=== PATIENT | male | born 1940 | race Caucasian/White ===

== ENCOUNTER 2017-03-27 11:39 | Inpatient (IN) | payer OTHER, MEDICARE ==
[~2017-03-27] VITALS: Ht 175.3 cm; Wt 72.6 kg
[~2017-03-27 11:39] MED LIST: ABILIFY 2MG2 MG PO; ABILIFY 5MG5 MG PO; ADVAIR 250-501 EACH INH; ADVAIR DISKUS1 UNIT INH; ALDACTONE25 MG PO; AMIODARONE HCL100 M1 PO; AMIODARONE HCL200 MG PO; AMITIZA24 MC1 PO; AMITIZA24 MCG PO; AUGMENTIN 875875 MG PO; CARBIDOPA/LEVOD1 TA1 PO; CLOPIDOGREL75 MG PO; CORDARONE 100M100 MG PO; COREG 3.125M3.125 MG PO; DIGOXIN125 MCG PO; EFFEXOR XR150 M1 PO; ENALAPRIL20 MG PO; ENALAPRIL5 MG PO; FERROUS SULFAT325 M1 PO; FERROUS SULFAT325 M3 PO; FINASTERIDE5 MG PO; FUROSEMIDE20 M1 PO; FUROSEMIDE40 M1 PO; FUROSEMIDE40 MG PO; ISOSORBIDE MONO30 M1 PO; KEPPRA XR750 MG PO; KEPPRA750 MG PO; LASIX20 MG PO; LASIX40 MG PO; LEADER MELATONIN5 MG PO; LEVOTHROID0.025 MG PO; LEVOTHYROXIN0.088 M1 PO; LEVOTHYROXINE100 MC1 PO; LIPITOR20 M2 PO; LUMIGAN 2.5 ML2.5 M1 OPH; MELATONIN5 M5 PO; METFORMIN HCL500 M3 PO; MIRTAZAPINE15 M2 PO; NASONEX17 GM NASB; PREDNISONE 10MG10 M1 PO; PREDNISONE10 M2 PO; PRILOSEC 20MG C20 MG PO; REMERON 15MG TA15 MG PO; REMERON 7.5MG7.5 MG PO; SENNA8.6 M1 PO; SPIRONOLACTONE25 MG PO; VENTOLIN HFA18 GM INH; XALATAN2.5 ML OPH; XARELTO20 M2 PO
--- NOTE | 2017-03-27 12:00 | NUR ---
PER PT DIZZY FOR AWHILE THIS AM FELL NO LOC BUT HAVING PAIN
--- NOTE | 2017-03-27 12:21 | NUR ---
PT REPORTS FALLING AT HOME THIS MORNING, DENIES LOC OR PAIN. PLACED ON MONITOR AND CHANGED INTO GOWN. AT BEDSIDE
[2017-03-27] MEDS ORDERED: ENTRESTO 97 MG1 EACH PO (12:45)
[2017-03-27] MEDS ORDERED: ENALAPRIL MALEAT5 M1 PO (12:49)
--- NOTE | 2017-03-27 13:28 | ED MVC/FALL/TRAUMA COMPLAINT ---
History of Present Illness General Chief Complaint: Fall Stated Complaint: DIZZINESS/FALL BACK PAIN Source: patient Exam Limitations: no limitations Vital Signs & Intake/Output Vital Signs & Intake/Output Vital Signs Date Time Temp Pulse Resp B/P B/P Pulse O2 O2 Flow FiO2 Mean Ox Delivery Rate 03/278 95.5 80 20 99/56 96 Room Air 03/27 1600 96.8 78 24 90/48 03/27 1323 98.2 80 20 112/54 95 Room Air 03/27 1222 85 20 109/52 94 Room Air 03/27 1202 97.9 81 22 95/54 94 Room Air Allergies Coded Allergies: NO KNOWN ALLERGIES (NO) (02/22/15) Reconcile Medications Amiodarone HCl 100 MG TABLET 1 TAB PO DAILY HEART (Reported) Atorvastatin Calcium (Lipitor) 20 MG TABLET 1 TAB PO DAILY CHOLESTEROL ( Reported) Digoxin 125 MCG TABLET 1 TAB PO DAILY HEART (Reported) Enalapril Maleate 5 MG TABLET 1 TAB PO DAILY BP (Reported) Ferrous Sulfate 325 MG (65 MG IRON) TABLET 1 TAB PO TID SUPPLEMENT (Reported) Fluticasone/Salmeterol (Advair 250-50 Diskus) 1 EACH BLST.W.DEV 1 PUF INH PRN COPD (Reported) Furosemide 20 MG TABLET 1 TAB PO MoWeFr WATER PILL (Reported) Furosemide 40 MG TABLET 1 TAB PO TuTh WATER PILL (Reported) Isosorbide Mononitrate (Isosorbide Mononitrate ER) 30 MG TAB.ER.24H 1 TAB PO BID ANGINA (Reported) Latanoprost (Xalatan) 2.5 ML DROPS 1 GTT OPH QPM BOTH EYES (Reported) Levothyroxine Sodium 100 MCG TABLET 1 TAB PO DAILY AC THYROID (Reported) Lubiprostone (Amitiza) 24 MCG CAPSULE 1 CAP PO BID PRN GI (Reported) Melatonin 5 MG CAPSULE 1 CAP PO QPM SLEEP (Reported) Metformin HCl 500 MG TABLET 1 TAB PO DAILY DIABETES (Reported) Mirtazapine 15 MG TABLET 1 HTAB PO DAILY DEPRESSION (Reported) Mometasone Furoate (Nasonex) 17 GM SPRAY.PUMP 2 SPRAY NASB PRN ALLERGIES ( Reported) Rivaroxaban (Xarelto) 20 MG TABLET 1 TAB PO QPM BLOOD THINNER (Reported) with food Sacubitril/Valsartan (Entresto 97 MG-103 MG Tablet) 97 MG-103 MG TABLET 1 TAB PO BID HEART (Reported) Spironolactone (Aldactone) 25 MG TABLET 1 TAB PO DAILY WATER PILL (Reported) Venlafaxine HCl (Effexor XR) 150 MG CAP.ER.24H 1 CAP PO DAILY DEPRESSION ( Reported) Triage Note: PER PT DIZZY FOR AWHILE THIS AM FELL NO LOC BUT HAVING PAIN Triage Nurses Notes Reviewed? yes Onset: Abrupt Timing: single episode today Severity: severe Injuries/Fall Location: head Method of Injury: fall Loss of Consciousness: brief (seconds) HPI: Patient presents for evaluation status post fall at home. Patient states he feels he lost consciousness briefly during the event. He denies any associated traumatic injury. He has no specific complaint at this time. He denies any associated fever, cold symptoms, chest pain, shortness of breath or abdominal pain. He likewise denies neck or back pain. Past History Travel History Traveled to [place] past 21 day No Medical History Any Pertinent Medical History? 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 SISTER ([place] AT 60). SISTER (DEPRESSION). SISTER (TREMORS). Relation not specified for: *No pertinent family history Hx Contributory? No Review of Systems Review of Systems Constitutional: Reports: no symptoms. Eyes: Reports: no symptoms. Ears, Nose, Throat, Mouth: Reports: no symptoms. Respiratory: Reports: no symptoms. Cardiovascular: Reports: see HPI. Gastrointestinal/Abdominal: Reports: no symptoms. Genitourinary: Reports: no symptoms. Musculoskeletal: Reports: no symptoms. Skin: Reports: no symptoms. Neurological/Psychological: Reports: no symptoms. All Other Systems: Reviewed and Negative Physical Exam Physical Exam General Appearance: SEE BELOW Comments: Gen.: Well-nourished, well-developed, no acute respiratory distress. Head: Normocephalic, atraumatic. Eyes: Normal inspection bilaterally Ears: Normal inspection bilaterally Nose: Normal inspection Throat/mouth : Moist mucosa Neck: Supple, full range of motion, no goiter Heart: Regular rate and rhythm, no murmurs rubs or gallops Lungs: Clear to auscultation bilaterally with normal air entry Chest: Nontender Back: Normal range of motion Abdomen: Soft, nontender, nondistended, normal bowel sounds Extremities: Normal range of motion grossly, equal radial pulses, no cyanosis clubbing or edema, gross tremors of the extremities Neurologic: Cranial nerves grossly intact, dysarthric the patient otherwise answers questions appropriately. Skin: warm and dry Psychiatric: Calm, cooperative, no apparent delusions or hallucinations Core Measures ACS in differential dx? No Severe Sepsis Present: No Septic Shock Present: No Progress Differential Diagnosis: TRAUMA, DYSRHYTHMIA, DEHYDRATION, ELECTROLYTE ABNORMALITY Plan of Care: Orders Procedure Date/time Status Consistent Carbohydrate 1 03/28 B Active Misc Message 03/27 1947 Active ED Holding Orders 03/27 1947 Active Vital Signs 03/27 1947 Active Code Status 03/27 1947 Active Admit to inpatient 03/27 1946 Active URINALYSIS 03/27 1325 Complete THYROID STIMULATING HORMONE 03/27 1325 Complete TROPONIN LEVEL 03/27 1325 Complete MAGNESIUM 03/27 1325 Complete COMPREHENSIVE METABOLIC PANEL 03/27 1325 Complete CBC WITHOUT DIFFERENTIAL 03/27 132 Complete EKG 03/27 1143 Active Laboratory Tests 03/27/17 1630: Urine Color YEL, Urine Clarity CLEAR, Urine pH 6.0, Ur Specific [place] 1.020, Urine Protein NEG, Urine Ketones NEG, Urine Nitrite NEG, Urine Bilirubin NEG, Urine Urobilinogen 0.2, Ur Leukocyte Esterase SMALL H, Ur Microscopic SEDIMENT EXAMINED, Urine RBC 1-3, Urine WBC 3-5 H, Ur Epithelial Cells FEW, Urine Bacteria FEW H, Hyaline Casts 1-3 H, Urine Hemoglobin TRACE-INTACT H, Urine Glucose NEG 03/27/17 1349: Anion Gap 14, Estimated GFR 42 L, BUN/Creatinine Ratio 26.9 H, Glucose 81, Calcium 9.2, Magnesium 2.1, Total Bilirubin 0.6, AST 22, ALT 38, Alkaline Phosphatase 59, Troponin I 0.02, Total Protein 6.8, Albumin 4.3, Globulin 2.5, Albumin/Globulin Ratio 1.7, TSH 1.190, CBC w Diff NO MAN DIFF REQ, RBC 4.11 L, MCV 97.4 H, MCH 33.3 H, RDW 13.3, MPV 8.4, Gran % 79.9 H, Lymphocytes % 7.5 L, Monocytes % 12.0 H, Eosinophils % 0.2, Basophils % 0.4, Absolute Granulocytes 5.2, Absolute Lymphocytes 0.5 L, Absolute Monocytes 0.8 H, Absolute Eosinophils 0, Absolute Basophils 0, PUBS MCHC 34.2 Comments: 03/27/2017 7:49:59 PM I have updated Gabriel on his test results earlier this evening and discussed his case with the hospitalist. Departure Departure Disposition: STILL A PATIENT Condition: Stable Clinical Impression Primary Impression: RADHA (acute kidney injury) Secondary Impressions: Syncope Qualifiers: Syncope type: unspecified Qualified Code: R55 - Syncope and collapse Referrals: CHANTAL SEGAL,JOSE JUAN Yun (PCP/Family) Departure Forms: Customer Survey General Discharge Information Admission Note Spoke With: MAGGIE QUINTANA MD Documentation of Exam: Documentation of any treatments & extenuating circumstances including Concerns Regarding Discharge (functional status, medication knowledge or non-compliance, living conditions, etc.) that warrant an admission rather than observation: Patient fell as a result of a syncopal episode raising the concern of a dysrhythmia and drop in blood pressure. Acute kidney injury likely the result of poor PO intake exacerbated the situation. It is clear the patient is a high fall risk and is therefore a poor candidate for outpatient management given the likelihood of falling with subsequent injury. I feel this patient now requires hospitalization for IV fluids and monitoring of renal functions. I feel he should also have a physical therapy consultation and evaluation by a neurologist given his history of CVA and Parkinson disease. Given this patient's advanced age and multiple medical comorbidities I feel his treatment and recovery will likely be prolonged and complicated requiring a multi-day hospitalization.
--- NOTE | 2017-03-27 13:34 | NUR ---
RADIOLOGY TO BEDSIDE, PT REFUSING X-RAY TO BACK STATES "MY BACK DOESN'T HURT ME." DR. LYNCH UPDATED THAT PT IS REFUSING X-RAYS.
[2017-03-27 13:53] LABS: ABSOLUTE BASOPHIL COUNT 0 /CUMM (0.0-0.2); ABSOLUTE EOSINOPHIL COUNT 0 /CUMM (0.0-0.7); ABSOLUTE GRANULOCYTE CT 5.2 /CUMM (1.4-6.5); ABSOLUTE LYMPH COUNT 0.5 /CUMM (1.2-3.4); ABSOLUTE MONOCYTE COUNT 0.8 /CUMM (0.10-0.60); BASOPHIL % 0.4 % (0.0-2.0); EOSINOPHIL % 0.2 % (0-5); GRANULOCYTE % 79.9 % (42.2-75.2); MEAN CORPUSCULAR HGB 33.3 PG (27.0-31.0); MEAN CORPUSCULAR HGB CONC 34.2 G/DL (33.0-37.0); MEAN CORPUSCULAR VOLUME 97.4 FL (80.0-94.0); MEAN PLATELET VOLUME 8.4 FL (7.4-10.4); PLATELET COUNT 181 /CUMM (130-400); RBC DISTRIBUTION WIDTH 13.3 % (11.5-14.5); RED BLOOD CELL CT 4.11 /CUMM (4.70-6.10); WHITE BLOOD CELL COUNT 6.5 /CUMM (4.8-10.8)
--- NOTE | 2017-03-27 15:28 | NUR ---
, ANAHI [phone] PLEASE CALL WITHY UPDATES OR DISCHARGE PLAN.
--- NOTE | 2017-03-27 15:56 | NUR ---
MOVED TO [facility] URINE
--- NOTE | 2017-03-27 16:13 | NUR ---
PT HAS PARKINSONIAN TYPE TONGUE ROLLING MOVEMENTS. PT DENIES DIZZYNESS. WILL ATTEMPT ORTHOSTATICS.
--- NOTE | 2017-03-27 16:36 | NUR ---
PT VOIDED 200 [facility]CS URINE SPEC SENT.
--- NOTE | 2017-03-27 17:11 | NUR ---
03/27 CASE MGMT- PER PT AT BASELINE HE AMBULATES WITH NO DIFFICULTIES AND NO ASSISTANCE.
--- NOTE | 2017-03-27 20:06 | History & Physical ---
RAYSHAWN EVANS 03/27/17 2005: General Information and HPI MD Statement: I have seen and personally examined RASHAWN WELLINGTON and documented this H&P. The patient is a 76 year old M who presented with a patient stated chief complaint of [dizziness, fall and possible LOC]. Source of Information: patient, old records Exam Limitations: no limitations History of Present Illness: Mr Wellington is a very pleasant 76-year-old gentleman with a PMH of Parkinson's disease, HFrEF (echocardiogram 05/15/15 LVEF 25-30%, LVH, RVSP 37 mmHg), A. 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 He mentions that he was walking to get a drink of water this afternoon around 12 PM but unexpectedly he experienced some dizziness followed by a fall landing on his right elbow and knee, striking his head on the ground. He is unsure if he did suffer an episode of loss of consciousness. He denies any preceding/ associated chest pain, palpitations, new onset weakness or numbness in any extremities, urinary/bowel incontinence, headaches, choking sensation on liquids. He does report an episode last night lasting a few seconds with difficulty seeing things in his living room/disorientation that resolved on its own. At baseline he is independent with ADLs and takes all his medications on a regular basis. Allergies/Medications Allergies: Coded Allergies: NO KNOWN ALLERGIES (NO) (02/22/15) Home Med list Amiodarone HCl 100 MG TABLET 1 TAB PO DAILY HEART (Reported) Atorvastatin Calcium (Lipitor) 20 MG TABLET 1 TAB PO DAILY CHOLESTEROL ( Reported) Digoxin 125 MCG TABLET 1 TAB PO DAILY HEART (Reported) Enalapril Maleate 5 MG TABLET 1 TAB PO DAILY BP (Reported) Ferrous Sulfate 325 MG (65 MG IRON) TABLET 1 TAB PO TID SUPPLEMENT (Reported) Fluticasone/Salmeterol (Advair 250-50 Diskus) 1 EACH BLST.W.DEV 1 PUF INH PRN COPD (Reported) Furosemide 20 MG TABLET 1 TAB PO MoWeFr WATER PILL (Reported) Furosemide 40 MG TABLET 1 TAB PO TuTh WATER PILL (Reported) Isosorbide Mononitrate (Isosorbide Mononitrate ER) 30 MG TAB.ER.24H 1 TAB PO BID ANGINA (Reported) Latanoprost (Xalatan) 2.5 ML DROPS 1 GTT OPH QPM BOTH EYES (Reported) Levothyroxine Sodium 100 MCG TABLET 1 TAB PO DAILY AC THYROID (Reported) Lubiprostone (Amitiza) 24 MCG CAPSULE 1 CAP PO BID PRN GI (Reported) Melatonin 5 MG CAPSULE 1 CAP PO QPM SLEEP (Reported) Metformin HCl 500 MG TABLET 1 TAB PO DAILY DIABETES (Reported) Mirtazapine 15 MG TABLET 1 HTAB PO DAILY DEPRESSION (Reported) Mometasone Furoate (Nasonex) 17 GM SPRAY.PUMP 2 SPRAY NASB PRN ALLERGIES ( Reported) Rivaroxaban (Xarelto) 20 MG TABLET 1 TAB PO QPM BLOOD THINNER (Reported) with food Sacubitril/Valsartan (Entresto 97 MG-103 MG Tablet) 97 MG-103 MG TABLET 1 TAB PO BID HEART (Reported) Spironolactone (Aldactone) 25 MG TABLET 1 TAB PO DAILY WATER PILL (Reported) Venlafaxine HCl (Effexor XR) 150 MG CAP.ER.24H 1 CAP PO DAILY DEPRESSION ( Reported) Past History Travel History Traveled to [place] past 21 day No Medical History Neurological: CVA, Parkinson's disease, seizure, TIA, RIGHT SIDED WEAKNESS EENT: NONE Cardiovascular: AFIB, CAD, cardiomyopathy, CHF, hypertension Respiratory: asthma, COPD Gastrointestinal: GASTRITIS GI BLEED Hepatic: NONE Renal: NONE Musculoskeletal: NONE Psychiatric: bipolar disease Endocrine: diabetes, hypothyroidism Blood Disorders: anemia Cancer(s): NONE 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 SISTER ([place] AT 60). SISTER (DEPRESSION). SISTER (TREMORS). Relation not specified for: *No pertinent family history Psychosocial History Services at Home: None Functional Ability ADLs Independent: dressing, eating, toileting, bathing. Ambulation: cane (NON-COMPLIANT) IADLs Needs Assist: shopping, housework, finances, food prep, telephone, transportation, medication admin. Review of Systems Review of Systems Constitutional: Reports: see HPI. EENTM: Reports: see HPI. Cardiovascular: Reports: no symptoms. Respiratory: Reports: no symptoms. GI: Reports: no symptoms. Genitourinary: Reports: no symptoms. Musculoskeletal: Reports: see HPI. Neurological/Psychological: Reports: see HPI. Exam & Diagnostic Data Last 24 Hrs of Vital Signs/I&O Vital Signs Date Time Temp Pulse Resp B/P B/P Pulse O2 O2 Flow FiO2 Mean Ox Delivery Rate 03/27 1928 95.5 80 20 99/56 96 Room Air 03/27 1600 96.8 78 24 90/48 03/27 1323 98.2 80 20 112/54 95 Room Air 03/27 1222 85 20 109/52 94 Room Air 03/27 1202 97.9 81 22 95/54 94 Room Air Intake & Output 03/27 1600 03/27 0800 03/27 0000 Intake Total Output Total Balance Patient 160 lb Weight Physical Exam General Appearance Alert, Oriented X3, Cooperative, No Acute Distress Skin mild superficial bruising on the right elbow HEENT Mucous membranes slightly dry Cardiovascular Normal S1, Normal S2, Irregularly irregular rhythm Lungs Normal Air Movement, Diminished breath sounds in basilar region. No evidence of crackles or wheezing Abdomen Normal Bowel Sounds, Soft, No Tenderness Neurological Sensation Intact, Cranial Nerves 3-12 NL, Strength 4/5 RUE, 5/5 in all other extremities. Unable to assess dysmmetri adue to baseline tremor Extremities No Edema, Normal Pulses Vascular Pulses Symmetrical Last 24 Hrs of Labs/Ayaan: Laboratory Tests 03/27/17 1630: Urine Color YEL, Urine Clarity CLEAR, Urine pH 6.0, Ur Specific [place] 1.020, Urine Protein NEG, Urine Ketones NEG, Urine Nitrite NEG, Urine Bilirubin NEG, Urine Urobilinogen 0.2, Ur Leukocyte Esterase SMALL H, Ur Microscopic SEDIMENT EXAMINED, Urine RBC 1-3, Urine WBC 3-5 H, Ur Epithelial Cells FEW, Urine Bacteria FEW H, Hyaline Casts 1-3 H, Urine Hemoglobin TRACE-INTACT H, Urine Glucose NEG 03/27/17 1349: Anion Gap 14, Estimated GFR 42 L, BUN/Creatinine Ratio 26.9 H, Glucose 81, Calcium 9.2, Magnesium 2.1, Total Bilirubin 0.6, AST 22, ALT 38, Alkaline Phosphatase 59, Troponin I 0.02, Total Protein 6.8, Albumin 4.3, Globulin 2.5, Albumin/Globulin Ratio 1.7, TSH 1.190, CBC w Diff NO MAN DIFF REQ, RBC 4.11 L, MCV 97.4 H, MCH 33.3 H, RDW 13.3, MPV 8.4, Gran % 79.9 H, Lymphocytes % 7.5 L, Monocytes % 12.0 H, Eosinophils % 0.2, Basophils % 0.4, Absolute Granulocytes 5.2, Absolute Lymphocytes 0.5 L, Absolute Monocytes 0.8 H, Absolute Eosinophils 0, Absolute Basophils 0, PUBS MCHC 34.2 Diagnostic Data EKG Results Ventricular paced rhythm. HR 84 BPM. RI interval 164. QTC 473 Assessment/Plan Assessment: 76-year-old gentleman with a PMH of Parkinson's disease, HFrEF (echocardiogram LVEF 25-30%, LVH, RVSP 37 mmHg), A. 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 He mentions that he was walking to get a drink of water this afternoon around 12 PM but unexpectedly he experienced some dizziness followed by a fall landing on his right elbow and knee, striking his head on the ground. He is unsure if he did suffer an episode of loss of consciousness. He denies any preceding/ associated chest pain, palpitations, new onset weakness or numbness in any extremities, urinary/bowel incontinence, headaches, choking sensation on liquids. He does report an episode last night lasting a few seconds with difficulty seeing things in his living room/disorientation that resolved on its own. VS on admission: BP 95/54, HR 81, RR 20, SPO2 94% on RA, T 97.9 Pertinent labs on admission: WBC 6.5, H&H 13.7/40.0, platelets 181, sodium 141, potassium 4.7, bicarbonate 24, BUN/CR 43/1.6, glucose 81 Troponin: 0.02 UA: Small amount of leukocyte esterase, few bacteria Problem list: 1. Syncopal episode 2. Hypotension 3. RADHA 4. HFrEF (echocardiogram 05/15/15 LVEF 25-30%, LVH, RVSP 37 mmHg) 5. History of A. fib 6. History of CAD S/P angioplasty and biventricular permanent pacemaker/ defibrillator 7. History of CVA with residual deficits 8. Hypertension 9. Diabetes 10. Hypothyroidism Plan: * Admit to telemetry for continuous cardiac monitoring * Rule out ACS with repeat EKG/troponin at 9 PM and 3 AM * Cardiology consult for the a.m. discuss utility for pacemaker interrogation * Repeat echocardiogram in the AM * Dos adjust Xarelto from 20mg to 15mg based on GFR * Head CT to rule out intracranial bleed in the setting of fall and anticoagulation. Neurochecks Q2hrs * Hold Lasix and enresto in the setting of acute kidney injury and borderline hypertension * Orthostatics in the a.m. Patient received 1 L fluid resuscitation thus far. We'll be conservative in the setting of reduced EF * Follow-up digoxin level, lipid panel * Consistent carbohydrate 3, insulin sliding scale, Accu-Cheks * PT to assess the patient in the morning * AM team: Confirm dose of Entresto with cardiology * DVT prophylaxis: Xarelto * DNR/DNI * Psych consult in AM * Case management for home services to assist with medications UPDATE FROM PATIENTS SON: * Intermittent episodes of unprovoked dizziness preceeding 5 weeks * Difficulty seeing the closk the past 2 days * 1 year duration of progressive difficulty with ambulation, managing medications * Less active the past 4-5 weeks since his had surgery. ?? depression * Pradeep Ulysses Chaimsarahtamika: states that he is POA and will bring documentation in tomorrow * Contact him at As Ranked By This Provider Problem List: 1. Syncope Qualifiers Syncope type: unspecified Qualified Code: R55 - Syncope and collapse 2. Hypotension 3. RADHA (acute kidney injury) 4. HFrEF (heart failure with reduced ejection fraction) 5. Atrial fibrillation Core Measures/Miscellaneous Acute Coronary Syndrome ACS Diagnosis: No Cerebrovascular Accident CVA/TIA Diagnosis: No Congestive Heart Failure CHF Diagnosis: No Venous Thromboembolism VTE Risk Factors: Age > 40 [facility] d/t: No contraindications No VTE Pharm Prophylaxis d/t: No contraindications VTE Diagnosis: No VTE Type: NONE VTE Confirmed by (Test): NONE Severe Sepsis Severe Sepsis Present: No Septic Shock Septic Shock Present: No Miscellaneous Documentation Attending Case Discussed With: MAGGIE QUINTANA MD Primary Care Physician: JOSE JUAN CORNEJO MD Patient sees these Specialists Dr. Perez (cardiology) Level of Patient Care: Telemetry Resident Review Statement Resident Statement: examined this patient, discussed with customer experience intern, agreed with customer experience intern, discussed with family, reviewed EMR data (avail), discussed with nursing , reviewed images MAGGIE QUINTANA 03/28/17 0231: Attending MD Review Statement Attending Statement Attending MD Statement: examined this patient, discuss w/resident/PA/HEALTH OCCUPATIONS INSTRUCTOR, agreed w/resident/PA/HEALTH OCCUPATIONS INSTRUCTOR, reviewed EMR data (avail), reviewed images, amended to note Attending Assessment/Plan: cc: Dizziness, Fall, passing out PMH: COPD, HFrEF (25-30%), S/P pacer and ICD, CAD S/P multiple PCI and [place], CVA with residual right-sided deficit, A. fib, bipolar disorder, DM, HTN, ? Extrapyramidal movement disorder Patient was brought in ER after fall. Patient says that patient felt a little dizzy and then he fell down and may have passed out. He hit his right elbow and right knee along with head. Patient denies any chest pain, shortness of breath, palpitations before or after fall currently denies any headache or vision problems. Last few days patient denied any nausea, vomiting or diarrhea. The night before patient had transient disorientation, blurry vision episode for a few seconds. Patient does not report taking extra doses of Lasix, no other changes Vitals: Afebrile, HR in 80s, RR 22, blood pressure 95/54 on presentation, transiently improved in ER but then again in 90/40 received 1 L normal saline bolus improved to 122/58. On exam: A O 3, dysarthria, continuous lipsmacking movements, cooperative, no acute distress, neck supple, JVD normal, no lymphadenopathy, mucosa dry, intermittent tremors, right upper extremity and lower extremity residual weakness, no dependent edema, no obvious skin rashes or inflammation CVS: S1-S2, irregular. RS: Clear to auscultate bilaterally. Abdomen: Soft, NT, ND, bowel sounds present. Labs: CBC unremarkable, BUN 43, creatinine 1.6, otherwise BMP and LFT unremarkable, troponin 0.02 UA positive for leukocyte esterase CT head:No evidence for acute intracranial injury. Stable left-sided and septal malacia. EKG: Paced rhythm A and P Patient came to ER with what appears to be presyncopal or syncopal episode. At the given extensive cardiac history patient will need further evaluation for syncope. Patient had obviously low blood pressures at presentation. Patient appears clinically dehydrated and currently on Lasix at home. Apart from volume contraction secondary to diuresis , there might be a possibility of orthostatic hypotension related to movement disorder. Patient received 1 L normal saline bolus in ER. Given his heart failure history with seizures and reduced ejection fraction, no further IV fluids at this point as her pressure is stable. * Syncope * Transient hypotension * RADHA * History of CAD * HFrEF (25-30%), S/P pacer and ICD * History of CVA, movement disorder, DM, HTN, A. fib, COPD, ex-smoker - Admit to telemetry - Continuous telemetry monitoring - Saline lock IV - Orthostatic vitals in a.m. - Hold Lasix - Consult cardiology in a.m. - ? Interrogation of pacemaker and ICD - 2-D echo in a.m. to rule out valvular disorder - OT PT evaluation - post void scan to r/o obstructin - I and O s - Repeat labs in AM - Continue sliding scale insulin - Check decubs and level - Hold enalapril and Entreto - Continue rest of his home medication including Synthroid, spironolactone, amiodarone, digoxin, Imdur, atorvastatin, Xeralto, - DVT prophylaxis: On Xeralto
--- NOTE | 2017-03-27 20:40 | NUR ---
PT TO ROOM 189 BED 1
--- NOTE | 2017-03-27 21:18 | NUR ---
2ND TROP AND EKG DONE AWAITS HEAD CT.
--- NOTE | 2017-03-27 21:20 | NUR ---
REPEAT EKG AND TROP DONE
--- NOTE | 2017-03-27 21:40 | NUR ---
REPORT TO [facility], WILL OBTAIN VS AND PERFORM FS, THEN TRANSPORT AFTER 2200 MEDS GIVEN PHARMACY COOLECTING MEDS AT THIS TIME.
--- NOTE | 2017-03-27 21:55 | CT SCAN REPORT ---
EXAMINATION: CT HEAD WITHOUT CONTRAST CLINICAL INFORMATION: Loss of consciousness after fall. Trauma. COMPARISON: 02/22/2015. TECHNIQUE: Contiguous helical images of the brain were obtained without IV contrast. Multiplanar reconstructions were performed. DLP: 702 mGy-cm. FINDINGS: There are no pathologic extra-axial fluid collections. The lateral, third, fourth ventricles are prominent, but stable, age-appropriate and concordant with the appearance of the sulci. There is no evidence for acute intraparenchymal hemorrhage or infarct. There is neither mass nor mass effect. There is left MCA distribution encephalomalacia again identified. There is no shift of midline structures. The paranasal sinuses and mastoid air cells are clear. There are no osseous lesions. IMPRESSION: No evidence for acute intracranial injury. Stable left-sided and septal malacia.
--- NOTE | 2017-03-27 22:29 | NUR ---
MEDS GIVEN PER ORDER JUST DISPENSED BY [facility] IN PHARMACY.
[2017-03-27 22:45] VITALS: BP 94/50
--- NOTE | 2017-03-28 02:34 | Admission Certification ---
Admission Certification Certification Statement - As attending physician, I certify that at the time of - admission, based on clinical presentation, severity of - symptoms, need for further diagnostic testing and - therapeutic interventions, and risk of adverse outcomes - without in-hospital treatment, in my clinical assessment, - this patient requires an acute hospital stay for a minimum - of two nights or longer. I have also considered psychsocial - factors such as support system, advanced age, financial - issues, cognitive issues, and failed out-patient treatments, - past re-admission history, safety of patient, and lack of - compliance as applicable. Specific rationale supporting this admission is: Syncope, fall, RADHA
[2017-03-28 03:25] LABS: ABSOLUTE BASOPHIL COUNT 0 /CUMM (0.0-0.2); ABSOLUTE EOSINOPHIL COUNT 0 /CUMM (0.0-0.7); ABSOLUTE GRANULOCYTE CT 3.9 /CUMM (1.4-6.5); ABSOLUTE LYMPH COUNT 0.7 /CUMM (1.2-3.4); ABSOLUTE MONOCYTE COUNT 0.6 /CUMM (0.10-0.60); BASOPHIL % 0.5 % (0.0-2.0); EOSINOPHIL % 0.7 % (0-5); GRANULOCYTE % 74.5 % (42.2-75.2); HEMATOCRIT 38.5 % (42-52); MEAN CORPUSCULAR HGB 33.3 PG (27.0-31.0); MEAN CORPUSCULAR HGB CONC 33.5 G/DL (33.0-37.0); MEAN CORPUSCULAR VOLUME 99.4 FL (80.0-94.0); MEAN PLATELET VOLUME 8.5 FL (7.4-10.4); PLATELET COUNT 164 /CUMM (130-400); RBC DISTRIBUTION WIDTH 13.4 % (11.5-14.5); RED BLOOD CELL CT 3.87 /CUMM (4.70-6.10); WHITE BLOOD CELL COUNT 5.3 /CUMM (4.8-10.8)
--- NOTE | 2017-03-28 07:05 | PN- Housestaff ---
See Addendum Subjective Follow-up For: Single episode Hypotension Acute kidney injury HFrEF (echocardiogram 05/15/15 LVEF 25-30%, LVH, RVSP 37 mmHg) Complaints: no complaints Tele-Events Since Last Visit: Single paced, bundle-branch block, 79-84 bpm Subjective: Interval history: There are no acute events overnight. This morning Mr. Watkins mentions that he was unable to sleep through the night due to multiple distractions. He denies any dizziness, headaches, worsening in his vision, chest pain, palpitations, shortness of breath, fevers or chills. Review of Systems Constitutional: Reports: see HPI. EENTM: Reports: see HPI. Cardiovascular: Reports: no symptoms. Respiratory: Reports: no symptoms. Gastrointestinal: Reports: no symptoms. Musculoskeletal: Reports: no symptoms. Objective Last 24 Hrs of Vital Signs/I&O Vital Signs Date Time Temp Pulse Resp B/P B/P Pulse O2 O2 Flow FiO2 Mean Ox Delivery Rate 03/28 0819 97.6 81 18 98/62 94 Room Air 03/27 2245 97.6 78 18 94/50 96 Room Air 03/27 2230 97.0 81 20 122/58 03/27 2149 97.0 81 20 122/58 95 Room Air 03/27 1928 95.5 80 20 99/56 96 Room Air 03/27 1600 96.8 78 24 90/48 03/27 1323 98.2 80 20 112/54 95 Room Air 03/27 1222 85 20 109/52 94 Room Air 03/27 1202 97.9 81 22 95/54 94 Room Air Intake & Output 03/28 1600 03/28 0800 03/28 0000 Intake Total 250 Output Total 350 420 Balance -100 -420 Intake, IV 0 Intake, Oral 250 Number 0 Bowel Movements Output, Urine 350 420 Patient 160 lb Weight Weight Reported by Patient Measurement Method Physical Exam General Appearance: Alert, Cooperative, No Acute Distress HEENT: Mucous Membr. moist/pink Cardiovascular: Normal S1, Normal S2, Irregularly irregular HR Lungs: Normal Air Movement, Inspiratory stridor in the basilar regions Abdomen: Normal Bowel Sounds, Soft, No Tenderness Extremities: No Edema, Normal Pulses Current Medications: Current Medications Sig/Hamida Start time Last Medication Dose Route Stop Time Status Admin Acetaminophen 650 MG Q6P PRN 03/27 2045 AC PO Amiodarone HCl 100 MG DAILY 03/28 1000 AC PO Atorvastatin Calcium 20 MG DAILY 03/28 1000 AC PO Budesonide/ 2 PUF BID 03/27 2200 AC 03/27 Formoterol Fumarate INH 2230 Digoxin 0.125 MG 1700 03/28 1700 AC PO Ferrous Sulfate 325 MG TID 03/27 220 AC 03/27 PO 2230 Insulin Aspart 0 TIDAC 03/28 0800 AC SC Isosorbide 30 MG BID 03/27 2200 AC 03/27 Mononitrate PO 2230 Latanoprost 1 GTT QPM 03/27 2200 AC 03/27 OPH 2352 Levothyroxine Sodium 0.1 MG DAILY AC 03/28 0700 AC 03/28 PO 0627 Lisinopril 10 MG DAILY 03/28 1000 AC PO Melatonin 5 MG AT BEDTIME 03/27 2200 AC 03/27 PO 2230 Mirtazapine 7.5 MG DAILY 03/28 1000 AC PO Oxycodone/ 1 TAB Q6P PRN 03/27 2045 AC Acetaminophen PO Oxycodone/ 2 TAB Q6P PRN 03/27 2045 AC Acetaminophen PO Rivaroxaban 15 MG AT BEDTIME 03/27 2200 AC 03/27 PO 2230 Sodium Chloride 1,000 ML BOLUS ONE 03/27 1615 DC 03/27 IV 03/27 1714 1625 Venlafaxine HCl 150 MG DAILY 03/28 1000 AC PO Last 24 Hrs of Lab/Ayaan Results Last 24 Hrs of Labs/Mics: Laboratory Tests 03/28/17 0305: Troponin I 0.02 03/28/17 0305: Anion Gap 9, Estimated GFR 59 L, BUN/Creatinine Ratio 26.7 H, Phosphorus 3.1, Magnesium 2.0, Triglycerides 100, Cholesterol 134, LDL Cholesterol, Calc 79, HDL Cholesterol 35 L, Cholesterol/HDL Ratio 4, CBC w Diff NO MAN DIFF REQ, RBC 3.87 L, MCV 99.4 H, MCH 33.3 H, RDW 13.4, MPV 8.5, Gran % 74.5, Lymphocytes % 12.5 L, Monocytes % 11.8 H, Eosinophils % 0.7, Basophils % 0.5, Absolute Granulocytes 3.9, Absolute Lymphocytes 0.7 L, Absolute Monocytes 0.6, Absolute Eosinophils 0, Absolute Basophils 0, PUBS MCHC 33.5 05/19/17 2120: Troponin I 0.02, Digoxin 1.2 03/27/17 1630: Urine Color YEL, Urine Clarity CLEAR, Urine pH 6.0, Ur Specific [place] 1.020, Urine Protein NEG, Urine Ketones NEG, Urine Nitrite NEG, Urine Bilirubin NEG, Urine Urobilinogen 0.2, Ur Leukocyte Esterase SMALL H, Ur Microscopic SEDIMENT EXAMINED, Urine RBC 1-3, Urine WBC 3-5 H, Ur Epithelial Cells FEW, Urine Bacteria FEW H, Hyaline Casts 1-3 H, Urine Hemoglobin TRACE-INTACT H, Urine Glucose NEG 03/27/17 1349: Anion Gap 14, Estimated GFR 42 L, BUN/Creatinine Ratio 26.9 H, Glucose 81, Calcium 9.2, Magnesium 2.1, Total Bilirubin 0.6, AST 22, ALT 38, Alkaline Phosphatase 59, Troponin I 0.02, Total Protein 6.8, Albumin 4.3, Globulin 2.5, Albumin/Globulin Ratio 1.7, TSH 1.190, CBC w Diff NO MAN DIFF REQ, RBC 4.11 L, MCV 97.4 H, MCH 33.3 H, RDW 13.3, MPV 8.4, Gran % 79.9 H, Lymphocytes % 7.5 L, Monocytes % 12.0 H, Eosinophils % 0.2, Basophils % 0.4, Absolute Granulocytes 5.2, Absolute Lymphocytes 0.5 L, Absolute Monocytes 0.8 H, Absolute Eosinophils 0, Absolute Basophils 0, PUBS MCHC 34.2 Assessment/Plan Assessment: 76-year-old gentleman with a PMH of Parkinson's disease, HFrEF (echocardiogram LVEF 25-30%, LVH, RVSP 37 mmHg), A. 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 He mentions that he was walking to get a drink of water this afternoon around 12 PM but unexpectedly he experienced some dizziness followed by a fall landing on his right elbow and knee, striking his head on the ground. He is unsure if he did suffer an episode of loss of consciousness. He denies any preceding/ associated chest pain, palpitations, new onset weakness or numbness in any extremities, urinary/bowel incontinence, headaches, choking sensation on liquids. He does report an episode last night lasting a few seconds with difficulty seeing things in his living room/disorientation that resolved on its own. Problem list: 1. Syncopal episode 2. Hypotension 3. RADHA 4. HFrEF (echocardiogram 05/15/15 LVEF 25-30%, LVH, RVSP 37 mmHg) 5. History of A. fib 6. History of CAD S/P angioplasty and biventricular permanent pacemaker/ defibrillator 7. History of CVA with residual deficits 8. Hypertension 9. Diabetes 10. Hypothyroidism Plan: 1. Syncopal episode * Negative orthostatics * Cardiology follow-up this morning for possible interrogation of defibrillator * PT evavluation to assess mobility at home 2. Hypotension * Patient's blood pressure has been on the lower side with no evidence of tachycardia 3. RADHA * Improvement in renal function: BUN/CR 32/1.2 down from 43/1.6 after 1 L normal saline * Will encourage PO fluid intake * Repeat renal function tomorrow morning * Continue to hold furosemide and Lasix and restart at lower dose while monitoring for worsening hypertension 4. HFrEF (echocardiogram 05/15/15 LVEF 25-30%, LVH, RVSP 37 mmHg) * Repeat echocardiogram this morning * Cardiology input appreciated * Digoxin level I.2. Continue with current dose of 0.125 mg 5. History of A. fib * Telemetry overnight single paced rhythm, bundle-branch block. HR 79-84 bpm * Patient was previously on Xarelto 20 mg at bedtime which was decreased to 15 mg in the setting of acute kidney injury. Readjust dose back to previous once renal function is at baseline * Continue amiodarone 100 mg daily 6. History of CAD S/P angioplasty and biventricular permanent pacemaker/ defibrillator * Serial troponins have been negative * Follow-up with cardiology for possible pacer interrogation 7. History of CVA with residual deficits * PT and OT evaluation 8. Hypertension * Holding enalapril 9. Diabetes * Consistent carbohydrate 3, insulin sliding scale, Accu-Cheks 10. Hypothyroidism * Continue with levothyroxine 100mcg DVT prophylaxis: Xarelto CODE STATUS: DNR/DNI Problem List: 1. Syncope 2. RADHA (acute kidney injury) 3. Hypotension 4. HFrEF (heart failure with reduced ejection fraction) 5. Atrial fibrillation Pain Ratin Pain Location: NA Pain Goal: Pain 4 or less Pain Plan: Pain pathway Tomorrow's Labs & Rationales: BEP: Trending renal function DVT/Prophylaxis: pharmacological
[2017-03-28 08:19] VITALS: BP 98/62
--- NOTE | 2017-03-28 14:31 | Cons- Cardiology ---
General Information and HPI Consulting Request Date of Consult: 03/28/17 Requested By: MAGGIE QUINTANA MD Reason for Consult: Syncopal episode. Source of Information: patient, family, old records Exam Limitations: physical impairment History of Present Illness: Mr. Gabriel Watkins is a 74-year-old white male with a complex past medical history that includes long-standing former tobacco use, COPD, chronic anemia, recurrent GI bleeding in the past without a definite etiology found, dyslipidemia, diabetes mellitus, previous TIAs/strokes, seizure disorder, chronic atrial fibrillation on anticoagulation, ventricular tachycardia on antiarrhythmic therapy (amiodarone), s/p biventricular pacemaker defibrillator implantation, coronary artery disease s/p percutaneous interventions with angioplasty, s/p myocardial infarctions with known severe ischemic cardiomyopathy (EF 25%) with recurrent acute on chronic systolic heart failure who presented to the ED following a syncopal episode at home. Mr. Watkins denied any prodromal symptoms, but did admit to having episodes of "dizziness" for the past 5 weeks or so and 2 nights prior to admission and 10 second episode of confusion. He has had a good appetite and drinks plenty of fluids and did not have any significant orthostatic changes noted in the ED. He also denies any recent chest discomfort, palpitations, shortness of breath, orthopnea, paroxysmal nocturnal dyspnea, lower extremity edema, etc. He also denies any recent discharges from his defibrillator. Allergies/Medications Allergies: Coded Allergies: NO KNOWN ALLERGIES (NO) (02/22/15) Home Med List: Amiodarone HCl 100 MG TABLET 1 TAB PO DAILY HEART (Reported) Atorvastatin Calcium (Lipitor) 20 MG TABLET 1 TAB PO DAILY CHOLESTEROL ( Reported) Digoxin 125 MCG TABLET 1 TAB PO DAILY HEART (Reported) Enalapril Maleate 5 MG TABLET 1 TAB PO DAILY BP (Reported) Ferrous Sulfate 325 MG (65 MG IRON) TABLET 1 TAB PO TID SUPPLEMENT (Reported) Fluticasone/Salmeterol (Advair 250-50 Diskus) 1 EACH BLST.W.DEV 1 PUF INH PRN COPD (Reported) Furosemide 20 MG TABLET 1 TAB PO MoWeFr WATER PILL (Reported) Furosemide 40 MG TABLET 1 TAB PO TuTh WATER PILL (Reported) Isosorbide Mononitrate (Isosorbide Mononitrate ER) 30 MG TAB.ER.24H 1 TAB PO BID ANGINA (Reported) Latanoprost (Xalatan) 2.5 ML DROPS 1 GTT OPH QPM BOTH EYES (Reported) Levothyroxine Sodium 100 MCG TABLET 1 TAB PO DAILY AC THYROID (Reported) Lubiprostone (Amitiza) 24 MCG CAPSULE 1 CAP PO BID PRN GI (Reported) Melatonin 5 MG CAPSULE 1 CAP PO QPM SLEEP (Reported) Metformin HCl 500 MG TABLET 1 TAB PO DAILY DIABETES (Reported) Mirtazapine 15 MG TABLET 1 HTAB PO DAILY DEPRESSION (Reported) Mometasone Furoate (Nasonex) 17 GM SPRAY.PUMP 2 SPRAY NASB PRN ALLERGIES ( Reported) Rivaroxaban (Xarelto) 20 MG TABLET 1 TAB PO QPM BLOOD THINNER (Reported) with food Sacubitril/Valsartan (Entresto 97 MG-103 MG Tablet) 97 MG-103 MG TABLET 1 TAB PO BID HEART (Reported) Spironolactone (Aldactone) 25 MG TABLET 1 TAB PO DAILY WATER PILL (Reported) Venlafaxine HCl (Effexor XR) 150 MG CAP.ER.24H 1 CAP PO DAILY DEPRESSION ( Reported) Current Medications: Current Medications Sig/Hamida Start time Last Medication Dose Route Stop Time Status Admin Acetaminophen 650 MG Q6P PRN 03/27 2045 AC PO Amiodarone HCl 100 MG DAILY 03/28 1000 AC 03/28 PO 1251 Atorvastatin Calcium 20 MG DAILY 03/28 1000 AC 03/28 PO 1251 Budesonide/ 2 PUF BID 03/27 2200 AC 03/28 Formoterol Fumarate INH 1252 Digoxin 0.125 MG 1700 03/28 1700 AC PO Ferrous Sulfate 325 MG TID 03/27 2200 AC 03/28 PO 1251 Insulin Aspart 0 TIDAC 03/28 0800 AC SC Isosorbide 30 MG BID 03/27 2200 AC 03/28 Mononitrate PO 1251 Latanoprost 1 GTT QPM 03/27 220 AC 03/27 OPH 2352 Levothyroxine Sodium 0.1 MG DAILY AC 03/28 0700 AC 03/28 PO 0627 Lisinopril 10 MG DAILY 03/28 1000 CAN PO Melatonin 5 MG AT BEDTIME 03/270 AC 03/27 PO 2230 Mirtazapine 7.5 MG DAILY 03/28 1000 AC 03/28 PO 1252 Oxycodone/ 1 TAB Q6P PRN 03/27 2045 AC Acetaminophen PO Oxycodone/ 2 TAB Q6P PRN 03/27 2045 AC Acetaminophen PO Rivaroxaban 15 MG AT BEDTIME 03/27 220 AC 03/27 PO 2230 Sodium Chloride 1,000 ML BOLUS ONE 03/27 1615 DC 03/27 IV 03/27 1714 1625 Venlafaxine HCl 150 MG DAILY 03/28 1000 AC 03/28 PO 1252 Review of Systems Review of Systems: A 14 point system review was obtained and was noncontributory, other than as above. 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 SISTER ([place] AT 60). SISTER (DEPRESSION). SISTER (TREMORS). Relation not specified for: *No pertinent family history Psychosocial History Where Do You Live? Home Services at Home: None Smoking Status: Former Smoker Functional Ability ADLs Independent: dressing, eating, toileting, bathing. Ambulation: cane (NON-COMPLIANT) IADLs Needs Assist: shopping, housework, finances, food prep, telephone, transportation, medication admin. Exam & Diagnostic Data Vital Signs and I&O Vital Signs Date Time Temp Pulse Resp B/P B/P Pulse O2 O2 Flow FiO2 Mean Ox Delivery Rate 03/28 1251 81 102/68 03/28 1251 81 102/68 03/28 0819 97.6 81 18 98/62 94 Room Air 03/27 2245 97.6 78 18 94/50 96 Room Air 03/270 97.0 81 20 122/58 03/279 97.0 81 20 122/58 95 Room Air 03/27 1928 95.5 80 20 99/56 96 Room Air 03/27 1600 96.8 78 24 90/48 Intake & Output 03/28 0000 03/27 0803/27 0000 Intake Total 250 Output Total 350 420 Balance -100 -420 Intake, IV 0 Intake, Oral 250 Number 0 Bowel Movements Output, Urine 350 420 Patient 160 lb 160 lb Weight Weight Reported by Patient Measurement Method Physical Exam: Well-developed, well-nourished elderly male in no acute distress with nasal oxygen in place. Vital signs: See above. HEENT: Normocephalic, atraumatic, EOMI, slightly dry mucous membranes. Neck: No JVD, no bruits. Lungs: Clear to auscultation bilaterally. Heart: S1, S2 with no murmur, gallop, or rub appreciated. PMI laterally displaced and diffuse. Abdomen: Soft, nontender, positive bowel sounds. Extremities: No edema. Labs/Ayaan Results: Laboratory Tests 03/28 03/28 03/27 0305 0305 2120 Chemistry Sodium (137 - 145 mmol/L) 139 Potassium (3.5 - 5.1 mmol/L) 4.6 Chloride (98 - 107 mmol/L) 104 Carbon Dioxide (22 - 30 mmol/L) 26 Anion Gap (5 - 16) 9 BUN (9 - 20 mg/dL) 32 H Creatinine (0.7 - 1.2 mg/dL) 1.2 Estimated GFR (>60 ml/min) 59 L BUN/Creatinine Ratio (7 - 25 %) 26.7 H Phosphorus (2.5 - 4.5 mg/dL) 3.1 Magnesium (1.6 - 2.3 mg/dL) 2.0 Troponin I (<0.11 ng/ml) 0.02 0.02 Triglycerides (<150 mg/dL) 100 Cholesterol (< 200 MG/DL) 134 LDL Cholesterol, Calc (65 - 129 mg/dL) 79 HDL Cholesterol (40 - 60 mg/dL) 35 L Cholesterol/HDL Ratio (0.00 - 4.88 %) 4 Hematology CBC w Diff NO MAN DIFF REQ WBC (4.8 - 10.8 /CUMM) 5.3 RBC (4.70 - 6.10 /CUMM) 3.87 L Hgb (14.0 - 18.0 G/DL) 12.9 L Hct (42 - 52 %) 38.5 L MCV (80.0 - 94.0 FL) 99.4 H MCH (27.0 - 31.0 PG) 33.3 H RDW (11.5 - 14.5 %) 13.4 Plt Count (130 - 400 /CUMM) 164 MPV (7.4 - 10.4 FL) 8.5 Gran % (42.2 - 75.2 %) 74.5 Lymphocytes % (20.5 - 51.1 %) 12.5 L Monocytes % (1.7 - 9.3 %) 11.8 H Eosinophils % (0 - 5 %) 0.7 Basophils % (0.0 - 2.0 %) 0.5 Absolute Granulocytes (1.4 - 6.5 /CUMM) 3.9 Absolute Lymphocytes (1.2 - 3.4 /CUMM) 0.7 L Absolute Monocytes (0.10 - 0.60 /CUMM) 0.6 Absolute Eosinophils (0.0 - 0.7 /CUMM) 0 Absolute Basophils (0.0 - 0.2 /CUMM) 0 PUBS MCHC (33.0 - 37.0 G/DL) 33.5 Toxicology Digoxin (0.8 - 2.0 ng/mL) 1.2 03/27 03/27 1630 1349 Chemistry Sodium (137 - 145 mmol/L) 141 Potassium (3.5 - 5.1 mmol/L) 4.7 Chloride (98 - 107 mmol/L) 103 Carbon Dioxide (22 - 30 mmol/L) 24 Anion Gap (5 - 16) 14 BUN (9 - 20 mg/dL) 43 H Creatinine (0.7 - 1.2 mg/dL) 1.6 H Estimated GFR (>60 ml/min) 42 L BUN/Creatinine Ratio (7 - 25 %) 26.9 H Glucose (65 - 99 mg/dL) 81 Calcium (8.4 - 10.2 mg/dL) 9.2 Magnesium (1.6 - 2.3 mg/dL) 2.1 Total Bilirubin (0.2 - 1.3 mg/dL) 0.6 AST (17 - 59 U/L) 22 ALT (21 - 72 U/L) 38 Alkaline Phosphatase (< 127 U/L) 59 Troponin I (<0.11 ng/ml) 0.02 Total Protein (6.3 - 8.2 g/dL) 6.8 Albumin (3.5 - 5.0 g/dL) 4.3 Globulin (1.9 - 4.2 gm/dL) 2.5 Albumin/Globulin Ratio (1.1 - 2.2 %) 1.7 TSH (0.270 - 4.200 uIU/mL) 1.190 Hematology CBC w Diff NO MAN DIFF REQ WBC (4.8 - 10.8 /CUMM) 6.5 RBC (4.70 - 6.10 /CUMM) 4.11 L Hgb (14.0 - 18.0 G/DL) 13.7 L Hct (42 - 52 %) 40.0 L MCV (80.0 - 94.0 FL) 97.4 H MCH (27.0 - 31.0 PG) 33.3 H RDW (11.5 - 14.5 %) 13.3 Plt Count (130 - 400 /CUMM) 181 MPV (7.4 - 10.4 FL) 8.4 Gran % (42.2 - 75.2 %) 79.9 H Lymphocytes % (20.5 - 51.1 %) 7.5 L Monocytes % (1.7 - 9.3 %) 12.0 H Eosinophils % (0 - 5 %) 0.2 Basophils % (0.0 - 2.0 %) 0.4 Absolute Granulocytes (1.4 - 6.5 /CUMM) 5.2 Absolute Lymphocytes (1.2 - 3.4 /CUMM) 0.5 L Absolute Monocytes (0.10 - 0.60 /CUMM) 0.8 H Absolute Eosinophils (0.0 - 0.7 /CUMM) 0 Absolute Basophils (0.0 - 0.2 /CUMM) 0 PUBS MCHC (33.0 - 37.0 G/DL) 34.2 Urines Urine Color (YEL,AMB,STR) YEL Urine Clarity (CLEAR) CLEAR Urine pH (5.0 - 8.0) 6.0 Ur Specific [place] (1.001 - 1.035) 1.020 Urine Protein (NEG,<30 MG/DL) NEG Urine Ketones (NEG) NEG Urine Nitrite (NEG) NEG Urine Bilirubin (NEG) NEG Urine Urobilinogen (0.1 - 1.0 EU/dl) 0.2 Ur Leukocyte Esterase (NEG) SMALL H Ur Microscopic SEDIMENT EXAMINED Urine RBC (0 - 5 /HPF) 1-3 Urine WBC (0 - 2 /HPF) 3-5 H Ur Epithelial Cells (NONE,FEW) FEW Urine Bacteria (NEG/NONE) FEW H Hyaline Casts (0/LPF) 1-3 H Urine Hemoglobin (NEG) TRACE-INTACT H Urine Glucose (N MG/DL) NEG Diagnostic Data EKG Results (03/28/2017): Properly functioning electronic pacemaker, ventricular paced rhythm with underlying atrial fibrillation. No significant change when compared to previous tracing (03/27/2017). Other Results Head CT (03/27/2017):No evidence for acute intracranial injury. Stable left- sided and septal malacia. Assessment/Plan Assessment/Plan [id number] w/ hx fmr tobacco use, COPD, chronic anemia, recurrent GI bleeding, HLD, DM, TIAs/strokes, seizure disorder, chronic AF on anticoagulation, VT on antiarrhythmic therapy (amiodarone), s/p BiV pacemaker/defibrillator, CAD, s/p PCI's w/ PTCA, s/p HI's w/ severe ischemic CM and recurrent acute on chronic systolic HF who presented to the ED following a syncopal episode at home w/o prodromal symptoms, orthostasis, defibrillator shock, etc. Naturally, the major concern is that he may have had a dysrhythmia that self terminated or terminated with pacing, but lasted long enough for a syncopal episode to have occurred. A call has been placed to [employer] for device interrogation which will guide further management. Although he states that he eats and drinks well, his BUN/creatinine were elevated and his blood pressure has been borderline at times, suggesting a possible component of intravascular depletion and would therefore encourage by mouth intake and hold his diuretic for the short-term. Recommendations: * Continue on telemetry and follow-up troponins. * Call [email or web address] car sales representative for device interrogation ([phone]). * Continue to hold diuretics, isosorbide mononitrate, etc., given borderline blood pressure for the short-term. * Note that he is not taking enalapril. This was discontinued 36 hours before the Entresto (sacubitril/valsartan) was initiated, but unfortunately remains on his medication list. * Continue on Entresto (if possible), Amiodarone, Atorvastatin, Digoxin, Xarelto. * Echocardiogram to reassess his left ventricular function, estimated PA pressure, etc. * DVT prophylaxis being addressed by his chronic anticoagulation with Xarelto ( rivaroxaban). Further recommendations will follow, Thank you. Consult Acknowledgment - Thank you for your consult request.
[2017-03-28 16:12] VITALS: BP 108/62
--- NOTE | 2017-03-28 16:24 | Event Note ---
Event Note Event Note: Spoke with Chandrakant, from [employer], after interrogation of the biventricular pacemaker/defibrillator. The last time he had 7 beats of V tach was on 02/15/17. Since then, he has had no events. Strips are in the chart.
--- NOTE | 2017-03-28 22:16 | NUR ---
ENTRESTO ORDERED. PHARMACY STATES THEY DO NOT HAVE ORDERED DOSE. PT STATES HE TAKES IT AT HOME AND WILL TELL TO BRING IT IN TOMM. MD FRANCIS AWARE.
[2017-03-28 23:09] VITALS: BP 94/48
--- NOTE | 2017-03-29 05:13 | NUR ---
APPX 0153, PT HAD 4 BEAT RUN. RN CHECKED ON PT WHO STATED HE WAS FEELING WELL. PT APPEARED COMFORTABLE AND NOT IN DISTRESS. MD NOTIFIED. WILL CONTINUE TO MONITOR
--- NOTE | 2017-03-29 08:55 | PN- Att Addend ---
Attending Addendum Attending Brief Note Patient feels okay overall. Just feels tired. On exam his blood pressure is on the low side at 94/50, pulse rate is 78, breathing at 16-18, Afebrile, awake, alert oriented, lungs are clear to auscultation, heart is S1- S2 distant, abdomen is soft and I couldn't appreciate any edema. This is is a 76-year-old male with multiple medical problems including COPD, diabetes, A. fib on Xarelto, history of GI bleed, CAD and severe cardiomyopathy with chronic systolic heart failure with a biventricular pacer and AICD who iw here with an episode of syncope. At this point because of his hypotension and the worry of over diuresis we have minimize the medication list to Entresto, amiodarone, Xarelto and a statin. I stopped the Imdur and any other medications that could contributing to hypotension. As far as we can tell the device didn't fire for any ventricular arrhythmias but will need to follow-up closely.
--- NOTE | 2017-03-29 10:21 | PN- Housestaff ---
Subjective Follow-up For: Single episode Hypotension Acute kidney injury HFrEF (echocardiogram 05/15/15 LVEF 25-30%, LVH, RVSP 37 mmHg) Tele-Events Since Last Visit: Single pastes, heartrate 79-89, 4 beat around 2 AM Subjective: Afebrile, blood pressure running in the lower border of normal, saturating well on room air. No acute overnight events reported. Patient reported feeling dizzy when he stood from bed to sit in the chair, he added that this happens frequently recently at home, where when he stands up he will feel dizzy. Review of Systems Constitutional: Reports: see HPI. Objective Last 24 Hrs of Vital Signs/I&O Vital Signs Date Time Temp Pulse Resp B/P B/P Pulse O2 O2 Flow FiO2 Mean Ox Delivery Rate 03/29 1729 82 106/64 03/29 1620 97.9 82 18 106/64 94 Room Air 03/29 1059 97.9 82 18 112/60 92 Room Air 03/29 0925 83 94/48 03/29 0000 Room Air 03/28 2309 97.8 83 20 94/48 95 Room Air 03/28 2123 82 120/64 Intake & Output 03/29 1600 03/29 0800 03/29 0000 Intake Total 480 220 240 Output Total 400 900 650 Balance 80 -680 -410 Intake, Oral 480 220 240 Output, Urine 400 900 650 Physical Exam General Appearance: Alert, Oriented X3, Cooperative, No Acute Distress HEENT: Atraumatic, PERRLA, EOMI, Mucous Membr. moist/pink Cardiovascular: Regular Rate, Normal S1, Normal S2, No Murmurs Lungs: Clear to Auscultation, Normal Air Movement Abdomen: Soft, No Tenderness Extremities: No Clubbing, No Cyanosis, No Edema Current Medications: Current Medications Sig/Hamida Start time Last Medication Dose Route Stop Time Status Admin Acetaminophen 650 MG Q6P PRN 03/27 2045 AC PO Amiodarone HCl 100 MG DAILY 03/28 1000 AC 03/29 PO 09 Atorvastatin Calcium 20 MG DAILY 03/28 1000 AC 03/29 PO 09 Budesonide/ 2 PUF BID 03/27 2200 AC 03/29 Formoterol Fumarate INH 0927 Digoxin 0.125 MG 1700 03/28 1700 AC 03/29 PO 172 Ferrous Sulfate 325 MG TID 03/27 2200 AC 03/29 PO 1729 Insulin Aspart 0 TIDAC 03/28 0800 AC SC Isosorbide 30 MG BID 03/27 2200 DC 03/28 Mononitrate PO 2122 Latanoprost 1 GTT QPM 03/27 2200 AC 03/28 OPH 2116 Levothyroxine Sodium 0.1 MG DAILY AC 03/28 0700 AC 03/29 PO 0613 Melatonin 5 MG AT BEDTIME 03/27 2200 AC 03/28 PO 2116 Mirtazapine 7.5 MG DAILY 03/28 1000 AC 03/29 PO 0926 Non-Formulary See Dose BID 03/28 2200 UNV Medication Insts (1) ANY Oxycodone/ 1 TAB Q6P PRN 03/27 2045 AC Acetaminophen PO Oxycodone/ 2 TAB Q6P PRN 03/27 2045 AC Acetaminophen PO Rivaroxaban 15 MG AT BEDTIME 03/27 2200 AC 03/28 PO 2116 Venlafaxine HCl 150 MG DAILY 03/28 1000 AC 03/29 PO 0925 Dose Instructions: (1)Non-Formulary Medication: 1 po bid Last 24 Hrs of Lab/Ayaan Results Last 24 Hrs of Labs/Mics: Laboratory Tests 03/29/17 0555: Anion Gap 10, Estimated GFR > 60, BUN/Creatinine Ratio 22.2 Assessment/Plan Assessment: 76-year-old gentleman with a PMH of Parkinson's disease, HFrEF (echocardiogram LVEF 25-30%, LVH, RVSP 37 mmHg), A. 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 He mentions that he was walking to get a drink of water this afternoon around 12 PM but unexpectedly he experienced some dizziness followed by a fall landing on his right elbow and knee, striking his head on the ground. He is unsure if he did suffer an episode of loss of consciousness. He denies any preceding/ associated chest pain, palpitations, new onset weakness or numbness in any extremities, urinary/bowel incontinence, headaches, choking sensation on liquids. He does report an episode last night lasting a few seconds with difficulty seeing things in his living room/disorientation that resolved on its own. Problem list: 1. Syncopal episode 2. Hypotension 3. RADHA 4. HFrEF (echocardiogram 05/15/15 LVEF 25-30%, LVH, RVSP 37 mmHg) 5. History of A. fib 6. History of CAD S/P angioplasty and biventricular permanent pacemaker/ defibrillator 7. History of CVA with residual deficits 8. Hypertension 9. Diabetes 10. Hypothyroidism Plan: 1. Syncopal episode * Negative orthostatics * defibrillator interrogation shows no evidence of evidence of malignant/ potentially malignant dysrhythmias * PT evavluation to assess mobility at home 2. Hypotension * Patient's blood pressure has been on the lower side with no evidence of tachycardia 3. RADHA * Today creatinine is 0.9 and BUN * Will encourage PO fluid intake * Repeat renal function tomorrow morning 4. HFrEF (echocardiogram 05/15/15 LVEF 25-30%, LVH, RVSP 37 mmHg) * Echocardiogram pending * Cardiology input appreciated * Digoxin level I.2. Continue with current dose of 0.125 mg 5. History of A. fib * Telemetry overnight single paced rhythm, bundle-branch block. HR 79-84 bpm * Patient was previously on Xarelto 20 mg at bedtime which was decreased to 15 mg in the setting of acute kidney injury. We will readjust back to 20 mg at bedtime * Continue amiodarone 100 mg daily 6. History of CAD S/P angioplasty and biventricular permanent pacemaker/ defibrillator * Serial troponins have been negative 7. History of CVA with residual deficits * PT and OT evaluation 8. Hypertension * Holding enalapril 9. Diabetes * Consistent carbohydrate 3, insulin sliding scale, Accu-Cheks 10. Hypothyroidism * Continue with levothyroxine 100mcg DVT prophylaxis: Xarelto CODE STATUS: DNR/DNI Problem List: 1. Syncope Pain Ratin Pain Location: na Pain Goal: Remain pain free Pain Plan: See A&P Tomorrow's Labs & Rationales: none
[2017-03-29 10:59] VITALS: BP 112/60
[2017-03-29 16:20] VITALS: BP 106/64
--- NOTE | 2017-03-29 17:27 | PN- Cardiology ---
Subjective Subjective: States that he is feeling improved. Denies any chest discomfort, palpitations, shortness of breath, or lower extremity edema. Also denies any lightheadedness, dizziness, Objective Vital Signs and I&Os Vital Signs Date Time Temp Pulse Resp B/P B/P Pulse O2 O2 Flow FiO2 Mean Ox Delivery Rate 03/29 1620 97.9 82 18 106/64 94 Room Air 03/29 1059 97.9 82 18 112/60 92 Room Air 03/29 0925 83 94/48 03/29 0000 Room Air 03/28 2309 97.8 83 20 94/48 95 Room Air 03/28 2123 82 120/64 Intake & Output 03/29 1600 03/29 0800 03/29 0000 03/28 1600 03/28 0800 03/28 0000 Intake Total 480 220 428 736 3215 Output Total 400 900 222 339 7415 420 Balance 80 -680 -410 -75 -120 -420 Intake, IV 0 Intake, Oral 480 220 605 339 7797 Number 1 Bowel Movements Output, Urine 400 900 116 027 3405 420 Patient 160 lb Weight Weight Reported by Patient Measurement Method Physical Exam: Well-developed, well-nourished elderly male in no acute distress with nasal oxygen in place. Vital signs: See above. HEENT: Normocephalic, atraumatic, EOMI, slightly dry mucous membranes. Neck: No JVD, no bruits. Lungs: Clear to auscultation bilaterally. Heart: S1, S2 with no murmur, gallop, or rub appreciated. PMI laterally displaced and diffuse. Abdomen: Soft, nontender, positive bowel sounds. Extremities: No edema. Current Medications: Current Medications Sig/Hamida Start time Last Medication Dose Route Stop Time Status Admin Acetaminophen 650 MG Q6P PRN 03/27 2045 AC PO Amiodarone HCl 100 MG DAILY 03/28 1000 AC 03/29 PO 09 Atorvastatin Calcium 20 MG DAILY 03/28 1000 AC 03/29 PO 09 Budesonide/ 2 PUF BID 03/27 2200 AC 03/29 Formoterol Fumarate INH 0927 Digoxin 0.125 MG 1700 03/28 1700 AC 03/28 PO 1633 Ferrous Sulfate 325 MG TID 03/27 2200 AC 03/29 PO 09 Insulin Aspart 0 TIDAC 03/28 08 AC SC Isosorbide 30 MG BID 03/27 2200 DC 03/28 Mononitrate PO 2122 Latanoprost 1 GTT QPM 03/27 2200 AC 03/28 OPH 2116 Levothyroxine Sodium 0.1 MG DAILY AC 03/28 0700 AC 03/29 PO 612 Melatonin 5 MG AT BEDTIME 03/27 2200 AC 03/28 PO 2116 Mirtazapine 7.5 MG DAILY 03/28 1000 AC 03/29 PO 09 Non-Formulary See Dose BID 03/28 2200 UNV Medication Insts (1) ANY Oxycodone/ 1 TAB Q6P PRN 03/27 2045 AC Acetaminophen PO Oxycodone/ 2 TAB Q6P PRN 03/27 2045 AC Acetaminophen PO Rivaroxaban 15 MG AT BEDTIME 03/27 2200 AC 03/28 PO 2116 Venlafaxine HCl 150 MG DAILY 03/28 1000 AC 03/29 PO 09 Dose Instructions: (1)Non-Formulary Medication: 1 po bid Results Last 48 Hrs of Labs/Mics: Laboratory Tests 03/29/17 0555: Anion Gap 10, Estimated GFR > 60, BUN/Creatinine Ratio 22.2 03/28/17304: Troponin I 0.02 03/28/17304: Anion Gap 9, Estimated GFR 59 L, BUN/Creatinine Ratio 26.7 H, Phosphorus 3.1, Magnesium 2.0, Triglycerides 100, Cholesterol 134, LDL Cholesterol, Calc 79, HDL Cholesterol 35 L, Cholesterol/HDL Ratio 4, CBC w Diff NO MAN DIFF REQ, RBC 3.87 L, MCV 99.4 H, MCH 33.3 H, RDW 13.4, MPV 8.5, Gran % 74.5, Lymphocytes % 12.5 L, Monocytes % 11.8 H, Eosinophils % 0.7, Basophils % 0.5, Absolute Granulocytes 3.9, Absolute Lymphocytes 0.7 L, Absolute Monocytes 0.6, Absolute Eosinophils 0, Absolute Basophils 0, PUBS MCHC 33.5 03/27/172119: Troponin I 0.02, Digoxin 1.2 Assessment/Plan Assessment/Plan [id number] w/ hx fmr tobacco use, COPD, chronic anemia, recurrent GI bleeding, HLD, DM, TIAs/strokes, seizure disorder, chronic AF on anticoagulation, VT on antiarrhythmic therapy (amiodarone), s/p BiV pacemaker/defibrillator, CAD, s/p PCI's w/ PTCA, s/p DC's w/ severe ischemic CM and recurrent acute on chronic systolic HF who presented to the ED following a syncopal episode at home w/o prodromal symptoms, orthostasis, defibrillator shock, etc. Naturally, the major concern wass that he may have had a dysrhythmia that self terminated or terminated with pacing, but lasted long enough for a syncopal episode to have occurred. Fortunately, his device was interrogated by the [id number] member service representative and is functioning properly without any recent evidence of malignant/potentially malignant dysrhythmias. He is clinically improved and his renal function has also improved significantly , suggesting a component of intravascular depletion and would therefore encourage by mouth intake and continue to hold his diuretic for the short-term. Recommendations: * Continue on telemetry and reassess the need for further diuretic therapy in the morning. * Follow-up laboratory work. * DVT prophylaxis. Continue telemetry? Yes
[2017-03-29 23:00] VITALS: BP 102/66
--- NOTE | 2017-03-30 08:45 | PN- Housestaff ---
RAYSHAWN EVANS 03/30/17 0845: Subjective Follow-up For: Dizziness Hypotension Acute kidney injury HFrEF (echocardiogram 05/15/15 LVEF 25-30%, LVH, RVSP 37 mmHg) Complaints: no complaints Tele-Events Since Last Visit: Single pacing: HR 79-82 BPM. Subjective: Interval history: There are no acute events overnight. This morning Mr. Watkins states that he feels much better and denies any recurrence of dizziness but has not had a chance to get up and walk. He denies any chest pain, palpitations, nausea, abdominal pain, fevers or chills. Review of Systems Constitutional: Reports: see HPI. EENTM: Reports: no symptoms. Cardiovascular: Reports: see HPI. Respiratory: Reports: no symptoms. Gastrointestinal: Reports: no symptoms. Musculoskeletal: Reports: see HPI. Neurological/Psychological: Reports: see HPI. Objective Last 24 Hrs of Vital Signs/I&O Vital Signs Date Time Temp Pulse Resp B/P B/P Pulse O2 O2 Flow FiO2 Mean Ox Delivery Rate 03/29 2300 97.4 80 18 102/66 95 Room Air 03/29 1729 82 106/64 03/29 1620 97.9 82 18 106/64 94 Room Air 03/29 1059 97.9 82 18 112/60 92 Room Air 03/29 0925 83 94/48 Intake & Output 03/30 1600 03/30 0800 03/30 0000 Intake Total 200 100 Output Total 450 1000 Balance -250 -900 Intake, IV 0 0 Intake, Oral 200 100 Number 0 0 Bowel Movements Output, Urine 450 1000 Physical Exam General Appearance: Alert, Cooperative, No Acute Distress Skin: No Significant Lesion HEENT: Mucous Membr. moist/pink Cardiovascular: Regular Rate, Normal S1, Normal S2 Lungs: Clear to Auscultation, Normal Air Movement Abdomen: Normal Bowel Sounds, Soft, No Tenderness Extremities: No Edema, Normal Pulses Vascular: Pulses Symmetrical Current Medications: Current Medications Sig/Hamida Start time Last Medication Dose Route Stop Time Status Admin Acetaminophen 650 MG Q6P PRN 03/27 2045 AC PO Amiodarone HCl 100 MG DAILY 03/28 1000 AC 03/29 PO 0925 Atorvastatin Calcium 20 MG DAILY 03/28 1000 AC 03/29 PO 09 Budesonide/ 2 PUF BID 03/27 2200 AC 03/29 Formoterol Fumarate INH 2202 Digoxin 0.125 MG 1700 03/28 1700 AC 03/29 PO 1729 Ferrous Sulfate 325 MG TID 03/27 2200 AC 03/29 PO 220 Insulin Aspart 0 TIDAC 03/28 0800 AC SC Latanoprost 1 GTT QPM 03/27 2200 AC 03/29 OPH 220 Levothyroxine Sodium 0.1 MG DAILY AC 03/28 0700 AC 03/30 PO 0741 Melatonin 5 MG AT BEDTIME 03/27 2200 AC 03/29 PO 220 Mirtazapine 7.5 MG DAILY 03/28 1000 AC 03/29 PO 0926 Non-Formulary See Dose BID 03/28 2200 UNV Medication Insts (1) ANY Oxycodone/ 1 TAB Q6P PRN 03/27 2045 AC Acetaminophen PO Oxycodone/ 2 TAB Q6P PRN 03/27 2045 AC Acetaminophen PO Rivaroxaban 20 MG AT BEDTIME 03/29 2200 AC 03/29 PO 2202 Rivaroxaban 15 MG AT BEDTIME 03/27 2200 DC 03/28 PO 211 Venlafaxine HCl 150 MG DAILY 03/28 1000 AC 03/29 PO 0925 Dose Instructions: (1)Non-Formulary Medication: 1 po bid Assessment/Plan Assessment: 76-year-old gentleman with a PMH of Parkinson's disease, HFrEF (echocardiogram LVEF 25-30%, LVH, RVSP 37 mmHg), A. 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 Patient endorsed preceding dizziness and an episode of blurred vision and difficulty seeing the clock the night before. Problem list: 1. Syncopal episode 2. Hypotension 3. RADHA 4. HFrEF (echocardiogram 05/15/15 LVEF 25-30%, LVH, RVSP 37 mmHg) 5. History of A. fib 6. History of CAD S/P angioplasty and biventricular permanent pacemaker/ defibrillator 7. History of CVA with residual deficits 8. Hypertension 9. Diabetes 10. Hypothyroidism Plan: 1. Syncopal episode * We'll repeat orthostatics today. PT to assess for recurrence of dizziness and discharge recommendations * Interrogation of biventricular pacemaker/defibrillator on 03/28/2017 did not reveal any events except a 7 beat run of V. tach on 02/15/2017 2. Hypotension * Patient's blood pressure has been on the lower side with no evidence of tachycardia * Continue with digoxin 0.125 mg * Additionally, we held furosemide and entresto * After discussion with cardiology, will restart entresto today. Assess over the next 24hrs and restart furosemide likely at 20 mg daily 3. RADHA * Resolved at this time. Continue to encourage by mouth fluid intake 4. HFrEF (echocardiogram 05/15/15 LVEF 25-30%, LVH, RVSP 37 mmHg) * Echocardiogram pending * Digoxin level on 03/27/2017 was 1.2 WNL. Continue current dose of digoxin 0.125 mg 5. History of A. fib * Telemetry overnight single paced rhythm, HR 79-82 bpm * Renal function is back to baseline and thus his relatives back to 20 mg daily * Continue amiodarone 100 mg daily 6. History of CVA with residual deficits * PT and OT evaluation 7. Hypertension * Renal function is back to baseline * In the setting of persistent borderline low blood pressure continue to hold enalapril 5mg, furosemide 20 mg (this Thursday/Thursday/Thursday), furosemide 40 mg (Thursday/), spironolactone 25 mg daily, sacubitril/valsaratan (97/103). We'll discuss with cardiology on recommendations of restarting his medications and follow-up on echocardiogram results 9. Diabetes * Accu-Cheks over the past 24 hours: 67 through 139 * Patient has not required any insulin during the hospital stay. We'll continue Accu-Cheks and if hypoglycemic encourage PO intake * Consistent carbohydrate 3 10. Hypothyroidism * Continue with levothyroxine 100mcg DVT prophylaxis: Xarelto CODE STATUS: DNR/DNI Problem List: 1. Syncope 2. Hypotension 3. RADHA (acute kidney injury) 4. HFrEF (heart failure with reduced ejection fraction) 5. Atrial fibrillation 6. Diabetes Pain Ratin Pain Location: NA Pain Goal: Pain 4 or less Pain Plan: NOne required Tomorrow's Labs & Rationales: None DVT/Prophylaxis: pharmacological LELO SEGAL,TED 03/30/17 1409: Attending MD Review Statement Attending Statement Attending MD Statement: examined this patient, discuss w/resident/PA/HOSPITALITY COORDINATOR, agreed w/resident/PA/HOSPITALITY COORDINATOR, reviewed EMR data (avail), discussed with nursing, discussed with case mgmt, reviewed images, amended to note Attending Assessment/Plan: Patient seen and examined, currently feels better. Denies any further dizziness. No acute telemetry events. Vital Signs Date Time Temp Pulse Resp B/P B/P Pulse O2 O2 Flow FiO2 Mean Ox Delivery Rate 03/30 1035 80 102/66 03/29 2300 97.4 80 18 102/ 95 Room Air 03/29 1729 82 106/64 03/29 1620 97.9 82 18 94 Room Air on exam; aox3, nad. cv; s1,s2, irregular. resp; clear abd; soft, nt, bs+ ext; no edema no labs. A/P: 76-year-old male with multiple medical problems including COPD, diabetes, A. fib on Xarelto, history of GI bleed, CAD and severe cardiomyopathy with chronic systolic heart failure with a biventricular pacer and AICD who is admitted with syncope. Patient had mild acute kidney injury likely secondary to dehydration from overdiuresis. His diuretic regimen has been held for now. His repeat echocardiogram continues to show very low ejection fraction with cardiomyopathy. His blood pressure is running at the lower range, please discuss with cardiology about his antihypertensive regimen in the setting of severe cardiomyopathy. He has been resumed back on his amiodarone as well as dig. DVT px: Xarelto. pt eval.
--- NOTE | 2017-03-30 10:20 | Discharge Summary ---
Visit Information Visit Dates Admission Date: 03/27/17 Discharge Date: 03/31/2017 Hospital Course Course Attending Physician: TED LIND MD Primary Care Physician: JOSE JUAN CORNEJO MD Hospital Course: 76-year-old gentleman with a PMH of Parkinson's disease, HFrEF (echocardiogram LVEF 25-30%, LVH, RVSP 37 mmHg), A. 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 Patient endorsed preceding dizziness and an episode of blurred vision and difficulty seeing the clock the night before. VS on admission: BP 95/54, HR 81, RR 20, SPO2 94% on RA, T 97.9 Pertinent labs on admission: WBC 6.5, H&H 13.7/40.0, platelets 181, sodium 141, potassium 4.7, bicarbonate 24, BUN/CR 43/1.6, glucose 81 Troponin: 0.02 UA: Small amount of leukocyte esterase, few bacteria Problem list: 1. Syncopal episode 2. Hypotension 3. RADHA 4. HFrEF (echocardiogram 05/15/15 LVEF 25-30%, LVH, RVSP 37 mmHg) 5. History of A. fib 6. History of CAD S/P angioplasty and biventricular permanent pacemaker/ defibrillator 7. History of CVA with residual deficits 8. Hypertension 9. Diabetes 10. Hypothyroidism Hospital course: 1. Syncopal episode * On review of the patient's medication list it was noted that this may have been the likely contributing factor to his symptoms. Orthostatics on admission were negative. Noticeable borderline low blood pressure for which we made the following adjustments in medications: * Enalapril was present on his medication list which was previously discontinued. We held furosemide by the hospital course * Interrogation of biventricular pacemaker/defibrillator on 03/28/2017 did not reveal any events except a 7 beat run of V. tach on 02/15/2017 * Improvement in symptoms over the four-day hospital course with ability to ambulate independently at discharge 2. Hypotension * Systolic blood pressures remained in the 100s, negative orthostatics * We started him on entresto which she tolerated well. Repeat BEP with no evidence of worsening renal function * Continued with digoxin 0.125 mg, amiodarone 3. RADHA * Baseline creatinine of 1.0. On admission BUN/CR 43/1.6. Gentle hydration with an S 1 L and encouraged fluid intake. Renal function returned to baseline 4. HFrEF (echocardiogram 05/15/15 LVEF 25-30%, LVH, RVSP 37 mmHg) * Echocardiogram (03/29/17): Moderate to severe left ventricular dilatation. Mild concentric left ventricular hypertrophy. Abnormal septal motion consistent with pacemaker activation. Markedly hypokinetic septum. Moderately to severely reduced global left ventricular systolic function. Moderately to severely abnormal left ventricular ejection fraction estimated at 25-30%. Right ventricular systolic pressure estimated to be elevated at 52 mmHg. * Continued current dose of digoxin 0.125 mg and entresto 90/103 PO BID. Per recommendations from Dr Perez, spironolactone and Imdur were discontinued in the setting of borderline low blood pressure. Continued with furosemide 40 mg daily * Rx provided to fernando repeat BEP done on wednesday 04/04 and CC results to Dr Perez 5. History of A. fib * Telemetry with well-maintained heart rate throughout the hospital course * Continued amiodarone 100 mg daily 6. History of CVA with residual deficits * PT and OT assessment during the hospital stay. Patient was discharged home with services and rolling walker as needed 7. Diabetes * Accu-Cheks over the past 24 hours: 111 through 131 * Patient has not required any insulin during the hospital stay. We'll continue Accu-Cheks and if hypoglycemic encourage PO intake * Consistent carbohydrate 3 8. Hypothyroidism * Continue with levothyroxine 100mcg Allergies: Coded Allergies: NO KNOWN ALLERGIES (NO) (02/22/15) Disposition Summary Disposition Principal Diagnosis: Syncope, hypertension Additional Diagnosis: Acute kidney injury HFrEF Discharge Disposition: home health services Discharge Instructions General Discharge Information Code Status: Do Not Resucitate/Intubat Patient's Diet: Heart healthy diet Patient's Activity: As tolerated with a rolling walker Follow-Up Instructions/Appts: Please take all medications as directed. Please follow-up with your PCP within one week after discharge. Please follow-up with your steel rule die maker within 1 week after discharge Medications at Discharge Discharge Medications: Stop taking the following medications: Enalapril Maleate (Enalapril Maleate) 5 MG TABLET ORAL DAILY Furosemide (Lasix) 40 MG TABLET ORAL DAILY Days = 30 Spironolactone (Aldactone) 25 MG TABLET ORAL DAILY Isosorbide Mononitrate (Isosorbide Mononitrate ER) 30 MG TAB.ER.24H ORAL DAILY Furosemide (Lasix) 20 MG TABLET ORAL 5 PM Continue taking these medications: Digoxin (Digoxin) 125 MCG TABLET 1 Tablet ORAL DAILY Comments: Last Taken: 03/30/17 Time: 5:30 PM Venlafaxine HCl (Effexor XR) 150 MG CAP.ER.24H 1 Capsule ORAL DAILY Comments: Last Taken: 03/31/17 Time: 10 AM Atorvastatin Calcium (Lipitor) 20 MG TABLET 1 Tablet ORAL DAILY Comments: Last Taken: 03/31/17 Time: 10 AM Rivaroxaban (Xarelto) 20 MG TABLET 1 Tablet ORAL Every night Instructions: with food Comments: Last Taken: 03/30/17 Time: 9:30 PM Metformin HCl (Metformin HCl) 500 MG TABLET 1 Tablet ORAL DAILY Comments: NOT GIVEN IN THE HOSPITAL Lubiprostone (Amitiza) 24 MCG CAPSULE 1 Capsule ORAL TWICE DAILY as needed for GI Comments: NOT GIVEN IN HOSPITAL Ferrous Sulfate (Ferrous Sulfate) 325 MG (65 MG IRON) TABLET 1 Tablet ORAL THREE TIMES DAILY Comments: Last Taken: 03/31/17 Time: 10 AM Melatonin (Melatonin) 5 MG CAPSULE 1 Capsule ORAL Every night Comments: Last Taken: 03/30/17 Time: 9:30 PM Levothyroxine Sodium (Levothyroxine Sodium) 100 MCG TABLET 1 Tablet ORAL DAILY BEFORE BREAKFAST Comments: Last Taken: 03/31/17 Time: 6 AM Amiodarone HCl (Amiodarone HCl) 100 MG TABLET 1 Tablet ORAL DAILY Comments: Last Taken: 03/31/17 Time: 10 AM Mirtazapine (Mirtazapine) 15 MG TABLET 1 Half Tablet ORAL DAILY Comments: Last Taken: 03/31/17 Time: 10 AM Latanoprost (Xalatan) 2.5 ML DROPS 1 Drop In the eye Every night Comments: Last Taken: 03/30/17 Time: 9:30 PM Fluticasone/Salmeterol (Advair 250-50 Diskus) 1 EACH BLST.W.DEV 1 Puff Inhale through mouth as needed for COPD Comments: Last Taken: 03/31/17 Time: 10 AM SYMBICORT GIVEN IN HOSPITAL Mometasone Furoate (Nasonex) 17 GM SPRAY.PUMP 2 [place] Both sides of nose as needed for ALLERGIES Comments: NOT GIVEN IN HOSPITAL Sacubitril/Valsartan (Entresto 97 MG-103 MG Tablet) 97 MG-103 MG TABLET 1 Tablet ORAL TWICE DAILY Qty = 170 Comments: Last Taken: 03/31/17 Time: 10 AM Furosemide (Lasix) 40 MG TABLET 1 Tablet ORAL 7:30AM Days = 30 Comments: NOT GIVEN IN HOSPITAL Copies To: BOSSMAN SEGAL,RY Young; CHANTAL SEGAL,JOSE JUAN Yun
--- NOTE | 2017-03-30 11:08 | ECHOCARDIOGRAM REPORT ---
RASHAWN WELLINGTON Age: 76 : 1940 Gender: M Exam Date: 03/29/2017 10:26 Exam Location: 1 [address] Ht (in): 69 Wt (lb): 160 BSA: 1.88 BP: 94 / 48 Ordering Physician: RAYSHAWN EVANS MD Referring Physician: Ulysses Perez MD Technologist: Emily Yoder [facility] Room Number: 189-01 Indications: PRESYNCOPE/SYNCOPE Rhythm: Paced Technical Quality: Fair FINDINGS Left Ventricle Moderate to severe left ventricular dilatation. Mild concentric left ventricular hypertrophy. Abnormal septal motion consistent with pacemaker activation. Markedly hypokinetic septum. Moderately to severely reduced global left ventricular systolic function. Moderately to severely abnormal left ventricular ejection fraction estimated at 25-30%. Right Ventricle Right ventricle at upper limits of normal. Catheter/pacemaker wire in the right ventricular cavity. Right Atrium Mild right atrial dilatation. Catheter/pacemaker wire in the right atrial cavity. Elevated right atrial pressure. Left Atrium Severe left atrial dilatation. Mitral Valve Mitral valve thickened. Mild to moderate mitral regurgitation. Aortic Valve Trileaflet aortic valve. Mild aortic sclerosis. No aortic stenosis. Trace aortic regurgitation. Tricuspid Valve Structurally normal tricuspid valve. Trace to mild tricuspid regurgitation. Moderate luminary hypertension. Right ventricular systolic pressure estimated to be elevated at 52 mmHg. Pulmonic Valve Pulmonic valve not well visualized, grossly normal. Mild pulmonic regurgitation. Pericardium No pericardial effusion. Great Vessels Mildly dilated aortic root. Mildly dilated inferior vena cava. CONCLUSIONS Moderate to severe left ventricular dilatation. Mild concentric left ventricular hypertrophy. Abnormal septal motion consistent with pacemaker activation. Markedly hypokinetic septum. Moderately to severely reduced global left ventricular systolic function. Moderately to severely abnormal left ventricular ejection fraction estimated at 25-30%. Right ventricle at upper limits of normal. Catheter/pacemaker wire in the right ventricular cavity. Mild right atrial dilatation. Catheter/pacemaker wire in the right atrial cavity. Severe left atrial dilatation. Mild to moderate mitral regurgitation. Trace aortic regurgitation. Trace to mild tricuspid regurgitation. Moderate luminary hypertension. Mild pulmonic regurgitation. Mildly dilated aortic root. Mildly dilated inferior vena cava. Ulysses Perez M.D. (Electronically Signed) Final Date: 30 Mar 2017 11:07 MEASUREMENTS (Male / Female) Normal Values 2D ECHO LV Diastolic Diameter PLAX 6.4 cm 4.2 - 5.9 / 3.9 - 5.3 cm LV Systolic Diameter PLAX 5.8 cm 2.1 - 4.0 cm LV Fractional Shortening PLAX 9.4 % 25 - 46 % LV Ejection Fraction 2D Teich 20.1 % IVS Diastolic Thickness 1.2 cm LVPW Diastolic Thickness 1.2 cm LV Relative Wall Thickness 0.4 RV Internal Dim ED PLAX 3.3 cm 1.9 - 3.8 cm LVOT Diameter 2.2 cm Aortic Root Diameter 3.9 cm LA Systolic Diameter LX 5.6 cm 3.0 - 4.0 / 2.7 - 3.8 cm LA Volume 187.0 cm 18 - 58 / 22 - 52 cm Ascending Aorta Diameter 3.4 cm DOPPLER AV Peak Velocity 112.0 cm/s AV Peak Gradient 5.0 mmHg AV Mean Velocity 76.8 cm/s AV Mean Gradient 3.0 mmHg AV Velocity Time Integral 19.4 cm LVOT Peak Velocity 85.0 cm/s LVOT Peak Gradient 2.9 mmHg LVOT Mean Velocity 56.1 cm/s LVOT Mean Gradient 1.0 mmHg LVOT Velocity Time Integral 14.7 cm LVOT Stroke Volume 55.9 cm AV Area Cont Eq vti 2.9 cm AV Area Cont Eq pk 2.9 cm MV Peak Velocity 120.0 cm/s MV Peak Gradient 5.8 mmHg MV Mean Velocity 55.4 cm/s MV Mean Gradient 2.0 mmHg Mitral E Point Velocity 79.5 cm/s MV PHT Velocity 126.0 cm/s MV Deceleration Garrett 399.0 cm/s MV Pressure Half Time 94.7 ms MV Area PHT 2.3 cm MV Deceleration Time 95.0 ms TR Peak Velocity 324.0 cm/s TR Peak Gradient 42.0 mmHg Right Atrial Pressure 10.0 mmHg Pulmonary Artery Systolic Pressu 52.0 mmHg Right Ventricular Systolic Press 52.0 mmHg PV Peak Velocity 75.2 cm/s PV Peak Gradient 2.3 mmHg PV Mean Velocity 55.4 cm/s PV Mean Gradient 1.0 mmHg PV Velocity Time Integral 13.7 cm LV E' Lateral Velocity 6.6 cm/s Mitral E to LV E' Lateral Ratio 12.1 LV E' Septal Velocity 6.2 cm/s Mitral E to LV E' Septal Ratio 12.7
[2017-03-30 16:15] VITALS: BP 108/60
--- NOTE | 2017-03-30 17:27 | Patient Discharge Instructions ---
Discharge Instructions General Discharge Information You were seen/treated for: Syncope/dizziness Low blood pressure Watch for these problems: Recurrence of dizziness Worsening blurry vision Chest pain or shortness of breath Special Instructions: Please take all medications as directed. Please follow-up with your PCP within 1-2 weeks after discharge. Please follow-up with her pipe supervisor within 1 weeks after discharge. Have the following blood work done and sent to Dr. Ana Ayoub Recommended Diet: Heart Healthy Activity Activity Self Limited: Yes Acute Coronary Syndrome Inclusion Criteria At DC or during hospital stay patient has or had the following: ACS DIAGNOSIS No Discharge Core Measures Meds if any: Prescribed or Continued at Discharge Meds if any: NOT Prescribed or Continued at Discharge Congestive Heart Failure Inclusion Criteria At DC or during hospital stay patient has or had the following: CHF DIAGNOSIS No Discharge Core Measures Meds if any: Prescribed or Continued at Discharge Meds if any: NOT Prescribed or Continued at Discharge Cerebrovascular accident Inclusion Criteria At DC or during hospital stay patient has or had the following: CVA/TIA Diagnosis No Discharge Core Measures Meds if any: Prescribed or Continued at Discharge Meds if any: NOT Prescribed or Continued at Discharge Venous thromboembolism Inclusion Criteria VTE Diagnosis No VTE Type NONE VTE Confirmed by (Test) NONE Discharge Core Measures - Per Current guidelines, there needs to be overlap - treatment for the first 5 days of Warfarin therapy. - If discharged on Warfarin prior to 5 days of - overlap therapy, the patient will need to be - assessed for post discharge needs including - *Post discharge parental anticoagulation - *Warfarin and/or parental anticoagulation education - *Follow up date to check INR post discharge At least 5 days overlap therapy as Inpatient No Meds if any: Prescribed or Continued at Discharge Note: Overlap Therapy is Warfarin and Anticoagulant Meds if any: NOT Prescribed or Continued at Discharge
--- NOTE | 2017-03-30 17:57 | PN- Cardiology ---
Subjective Subjective: No complaints. Denies any lightheadedness, dizziness, chest discomfort, palpitations, shortness of breath, etc. Objective Vital Signs and I&Os Vital Signs Date Time Temp Pulse Resp B/P B/P Pulse O2 O2 Flow FiO2 Mean Ox Delivery Rate 03/30 1740 70 108/60 03/30 1615 98.1 70 16 108/60 96 Room Air 03/30 1035 80 102/66 03/29 2300 97.4 80 18 102/66 95 Room Air Intake & Output 03/30 1600 03/30 0800 03/30 0000 03/29 1600 03/29 0803/29 0000 Intake Total 480 200 100 480 220 240 Output Total 714 831 2485 400 900 650 Balance 80 -250 -900 80 -680 -410 Intake, IV 0 0 Intake, Oral 480 200 100 480 220 240 Number 0 0 Bowel Movements Output, Urine 338 300 6274 400 900 650 Physical Exam: Well-developed, well-nourished elderly male in no acute distress with nasal oxygen in place. Vital signs: See above. HEENT: Normocephalic, atraumatic, EOMI, slightly dry mucous membranes. Neck: No JVD, no bruits. Lungs: Clear to auscultation bilaterally. Heart: S1, S2 with no murmur, gallop, or rub appreciated. PMI laterally displaced and diffuse. Abdomen: Soft, nontender, positive bowel sounds. Extremities: No edema. Current Medications: Current Medications Sig/Hamida Start time Last Medication Dose Route Stop Time Status Admin Acetaminophen 650 MG Q6P PRN 03/27 2045 AC PO Amiodarone HCl 100 MG DAILY 03/28 1000 AC 03/30 PO 1035 Atorvastatin Calcium 20 MG DAILY 03/28 1000 AC 03/30 PO 1035 Budesonide/ 2 PUF BID 03/27 2200 AC 03/30 Formoterol Fumarate INH 1034 Digoxin 0.125 MG 1700 03/28 1700 AC 03/30 PO 1740 Ferrous Sulfate 325 MG TID 03/27 2200 AC 03/30 PO 174 Insulin Aspart 0 TIDAC 03/28 0800 AC SC Latanoprost 1 GTT QPM 03/27 2200 AC 03/29 OPH 220 Levothyroxine Sodium 0.1 MG DAILY AC 03/28 0700 AC 03/30 PO 0741 Melatonin 5 MG AT BEDTIME 03/27 2200 AC 03/29 PO 220 Mirtazapine 7.5 MG DAILY 03/28 1000 AC 03/30 PO 1035 Non-Formulary See Dose BID 03/28 2200 DC Medication Insts (1) ANY Oxycodone/ 1 TAB Q6P PRN 03/27 2045 AC Acetaminophen PO Oxycodone/ 2 TAB Q6P PRN 03/27 2045 AC Acetaminophen PO Rivaroxaban 20 MG AT BEDTIME 03/29 2200 AC 03/29 PO 2202 Rivaroxaban 15 MG AT BEDTIME 03/27 2200 DC 03/28 PO 2116 Venlafaxine HCl 150 MG DAILY 03/31 1000 AC PO Venlafaxine HCl 150 MG DAILY 03/28 1000 DC 03/30 PO 1035 Dose Instructions: (1)Non-Formulary Medication: 1 po bid Results Last 48 Hrs of Labs/Mics: Laboratory Tests 03/29/17 0555: Anion Gap 10, Estimated GFR > 60, BUN/Creatinine Ratio 22.2 Recent Imaging Studies: Echocardiogram (03/29/2017): Moderate to severe left ventricular dilatation. Mild concentric left ventricular hypertrophy. Abnormal septal motion consistent with pacemaker activation. Markedly hypokinetic septum. Moderately to severely reduced global left ventricular systolic function. Moderately to severely abnormal left ventricular ejection fraction estimated at 25-30%. Right ventricle at upper limits of normal. Catheter/pacemaker wire in the right ventricular cavity. Mild right atrial dilatation. Catheter/pacemaker wire in the right atrial cavity. Severe left atrial dilatation. Mild to moderate mitral regurgitation. Trace aortic regurgitation. Trace to mild tricuspid regurgitation. Moderate luminary hypertension. Mild pulmonic regurgitation. Mildly dilated aortic root. Mildly dilated inferior vena cava. Assessment/Plan Assessment/Plan [id number] w/ hx fmr tobacco use, COPD, chronic anemia, recurrent GI bleeding, HLD, DM, TIAs/strokes, seizure disorder, chronic AF on anticoagulation, VT on antiarrhythmic therapy (amiodarone), s/p BiV pacemaker/defibrillator, CAD, s/p PCI's w/ PTCA, s/p AK's w/ severe ischemic CM and recurrent acute on chronic systolic HF who presented to the ED following a syncopal episode at home w/o prodromal symptoms, orthostasis, defibrillator shock, etc. Naturally, the major concern wass that he may have had a dysrhythmia that self terminated or terminated with pacing, but lasted long enough for a syncopal episode to have occurred. Fortunately, his device was interrogated by the [employer] eligibility services representative and is functioning properly without any recent evidence of malignant/potentially malignant dysrhythmias. He is clinically improved and his renal function has also improved significantly , suggesting a component of intravascular depletion and would therefore encourage by mouth intake and continue to hold his diuretic for the short-term. Another possibility for his presentation was him improperly taking the enalapril with Entresto. When this medication was to be initiated he and his were told that he needed to stop taking the enalapril for 36 hours before the first dose of contrast was taken. His brought in his medications and these were reviewed in detail. He should be taking the following cardiac medications as below: * Amiodarone 100 mg daily. * Digoxin 0.125 mg daily. * Furosemide 40 mg +20 mg daily for total 60 mg daily. * Atorvastatin 20 mg daily. * Rivaroxaban 20 mg daily. * Isosorbide 30 mg daily. * Spironolactone 25 mg daily. He should NOT be taking the following medication: * Enalapril 50 mg daily Recommendations: * Continue on telemetry and reassess the need for further diuretic therapy in the morning. * Follow-up laboratory work. * Continue DVT prophylaxis. Continue telemetry? Yes
[2017-03-30] MEDS ORDERED: LASIX40 M1 PO ×2 (18:17→18:29)
[2017-03-30] MEDS ORDERED: ISOSORBIDE DINI30 M1 PO (18:19)
[2017-03-30] MEDS ORDERED: ALDACTONE25 MG PO (18:19)
[2017-03-30] MEDS ORDERED: ISOSORBIDE MONO30 M1 PO (18:20)
[2017-03-30] MEDS ORDERED: LASIX20 M1 PO (18:29)
[2017-03-30 22:30] VITALS: BP 120/72
--- NOTE | 2017-03-31 07:11 | PN- Housestaff ---
See Addendum Subjective Follow-up For: Dizziness Hypotension Acute kidney injury HFrEF (echocardiogram 05/15/15 LVEF 25-30%, LVH, RVSP 37 mmHg) Complaints: no complaints Tele-Events Since Last Visit: Single pacing: HR 79-87 bpm Subjective: Interval history: There are no acute events overnight. This morning's Wieler reports feeling much better and was able to walk with physical therapy yesterday without a recurrence of dizziness. He denies any headache, blurred vision, chest pain or shortness of breath, nausea, abdominal pain, fevers or chills. Review of Systems Constitutional: Reports: see HPI. EENTM: Reports: no symptoms. Cardiovascular: Reports: no symptoms. Respiratory: Reports: no symptoms. Gastrointestinal: Reports: no symptoms. Musculoskeletal: Reports: see HPI. Objective Last 24 Hrs of Vital Signs/I&O Vital Signs Date Time Temp Pulse Resp B/P B/P Pulse O2 O2 Flow FiO2 Mean Ox Delivery Rate 03/31 1006 85 102/52 03/31 0959 85 102/52 03/31 0754 97.6 85 18 102/60 93 Room Air 03/30 2230 97.9 79 18 120/72 93 Room Air 03/30 1740 70 108/60 03/30 1615 98.1 70 16 108/60 96 Room Air Intake & Output 03/31 1600 03/31 0800 03/31 0000 Intake Total 60 970 Output Total 550 750 Balance -490 220 Intake, IV 10 10 Intake, Oral 50 960 Output, Urine 550 750 Physical Exam General Appearance: Alert, Cooperative, No Acute Distress Skin: No Significant Lesion HEENT: Mucous Membr. moist/pink Cardiovascular: Regular Rate, Normal S1, Normal S2 Lungs: Clear to Auscultation, Normal Air Movement Abdomen: Normal Bowel Sounds, Soft, No Tenderness Extremities: No Edema, Normal Pulses Vascular: Pulses Symmetrical Current Medications: Current Medications Sig/Hamida Start time Last Medication Dose Route Stop Time Status Admin Acetaminophen 650 MG Q6P PRN 03/27 2045 AC PO Amiodarone HCl 100 MG DAILY 03/28 1000 AC 03/31 PO 1006 Atorvastatin Calcium 20 MG DAILY 03/28 1000 AC 03/31 PO 1006 Budesonide/ 2 PUF BID 03/27 2200 AC 03/31 Formoterol Fumarate INH 0957 Digoxin 0.125 MG 1700 03/28 1700 AC 03/30 PO 1740 Ferrous Sulfate 325 MG TID 03/27 2200 AC 03/31 PO 1006 Furosemide 60 MG DAILY 03/30 1817 DC PO Insulin Aspart 0 TIDAC 03/28 0800 AC SC Isosorbide 30 MG DAILY 03/31 1000 DC Mononitrate PO Latanoprost 1 GTT QPM 03/27 2200 AC 03/30 OPH 2131 Levothyroxine Sodium 0.1 MG DAILY AC 03/28 0700 AC 03/31 PO 0616 Melatonin 5 MG AT BEDTIME 03/27 220 AC 03/30 PO 2131 Mirtazapine 7.5 MG DAILY 03/28 1000 AC 03/31 PO 1006 Non-Formulary See Dose BID 03/28 2200 DC Medication Insts (1) ANY Oxycodone/ 1 TAB Q6P PRN 03/27 2045 AC Acetaminophen PO Oxycodone/ 2 TAB Q6P PRN 03/27 2045 AC Acetaminophen PO Rivaroxaban 20 MG AT BEDTIME 03/29 2200 AC 03/30 PO 2131 Spironolactone 25 MG DAILY 03/31 1000 DC 03/31 PO 0957 Spironolactone 25 MG DAILY 03/30 1822 DC PO Venlafaxine HCl 150 MG DAILY 03/31 1000 AC 03/31 PO 0957 Venlafaxine HCl 150 MG DAILY 03/28 1000 DC 03/30 PO 1035 Dose Instructions: (1)Non-Formulary Medication: 1 po bid Last 24 Hrs of Lab/Ayaan Results Last 24 Hrs of Labs/Mics: Laboratory Tests 03/31/17 1030: Sodium Pending, Potassium Pending, Chloride Pending, Carbon Dioxide Pending, Anion Gap Pending, BUN Pending, Creatinine Pending, BUN/Creatinine Ratio Pending Assessment/Plan Assessment: 76-year-old gentleman with a PMH of Parkinson's disease, HFrEF (echocardiogram LVEF 25-30%, LVH, RVSP 37 mmHg), A. 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 Patient endorsed preceding dizziness and an episode of blurred vision and difficulty seeing the clock the night before. Problem list: 1. Syncopal episode 2. Hypotension 3. RADHA 4. HFrEF (echocardiogram 05/15/15 LVEF 25-30%, LVH, RVSP 37 mmHg) 5. History of A. fib 6. History of CAD S/P angioplasty and biventricular permanent pacemaker/ defibrillator 7. History of CVA with residual deficits 8. Hypertension 9. Diabetes 10. Hypothyroidism Plan: 1. Syncopal episode * Orthostatics have remained negative. Symptoms are likely secondary to overdiuresis in the setting of his medication dosages prior to admission. * Interrogation of biventricular pacemaker/defibrillator on 03/28/2017 did not reveal any events except a 7 beat run of V. tach on 02/15/2017 * Stable at this time for discharge 2. Hypotension * Blood pressure has remained stable over the past few days with systolics in the 100s to 120s * entresto was given yesterday evening. Will monitor renal function this morning and plan to discharge the patient with follow-up recommendations restarting diuretics * Continue with digoxin 0.125 mg 3. RADHA * Resolved at this time. Continue to encourage by mouth fluid intake 4. HFrEF (echocardiogram 05/15/15 LVEF 25-30%, LVH, RVSP 37 mmHg) * Echocardiogram (03/29/17): Moderate to severe left ventricular dilatation. Mild concentric left ventricular hypertrophy. Abnormal septal motion consistent with pacemaker activation. Markedly hypokinetic septum. Moderately to severely reduced global left ventricular systolic function. Moderately to severely abnormal left ventricular ejection fraction estimated at 25-30%. Right ventricular systolic pressure estimated to be elevated at 52 mmHg. * Continue current dose of digoxin 0.125 mg 5. History of A. fib * Telemetry overnight single paced rhythm, HR 79-87 bpm * Renal function is back to baseline and thus his relatives back to 20 mg daily * Continue amiodarone 100 mg daily 6. History of CVA with residual deficits * PT and OT evaluation 7. Hypertension * Renal function is back to baseline * Enalapril has been discontinued. Furosemide, spironolactone and Imdur currently on hold in setting of low blood pressure. Outpatient follow-up with cardiology for restarting these medications 9. Diabetes * Accu-Cheks over the past 24 hours: 111 through 131 * Patient has not required any insulin during the hospital stay. We'll continue Accu-Cheks and if hypoglycemic encourage PO intake * Consistent carbohydrate 3 10. Hypothyroidism * Continue with levothyroxine 100mcg DVT prophylaxis: Xarelto CODE STATUS: DNR/DNI Problem List: 1. Syncope 2. Hypotension 3. HFrEF (heart failure with reduced ejection fraction) 4. RADHA (acute kidney injury) 5. Atrial fibrillation Pain Ratin Pain Location: NA Pain Goal: Pain 4 or less Pain Plan: Pain pathway Tomorrow's Labs & Rationales: None required DVT/Prophylaxis: pharmacological Discharge Plan Discharge Disposition: home Stable for Discharge? Yes Anticipated Discharge (Day): today If Discharged Today/In 24 Hrs: enter antc discharge ord, W-10/discharge paper done, DC summary done, CMR done
[2017-03-31 07:54] VITALS: BP 102/60
[2017-03-31 10:06] VITALS: BP 102/52
--- NOTE | 2017-03-31 19:16 | PN- Cardiology ---
Subjective Subjective: No complaints. Denies any chest discomfort, palpitations, shortness of breath, lower extremity edema, etc. Objective Vital Signs and I&Os Vital Signs Date Time Temp Pulse Resp B/P B/P Pulse O2 O2 Flow FiO2 Mean Ox Delivery Rate 03/31 1006 85 102/52 03/31 0959 85 102/52 03/31 0754 97.6 85 18 102/60 93 Room Air 03/30 2230 97.9 79 18 120/72 93 Room Air Intake & Output 03/31 1600 03/31 0800 03/31 0000 03/30 1600 03/30 0800 03/30 0000 Intake Total 480 60 490 960 200 100 Output Total 550 550 350 509 035 1556 Balance -70 -490 140 160 -250 -900 Intake, IV 10 10 0 0 Intake, Oral 480 50 480 960 200 100 Number 0 0 Bowel Movements Output, Urine 550 550 350 543 947 0179 Physical Exam: Well-developed, well-nourished elderly male in no acute distress with nasal oxygen in place. Vital signs: See above. HEENT: Normocephalic, atraumatic, EOMI, slightly dry mucous membranes. Neck: No JVD, no bruits. Lungs: Clear to auscultation bilaterally. Heart: S1, S2 with no murmur, gallop, or rub appreciated. PMI laterally displaced and diffuse. Abdomen: Soft, nontender, positive bowel sounds. Extremities: No edema. Current Medications: Current Medications Sig/Hamida Start time Last Medication Dose Route Stop Time Status Admin Acetaminophen 650 MG Q6P PRN 03/275 DCD PO Amiodarone HCl 100 MG DAILY 03/28 1000 DCD 03/31 PO 1006 Atorvastatin Calcium 20 MG DAILY 03/28 1000 DCD 03/31 PO 1006 Budesonide/ 2 PUF BID 03/27 2200 DCD 03/31 Formoterol Fumarate INH 0957 Digoxin 0.125 MG 1700 03/28 1700 DCD 03/30 PO 1740 Ferrous Sulfate 325 MG TID 03/27 2200 DCD 03/31 PO 1006 Insulin Aspart 0 TIDAC 03/28 0800 DCD SC Isosorbide 30 MG DAILY 03/31 1000 DC Mononitrate PO Latanoprost 1 GTT QPM 03/27 2200 DCD 03/30 OPH 2131 Levothyroxine Sodium 0.1 MG DAILY AC 03/28 0700 DCD 03/31 PO 0616 Melatonin 5 MG AT BEDTIME 03/27 2200 DCD 03/30 PO 2130 Mirtazapine 7.5 MG DAILY 03/28 1000 DCD 03/31 PO 1006 Oxycodone/ 1 TAB Q6P PRN 03/27 2045 DCD Acetaminophen PO Oxycodone/ 2 TAB Q6P PRN 03/27 2045 DCD Acetaminophen PO Patient Medication 1 ED .STK-MED ONE 03/31 1413 DC Teaching ED 03/31 1414 Potassium Chloride 40 MEQ ONCE ONE 03/31 1230 DC 03/31 PO 03/31 1231 1239 Rivaroxaban 20 MG AT BEDTIME 03/290 DCD 03/30 PO 213 Spironolactone 25 MG DAILY 03/31 1000 DC 03/31 PO 0957 Venlafaxine HCl 150 MG DAILY 03/31 1000 DCD 03/31 PO 0957 Results Last 48 Hrs of Labs/Mics: Laboratory Tests 03/31/17 1030: Anion Gap 14, Estimated GFR > 60, BUN/Creatinine Ratio 21.1 Assessment/Plan Assessment/Plan [id number] w/ hx fmr tobacco use, COPD, chronic anemia, recurrent GI bleeding, HLD, DM, TIAs/strokes, seizure disorder, chronic AF on anticoagulation, VT on antiarrhythmic therapy (amiodarone), s/p BiV pacemaker/defibrillator, CAD, s/p PCI's w/ PTCA, s/p UT's w/ severe ischemic CM and recurrent acute on chronic systolic HF who presented to the ED following a syncopal episode at home w/o prodromal symptoms, orthostasis, defibrillator shock, etc. Naturally, the major concern wass that he may have had a dysrhythmia that self terminated or terminated with pacing, but lasted long enough for a syncopal episode to have occurred. Fortunately, his device was interrogated by the [employer] tax representative and is functioning properly without any recent evidence of malignant/potentially malignant dysrhythmias. He is clinically improved and his renal function has also improved significantly , suggesting a component of intravascular depletion and would therefore encourage by mouth intake and continue to hold his diuretic for the short-term. Another possibility for his presentation was him improperly taking the enalapril with Entresto. When this medication was to be initiated he and his were told that he needed to stop taking the enalapril for 36 hours before the first dose of contrast was taken. His brought in his medications and these were reviewed in detail. He should have been taking the cardiac medications isted in yesterday's progress notend should not have been taking Enalapril which was eviewedwith him and his . * Recommendations: * Stable for discharge from a cardiac standpoint. * Reviewed what medications he should be taking with him and the house staff. We are going torestart Furosemide 40 mg daily tomorrow. We will be continuing to hold the Isosorbide Mononitrate and Spironolactone until he is seen in outpatient follow-up. We will also be reviewing the pros and cons of having him back on beta july therapy. * Follow-up laboratory workis planned for later this week. * We will follow-up with the patient early next week. Continue telemetry? Yes
== END 2017-03-31 17:10 | disposition home health service (06) | DRG 683 ==
LOC: ERH 11:39 → ERHI 19:46 → 1NO 19:46 → ENRESERV 20:34 → ENTRNSPT 22:23 → 1NO 22:37 → CMPTRNSPT 03-28 07:03 → 1NO 03-28 10:06 → ENPENDDIS 03-31 14:23 → 1NO 03-31 17:10
PROVIDERS: Emergency Medicine; Internal Medicine; ADMIT Internal Medicine
DX: N17.9 Acute kidney failure, unspecified (principal); I47.2 Ventricular tachycardia; I50.22 Chronic systolic (congestive) heart failure; I69.351 Hemiplegia and hemiparesis following cerebral infarction affecting right dominant side; G20 Parkinson's disease; E86.0 Dehydration; I11.0 Hypertensive heart disease with heart failure; I48.2 Chronic atrial fibrillation; J44.9 Chronic obstructive pulmonary disease, unspecified; E11.9 Type 2 diabetes mellitus without complications; E03.9 Hypothyroidism, unspecified; I69.322 Dysarthria following cerebral infarction; I25.5 Ischemic cardiomyopathy; I25.10 Atherosclerotic heart disease of native coronary artery without angina pectoris; Z95.0 Presence of cardiac pacemaker; J45.909 Unspecified asthma, uncomplicated; F31.9 Bipolar disorder, unspecified; I25.2 Old myocardial infarction; Z79.84 Long term (current) use of oral hypoglycemic drugs; Z87.891 Personal history of nicotine dependence; Z95.5 Presence of coronary angioplasty implant and graft
CPT/HCPCS: 1NSP; 36415; 81001; 82436; 93005; 93010; 93306; 96360; 97110-GO; 97116-GO; 97161-GP; 97165-GO; 97530-GO; J3490

== ENCOUNTER 2017-12-22 16:43 | Inpatient (IN) | payer OTHER ==
[~2017-12-22] VITALS: Ht 175.3 cm; Wt 80.3 kg
[~2017-12-22 16:43] MED LIST changes: +ENALAPRIL MALEAT5 M1 PO; +ENTRESTO 97 MG1 EACH PO; +ISOSORBIDE DINI30 M1 PO; +LASIX20 M1 PO; +LASIX40 M1 PO
--- NOTE | 2017-12-22 16:55 | ED DYSPNEA/ASTHMA COMPLAINT ---
History of Present Illness General Chief Complaint: Dyspnea (COPD, CHF, Other) Stated Complaint: RAPID RESPONCE, SOB Source: patient, family, old records Exam Limitations: no limitations Vital Signs & Intake/Output Vital Signs & Intake/Output Vital Signs Date Time Temp Pulse Resp B/P B/P Pulse O2 O2 Flow FiO2 Mean Ox Delivery Rate 12/24 2248 98.0 80 20 118/70 97 Nasal 4.0L Cannula 12/24 1830 94 Nasal 4.0L Cannula 12/24 1720 Nasal 4.5L Cannula 12/24 1412 82 12/24 0850 93 Nasal 4.0L Cannula 12/24 0800 Nasal 4.5L Cannula ED Intake and Output 12/25 0000 12/24 1200 Intake Total 1200 120 Output Total 1940 300 Balance -740 -180 Intake, Oral 1200 120 Output, Urine 1940 300 Allergies Coded Allergies: NO KNOWN ALLERGIES (NO) (02/22/15) Reconcile Medications Amiodarone HCl 100 MG TABLET 1 TAB PO DAILY HEART (Reported) Atorvastatin Calcium (Lipitor) 20 MG TABLET 1 TAB PO DAILY CHOLESTEROL ( Reported) Digoxin 125 MCG TABLET 1 TAB PO DAILY HEART (Reported) Ferrous Sulfate 325 MG (65 MG IRON) TABLET 1 TAB PO TID SUPPLEMENT (Reported) Fluticasone/Salmeterol (Advair 250-50 Diskus) 1 EACH BLST.W.DEV 1 PUF INH PRN COPD (Reported) Furosemide (Lasix) 40 MG TABLET 1 TAB PO 7:30AM DIURETIC (Reported) Latanoprost (Xalatan) 2.5 ML DROPS 1 GTT OPH QPM BOTH EYES (Reported) Levothyroxine Sodium 100 MCG TABLET 1 TAB PO DAILY AC THYROID (Reported) Lubiprostone (Amitiza) 24 MCG CAPSULE 1 CAP PO BID PRN GI (Reported) Melatonin 5 MG CAPSULE 1 CAP PO QPM SLEEP (Reported) Metformin HCl 500 MG TABLET 1 TAB PO DAILY DIABETES (Reported) Mirtazapine 15 MG TABLET 1 HTAB PO DAILY DEPRESSION (Reported) Mometasone Furoate (Nasonex) 17 GM SPRAY.PUMP 2 SPRAY NASB PRN ALLERGIES ( Reported) Rivaroxaban (Xarelto) 20 MG TABLET 1 TAB PO QPM BLOOD THINNER (Reported) with food Sacubitril/Valsartan (Entresto 97 MG-103 MG Tablet) 97 MG-103 MG TABLET 1 TAB PO BID HEART (Reported) Venlafaxine HCl (Effexor XR) 150 MG CAP.ER.24H 1 CAP PO DAILY DEPRESSION ( Reported) Triage Nurses Notes Reviewed? yes Onset: Abrupt Duration: minute(s):, constant Timing: recent history Severity: moderate, severe HPI: 77-year-old male brought into the emergency room for evaluation of sudden onset shortness of breath while he was at the [facility]. He reports that he felt short of breath while walking and then fell per family short of breath upon sitting. Not any chest pain. He reports that he felt a little under the weather this past weekend with some chills and body aches. (Nelson Gusman) Past History Travel History Traveled to [facility] past 21 day No Medical History Any Pertinent Medical History? 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 SISTER ([place] AT 60). SISTER (DEPRESSION). SISTER (TREMORS). Relation not specified for: *No pertinent family history Hx Contributory? No (Nelson Gusman) Review of Systems Review of Systems Constitutional: Reports: no symptoms. EENTM: Reports: no symptoms. Respiratory: Reports: see HPI. Cardiovascular: Reports: no symptoms. GI: Reports: no symptoms. Genitourinary: Reports: no symptoms. Musculoskeletal: Reports: no symptoms. Skin: Reports: no symptoms. Neurological/Psychological: Reports: no symptoms. Hematologic/Endocrine: Reports: no symptoms. Immunologic/Allergic: Reports: no symptoms. All Other Systems: Reviewed and Negative (Nelson Gusman) Physical Exam Physical Exam General Appearance: well developed/nourished, alert, awake, moderate distress Head: atraumatic Eyes: Bilateral: normal appearance. Ears, Nose, Throat: normal ENT inspection, hearing grossly normal Neck: normal inspection Respiratory: crackles, rhonchi, respiratory distress (moderate) Cardiovascular: regular rate/rhythm Gastrointestinal: soft Extremities: normal inspection Neurologic/Psych: awake, alert, oriented x 3 Skin: intact Core Measures ACS in differential dx? Yes CVA/TIA Diagnosis No Sepsis Present: No Sepsis Focused Exam Completed? No (Nelson Gusman) Progress Differential Diagnosis: asthma, AMI, bronchitis, costochondritis, CHF, COPD, musculoskeletal pain, pericarditis, pulmonary embolism, pneumonia, pneumothorax, rib fracture, unstable angina Plan of Care: Orders Procedure Date/time Status MAGNESIUM 12/25 0500 Active CBC WITHOUT DIFFERENTIAL 12/25 0500 Active BASIC ELECTROLYTES PLUS BUN&CR 12/25 0500 Active Change service to 12/24 1326 Active THYROID STIMULATING HORMONE 12/24 0430 Complete FREE T4 12/24 0430 Complete FOLIC ACID 12/24 0430 Complete VITAMIN B12 12/24 0430 Complete Lab Add-on Test 12/24 UNK Active OXYGEN SETUP CHG 12/23 UNK Complete AEROSOL CHG 12/23 UNK Complete OXYGEN 12/23 UNK Complete OXYGEN TRANSPORT 12/23 UNK Complete Current Medications Sig/Hamida Start time Last Medication Dose Stop Time Status Admin Rivaroxaban 20 MG 1700 12/24 1700 AC 12/24 (Xarelto) 1643 Cyanocobalamin 250 MCG DAILY 12/24 1513 AC 12/24 (Vitamin B12) 1643 Furosemide 40 MG 7:30 AM, & 4:30 PM 12/24 0730 AC 12/24 (Lasix) 1643 Insulin Aspart 0 AT BEDTIME 12/23 2200 AC (NovoLOG) Latanoprost 1 GTT QPM 12/23 2200 AC 12/24 (Xalatan) 2108 Sacubitril/Valsartan 97 MG 0900,2100 12/23 2100 AC 12/24 (ENTRESTRO) 2109 Atorvastatin Calcium 20 MG 1700 12/23 1700 AC 12/24 (Lipitor) 1643 Amiodarone HCl 100 MG 16:30 12/23 1630 AC 12/24 (Cordarone) 1643 Ipratropium [place] 2.5 ML TID 12/23 1115 AC 12/24 (Atrovent) 1830 Albuterol Sulfate 3 ML TID 12/23 1109 AC 12/24 (Proventil) 1830 Budesonide/ 2 PUF BID 12/23 1000 AC 12/24 Formoterol Fumarate 2109 (Symbicort) Digoxin 0.125 MG DAILY 12/23 1000 AC 12/24 (Lanoxin) 1412 Insulin Aspart 0 TIDAC 12/23 0800 AC 12/24 (NovoLOG) 1646 Venlafaxine HCl 150 MG 0812/23 0800 AC 12/24 (Effexor Xr) 0841 Levothyroxine Sodium 0.1 MG DAILY AC 12/23 0300 AC 12/24 (Synthroid) 0600 Mirtazapine 15 MG QPM 12/23 0300 AC 12/24 (Remeron) 210 Laboratory Tests 12/24/17 0430: Anion Gap 11, Estimated GFR > 60, BUN/Creatinine Ratio 22.2, Magnesium 1.9, Vitamin B12 261, Folate 7.6, TSH 1.670, Free T4 1.84, CBC w Diff NO MAN DIFF REQ , RBC 4.71, MCV 100.2 H, MCH 33.1 H, MCHC 33.0, RDW 15.2 H, MPV 9.1, Gran % 78.9 H, Lymphocytes % 9.7 L, Monocytes % 10.2 H, Eosinophils % 0.7, Basophils % 0.5, Absolute Granulocytes 6.6 H, Absolute Lymphocytes 0.8 L, Absolute Monocytes 0.8 H, Absolute Eosinophils 0.1, Absolute Basophils 0 Diagnostic Imaging: Viewed by Me: Radiology Read. Discussed w/RAD: Radiology Read. Radiology Impression: PATIENT: GABRIEL WELLINGTON PRESENT AGE: 77 PATIENT ACCOUNT NO: [id number] : 41 LOCATION: [facility] ORDERING PHYSICIAN: Nelson PATEL SERVICE DATE: 12/22/17 EXAM TYPE : RAD - XRY-PORTABLE CHEST XRAY EXAMINATION: CHEST 1 VIEW CLINICAL INFORMATION: Shortness of breath. COMPARISON: 2017. TECHNIQUE: An AP view of the chest is provided. FINDINGS: The cardiac silhouette is enlarged, though stable. A single lead pacer overlies the right ventricle. There are left greater than right bilateral pleural effusions with bibasilar airspace disease, increased from prior exam. There is mild interstitial prominence present throughout both lungs. The osseous structures are stable. IMPRESSION: Stable cardiomegaly with mild interstitial prominence present throughout both lungs. Ice Guard Tester of mild vascular congestion. Left greater than right bilateral pleural effusions with associated bibasilar airspace disease. DICTATED BY: Gabriel Gale MD DATE/ TIME DICTATED:12/22/171712 WINE MANAGER:MIRTA DATE/TIME TRANSCRIBED: 12/22/171712 CONFIDENTIAL, DO NOT COPY WITHOUT APPROPRIATE AUTHORIZATION. < Electronically signed in Other Vendor System> SIGNED BY: Gabriel Gale MD 12/22/171718 Initial ED EKG: rate (80), pacemaker rhythm (Nelson Gusman) Departure Departure Disposition: STILL A PATIENT Condition: Stable Clinical Impression Primary Impression: Respiratory failure Secondary Impressions: Chronic CHF (congestive heart failure), Hypoxia Referrals: Fredis Kat MD (PCP/Family) Departure Forms: Customer Survey General Discharge Information Admission Note Spoke With: Yvonne Wilder MD Documentation of Exam: Documentation of any treatments & extenuating circumstances including Concerns Regarding Discharge (functional status, medication knowledge or non-compliance, living conditions, etc.) that warrant an admission rather than observation: Patient will require supplemental oxygen. IV diuresis. Cardiac telemetry. Serial troponins. Cardiac consultation. High risk. Patient was ambulated and was profoundly short of breath and desaturated to 83% on room air. (Nelson Gusman) PA/OFFSET PLATEMAKER Co-Sign Statement Statement: ED Attending supervision documentation- [X] I saw and evaluated the patient. I have also reviewed all the pertinent lab results and diagnostic results. I agree with the findings and the plan of care as documented in the PA's/OFFSET PLATEMAKER's documentation. Patient presented to the emergency department after a rapid response for acute onset of shortness of breath. Physical examination reveals moderate respiratory distress with diffuse rales and rhonchi on auscultation of the lungs. [] I have reviewed the ED Record and agree with the PA's/OFFSET PLATEMAKER's documentation. [] Additions or exceptions (if any) to the PAs/OFFSET PLATEMAKER's note and plan are summarized below: [] (Rajni SEGAL,Shadi Stallworth) Critical Care Note Critical Care Note Critical Care Time: 30-74 min (35) (Nelson Gusman)
--- NOTE | 2017-12-22 17:19 | RADIOLOGY REPORT ---
EXAMINATION: CHEST 1 VIEW CLINICAL INFORMATION: Shortness of breath. COMPARISON: [facility] 2017. TECHNIQUE: An AP view of the chest is provided. FINDINGS: The cardiac silhouette is enlarged, though stable. A single lead pacer overlies the right ventricle. There are left greater than right bilateral pleural effusions with bibasilar airspace disease, increased from prior exam. There is mild interstitial prominence present throughout both lungs. The osseous structures are stable. IMPRESSION: Stable cardiomegaly with mild interstitial prominence present throughout both lungs. Saturator of mild vascular congestion. Left greater than right bilateral pleural effusions with associated bibasilar airspace disease.
[2017-12-22 17:37] LABS: ABSOLUTE BASOPHIL COUNT 0.1 /CUMM (0.0-0.2); ABSOLUTE EOSINOPHIL COUNT 0.1 /CUMM (0.0-0.7); ABSOLUTE GRANULOCYTE CT 6.8 /CUMM (1.4-6.5); ABSOLUTE LYMPH COUNT 0.8 /CUMM (1.2-3.4); ABSOLUTE MONOCYTE COUNT 0.9 /CUMM (0.10-0.60); BASOPHIL % 0.7 % (0.0-2.0); EOSINOPHIL % 1.1 % (0-5); GRANULOCYTE % 79.2 % (42.2-75.2); HEMATOCRIT 45.7 % (42-52); MEAN CORPUSCULAR HGB 33.4 PG (27.0-31.0); MEAN CORPUSCULAR HGB CONC 33.6 G/DL (33.0-37.0); MEAN CORPUSCULAR VOLUME 99.5 FL (80.0-94.0); PLATELET COUNT 182 /CUMM (130-400); RBC DISTRIBUTION WIDTH 15.2 % (11.5-14.5); RED BLOOD CELL CT 4.59 /CUMM (4.70-6.10); WHITE BLOOD CELL COUNT 8.6 /CUMM (4.8-10.8)
--- NOTE | 2017-12-22 21:58 | History & Physical ---
Lana SEGAL,[facility] 12/22/17 2157: General Information and [facility] MD Statement: I have seen and personally examined RASHAWN WELLINGTON and documented this H&P. The patient is a 77 year old M who presented with a patient stated chief complaint of [shortness of breath]. Source of Information: patient, family Exam Limitations: physical impairment History of Present Illness: 77-year-old gentleman with past medical history of CVA, Parkinson's disease, seizure, legally blind, TIA, atrial fibrillation on xeralto, coronary artery disease status post pacemaker/defibrillator, cardiomyopathy, congestive heart failure, hypertension, asthma, COPD, GI bleed, diabetes, hypothyroidism, blood loss anemia status post transfusion was brought to [facility] for shortness of breath. Patient is a poor historian and has dysarthria. Apparently patient was in his usual state of health until today evening, he was having his dinner at [facility] caf[facility] and suddenly found to have short of breath both at rest and exertion. A rapid response was called on him today. Vitals were stable then and he was started on 2 L of nasal oxygen. Patient was brought in to ED for further evaluation. Patient franks complaints of myalgia, sore throat and nasal congestion during the week end. Patient denies chest pain, chest pressure, nausea, vomiting, palpitation, headache, altered sensation, trauma, loss of consciousness, incontinence, sick contacts, travel. No recent change in any medication. At baseline patient doesn't use cane or walker at home. He was last admitted at [facility] in March 2017 for syncopal episode. Patient had multiple blood transfusion for GI bleed in 2012, , . He was evaluated by expander machine operator Dr. Dunlap in the past. Patient has been intubated in the past for congestive heart failure. Medications were confirmed over the phone with his . Patient was admitted at [facility] a month ago for 2 days for shortness of breatH. Patient has a claim history of cefuroxime and azithromycin in November possibly treated for pneumonia. Allergies/Medications Allergies: Coded Allergies: NO KNOWN ALLERGIES (NO) (02/22/15) Compliance With Home Meds: GOOD Past History Travel History Traveled to [place] past 21 day No Medical History Neurological: CVA, Parkinson's disease, seizure, TIA, RIGHT SIDED WEAKNESS EENT: NONE Cardiovascular: AFIB, CAD, cardiomyopathy, CHF, hypertension Respiratory: asthma, COPD Gastrointestinal: GASTRITIS GI BLEED Hepatic: NONE Renal: NONE Musculoskeletal: NONE Psychiatric: bipolar disease Endocrine: diabetes, hypothyroidism Blood Disorders: anemia Cancer(s): NONE FIRE PREVENTION ENGINEER/Reproductive: NONE History of MRSA: No History of VRE: No History of CDIFF: No Isolation History: Standard Tetanus Vaccine: 02/22/15 Surgical History Surgical History: hernia repair-inguinal, PACER/DEFIB MULTIPLE ANGIOPLASTIES R GROIN HERNIA REPAIR ECHO Results (as available) EF% 25 Past Family/Social History Family History Relations & Conditions if any MOTHER (HTN). SISTER (PR AT 60). SISTER (DEPRESSION). SISTER (TREMORS). Relation not specified for: *No pertinent family history Psychosocial History Where do you live? Home Who Do You Live With? spouse Services at Home: None Smoking Status: Former Smoker ETOH Use: occasional use Illicit Drug Use: denies illicit drug use Functional Ability ADLs Independent: dressing, eating, toileting, bathing. Ambulation: cane (NON-COMPLIANT) IADLs Needs Assist: shopping, housework, finances, food prep, telephone, transportation, medication admin. Review of Systems Review of Systems Constitutional: Reports: no symptoms. Cardiovascular: Reports: no symptoms. Respiratory: Reports: short of breath. GI: Reports: no symptoms. Genitourinary: Reports: no symptoms. Musculoskeletal: Reports: no symptoms. Neurological/Psychological: Reports: no symptoms. Comments Patient also complains of myalgia, right throat pain, nasal congestion during the weekend. Exam & Diagnostic Data Last 24 Hrs of Vital Signs/I&O Vital Signs Date Time Temp Pulse Resp B/P B/P Pulse O2 O2 Flow FiO2 Mean Ox Delivery Rate 12/23 0224 93 Nasal 4.0L Cannula 12/23 37 93 Nasal 4.0L Cannula 12/23 003 97.8 80 25 110/60 93 Nasal 4.0L Cannula 12/23 0000 Nasal 4.0L Cannula 12/22 2231 97.3 87 18 124/80 92 Nasal Cannula 12/220 Nasal 4.0L Cannula 12/22 2136 98.6 81 24 131/74 91 Nasal 4.0L Cannula 12/22 1712 97.3 80 26 132/80 97 Nasal 2.0L Cannula 12/22 1700 Nasal 2.0L Cannula Intake & Output 12/23 0800 12/23 0000 12/22 1600 Intake Total 200 Output Total 685 Balance -485 Intake, Oral 200 Output, Urine 685 Patient 165 lb Weight Weight Reported by Patient Measurement Method Physical Exam General Appearance Alert, Oriented X3, Cooperative, No Acute Distress HEENT PERRLA Cardiovascular Normal S1, Normal S2, No Murmurs Lungs Clear to Auscultation, Normal Air Movement Abdomen Normal Bowel Sounds, Soft, No Tenderness, No Hepatospenomegaly Neurological Normal Speech, Strength at 5/5 X4 Ext, Normal Tone, Sensation Intact Extremities No Cyanosis, No Edema, Normal Pulses Last 24 Hrs of Labs/Ayaan: Laboratory Tests 12/23/17 0500: Sodium Cancelled, Potassium Cancelled, Chloride Cancelled, Carbon Dioxide Cancelled, Anion Gap Cancelled, BUN Cancelled, Creatinine Cancelled, BUN/ Creatinine Ratio Cancelled 12/23/17 0358: Sodium Pending, Potassium Pending, Chloride Pending, Carbon Dioxide Pending, Anion Gap Pending, BUN Pending, Creatinine Pending, BUN/Creatinine Ratio Pending , Troponin I Pending 12/22/172037: Urine Color YEL, Urine Clarity CLEAR, Urine pH 6.5, Ur Specific [place] 1.015, Urine Protein 30 H, Urine Ketones NEG, Urine Nitrite NEG, Urine Bilirubin NEG, Urine Urobilinogen 0.2, Ur Leukocyte Esterase NEG, Ur Microscopic SEDIMENT EXAMINED, Urine RBC 1-3, Urine WBC RARE, Ur Epithelial Cells RARE, Urine Mucus RARE, Urine Hemoglobin MOD H, Urine Glucose NEG 12/22/17 1720: pH 7.46 H, pCO2 32 L, pO2 68 L, HCO3 23, ABG O2 Sat (Measured) 93.0 L, P-50 (Temp Corrected) Y, Carboxyhemoglobin 0.3 L, O2 Concentration % 2, Temperature 97.3, O2 Delivery Method N/C, Phlebotomy Draw Site RIGHT RADIAL 12/22/17 1716: Anion Gap 12, Estimated GFR > 60, BUN/Creatinine Ratio 20.0, Glucose 129 H, Calcium 8.8, Total Bilirubin 0.5, AST 32, ALT 34, Alkaline Phosphatase 74, Troponin I 0.02, Gfp-T-Ekasnzxmxih Pept 2850 H, Total Protein 6.9, Albumin 4.3, Globulin 2.6, Albumin/Globulin Ratio 1.7, D-Dimer High Sensitivty 230, CBC w Diff NO MAN DIFF REQ, RBC 4.59 L, MCV 99.5 H, MCH 33.4 H, MCHC 33.6, RDW 15.2 H, MPV 9.0, Gran % 79.2 H, Lymphocytes % 8.9 L, Monocytes % 10.1 H, Eosinophils % 1.1, Basophils % 0.7, Absolute Granulocytes 6.8 H, Absolute Lymphocytes 0.8 L, Absolute Monocytes 0.9 H, Absolute Eosinophils 0.1, Absolute Basophils 0.1, Digoxin 1.0 Microbiology 12/23 344 UPPER RESP: Surveillance Culture - ORD 12/22 1934 NASOPHARYN: Influenza Virus A & B Rapid Smear - COMP Diagnostic Data CXR Results Stable cardiomegaly with mild interstitial prominence present throughout both lungs. Lining Scrubber of mild vascular congestion. Left greater than right bilateral pleural effusions with associated bibasilar airspace disease. Assessment/Plan Assessment: 77-year-old gentleman with past medical history of CVA, Parkinson's disease, seizure, legally blind, TIA, atrial fibrillation on xeralto, coronary artery disease status post pacemaker/defibrillator, cardiomyopathy, congestive heart failure, hypertension, asthma, COPD, GI bleed, diabetes, hypothyroidism, blood loss anemia status post transfusion was brought to [facility] ER for shortness of breath admitted to telemetry for further evaluation and management. Admission vitals Temperature 98.6, pulse rate 81, respiratory rate 24, blood pressure 131/74, saturating at 92 room air. Patient is on 4 L via nasal cannula. Admission labs taken WBC 8.6, hemoglobin 10.4, d-dimer 2:30, ABG pH 7.46, PCO2 32, PaO2 68, flu negative, sodium 140, potassium 4.1, proBNP 2850 ED treatment Albuterol, ipratropium, Lasix 40 once Assessment and plan 1. Shortness of breath - secondary to acute on chronic congestive heart failure /aspiration pneumonia though chest x-ray and physical examination was negative. We will monitor him telemetry. We will do serial troponins and EKG. Patient is currently on 4 L of oxygen with a saturation of 94%. We will slowly taper his oxygen. [Off note patient doesn't use any oxygen at home]. We will get a cardiac consult in a.m. TRC nebulization. Patient has pacemaker needs a pacemaker interrogation in the morning. Patient is on digoxin and we will get a digoxin level. 2. Patient is afebrile and doesn't have any leukocytosis-low suspicion for aspiration pneumonia. We will watch him off antibiotics. We will get the chest x-ray PA and lateral view in the a.m. 3. please get records from [facility]. Code-DNR/DNI confirmed with the patient. Patient has a living will, Please get a copy of living will from the family. Diet-heart healthy diet As Ranked By This Provider Problem List: 1. Shortness of breath 2. HFrEF (heart failure with reduced ejection fraction) Core Measures/Misc (07/26) Acute Coronary Syndrome ACS Diagnosis: No Congestive Heart Failure Congestive Heart Failure Diagnosis No Cerebrovascular Accident CVA/TIA Diagnosis: No VTE (View Protocol) VTE Risk Factors Age>40 No Mechanical VTE Prophylaxis d/t Other No VTE Pharm Prophylaxis d/t Other Sepsis (View protocol) Sepsis Present: No Uriel SEGAL,Raymon 12/23/17 0648: General Information and HPI Allergies/Medications Home Med list Albuterol Sulfate 2.5 MG/3 ML (0.083 %) VIAL.NEB 3 ML INH BID COPD Take three times a day as needed... Amiodarone HCl 100 MG TABLET 1 TAB PO DAILY HEART (Reported) Atorvastatin Calcium (Lipitor) 20 MG TABLET 1 TAB PO DAILY CHOLESTEROL ( Reported) Digoxin 125 MCG TABLET 1 TAB PO DAILY HEART (Reported) Ferrous Sulfate 325 MG (65 MG IRON) TABLET 1 TAB PO TID SUPPLEMENT (Reported) Fluticasone/Salmeterol (Advair 250-50 Diskus) 1 EACH BLST.W.DEV 1 PUF INH PRN COPD (Reported) Furosemide (Lasix) 40 MG TABLET 1 TAB PO DAILY CHF . Furosemide 20 MG TABLET 1 TAB PO Thursday CHF Latanoprost (Xalatan) 2.5 ML DROPS 1 GTT OPH QPM BOTH EYES (Reported) Levothyroxine Sodium 100 MCG TABLET 1 TAB PO DAILY AC THYROID (Reported) Lubiprostone (Amitiza) 24 MCG CAPSULE 1 CAP PO BID PRN GI (Reported) Melatonin 5 MG CAPSULE 1 CAP PO QPM SLEEP (Reported) Metformin HCl 500 MG TABLET 1 TAB PO DAILY DIABETES (Reported) Mirtazapine 15 MG TABLET 1 HTAB PO DAILY DEPRESSION (Reported) Mometasone Furoate (Nasonex) 17 GM SPRAY.PUMP 2 SPRAY NASB PRN ALLERGIES ( Reported) Rivaroxaban (Xarelto) 20 MG TABLET 1 TAB PO QPM BLOOD THINNER (Reported) with food Sacubitril/Valsartan (Entresto 97 MG-103 MG Tablet) 97 MG-103 MG TABLET 1 TAB PO BID HEART (Reported) Venlafaxine HCl (Effexor XR) 150 MG CAP.ER.24H 1 CAP PO DAILY DEPRESSION ( Reported) Resident Review Statement Resident Statement: examined this patient, discussed with internal control consultant Other Findings: H Mr Wellington is a very pleasant 76-year-old gentleman with a PMH of Parkinson's disease, HFrEF (echocardiogram 05/15/15 LVEF 25-30%, LVH, RVSP 37 mmHg), A. 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 Some of the clinical history was obtained from the patient's . Patient's states that over the last few days the patient has appeared more tired and withdrawn. While they were in the cafeteria it appears that he lost his breath and was unable to catch his breath. Patient desaturated to 82% over the on room air. Ad[facility]. Patient's primary care physician is Dr. Kat. Patient's performance improvement analyst is Dr. Perez. Patient is a former smoker. R Patient denies any fever, chills, nausea, vomiting. Denies any chest pain. Denies any palpitations. Patient does endorse some shortness of breath. L: Labs on admission WBC 8.6. H&H 15.4 and 45.7.platelets 182. Sodium 140. Potassium 4.1. Urine 20. Creatinine 1.0. Glucose 129. The lung 2850. E: Temperature 97.3. Pulse 80. RR 26. BP 132/80. 97% on nasal cannula. General Appearance Alert, Oriented X3, Cooperative, No Acute Distress HEENT PERRLA Cardiovascular Normal S1, Normal S2, No Murmurs Lungs Clear to Auscultation, Normal Air Movement Abdomen Normal Bowel Sounds, Soft, No Tenderness, No Hepatospenomegaly Neurological Normal Speech, Strength at 5/5 X4 Ext, Normal Tone, Sensation Intact Extremities No Cyanosis, No Edema, Normal Pulses L: WBC: 8.6. H/H 15.4/45.7. Platelets 182. NA: 140. K:4.1. BUN 20. CR 1.0. Probnp 2850 AB.46/PCo2: 32. pO2: 68. HCO3: 23. I: As Above A/P Mr Wellington is a very pleasant 76-year-old gentleman with a PMH of Parkinson's disease, HFrEF (echocardiogram 05/15/15 LVEF 25-30%, LVH, RVSP 37 mmHg), A. 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 Patients acute respiratory destabilization may have been precipitated by heart failure. We will however admited the patient and ensure he does not have an underlying atypical viral URI process occuring. Admit patient to telemetry. Rule out ACS with serial EKG and Troponin. Obtatin cardiology consultation in AM. Have the pacemaker interrogated. Consider echocardiogram. Obtain a PA lateral chest x-ray. Obtain a digoxin level. Incentive spirometer. Daily weights and monitoring Ins and Outs. Continue home medications. Accuchecks and Sliding Scale. Obtain records from [facility] where he was admitted approximately one month ago. Patient is a DNR/DNI
[2017-12-22 22:32] VITALS: BP 124/80
[2017-12-23 00:38] VITALS: BP 110/60
--- NOTE | 2017-12-23 05:15 | PN- Att Addend ---
Attending Addendum Attending Brief Note CC: Acute worsening of shortness of breath PMH: COPD, HFrEF (25-30%), S/P pacer and ICD, CAD S/P multiple PCI and ME, CVA with residual right-sided deficit, A. fib, bipolar disorder, DM, HTN, ?drug induced Extrapyramidal movement disorder Patient was brought in ER from [facility] after a rapid response called this evening. Patient came with his family to [facility] for dinner. As soon as he reached [facility] he noticed acute worsening of shortness of breath more so as her labored breathing. "I could not catch my breath" he denies any chest pain , chest tightness, palpitations at that time. Over the weekend he was having some right-sided throat pain and nasal discharge but currently he denies any cough or expectoration. No change in medications. He was admitted and sent to [facility] a month back for 2 days for shortness of breath. Vitals: T max 98.6, pulse 80, RR 26, blood pressure 132/80, saturating 97% on 2 L nasal cannula On exam: A O 3, cooperative, mild respiratory acute distress, neck supple, JVD elevated, no lymphadenopathy, mucosa moist, no focal neurological deficit except old right-sided deficits, no dependent edema, no obvious skin rashes or inflammation CVS: S1-S2, RRR. RS: By basilar fine crackles. Abdomen: Soft, NT, ND, bowel sounds present. CXR: 1.Stable cardiomegaly with mild interstitial prominence present throughout both lungs. Environment Coordinator of mild vascular congestion. 2. Left greater than right bilateral pleural effusions with associated bibasilar airspace disease Assessment and plan 77-year-old male with extensive past medical history, was brought in ER after a rapid response called in [facility]. Patient came to eat dinner at [facility] as a part of his routine and then noticed labored breathing. He could not catch his breath but denied any chest pain or palpitation during that episode. Patient was started on 2 L nasal cannula and was rushed to ER. Patient has a fine crackles bilaterally mildly elevated JVD, hypoxia on ABG requiring 2- 4 L oxygen by nasal cannula. Chest x-ray confirms the finding of vascular congestion and mild pleural effusion left more than right but at the same time he also has some by basilar air space disease right more than left. his previous comparison x-ray was in end of November which did not show any vascular congestion or air space disease. Patient's proBNP is mildly elevated from baseline otherwise labs unremarkable, no significant leukocytosis or fever. His d-dimer was 230 and currently on Xeralto less likely pulmonary embolism. The symptoms appear most likely secondary to mild acute on chronic congestive heart failure. Arrhythmias and ICD firing should be ruled out given the acuteness of the symptoms. The airspace disease demonstrated on x-ray could be residual from his previous hospitalization in [facility] ( there is a prescription refill for cefuroxime and azithromycin on November 19) or it could be new development then in that situation aspiration versus healthcare associated pneumonia. We will watch off antibiotics for now. + Acute on chronic congestive heart failure + Possibility of pneumonia + History of COPD, HFrEF (25-30%), S/P pacer and ICD, CAD S/P multiple PCI and ME, CVA with residual right-sided deficit, A. fib, bipolar disorder, DM, HTN, ? drug induced Extrapyramidal movement disorder - Admit to telemetry - Continuous telemetry monitoring -Try to wean off oxygen - IV Lasix 20 mg twice a day - Strict I's and O's - Daily weights - Serial troponin and EKGs - 2-D echo in a.m. - Cardiology consult in a.m. - DVT prophylaxis - Chest x-ray PA and lateral view in a.m. - Interrogative pacemaker and ICD - Obtain Dig level - Obtain records from [facility] - Sliding scale insulin - TRC nebs - Continue all his medications except oral hypoglycemics and Lasix
--- NOTE | 2017-12-23 05:16 | Admission Certification ---
Admission Certification Certification Statement - As attending physician, I certify that at the time of - admission, based on clinical presentation, severity of - symptoms, need for further diagnostic testing and - therapeutic interventions, and risk of adverse outcomes - without in-hospital treatment, in my clinical assessment, - this patient requires an acute hospital stay for a minimum - of two nights or longer. I have also considered psychsocial - factors such as support system, advanced age, financial - issues, cognitive issues, and failed out-patient treatments, - past re-admission history, safety of patient, and lack of - compliance as applicable. Specific rationale supporting this admission is: Acute on chronic congestive heart failure
--- NOTE | 2017-12-23 07:34 | PN- Housestaff ---
Case SEGAL,[facility] 12/23/17 0734: Subjective Follow-up For: Acute hypoxic respiratory failure likely secondary to acute CHF exacerbation. Subjective: The pt [facility] after acute worsening of shortness of breath. He was admitted for acute on chronic congestive heart failure with possibility of pneumonia. Patient seen and examined resting comfortably in the bed. Offers no complaints, reports improvement in SOB. No overnight acute events, currently patient is in ICU as Tele Hold. Tmax 98.2 Heart rate 80 Ventricular paced rhythm Blood pressure 140/70 Satting 96% 4L CBCs within normal limits, BEP within normal limits, troponins 0.02-0.04-third one pending CXR on 12/22 Stable cardiomegaly with mild interstitial prominence present throughout both lungs. Truck Spotter of mild vascular congestion. Left greater than right bilateral pleural effusions with associated bibasilar airspace disease. CXR 12/23 pending Patient was recently admitted to [facility] for shortness of breath as per patient unreliable historian history of dementia. Does not remember being diagnosed with an infection however there is a prescription for cefuroxime and azithromycin in EMR. He is alert oriented 3 states that he has a living will and he does not want to be resuscitated stated intubated. We will obtain records from [facility]. his bit tripoler has made aware of his admission and he will see him today. Review of Systems Constitutional: Reports: see HPI. Objective Last 24 Hrs of Vital Signs/I&O Vital Signs Date Time Temp Pulse Resp B/P B/P Pulse O2 O2 Flow FiO2 Mean Ox Delivery Rate 12/23 1215 98.2 78 22 122/56 94 Nasal 4.5L Cannula 12/23 1111 Nasal 4.5L Cannula 12/23 0822 80 140/70 12/23 0800 Room Air 12/23 0800 98.2 80 24 140/70 96 Room Air 12/23 0224 93 Nasal 4.0L Cannula 12/23 0038 93 Nasal 4.0L Cannula 12/23 0038 97.8 80 25 110/60 93 Nasal 4.0L Cannula 12/23 0000 Nasal 4.0L Cannula 12/22 2231 97.3 87 18 124/80 92 Nasal Cannula 12/220 Nasal 4.0L Cannula 12/22 2136 98.6 81 24 131/74 91 Nasal 4.0L Cannula 12/22 1711 97.3 80 26 132/80 97 Nasal 2.0L Cannula 12/22 170 Nasal 2.0L Cannula Intake & Output 12/23 1600 12/23 0800 12/23 0000 Intake Total 50 200 Output Total 600 200 685 Balance -600 -150 -485 Intake, Oral 50 200 Number 1 0 Bowel Movements Output, Urine 600 200 685 Patient 169 lb 165 lb Weight Weight Bed scale Reported by Patient Measurement Method Physical Exam General Appearance: Alert, Oriented X3, Cooperative Skin: No Rashes Cardiovascular: Normal S1, Normal S2 Lungs: bibasilar crackels, no wheeazes Abdomen: Normal Bowel Sounds, Soft, No Tenderness Extremities: trace edema Current Medications: Current Medications Sig/Hamida Start time Last Medication Dose Route Stop Time Status Admin Albuterol Sulfate 3 ML TID 12/23 1109 AC 12/23 INH 1110 Albuterol Sulfate 3 ML ONCE ONE 12/22 171 DC 12/22 INH 12/22 171 1724 Amiodarone HCl 100 MG 16:30 12/23 1630 AC PO Atorvastatin Calcium 20 MG 1700 12/23 1700 AC PO Budesonide/ 2 PUF BID 12/23 1000 AC 12/23 Formoterol Fumarate INH 0821 Digoxin 0.125 MG DAILY 12/23 1000 AC 12/23 PO 0822 Furosemide 20 MG ONCE ONE 12/23 1145 DC 12/23 IV 12/23 1146 1244 Furosemide 20 MG 7:30 AM, & 4:30 PM 12/23 0730 AC 12/23 IV 0817 Furosemide 0 .STK-MED ONE 12/22 1943 DC IV Furosemide 40 MG ONCE ONE 12/22 1915 DC 12/22 IV 12/22 191 1947 Insulin Aspart 0 AT BEDTIME 12/23 2200 AC SC Insulin Aspart 0 TIDAC 12/23 0800 AC SC Ipratropium Noxapater 2.5 ML TID 12/23 1115 AC 12/23 INH 1110 Ipratropium Noxapater 2.5 ML ONCE ONE 12/22 1715 DC 12/22 INH 12/22 1716 1724 Latanoprost 1 GTT QPM 12/23 2200 AC OPH Latanoprost 1 GTT AT BEDTIME 12/23 2200 AC OPH Levothyroxine Sodium 0.1 MG DAILY AC 12/23 0700 DC PO Levothyroxine Sodium 0.1 MG DAILY AC 12/23 0300 AC 12/23 PO 0624 Mirtazapine 15 MG QPM 12/23 2199 DC PO Mirtazapine 15 MG QPM 12/23 0300 AC PO Potassium Chloride 40 MEQ ONCE ONE 12/23 0815 DC 12/23 PO 12/23 0816 0816 Rivaroxaban 20 MG QPM 12/23 2199 DC PO Rivaroxaban 20 MG QPM 12/23 299 AC PO Venlafaxine HCl 150 MG 0800 12/23 0800 AC 12/23 PO 0817 Last 24 Hrs of Lab/Ayaan Results Last 24 Hrs of Labs/Mics: Laboratory Tests 12/23/17 1005: Magnesium 1.7, Troponin I 0.03 12/23/17 0500: Sodium Cancelled, Potassium Cancelled, Chloride Cancelled, Carbon Dioxide Cancelled, Anion Gap Cancelled, BUN Cancelled, Creatinine Cancelled, BUN/ Creatinine Ratio Cancelled 12/23/17 0358: Anion Gap 13, Estimated GFR > 60, BUN/Creatinine Ratio 18.2, Troponin I 0.04 12/22/172037: Urine Color YEL, Urine Clarity CLEAR, Urine pH 6.5, Ur Specific [place] 1.015, Urine Protein 30 H, Urine Ketones NEG, Urine Nitrite NEG, Urine Bilirubin NEG, Urine Urobilinogen 0.2, Ur Leukocyte Esterase NEG, Ur Microscopic SEDIMENT EXAMINED, Urine RBC 1-3, Urine WBC RARE, Ur Epithelial Cells RARE, Urine Mucus RARE, Urine Hemoglobin MOD H, Urine Glucose NEG 12/22/17 1720: pH 7.46 H, pCO2 32 L, pO2 68 L, HCO3 23, ABG O2 Sat (Measured) 93.0 L, P-50 (Temp Corrected) Y, Carboxyhemoglobin 0.3 L, O2 Concentration % 2, Temperature 97.3, O2 Delivery Method N/C, Phlebotomy Draw Site RIGHT RADIAL 12/22/17 1716: Anion Gap 12, Estimated GFR > 60, BUN/Creatinine Ratio 20.0, Glucose 129 H, Calcium 8.8, Total Bilirubin 0.5, AST 32, ALT 34, Alkaline Phosphatase 74, Troponin I 0.02, [id number] Pept 2850 H, Total Protein 6.9, Albumin 4.3, Globulin 2.6, Albumin/Globulin Ratio 1.7, D-Dimer High Sensitivty 230, CBC w Diff NO MAN DIFF REQ, RBC 4.59 L, MCV 99.5 H, MCH 33.4 H, MCHC 33.6, RDW 15.2 H, MPV 9.0, Gran % 79.2 H, Lymphocytes % 8.9 L, Monocytes % 10.1 H, Eosinophils % 1.1, Basophils % 0.7, Absolute Granulocytes 6.8 H, Absolute Lymphocytes 0.8 L, Absolute Monocytes 0.9 H, Absolute Eosinophils 0.1, Absolute Basophils 0.1, Digoxin 1.0 Microbiology 12/23 0300 UPPER RESP: Surveillance Culture - RECD 12/22 1934 NASOPHARYN: Influenza Virus A & B Rapid Smear - COMP Assessment/Plan Assessment: 77-year-old gentleman with past medical history of CVA, Parkinson's disease, seizure, legally blind, TIA, atrial fibrillation on xeralto, coronary artery disease status post pacemaker/defibrillator, cardiomyopathy, congestive heart failure, hypertension, asthma, COPD, GI bleed, diabetes, hypothyroidism, blood loss anemia status post transfusion was brought to [place] ER for shortness of breath. -Vitals at time of admission Temperature 98.6, pulse rate 81, respiratory rate 24, blood pressure 131/74, saturating at 92 room air. Patient is on 4 L via nasal cannula. -Pertinent labs WBC 8.6, hemoglobin 10.4, d-dimer 2:30, ABG pH 7.46, PCO2 32, PaO2 68, flu negative, sodium 140, potassium 4.1, proBNP 2850 -CXR Stable cardiomegaly with mild interstitial prominence present throughout both lungs. Truck Spotter of mild vascular congestion. Left greater than right bilateral pleural effusions with associated bibasilar airspace disease. -In ED patient received Albuterol, ipratropium, Lasix 40 once He is currently in ICU as sterilely hold and is being treated and evaluated for following conditions #Shortness of breath - secondary to acute on chronic congestive heart failure Patient is currently satting in 90s on 2 L of oxygen. Note patient not on any home oxygen. Repeat chest x-ray shows nchanged appearance of the chest with findings suggestive of pulmonary edema with bilateral small pleural effusions and bibasilar atelectasis. -Continue telemetry monitoring -Continue diuresis with IV Lasix 20 mg twice a day, extra 20mg lasix does -Monitor electrolytes -Strict ins and outs -Daily weights -Troponins trending down -TRC -Oxygen supplementation to maintain oxygenation above 92% -Dr. Perez aware of patient's admission and will see him today. -Pacemaker interrogation -Patient is requesting pulmonology consult follows up with Dr. Ricardo #Possibility of pneumonia Patient is afebrile and doesn't have any leukocytosis-low suspicion for aspiration pneumonia. -Monitor fever WBC curve -Monitor off antibiotics -He has a prescription refil in November cefuroxime and azithromycin, he had a recent visit to [facility] as per patient he had shortness of breath does not remember being diagnosed with pneumonia. Records have been requested from [place]. #Diabetes mellitus Hold oral hypoglycemic agents -Accu-Cheks and insulin sliding scale #Chronic medical conditions COPD, HFrEF (25-30%), S/P pacer and ICD, CAD S/P multiple PCI and ID, CVA with residual right-sided deficit, A. fib, bipolar disorder, HTN, ?drug induced Extrapyramidal -Continue home medication movement disordER -Digoxin level were normal limits #DVT prophylaxis with xarelto/heart healthy diet/DNR/DNI confirmed Problem List: 1. CONGESTIVE HEART FAILURE Pain Ratin Pain Location: prn Pain Goal: Pain 4 or less Pain Plan: prn Tomorrow's Labs & Rationales: cbc bep Hayden SEGAL,[facility] 12/23/17 1159: Attending MD Review Statement Attending Statement Attending MD Statement: examined this patient, discuss w/resident/PA/RATE CLERK, agreed w/resident/PA/RATE CLERK, reviewed EMR data (avail), discussed with nursing, discussed with case mgmt, reviewed images, amended to note Attending Assessment/Plan: Patient seen and examined, still feels short of breath. He is requiring 4-1/2 L of oxygen. His chest x-ray continues to show pulmonary edema. Vital Signs Date Time Temp Pulse Resp B/P B/P Pulse O2 O2 Flow FiO2 Mean Ox Delivery Rate 12/23 1111 Nasal 4.5L Cannula 12/23 0822 80 140/70 12/23 0800 Room Air 12/23 0800 98.2 80 24 140/70 96 Room Air 12/23 0224 93 Nasal 4.0L Cannula 02/14 0038 93 Nasal 4.0L Cannula 12/23 37 97.8 80 25 110/60 93 Nasal 4.0L Cannula 12/23 0000 Nasal 4.0L Cannula 12/22 2231 97.3 87 18 124/80 92 Nasal Cannula 12/22 2210 Nasal 4.0L Cannula 12/22 2136 98.6 81 24 131/74 91 Nasal 4.0L Cannula 12/22 1712 97.3 80 26 132/80 97 Nasal 2.0L Cannula 12/22 1700 Nasal 2.0L Cannula on exam; aox3, nad. cv; s1,s1 rrr, + PPM/Defibrilator resp; + crackles at bases. abd;s oft, nt, bs+ ext; trace edema Laboratory Tests 12/23 12/23 12/23 1005 0500 0358 Chemistry Sodium (137 - 145 mmol/L) Cancelled 143 Potassium (3.5 - 5.1 mmol/L) Cancelled 3.7 Chloride (98 - 107 mmol/L) Cancelled 105 Carbon Dioxide (22 - 30 mmol/L) Cancelled 26 Anion Gap (5 - 16) Cancelled 13 BUN (9 - 20 mg/dL) Cancelled 20 Creatinine (0.7 - 1.2 mg/dL) Cancelled 1.1 Estimated GFR (>60 ml/min) > 60 BUN/Creatinine Ratio (7 - 25 %) Cancelled 18.2 Magnesium (1.6 - 2.3 mg/dL) Pending Troponin I (<0.11 ng/ml) 0.03 0.04 12/22 1720 Blood Gas pH (7.35 - 7.45 PH) 7.46 H pCO2 (35 - 45 TORR) 32 L pO2 (80 - 100 TORR) 68 L HCO3 (21 - 28 MEQ/L) 23 ABG O2 Sat (Measured) (>96.0 %) 93.0 L P-50 (Temp Corrected) Y Carboxyhemoglobin (1.5 - 5.0 %) 0.3 L O2 Concentration % 2 Temperature (97.0 - 100.0 FARH) 97.3 O2 Delivery Method N/C Miscellaneous Phlebotomy Draw Site RIGHT RADIAL Urines Urine Color (YEL,AMB,STR) YEL Urine Clarity (CLEAR) CLEAR Urine pH (5.0 - 8.0) 6.5 Ur Specific [place] (1.001 - 1.035) 1.015 Urine Protein (NEG,<30 MG/DL) 30 H Urine Ketones (NEG) NEG Urine Nitrite (NEG) NEG Urine Bilirubin (NEG) NEG Urine Urobilinogen (0.1 - 1.0 EU/dl) 0.2 Ur Leukocyte Esterase (NEG) NEG Ur Microscopic SEDIMENT EXAMINED Urine RBC (0 - 5 /HPF) 1-3 Urine WBC (0 - 2 /HPF) RARE Ur Epithelial Cells (NONE,FEW) RARE Urine Mucus (FEW,NONE) RARE Urine Hemoglobin (NEG) MOD H Urine Glucose (N MG/DL) NEG 12/22 1716 Chemistry Sodium (137 - 145 mmol/L) 140 Potassium (3.5 - 5.1 mmol/L) 4.1 Chloride (98 - 107 mmol/L) 101 Carbon Dioxide (22 - 30 mmol/L) 27 Anion Gap (5 - 16) 12 BUN (9 - 20 mg/dL) 20 Creatinine (0.7 - 1.2 mg/dL) 1.0 Estimated GFR (>60 ml/min) > 60 BUN/Creatinine Ratio (7 - 25 %) 20.0 Glucose (65 - 99 mg/dL) 129 H Calcium (8.4 - 10.2 mg/dL) 8.8 Total Bilirubin (0.2 - 1.3 mg/dL) 0.5 AST (17 - 59 U/L) 32 ALT (21 - 72 U/L) 34 Alkaline Phosphatase (< 127 U/L) 74 Troponin I (<0.11 ng/ml) 0.02 [id number] Pept (<125 pg/mL) 2850 H Total Protein (6.3 - 8.2 g/dL) 6.9 Albumin (3.5 - 5.0 g/dL) 4.3 Globulin (1.9 - 4.2 gm/dL) 2.6 Albumin/Globulin Ratio (1.1 - 2.2 %) 1.7 Coagulation D-Dimer High Sensitivty (0 - 243 ng/ml) 230 Hematology CBC w Diff NO MAN DIFF REQ WBC (4.8 - 10.8 /CUMM) 8.6 RBC (4.70 - 6.10 /CUMM) 4.59 L Hgb (14.0 - 18.0 G/DL) 15.4 Hct (42 - 52 %) 45.7 MCV (80.0 - 94.0 FL) 99.5 H MCH (27.0 - 31.0 PG) 33.4 H MCHC (33.0 - 37.0 G/DL) 33.6 RDW (11.5 - 14.5 %) 15.2 H Plt Count (130 - 400 /CUMM) 182 MPV (7.4 - 10.4 FL) 9.0 Gran % (42.2 - 75.2 %) 79.2 H Lymphocytes % (20.5 - 51.1 %) 8.9 L Monocytes % (1.7 - 9.3 %) 10.1 H Eosinophils % (0 - 5 %) 1.1 Basophils % (0.0 - 2.0 %) 0.7 Absolute Granulocytes (1.4 - 6.5 /CUMM) 6.8 H Absolute Lymphocytes (1.2 - 3.4 /CUMM) 0.8 L Absolute Monocytes (0.10 - 0.60 /CUMM) 0.9 H Absolute Eosinophils (0.0 - 0.7 /CUMM) 0.1 Absolute Basophils (0.0 - 0.2 /CUMM) 0.1 Toxicology Digoxin (0.8 - 2.0 ng/mL) 1.0 A/P; 77 y/o M with pmh sig for COPD, HFrEF (25-30%), S/P pacer and ICD, CAD S/P multiple PCI and ID, CVA with residual right-sided deficit, A. fib, bipolar disorder, DM, HTN, ?drug induced Extrapyramidal movement disorder admitted with acute shortness of breath and acute systolic congestive heart failure exacerbation. Chest x-ray continues to show pulmonary edema. We'll increase the dose of Lasix. Patient to get echocardiogram. Please consult cardiology and pulmonology. Patient remains on a significant amount of oxygen. We'll try to taper as he can tolerate. Please continue to monitor daily weights and strict intake and output. Patient's to bring Entresto from home. Continue the rest of the medications including cardiac meds and labs. Patient on Xarelto which would also serve the purpose of DVT prophylaxis.
[2017-12-23 08:00] VITALS: BP 140/70
--- NOTE | 2017-12-23 11:35 | RADIOLOGY REPORT ---
EXAMINATION: CR PORTABLE CHEST CLINICAL INFORMATION: Labored breathing. Hypoxia. COMPARISON: Several prior chest x-rays, most recent of which is dated 12/22/2017. TECHNIQUE: Portable AP semierect view of the chest was obtained. FINDINGS: Multiple EKG leads overlie the chest. A right ventricular AICD lead is in place. The cardiomediastinal silhouette is within normal limits in size and partially obscured by bilateral small pleural effusions, bibasilar opacities and diffuse perihilar opacities. Findings are unchanged compared to the prior exam and are most likely due to pulmonary edema with small bilateral pleural effusions and bibasilar atelectasis. No pneumothorax is seen. Bony structures are grossly unremarkable. IMPRESSION: Unchanged appearance of the chest with findings suggestive of pulmonary edema with bilateral small pleural effusions and bibasilar atelectasis.
[2017-12-23 12:15] VITALS: BP 122/56
--- NOTE | 2017-12-23 16:27 | ECHOCARDIOGRAM REPORT ---
RASHAWN WELLINGTON Age: 77 : 1940 Gender: M Exam Date: 12/23/2017 09:21 Exam Location: [facility] Ht (in): 69 Wt (lb): 165 BSA: 1.92 BP: 110 / 60 Ordering Physician: Olinda Trevino MD Referring Physician: Olinda Trevino MD Technologist: Maximo Alvarado [facility] Room Number: 105 Indications: HEART FAILURE Rhythm: Sinus Technical Quality: Poor FINDINGS Left Ventricle Moderate to severe left ventricular dilatation. Mild concentric left ventricular hypertrophy. Moderately to severely reduced global left ventricular systolic function. Moderately to severely abnormal left ventricular ejection fraction estimated at 25-30%. Right Ventricle Mild right ventricular dilatation. Catheter/pacemaker wire in the right ventricular cavity. Right Atrium Moderate right atrial dilatation. Catheter/pacemaker wire in the right atrial cavity. Left Atrium Severe left atrial dilatation. Mitral Valve Mild mitral annular calcification. Mitral valve thickened. Decreased mitral valve excursion secondary to low flow state. Mild to moderate mitral regurgitation. Aortic Valve Aortic valve not well visualized. Mild aortic sclerosis. No aortic valve stenosis or regurgitation. Tricuspid Valve Structurally normal tricuspid valve. Trace tricuspid regurgitation. Unable to estimate the right ventricular systolic pressure. Pulmonic Valve Pulmonic valve not well visualized, grossly normal. Trace pulmonic regurgitation. Pericardium No pericardial effusion. Great Vessels Normal size aortic root. Dilated inferior vena cava. CONCLUSIONS Moderate to severe left ventricular dilatation. Mild concentric left ventricular hypertrophy. Moderately to severely reduced global left ventricular systolic function. Moderately to severely abnormal left ventricular ejection fraction estimated at 25-30%. Mild right ventricular dilatation. Moderate right atrial dilatation. Catheter/pacemaker wire in the right heart. Mild to moderate mitral regurgitation. Trace tricuspid regurgitation. Unable to estimate the right ventricular systolic pressure. Trace pulmonic regurgitation. Dilated inferior vena cava. Ulysses Perez M.D. (Electronically Signed) Final Date: 23 December 2017 16:27 MEASUREMENTS (Male / Female) Normal Values 2D ECHO LV Diastolic Diameter PLAX 6.8 cm 4.2 - 5.9 / 3.9 - 5.3 cm LV Systolic Diameter PLAX 6.4 cm 2.1 - 4.0 cm LV Fractional Shortening PLAX 5.9 % 25 - 46 % LV Ejection Fraction 2D Teich 12.7 % IVS Diastolic Thickness 0.8 cm LVPW Diastolic Thickness 1.1 cm LV Relative Wall Thickness 0.3 RV Internal Dim ED PLAX 3.8 cm 1.9 - 3.8 cm LVOT Diameter 2.1 cm Aortic Root Diameter 3.5 cm LA Systolic Diameter LX 5.5 cm 3.0 - 4.0 / 2.7 - 3.8 cm LV Ejection Fraction MOD BP 31.1 % >= 55 % LV Diastolic Length 4C 8.0 cm 6.9 - 10.3 cm LV Diastolic Area 4C 40.4 cm LV Diastolic Volume MOD 4C 167.0 cm LV Ejection Fraction MOD 4C 45.8 % LV Stroke Volume MOD 4C 76.7 cm LV Systolic Length 4C 6.8 cm LV Systolic Area 4C 27.5 cm LV Systolic Volume MOD 4C 91.0 cm LV Ejection Fraction MOD 2C 17.1 % LV Diastolic Volume 4C AL 173.6 cm 85 - 139 / 69 - 109 cm LV Systolic Volume 4C AL 94.1 cm LV Ejection Fraction 4C AL 45.8 % LV Stroke Volume 4C AL 79.5 cm LV Ejection Fraction 2C AL 17.3 % LA Volume 196.0 cm 18 - 58 / 22 - 52 cm Ascending Aorta Diameter 3.0 cm DOPPLER AV Peak Velocity 112.0 cm/s AV Peak Gradient 5.0 mmHg AV Mean Velocity 70.4 cm/s AV Mean Gradient 2.0 mmHg AV Velocity Time Integral 20.5 cm LVOT Peak Velocity 77.5 cm/s LVOT Peak Gradient 2.1 mmHg LVOT Mean Velocity 42.4 cm/s LVOT Mean Gradient 1.0 mmHg LVOT Velocity Time Integral 13.4 cm LVOT Stroke Volume 46.1 cm AV Area Cont Eq vti 2.3 cm AV Area Cont Eq pk 2.4 cm Mitral E Point Velocity 119.0 cm/s MV Deceleration Time 123.0 ms MR Peak Velocity 423.0 cm/s MR Peak Gradient 71.9 mmHg PV Peak Velocity 70.3 cm/s PV Peak Gradient 2.0 mmHg PV Mean Velocity 49.7 cm/s PV Mean Gradient 1.0 mmHg PV Velocity Time Integral 12.5 cm LV E' Lateral Velocity 9.3 cm/s Mitral E to LV E' Lateral Ratio 12.9 LV E' Septal Velocity 7.1 cm/s Mitral E to LV E' Septal Ratio 16.7
[2017-12-23 17:04] VITALS: BP 122/70
--- NOTE | 2017-12-23 18:06 | Cons- Cardiology ---
General Information and HPI Consulting Request Date of Consult: 12/23/17 Requested By: Yvonne Wilder MD Reason for Consult: Shortness of breath. Source of Information: patient, family, old records Exam Limitations: clinical condition, physical impairment History of Present Illness: Mr. Gabriel Watkins is a 77-year-old white male with a complex past medical history that includes long-standing former tobacco use, COPD, chronic anemia, recurrent GI bleeding in the past without a definite etiology found, dyslipidemia, diabetes mellitus, hypothyroidism on replacement, previous TIAs/ strokes, seizure disorder, previous syncope, chronic atrial fibrillation on anticoagulation, ventricular tachycardia on antiarrhythmic therapy (amiodarone), s/p biventricular pacemaker defibrillator implantation, coronary artery disease s/p percutaneous interventions with angioplasty, s/p myocardial infarctions with known severe ischemic cardiomyopathy (EF ~30%) with recurrent acute on chronic systolic heart failure who presented to the ED after becoming acutely short of breath and hypoxemic while walking in the hospital cafeteria that prompted a rapid response. He reports being admitted approximately one month ago to [facility] for shortness of breath, but the results of the evaluation/management are not presently available. He denied any associated chest discomfort, palpitations, recent orthopnea, paroxysmal nocturnal dyspnea, edema, weight gain, etc. His last echocardiogram performed here was on 03/29/2017 and revealed : moderate to severe left ventricular dilatation with mild concentric left ventricular hypertrophy, abnormal septal motion consistent with pacemaker activation, mild concentric left ventricular hypertrophy, a markedly hypokinetic septum, moderately to severely reduced global left ventricular systolic function, moderately to severely abnormal left ventricular ejection fraction estimated at 25-30%, right ventricle at upper limits of normal, mild right atrial dilatation, pacemaker wires observed in the right heart, severe left atrial dilatation, age- related valvular changes, no pericardial effusion, mildly dilated aortic root, and a mildly dilated inferior vena cava. The Doppler portion of the study revealed evidence of mild to moderate mitral, trace aortic, trace to mild tricuspid, and mild pulmonic regurgitation, as well as, evidence of moderate pulmonary hypertension. Allergies/Medications Allergies: Coded Allergies: NO KNOWN ALLERGIES (NO) (02/22/15) Home Med List: Amiodarone HCl 100 MG TABLET 1 TAB PO DAILY HEART (Reported) Atorvastatin Calcium (Lipitor) 20 MG TABLET 1 TAB PO DAILY CHOLESTEROL ( Reported) Digoxin 125 MCG TABLET 1 TAB PO DAILY HEART (Reported) Ferrous Sulfate 325 MG (65 MG IRON) TABLET 1 TAB PO TID SUPPLEMENT (Reported) Fluticasone/Salmeterol (Advair 250-50 Diskus) 1 EACH BLST.W.DEV 1 PUF INH PRN COPD (Reported) Furosemide (Lasix) 40 MG TABLET 1 TAB PO 7:30AM DIURETIC (Reported) Latanoprost (Xalatan) 2.5 ML DROPS 1 GTT OPH QPM BOTH EYES (Reported) Levothyroxine Sodium 100 MCG TABLET 1 TAB PO DAILY AC THYROID (Reported) Lubiprostone (Amitiza) 24 MCG CAPSULE 1 CAP PO BID PRN GI (Reported) Melatonin 5 MG CAPSULE 1 CAP PO QPM SLEEP (Reported) Metformin HCl 500 MG TABLET 1 TAB PO DAILY DIABETES (Reported) Mirtazapine 15 MG TABLET 1 HTAB PO DAILY DEPRESSION (Reported) Mometasone Furoate (Nasonex) 17 GM SPRAY.PUMP 2 SPRAY NASB PRN ALLERGIES ( Reported) Rivaroxaban (Xarelto) 20 MG TABLET 1 TAB PO QPM BLOOD THINNER (Reported) with food Sacubitril/Valsartan (Entresto 97 MG-103 MG Tablet) 97 MG-103 MG TABLET 1 TAB PO BID HEART (Reported) Venlafaxine HCl (Effexor XR) 150 MG CAP.ER.24H 1 CAP PO DAILY DEPRESSION ( Reported) Review of Systems Review of Systems: A 14 point system review was obtained and was noncontributory, other than as above. Past History Travel History Traveled to [place] past 21 day No Medical History Blood Transfusion Hx: Yes Neurological: CVA, Parkinson's disease, seizure, TIA, RIGHT SIDED WEAKNESS EENT: NONE Cardiovascular: AFIB, CAD, cardiomyopathy, CHF, hypertension Respiratory: asthma, COPD Gastrointestinal: GASTRITIS GI BLEED Hepatic: NONE Renal: NONE Musculoskeletal: NONE Psychiatric: bipolar disease Endocrine: diabetes, hypothyroidism Blood Disorders: anemia Cancer(s): NONE LAP WINDER/Reproductive: NONE Surgical History Surgical History: hernia repair-inguinal, PACER/DEFIB MULTIPLE ANGIOPLASTIES R GROIN HERNIA REPAIR Family History Relations & Conditions If Any: MOTHER (HTN). SISTER ([place] AT 60). SISTER (DEPRESSION). SISTER (TREMORS). Relation not specified for: *No pertinent family history Psychosocial History Where Do You Live? Home Who Do You Live With? spouse Services at Home: None Smoking Status: Former Smoker ETOH Use: occasional use Illicit Drug Use: denies illicit drug use Functional Ability ADLs Independent: dressing, eating, toileting, bathing. Ambulation: cane (NON-COMPLIANT) IADLs Needs Assist: shopping, housework, finances, food prep, telephone, transportation, medication admin. ECHO Results (as available) EF% 25 Exam & Diagnostic Data Vital Signs and I&O Vital Signs Date Time Temp Pulse Resp B/P B/P Pulse O2 O2 Flow FiO2 Mean Ox Delivery Rate 12/23 1704 97 Nasal 4.5L Cannula 12/23 1704 98.8 80 20 122/70 97 Nasal 4.5L Cannula 12/23 1215 98.2 78 22 122/56 94 Nasal 4.5L Cannula 12/23 1111 Nasal 4.5L Cannula 12/23 0822 80 140/70 12/23 0800 Room Air 12/23 0800 98.2 80 24 140/70 96 Room Air 12/23 0224 93 Nasal 4.0L Cannula 12/23 0038 93 Nasal 4.0L Cannula 12/23 0038 97.8 80 25 110/60 93 Nasal 4.0L Cannula 12/23 0000 Nasal 4.0L Cannula 12/22 2232 97.3 87 18 124/80 92 Nasal Cannula 12/22 2210 Nasal 4.0L Cannula 12/22 2137 98.6 81 24 131/74 91 Nasal 4.0L Cannula Intake & Output 12/23 1600 12/23 0800 12/23 0000 12/22 1600 12/22 0800 12/22 0000 Intake Total 480 50 200 Output Total 1300 200 685 Balance -820 -150 -485 Intake, Oral 480 50 200 Number 1 0 Bowel Movements Output, Urine 1300 200 685 Patient 169 lb 165 lb Weight Weight Bed scale Reported by Patient Measurement Method Physical Exam: Well-developed, well-nourished elderly male in no acute distress with nasal oxygen in place. Vital signs: See above. HEENT: Normocephalic, atraumatic, EOMI, slightly dry mucous membranes. Neck: No JVD, no bruits. Lungs: Decreased breath sounds and bibasilar crackles. Heart: S1, S2 with no murmur, gallop, or rub appreciated. PMI laterally displaced and diffuse. Abdomen: Soft, nontender, positive bowel sounds. Extremities: Trace edema. Labs/Ayaan Results: Laboratory Tests 12/23 12/23 12/23 1005 0500 0358 Chemistry Sodium (137 - 145 mmol/L) Cancelled 143 Potassium (3.5 - 5.1 mmol/L) Cancelled 3.7 Chloride (98 - 107 mmol/L) Cancelled 105 Carbon Dioxide (22 - 30 mmol/L) Cancelled 26 Anion Gap (5 - 16) Cancelled 13 BUN (9 - 20 mg/dL) Cancelled 20 Creatinine (0.7 - 1.2 mg/dL) Cancelled 1.1 Estimated GFR (>60 ml/min) > 60 BUN/Creatinine Ratio (7 - 25 %) Cancelled 18.2 Magnesium (1.6 - 2.3 mg/dL) 1.7 Troponin I (<0.11 ng/ml) 0.03 0.04 12/22 1720 Blood Gas pH (7.35 - 7.45 PH) 7.46 H pCO2 (35 - 45 TORR) 32 L pO2 (80 - 100 TORR) 68 L HCO3 (21 - 28 MEQ/L) 23 ABG O2 Sat (Measured) (>96.0 %) 93.0 L P-50 (Temp Corrected) Y Carboxyhemoglobin (1.5 - 5.0 %) 0.3 L O2 Concentration % 2 Temperature (97.0 - 100.0 FARH) 97.3 O2 Delivery Method N/C Miscellaneous Phlebotomy Draw Site RIGHT RADIAL Urines Urine Color (YEL,AMB,STR) YEL Urine Clarity (CLEAR) CLEAR Urine pH (5.0 - 8.0) 6.5 Ur Specific [place] (1.001 - 1.035) 1.015 Urine Protein (NEG,<30 MG/DL) 30 H Urine Ketones (NEG) NEG Urine Nitrite (NEG) NEG Urine Bilirubin (NEG) NEG Urine Urobilinogen (0.1 - 1.0 EU/dl) 0.2 Ur Leukocyte Esterase (NEG) NEG Ur Microscopic SEDIMENT EXAMINED Urine RBC (0 - 5 /HPF) 1-3 Urine WBC (0 - 2 /HPF) RARE Ur Epithelial Cells (NONE,FEW) RARE Urine Mucus (FEW,NONE) RARE Urine Hemoglobin (NEG) MOD H Urine Glucose (N MG/DL) NEG 12/22 171 Chemistry Sodium (137 - 145 mmol/L) 140 Potassium (3.5 - 5.1 mmol/L) 4.1 Chloride (98 - 107 mmol/L) 101 Carbon Dioxide (22 - 30 mmol/L) 27 Anion Gap (5 - 16) 12 BUN (9 - 20 mg/dL) 20 Creatinine (0.7 - 1.2 mg/dL) 1.0 Estimated GFR (>60 ml/min) > 60 BUN/Creatinine Ratio (7 - 25 %) 20.0 Glucose (65 - 99 mg/dL) 129 H Calcium (8.4 - 10.2 mg/dL) 8.8 Total Bilirubin (0.2 - 1.3 mg/dL) 0.5 AST (17 - 59 U/L) 32 ALT (21 - 72 U/L) 34 Alkaline Phosphatase (< 127 U/L) 74 Troponin I (<0.11 ng/ml) 0.02 [id number] Pept (<125 pg/mL) 2850 H Total Protein (6.3 - 8.2 g/dL) 6.9 Albumin (3.5 - 5.0 g/dL) 4.3 Globulin (1.9 - 4.2 gm/dL) 2.6 Albumin/Globulin Ratio (1.1 - 2.2 %) 1.7 Coagulation D-Dimer High Sensitivty (0 - 243 ng/ml) 230 Hematology CBC w Diff NO MAN DIFF REQ WBC (4.8 - 10.8 /CUMM) 8.6 RBC (4.70 - 6.10 /CUMM) 4.59 L Hgb (14.0 - 18.0 G/DL) 15.4 Hct (42 - 52 %) 45.7 MCV (80.0 - 94.0 FL) 99.5 H MCH (27.0 - 31.0 PG) 33.4 H MCHC (33.0 - 37.0 G/DL) 33.6 RDW (11.5 - 14.5 %) 15.2 H Plt Count (130 - 400 /CUMM) 182 MPV (7.4 - 10.4 FL) 9.0 Gran % (42.2 - 75.2 %) 79.2 H Lymphocytes % (20.5 - 51.1 %) 8.9 L Monocytes % (1.7 - 9.3 %) 10.1 H Eosinophils % (0 - 5 %) 1.1 Basophils % (0.0 - 2.0 %) 0.7 Absolute Granulocytes (1.4 - 6.5 /CUMM) 6.8 H Absolute Lymphocytes (1.2 - 3.4 /CUMM) 0.8 L Absolute Monocytes (0.10 - 0.60 /CUMM) 0.9 H Absolute Eosinophils (0.0 - 0.7 /CUMM) 0.1 Absolute Basophils (0.0 - 0.2 /CUMM) 0.1 Toxicology Digoxin (0.8 - 2.0 ng/mL) 1.0 Diagnostic Data EKG Results 12/23/2017: Properly functioning ventricular paced ventricular paced electronic pacemaker rhythm with underlying atrial fibrillation. No significant change when compared to previous tracings. CXR Results 12/23/2017: Unchanged appearance of the chest with findings suggestive of pulmonary edema with bilateral small pleural effusions and bibasilar atelectasis. Assessment/Plan Assessment/Plan [id number] w/ hx long-standing former tobacco use, COPD, chronic anemia, recurrent GI bleeding w/o definite etiology found, HLD, DM, hypothyroidism, previous TIAs/strokes, seizure disorder, previous syncope, ch AF on AC, VT on antiarrhythmic Rx (amiodarone), s/p BiV pacemaker defibrillator, CAD s/p PCIs w/ angioplasty, s/p MIs w/ severe ischemic cardiomyopathy (EF ~25-30%) w/ recurrent acute on chronic systolic HF (HFrEF) who presented to the ED after becoming acutely short of breath and hypoxemic while walking in the hospital cafeteria that prompted a rapid response and subsequent physical, radiographic, and laboratory recurrent HFrEF. Recommendations: * Admit to telemetry, follow-up troponins, follow-up ECG. * Strict inputs/outputs and daily weights. * IV furosemide 40 mg twice daily for the first 24 hours and reassess the need for further IV diuresis in the a.m. * Follow-up BUN/creatinine, potassium, magnesium, etc. closely. * Continue the rest of his cardiac regimen (amiodarone, atorvastatin, sacubitril , etc.). * Echocardiogram to reassess left ventricular systolic function, degree of valvular regurgitation, etc. * Will check with my office to see when he last had his an imaging stress test which would be helpful to help exclude an ischemic basis for his presentation. This can probably be done on an outpatient basis. * Replete potassium and magnesium and aim to maintain at between 4.0-4.5 mEq per liter and greater than 2.0 mEq per liter, respectively. * Need periodic follow-up of LFTs and TFTs as patient is on amiodarone. Note LFTs acceptable. Check free T4 and TSH. * DVT prophylaxis being addressed by the AC for his AF. Further recommendations will follow, Thank you. Consult Acknowledgment - Thank you for your consult request.
[2017-12-24 05:17] LABS: ABSOLUTE BASOPHIL COUNT 0 /CUMM (0.0-0.2); ABSOLUTE EOSINOPHIL COUNT 0.1 /CUMM (0.0-0.7); ABSOLUTE GRANULOCYTE CT 6.6 /CUMM (1.4-6.5); ABSOLUTE LYMPH COUNT 0.8 /CUMM (1.2-3.4); ABSOLUTE MONOCYTE COUNT 0.8 /CUMM (0.10-0.60); BASOPHIL % 0.5 % (0.0-2.0); EOSINOPHIL % 0.7 % (0-5); GRANULOCYTE % 78.9 % (42.2-75.2); HEMATOCRIT 47.2 % (42-52); MEAN CORPUSCULAR HGB 33.1 PG (27.0-31.0); MEAN CORPUSCULAR VOLUME 100.2 FL (80.0-94.0); MEAN PLATELET VOLUME 9.1 FL (7.4-10.4); PLATELET COUNT 162 /CUMM (130-400); RBC DISTRIBUTION WIDTH 15.2 % (11.5-14.5); RED BLOOD CELL CT 4.71 /CUMM (4.70-6.10); WHITE BLOOD CELL COUNT 8.3 /CUMM (4.8-10.8)
--- NOTE | 2017-12-24 07:02 | PN- Housestaff ---
Case SEGAL,Trena 12/24/17 0702: Subjective Follow-up For: Acute hypoxic respiratory failure secondary to CHF exacerbation Tele-Events Since Last Visit: No acute overnight events Subjective: Patient seen and examined sitting in bed. Currently on 4 L nasal cannula oxygen requirement. He continues to feel short of breath states that his symptoms have not improved at all. Denies fevers and chills or urinary symptoms Review of Systems Constitutional: Reports: see HPI. Objective Last 24 Hrs of Vital Signs/I&O Vital Signs Date Time Temp Pulse Resp B/P B/P Pulse O2 O2 Flow FiO2 Mean Ox Delivery Rate 12/24 0850 93 Nasal 4.0L Cannula 12/24 0800 Nasal 4.5L Cannula 12/24 0000 Nasal 4.5L Cannula 12/23 2020 Nasal 4.5L Cannula 12/23 193 94 Nasal 4.0L Cannula 12/23 1704 97 Nasal 4.5L Cannula 12/23 170 98.8 80 20 122/70 97 Nasal 4.5L Cannula 12/23 1215 98.2 78 22 122/56 94 Nasal 4.5L Cannula Intake & Output 12/24 1600 12/24 0800 12/24 0000 Intake Total 120 1010 Output Total 300 475 Balance -180 535 Intake, IV 10 Intake, Oral 120 1000 Output, Urine 300 475 Physical Exam General Appearance: Alert, Oriented X3, Cooperative Skin: No Rashes HEENT: Atraumatic Neck: No JVD Cardiovascular: Normal S1, Normal S2, bibasiler crackels Lungs: decreased breath sounds Abdomen: Normal Bowel Sounds, Soft, No Tenderness Current Medications: Current Medications Sig/Hamida Start time Last Medication Dose Route Stop Time Status Admin Albuterol Sulfate 3 ML TID 12/23 1109 AC 12/24 INH 0837 Amiodarone HCl 100 MG 16:30 12/23 1630 AC 12/23 PO 1610 Atorvastatin Calcium 20 MG 1700 12/23 1700 AC 12/23 PO 1611 Budesonide/ 2 PUF BID 12/23 1000 AC 12/23 Formoterol Fumarate INH 1609 Digoxin 0.125 MG DAILY 12/23 1000 AC 12/23 PO 0822 Furosemide 40 MG 7:30 AM, & 4:30 PM 12/24 0730 AC 12/24 IV 0604 Furosemide 20 MG ONCE ONE 12/23 1145 DC 12/23 IV 12/23 1146 1244 Furosemide 20 MG 7:30 AM, & 4:30 PM 12/23 0730 DC 12/23 IV 1610 Insulin Aspart 0 AT BEDTIME 12/23 2200 AC SC Insulin Aspart 0 TIDAC 12/23 0800 AC SC Ipratropium [place] 2.5 ML TID 12/23 1115 AC 12/24 INH 0837 Latanoprost 1 GTT QPM 12/23 2200 AC 12/23 OPH 2129 Latanoprost 1 GTT AT BEDTIME 12/23 2200 DC OPH Levothyroxine Sodium 0.1 MG DAILY AC 12/23 0300 AC 12/24 PO 0600 Magnesium Oxide 400 MG ONE ONE 12/24 0600 DC 12/24 PO 12/24 0601 0604 Magnesium Oxide 400 MG ONE ONE 12/23 1400 DC 12/23 PO 12/23 1401 1725 Mirtazapine 15 MG QPM 12/23 0300 AC 12/23 PO 2129 Potassium Chloride 40 MEQ ONCE ONE 12/24 0545 DC 12/24 PO 12/24 0546 0600 Rivaroxaban 20 MG QPM 12/23 0300 AC 12/23 PO 2129 Sacubitril/Valsartan 97 MG 0900,2100 12/23 2100 AC 12/24 PO 0841 Venlafaxine HCl 150 MG 0800 12/23 0800 AC 12/24 PO 0841 Last 24 Hrs of Lab/Ayaan Results Last 24 Hrs of Labs/Mics: Laboratory Tests 12/24/17 0430: Anion Gap 11, Estimated GFR > 60, BUN/Creatinine Ratio 22.2, Magnesium 1.9, Vitamin B12 261, Folate 7.6, TSH 1.670, Free T4 1.84, CBC w Diff NO MAN DIFF REQ , RBC 4.71, MCV 100.2 H, MCH 33.1 H, MCHC 33.0, RDW 15.2 H, MPV 9.1, Gran % 78.9 H, Lymphocytes % 9.7 L, Monocytes % 10.2 H, Eosinophils % 0.7, Basophils % 0.5, Absolute Granulocytes 6.6 H, Absolute Lymphocytes 0.8 L, Absolute Monocytes 0.8 H, Absolute Eosinophils 0.1, Absolute Basophils 0 Orders ECHO Findings: CONCLUSIONS Moderate to severe left ventricular dilatation. Mild concentric left ventricular hypertrophy. Moderately to severely reduced global left ventricular systolic function. Moderately to severely abnormal left ventricular ejection fraction estimated at 25-30%. Mild right ventricular dilatation. Moderate right atrial dilatation. Catheter/pacemaker wire in the right heart. Mild to moderate mitral regurgitation. Trace tricuspid regurgitation. Unable to estimate the right ventricular systolic pressure. Trace pulmonic regurgitation. Dilated inferior vena cava. Radiology Findings: CXR Stable cardiomegaly. Interval mild improvement in overall interstitial edema. Stable bilateral pleural effusions, left greater than right with associated infiltrate or atelectasis. Assessment/Plan Assessment: The pt is 77-year-old gentleman with complex past medical history that includes long-standing former tobacco use, COPD, chronic anemia, recurrent GI bleeding in the past without a definite etiology found, dyslipidemia, diabetes mellitus, hypothyroidism on replacement, previous TIAs/strokes, seizure disorder, previous syncope, chronic atrial fibrillation on anticoagulation, ventricular tachycardia on antiarrhythmic therapy (amiodarone), s/p biventricular pacemaker defibrillator implantation, coronary artery disease s/p percutaneous interventions with angioplasty, s/p myocardial infarctions with known severe ischemic cardiomyopathy (EF ~30%) with recurrent acute on chronic systolic heart failure. He was brought to [place] ER for shortness of breath -Vitals at time of admission Temperature 98.6, pulse rate 81, respiratory rate 24, blood pressure 131/74, saturating at 92 room air. Patient is on 4 L via nasal cannula. -Pertinent labs WBC 8.6, hemoglobin 10.4, d-dimer 2:30, ABG pH 7.46, PCO2 32, PaO2 68, flu negative, sodium 140, potassium 4.1, proBNP 2850 -CXR Stable cardiomegaly with mild interstitial prominence present throughout both lungs. Personal Financial Advisor of mild vascular congestion. Left greater than right bilateral pleural effusions with associated bibasilar airspace disease. -In ED patient received Albuterol, ipratropium, Lasix 40 once He is currently in ICU as TELE hold and is being treated and evaluated for following conditions #Shortness of breath - secondary to acute on chronic congestive heart failure Patient is currently satting in 90s on 4 L of oxygen. Note patient not on any home oxygen. Repeat chest x-ray shows interval mild improvement in overall interstitial edema. Patient does not report any improvement in symptoms and does not feel clinically better. -Continue telemetry monitoring -Related issues with Lasix 40 MG IV twice a day -Monitor electrolytes and replete accordingly -Strict ins and outs -Daily weights -TRC/Nebs -Oxygen supplementation to maintain oxygenation above 92% -Pulmonology consult with Dr. Merrill in setting of acute hypoxic respiratory failure continued increase oxygen requirements and pt's request. No wheezes on examination does not appear to be a COPD exacerbation #Possibility of pneumonia Patient is afebrile and doesn't have any leukocytosis-low suspicion for aspiration pneumonia. -Monitor fever WBC curve. Remains afebrile with normal white cell count -Monitor off antibiotics -He has a prescription refil in November cefuroxime and azithromycin, he had a recent visit to [facility] as per patient he had shortness of breath does not remember being diagnosed with pneumonia. Records have been requested from [place]. #Diabetes mellitus Hold oral hypoglycemic agents -Accu-Cheks and insulin sliding scale #Chronic medical conditions COPD, HFrEF (25-30%), S/P pacer and ICD, CAD S/P multiple PCI and HI, CVA with residual right-sided deficit, A. fib, bipolar disorder, HTN, ?drug induced Extrapyramidal movement disorder -Continue home medication -Digoxin level were normal limits -LFTs and TFTs WNL on amiadrone #DVT prophylaxis with xarelto/heart healthy diet/DNR/DNI confirmed Problem List: 1. CONGESTIVE HEART FAILURE Pain Ratin Pain Location: none Pain Goal: Pain 4 or less Pain Plan: prn Tomorrow's Labs & Rationales: hina Blake MD,[facility] 12/24/17 1111: Attending MD Review Statement Attending Statement Attending MD Statement: examined this patient, discuss w/resident/PA/RELIGION TEACHER, agreed w/resident/PA/RELIGION TEACHER, reviewed EMR data (avail), discussed with nursing, reviewed images, amended to note Attending Assessment/Plan: Patient seen and examined, not feeling better. Still feeling short of breath and still requiring significant amount of oxygen. Patient claims that he's feeling very tired overall. Vital Signs Date Time Temp Pulse Resp B/P B/P Pulse O2 O2 Flow FiO2 Mean Ox Delivery Rate 12/24 0850 93 Nasal 4.0L Cannula 12/24 0800 Nasal 4.5L Cannula 12/24 0000 Nasal 4.5L Cannula 12/23 2020 Nasal 4.5L Cannula 12/23 1938 94 Nasal 4.0L Cannula 12/23 1704 97 Nasal 4.5L Cannula 12/23 1704 98.8 80 20 122/70 97 Nasal 4.5L Cannula 12/23 1215 98.2 78 22 122/56 94 Nasal 4.5L Cannula on exam: aox3, nad. cv; s1, s2, rrr + pacemaker. resp; decreased bs at b/l bases. abd: soft, nt, bs+ ext; trace edema. Laboratory Tests 12/24 0430 Chemistry Sodium (137 - 145 mmol/L) 142 Potassium (3.5 - 5.1 mmol/L) 3.6 Chloride (98 - 107 mmol/L) 105 Carbon Dioxide (22 - 30 mmol/L) 25 Anion Gap (5 - 16) 11 BUN (9 - 20 mg/dL) 20 Creatinine (0.7 - 1.2 mg/dL) 0.9 Estimated GFR (>60 ml/min) > 60 BUN/Creatinine Ratio (7 - 25 %) 22.2 Magnesium (1.6 - 2.3 mg/dL) 1.9 Vitamin B12 (239 - 931 pg/mL) 261 Folate (2.76 - 20.0 ng/mL) 7.6 TSH (0.270 - 4.200 uIU/mL) 1.670 Free T4 (0.78 - 2.44 ng/dL) 1.84 Hematology CBC w Diff NO MAN DIFF REQ WBC (4.8 - 10.8 /CUMM) 8.3 RBC (4.70 - 6.10 /CUMM) 4.71 Hgb (14.0 - 18.0 G/DL) 15.6 Hct (42 - 52 %) 47.2 MCV (80.0 - 94.0 FL) 100.2 H MCH (27.0 - 31.0 PG) 33.1 H MCHC (33.0 - 37.0 G/DL) 33.0 RDW (11.5 - 14.5 %) 15.2 H Plt Count (130 - 400 /CUMM) 162 MPV (7.4 - 10.4 FL) 9.1 Gran % (42.2 - 75.2 %) 78.9 H Lymphocytes % (20.5 - 51.1 %) 9.7 L Monocytes % (1.7 - 9.3 %) 10.2 H Eosinophils % (0 - 5 %) 0.7 Basophils % (0.0 - 2.0 %) 0.5 Absolute Granulocytes (1.4 - 6.5 /CUMM) 6.6 H Absolute Lymphocytes (1.2 - 3.4 /CUMM) 0.8 L Absolute Monocytes (0.10 - 0.60 /CUMM) 0.8 H Absolute Eosinophils (0.0 - 0.7 /CUMM) 0.1 Absolute Basophils (0.0 - 0.2 /CUMM) 0 A/P: 77 y/o M with pmh sig for COPD, HFrEF (25-30%), S/P pacer and ICD, CAD S/P multiple PCI and HI, CVA with residual right-sided deficit, A. fib, bipolar disorder, DM, HTN, ?drug induced Extrapyramidal movement disorder admitted with acute shortness of breath and acute systolic congestive heart failure exacerbation. Appreciate cardiology input. Lasix dose was increased yesterday. Patient still has not put out much urine. His creatinine has remained stable. We'll continue him on 40 mg of IV twice a day Lasix. Patient is on Enteresto for heart failure. Please consult pulmonology for continued hypoxia and shortness of breath. Patient also on Xarelto. Continue the rest of the management.
--- NOTE | 2017-12-24 08:26 | RADIOLOGY REPORT ---
EXAMINATION: XR PORTABLE CHEST CLINICAL INFORMATION: Acute exacerbation of CHF COMPARISON: Chest x-rays most recent prior dated 12/23/2017 TECHNIQUE: Portable frontal view of the chest was obtained. FINDINGS: Left-sided AICD device in place. Stable cardiomegaly. Mild central pulmonary vascular congestion noted again. Interval improvement in interstitial edema. Stable bilateral pleural effusions with associated bibasilar infiltrate or atelectasis, left greater than right. Bony thorax is intact. IMPRESSION: Stable cardiomegaly. Interval mild improvement in overall interstitial edema. Stable bilateral pleural effusions, left greater than right with associated infiltrate or atelectasis.
--- NOTE | 2017-12-24 15:20 | PN- Cardiology ---
Subjective Subjective: Breathing improved following IV furosemide diuresis of ~1.5 L with improved creatinine and unchanged BUN. Objective Vital Signs and I&Os Vital Signs Date Time Temp Pulse Resp B/P B/P Pulse O2 O2 Flow FiO2 Mean Ox Delivery Rate 12/24 1412 82 12/24 0850 93 Nasal 4.0L Cannula 12/24 0800 Nasal 4.5L Cannula 12/24 0000 Nasal 4.5L Cannula 12/23 2020 Nasal 4.5L Cannula 12/23 1937 94 Nasal 4.0L Cannula Intake & Output 12/24 1600 12/24 0800 12/24 0000 12/23 1600 12/23 0800 12/23 0000 Intake Total 712 941 0674 480 50 200 Output Total 1100 139 468 9122 200 685 Balance -380 -180 535 -820 -150 -485 Intake, IV 10 Intake, Oral 643 056 0112 480 50 200 Number 1 0 Bowel Movements Output, Urine 1100 293 586 5517 200 685 Patient 169 lb 165 lb Weight Weight Bed scale Reported by Patient Measurement Method Physical Exam: Well-developed, well-nourished elderly male in no acute distress with nasal oxygen in place. Vital signs: See above. Neck: No JVD, no bruits. Lungs: Few crackles at the bases. Heart: S1, S2 Abdomen: Soft, nontender, positive bowel sounds. Extremities: No edema. Current Medications: Current Medications Sig/Hamida Start time Last Medication Dose Route Stop Time Status Admin Albuterol Sulfate 3 ML TID 12/23 1109 AC 12/24 INH 1315 Amiodarone HCl 100 MG 16:30 12/23 1630 AC 12/24 PO 1643 Atorvastatin Calcium 20 MG 1700 12/23 1700 AC 12/24 PO 1643 Budesonide/ 2 PUF BID 12/23 1000 AC 12/24 Formoterol Fumarate INH 1411 Cyanocobalamin 250 MCG DAILY 12/24 1513 AC 12/24 PO 1643 Digoxin 0.125 MG DAILY 12/23 1000 AC 12/24 PO 1412 Furosemide 40 MG 7:30 AM, & 4:30 PM 12/24 0730 AC 12/24 IV 1643 Furosemide 20 MG 7:30 AM, & 4:30 PM 12/23 0730 DC 12/23 IV 1610 Insulin Aspart 0 AT BEDTIME 12/23 2200 AC SC Insulin Aspart 0 TIDAC 12/23 0800 AC 12/24 SC 1646 Ipratropium [place] 2.5 ML TID 12/23 1115 AC 12/24 INH 1315 Latanoprost 1 GTT QPM 12/23 2199 AC 12/23 OPH 2129 Latanoprost 1 GTT AT BEDTIME 12/23 220 DC OPH Levothyroxine Sodium 0.1 MG DAILY AC 12/23 0300 AC 12/24 PO 0600 Magnesium Oxide 400 MG ONE ONE 12/24 0600 DC 12/24 PO 12/24 0601 0604 Mirtazapine 15 MG QPM 12/23 0300 AC 12/23 PO 2129 Potassium Chloride 40 MEQ ONCE ONE 12/24 0545 DC 12/24 PO 12/24 0546 0600 Rivaroxaban 20 MG 1700 12/24 1700 AC 12/24 PO 1643 Rivaroxaban 20 MG QPM 12/23 0300 DC 12/23 PO 2129 Sacubitril/Valsartan 97 MG 0900,2100 12/23 2100 AC 12/24 PO 0841 Venlafaxine HCl 150 MG 0800 12/23 0800 AC 12/24 PO 0841 Results Last 48 Hrs of Labs/Mics: Laboratory Tests 12/24/17 0430: Anion Gap 11, Estimated GFR > 60, BUN/Creatinine Ratio 22.2, Magnesium 1.9, Vitamin B12 261, Folate 7.6, TSH 1.670, Free T4 1.84, CBC w Diff NO MAN DIFF REQ , RBC 4.71, MCV 100.2 H, MCH 33.1 H, MCHC 33.0, RDW 15.2 H, MPV 9.1, Gran % 78.9 H, Lymphocytes % 9.7 L, Monocytes % 10.2 H, Eosinophils % 0.7, Basophils % 0.5, Absolute Granulocytes 6.6 H, Absolute Lymphocytes 0.8 L, Absolute Monocytes 0.8 H, Absolute Eosinophils 0.1, Absolute Basophils 0 12/23/17 1005: Magnesium 1.7, Troponin I 0.03 12/23/17 0500: Sodium Cancelled, Potassium Cancelled, Chloride Cancelled, Carbon Dioxide Cancelled, Anion Gap Cancelled, BUN Cancelled, Creatinine Cancelled, BUN/ Creatinine Ratio Cancelled 12/23/17 0358: Anion Gap 13, Estimated GFR > 60, BUN/Creatinine Ratio 18.2, Troponin I 0.04 12/22/172037: Urine Color YEL, Urine Clarity CLEAR, Urine pH 6.5, Ur Specific [place] 1.015, Urine Protein 30 H, Urine Ketones NEG, Urine Nitrite NEG, Urine Bilirubin NEG, Urine Urobilinogen 0.2, Ur Leukocyte Esterase NEG, Ur Microscopic SEDIMENT EXAMINED, Urine RBC 1-3, Urine WBC RARE, Ur Epithelial Cells RARE, Urine Mucus RARE, Urine Hemoglobin MOD H, Urine Glucose NEG Microbiology 12/23 0300 UPPER RESP: Surveillance Culture - COMP 12/22 1934 NASOPHARYN: Influenza Virus A & B Rapid Smear - COMP Recent Imaging Studies: CXR 12/24/2017: Stable cardiomegaly. Interval mild improvement in overall interstitial edema. Stable bilateral pleural effusions, left greater than right with associated infiltrate or atelectasis. Assessment/Plan Assessment/Plan [id number]-m w/ hx long-standing former tobacco use, COPD, chronic anemia, recurrent GI bleeding w/o definite etiology found, HLD, DM, hypothyroidism, previous TIAs/strokes, seizure disorder, previous syncope, ch AF on AC, VT on antiarrhythmic Rx (amiodarone), s/p BiV pacemaker defibrillator, CAD s/p PCIs w/ angioplasty, s/p MIs w/ severe ischemic cardiomyopathy (EF ~25-30%) w/ recurrent acute on chronic systolic HF (HFrEF) who presented to the ED after becoming acutely short of breath and hypoxemic while walking in the hospital cafeteria that prompted a rapid response and subsequent physical, radiographic, and laboratory recurrent HFrEF. Feels improved following diuresis of approximately 1.5 L with stable creatinine and improved CXR. Continue present management. Continue telemetry? Yes
[2017-12-24 22:48] VITALS: BP 118/70
[2017-12-25 06:59] VITALS: BP 120/80
--- NOTE | 2017-12-25 08:11 | PN- Housestaff ---
Nazanin SEGAL,[facility] 12/25/17 0811: Subjective Follow-up For: Acute Hypoxic Respitory Failure 2/2 CHF Tele-Events Since Last Visit: Sinus Pacing Heart rate 81-86 Subjective: Patient states his shortness of breath has somewhat improved but continues to be there were requiring 4.0 L of supplemental oxygen. Also reports cough with occasional sputum production which is chronic. Denies any chest pain, palpitations, fever/chills or sore throat. Review of Systems Constitutional: Reports: no symptoms. EENTM: Reports: no symptoms. Cardiovascular: Reports: peripheral edema. Respiratory: Reports: cough, short of breath, sputum production. Gastrointestinal: Reports: no symptoms. Genitourinary: Reports: no symptoms. Musculoskeletal: Reports: no symptoms. Skin: Reports: no symptoms. Neurological/Psychological: Reports: no symptoms. Hematologic/Endocrine: Reports: no symptoms. Immunologic/Allergic: Reports: no symptoms. Objective Last 24 Hrs of Vital Signs/I&O Vital Signs Date Time Temp Pulse Resp B/P B/P Pulse O2 O2 Flow FiO2 Mean Ox Delivery Rate 12/25 0917 97.8 70 20 120/80 12/25 0822 90 Nasal 4.0L Cannula 12/25 0800 91 Nasal 4.5L Cannula 12/25 0659 97.8 70 20 120/80 294 Nasal 4.0L Cannula 12/25 0000 Nasal 4.5L Cannula 12/24 2248 98.0 80 20 118/70 97 Nasal 4.0L Cannula 12/24 1830 94 Nasal 4.0L Cannula 12/24 1720 Nasal 4.5L Cannula Intake & Output 12/25 1600 12/25 0800 12/25 0000 Intake Total 480 110 480 Output Total 1000 300 840 Balance -520 -190 -360 Intake, IV 10 Intake, Oral 480 100 480 Number 0 Bowel Movements Output, Urine 1000 300 840 Patient 175 lb Weight Weight Bed scale Measurement Method Physical Exam General Appearance: Alert, Oriented X3, Cooperative, No Acute Distress Skin: No Rashes, No Breakdown Neck: Supple, No JVD Cardiovascular: Regular Rate, Normal S1, Normal S2 Lungs: decreased breath sounds Abdomen: Normal Bowel Sounds, Soft, No Tenderness Current Medications: Current Medications Sig/Hamida Start time Last Medication Dose Route Stop Time Status Admin Albuterol Sulfate 3 ML TID 12/23 1109 AC 12/25 INH 1631 Amiodarone HCl 100 MG 16:30 12/23 1630 AC 12/25 PO 1627 Atorvastatin Calcium 20 MG 1700 12/23 1700 AC 12/25 PO 1627 Budesonide/ 2 PUF BID 12/23 1000 AC 12/25 Formoterol Fumarate INH 0917 Cyanocobalamin 250 MCG DAILY 12/24 1513 AC 12/25 PO 0918 Digoxin 0.125 MG DAILY 12/23 1000 AC 12/25 PO 0917 Furosemide 40 MG 7:30 AM, & 4:30 PM 12/24 0730 AC 12/25 IV 1622 Insulin Aspart 0 AT BEDTIME 12/23 2200 AC SC Insulin Aspart 0 TIDAC 12/23 0800 AC 12/24 SC 1646 Ipratropium [place] 2.5 ML TID 12/23 1115 AC 12/25 INH 1327 Latanoprost 1 GTT QPM 12/23 2200 AC 12/24 OPH 2108 Levothyroxine Sodium 0.1 MG DAILY AC 12/23 0300 AC 12/25 PO 0621 Mirtazapine 15 MG QPM 12/23 0300 AC 12/24 PO 2109 Rivaroxaban 20 MG 1700 12/24 1700 AC 12/24 PO 1643 Sacubitril/Valsartan 97 MG 0900,2100 12/23 2100 AC 12/25 PO 0815 Venlafaxine HCl 150 MG 0800 12/23 0800 AC 12/25 PO 0809 Last 24 Hrs of Lab/Ayaan Results Last 24 Hrs of Labs/Mics: Laboratory Tests 12/25/17 0500: Magnesium Cancelled, CBC w Diff Cancelled, WBC Cancelled, RBC Cancelled, Hgb Cancelled, Hct Cancelled, MCV Cancelled, MCH Cancelled, MCHC Cancelled, RDW Cancelled, Plt Count Cancelled, MPV Cancelled Assessment/Plan Assessment: The pt is 77-year-old gentleman with complex past medical history that includes long-standing former tobacco use, COPD, chronic anemia, recurrent GI bleeding in the past without a definite etiology found, dyslipidemia, diabetes mellitus, hypothyroidism on replacement, previous TIAs/strokes, seizure disorder, previous syncope, chronic atrial fibrillation on anticoagulation, ventricular tachycardia on antiarrhythmic therapy (amiodarone), s/p biventricular pacemaker defibrillator implantation, coronary artery disease s/p percutaneous interventions with angioplasty, s/p myocardial infarctions with known severe ischemic cardiomyopathy (EF ~30%) with recurrent acute on chronic systolic heart failure. He was brought to [place] ER for shortness of breath A/P #Shortness of breath - Secondary to acute on chronic congestive heart failure Patient is currently satting in 90s on 2 L of oxygen(tapered down from 4 L). Patient not on any home oxygen. Repeat chest x-ray on 12/24/2017 showed interval mild improvement in overall interstitial edema. Patient does not report any improvement in symptoms and does not feel clinically better. -Continue telemetry monitoring Continue Lasix 40 MG IV twice a day -Monitor electrolytes and replete accordingly -Strict ins and outs -Daily weights -TRC/Nebs -Oxygen supplementation to maintain oxygenation above 92% -Pulmonology consult with Dr. Merrill in setting of acute hypoxic respiratory failure continued increase oxygen requirements and pt's request. No wheezes on examination does not appear to be a COPD exacerbation. #Possibility of pneumonia Patient is afebrile and doesn't have any leukocytosis-low suspicion for aspiration pneumonia. -Monitor fever WBC curve. Remains afebrile with normal white cell count -Monitor off antibiotics -He has a prescription refil in November cefuroxime and azithromycin, he had a recent visit to [facility] as per patient he had shortness of breath does not remember being diagnosed with pneumonia. Records have been requested from [place]. #Diabetes mellitus Hold oral hypoglycemic agents -Accu-Cheks and insulin sliding scale #Chronic medical conditions COPD, HFrEF (25-30%), S/P pacer and ICD, CAD S/P multiple PCI and CT, CVA with residual right-sided deficit, A. fib, bipolar disorder, HTN, ?drug induced Extrapyramidal movement disorder -Continue home medication -Digoxin level were normal limits -LFTs and TFTs WNL on amiadrone DVT prophylaxis with xarelto Patient is DNR/DNI Problem List: 1. Dyspnea 2. CHF exacerbation Pain Ratin Pain Location: None Pain Goal: Remain pain free Pain Plan: Pain pathway Tomorrow's Labs & Rationales: None Yumiko Jimenez MD 12/25/17 1138: Attending MD Review Statement Attending Statement Attending MD Statement: examined this patient, discuss w/resident/PA/CHANGE OF ADDRESS CLERK, agreed w/resident/PA/CHANGE OF ADDRESS CLERK, reviewed EMR data (avail), discussed with nursing, reviewed images Attending Assessment/Plan: 77-year-old male transferred from the ICU to my care. He was a telemetry hold in the ICU. He is a fairly complex male with multiple medical problems including diabetes, legally blind, A. fib, CAD and systolic heart failure with ischemic cardiomyopathy and an EF of 20% with an AICD/pacemaker. We are treating him for acute systolic heart failure with IV Lasix. We are also treating him with maximal medical therapy with Entresto, digoxin and he is on Xarelto for the A. fib. He has a history of documented COPD- he follows with Dr. Ricardo's group. The issue now is that he continues to be on 4.5 L of oxygen and we can't seem to titrate it down despite maximal therapy for his cardiac issue. We'll call a formal pulmonary consult to determine whether the COPD is the cause of the ongoing hypoxia. He might need a noncontrast chest CT but will talk to pulmonary about the same. Closely watch his lytes and his K on the diuretics and the Dig.
--- NOTE | 2017-12-25 14:08 | PN- Cardiology ---
Subjective Subjective: Agitated earlier secondary to his roommate being noisy overnight. Feels his breathing has improved, but is not to its baseline. Objective Vital Signs and I&Os Vital Signs Date Time Temp Pulse Resp B/P B/P Pulse O2 O2 Flow FiO2 Mean Ox Delivery Rate 12/25 0917 97.8 70 20 120/80 12/25 0822 90 Nasal 4.0L Cannula 12/25 0800 91 Nasal 4.5L Cannula 12/25 0659 97.8 70 20 120/80 294 Nasal 4.0L Cannula 12/25 0000 Nasal 4.5L Cannula 12/24 2248 98.0 80 20 118/70 97 Nasal 4.0L Cannula 12/24 1830 94 Nasal 4.0L Cannula 12/24 1720 Nasal 4.5L Cannula 12/24 1412 82 Intake & Output 12/25 1600 12/25 0800 12/25 0000 12/24 1600 12/24 0800 12/24 0000 Intake Total 110 480 720 841 1582 Output Total 470 236 4295 300 475 Balance -190 -360 -380 -180 535 Intake, IV 10 10 Intake, Oral 100 480 788 418 6407 Output, Urine 514 743 8625 300 475 Patient 175 lb Weight Weight Bed scale Measurement Method Physical Exam: Well-developed, well-nourished elderly male in no acute distress with nasal oxygen in place. Vital signs: See above. Neck: No JVD, no bruits. Lungs: Few crackles at the bases. Heart: S1, S2. Abdomen: Soft, nontender, positive bowel sounds. Extremities: No edema. Current Medications: Current Medications Sig/Hamida Start time Last Medication Dose Route Stop Time Status Admin Albuterol Sulfate 3 ML TID 12/23 1109 AC 12/25 INH 1327 Amiodarone HCl 100 MG 16:30 12/23 1630 AC 12/24 PO 1643 Atorvastatin Calcium 20 MG 1700 12/23 1700 AC 12/24 PO 1643 Budesonide/ 2 PUF BID 12/23 1000 AC 12/25 Formoterol Fumarate INH 0917 Cyanocobalamin 250 MCG DAILY 12/24 1513 AC 12/25 PO 0918 Digoxin 0.125 MG DAILY 12/23 1000 AC 12/25 PO 0917 Furosemide 40 MG 7:30 AM, & 4:30 PM 12/24 0730 AC 12/25 IV 0632 Insulin Aspart 0 AT BEDTIME 12/23 2200 AC SC Insulin Aspart 0 TIDAC 12/23 0800 AC 12/24 SC 1646 Ipratropium [place] 2.5 ML TID 12/23 1115 AC 12/25 INH 1327 Latanoprost 1 GTT QPM 12/23 2200 AC 12/24 OPH 2108 Levothyroxine Sodium 0.1 MG DAILY AC 12/23 0300 AC 12/25 PO 0621 Mirtazapine 15 MG QPM 12/23 0300 AC 12/24 PO 2109 Rivaroxaban 20 MG 1700 12/24 1700 AC 12/24 PO 1643 Rivaroxaban 20 MG QPM 12/23 0300 DC 12/23 PO 2129 Sacubitril/Valsartan 97 MG 0900,2100 12/23 2100 AC 12/25 PO 0815 Venlafaxine HCl 150 MG 0800 12/23 0800 AC 12/25 PO 0809 Results Last 48 Hrs of Labs/Mics: Laboratory Tests 12/24/17 0430: Anion Gap 11, Estimated GFR > 60, BUN/Creatinine Ratio 22.2, Magnesium 1.9, Vitamin B12 261, Folate 7.6, TSH 1.670, Free T4 1.84, CBC w Diff NO MAN DIFF REQ , RBC 4.71, MCV 100.2 H, MCH 33.1 H, MCHC 33.0, RDW 15.2 H, MPV 9.1, Gran % 78.9 H, Lymphocytes % 9.7 L, Monocytes % 10.2 H, Eosinophils % 0.7, Basophils % 0.5, Absolute Granulocytes 6.6 H, Absolute Lymphocytes 0.8 L, Absolute Monocytes 0.8 H, Absolute Eosinophils 0.1, Absolute Basophils 0 Recent Imaging Studies: Echocardiogram 12/23/2017: Moderate to severe left ventricular dilatation. Mild concentric left ventricular hypertrophy. Moderately to severely reduced global left ventricular systolic function. Moderately to severely abnormal left ventricular ejection fraction estimated at 25-30%. Mild right ventricular dilatation. Moderate right atrial dilatation. Catheter/pacemaker wire in the right heart. Mild to moderate mitral regurgitation. Trace tricuspid regurgitation. Unable to estimate the right ventricular systolic pressure. Trace pulmonic regurgitation. Dilated inferior vena cava. Assessment/Plan Assessment/Plan 77-y-o-[id number]-m w/ hx long-standing former tobacco use, COPD, chronic anemia, recurrent GI bleeding w/o definite etiology found, HLD, DM, hypothyroidism, previous TIAs/strokes, seizure disorder, previous syncope, ch AF on AC, VT on antiarrhythmic Rx (amiodarone), s/p BiV pacemaker defibrillator, CAD s/p PCIs w/ angioplasty, s/p MIs w/ severe ischemic cardiomyopathy (EF ~25-30%) w/ recurrent acute on chronic systolic HF (HFrEF) who presented to the ED after becoming acutely short of breath and hypoxemic while walking in the hospital cafeteria that prompted a rapid response and subsequent physical, radiographic, and laboratory findings of recurrent HFrEF. Feels improved following diuresis of approximately 2.0 L with labs pending. Continue present management. Continue telemetry? Yes
[2017-12-25 14:30] VITALS: BP 94/60
--- NOTE | 2017-12-25 17:24 | Cons- Pulmonary ---
General Information and HPI Consulting Request Date of Consult: 12/25/17 Requested By: Dr. Jimenez Reason for Consult: Hypoxia Source of Information: patient, old records Exam Limitations: clinical condition History of Present Illness: The patient is a 77-year-old gentleman with past medical history of CVA, Parkinson's disease, seizure, legally blind, TIA, atrial fibrillation on xeralto , coronary artery disease status post pacemaker/defibrillator, cardiomyopathy, congestive heart failure, hypertension, asthma, COPD, GI bleed, diabetes, hypothyroidism, blood loss anemia status post transfusion was brought to [place] ER for shortness of breath. Patient is a poor historian and has dysarthria. The patient was in his usual state of health until the day of admission, noting he was having his dinner at [facility] and suddenly found to have short of breath both at rest and exertion. A rapid response was called on him today. Vitals were stable then and he was started on 2 L of nasal oxygen. Patient was brought in to ED for further evaluation. He currently has no complaints of congestion, chest pain, chest pressure, nausea, vomiting, palpitations, headache , altered sensation, trauma, loss of consciousness, incontinence, sick contacts, travel. Cultures are negative. CXR shows cardiomegaly, with overall interstitial edema. There were stable bilateral pleural effusions, left greater than right with associated infiltrate or atelectasis. The patient continues to require supplemental oxygen at 2 lpm. Allergies/Medications Allergies: Coded Allergies: NO KNOWN ALLERGIES (NO) (02/22/15) Home Med List: Amiodarone HCl 100 MG TABLET 1 TAB PO DAILY HEART (Reported) Atorvastatin Calcium (Lipitor) 20 MG TABLET 1 TAB PO DAILY CHOLESTEROL ( Reported) Digoxin 125 MCG TABLET 1 TAB PO DAILY HEART (Reported) Ferrous Sulfate 325 MG (65 MG IRON) TABLET 1 TAB PO TID SUPPLEMENT (Reported) Fluticasone/Salmeterol (Advair 250-50 Diskus) 1 EACH BLST.W.DEV 1 PUF INH PRN COPD (Reported) Furosemide (Lasix) 40 MG TABLET 1 TAB PO 7:30AM DIURETIC (Reported) Latanoprost (Xalatan) 2.5 ML DROPS 1 GTT OPH QPM BOTH EYES (Reported) Levothyroxine Sodium 100 MCG TABLET 1 TAB PO DAILY AC THYROID (Reported) Lubiprostone (Amitiza) 24 MCG CAPSULE 1 CAP PO BID PRN GI (Reported) Melatonin 5 MG CAPSULE 1 CAP PO QPM SLEEP (Reported) Metformin HCl 500 MG TABLET 1 TAB PO DAILY DIABETES (Reported) Mirtazapine 15 MG TABLET 1 HTAB PO DAILY DEPRESSION (Reported) Mometasone Furoate (Nasonex) 17 GM SPRAY.PUMP 2 SPRAY NASB PRN ALLERGIES ( Reported) Rivaroxaban (Xarelto) 20 MG TABLET 1 TAB PO QPM BLOOD THINNER (Reported) with food Sacubitril/Valsartan (Entresto 97 MG-103 MG Tablet) 97 MG-103 MG TABLET 1 TAB PO BID HEART (Reported) Venlafaxine HCl (Effexor XR) 150 MG CAP.ER.24H 1 CAP PO DAILY DEPRESSION ( Reported) Current Medications: Current Medications Sig/Hamida Start time Last Medication Dose Route Stop Time Status Admin Albuterol Sulfate 3 ML TID 12/23 1109 AC 12/25 INH 1631 Amiodarone HCl 100 MG 16:30 12/23 1630 AC 12/25 PO 1627 Atorvastatin [place] 20 [place] [address]/23 1700 AC 12/25 PO 1627 Budesonide/ 2 PUF BID 12/23 1000 AC 12/25 Formoterol Fumarate INH 0917 Cyanocobalamin 250 MCG DAILY 12/24 1513 AC 12/25 PO 0918 Digoxin 0.125 MG DAILY 12/23 1000 AC 12/25 PO 0917 Furosemide 40 MG 7:30 AM, & 4:30 PM 12/24 0730 AC 12/25 IV 1622 Insulin Aspart 0 AT BEDTIME 12/23 2200 AC SC Insulin Aspart 0 TIDAC 12/23 0800 AC 12/24 SC 1646 Ipratropium [place] 2.5 ML TID 12/23 1115 AC 12/25 INH 1327 Latanoprost 1 GTT QPM 12/23 2200 AC 12/24 OPH 2108 Levothyroxine Sodium 0.1 MG DAILY AC 12/23 0300 AC 12/25 PO 0621 Mirtazapine 15 MG QPM 12/23 0300 AC 12/24 PO 2109 Rivaroxaban 20 MG 1700 12/24 1700 AC 12/24 PO 1643 Sacubitril/Valsartan 97 MG 0900,2100 12/23 2100 AC 12/25 PO 0815 Venlafaxine HCl 150 MG 0800 12/23 0800 AC 12/25 PO 0809 Past History Travel History Traveled to [place] past 21 day No Medical History Blood Transfusion Hx: Yes Neurological: CVA, Parkinson's disease, seizure, TIA, RIGHT SIDED WEAKNESS EENT: NONE Cardiovascular: AFIB, CAD, cardiomyopathy, CHF, hypertension Respiratory: asthma, COPD Gastrointestinal: GASTRITIS GI BLEED Hepatic: NONE Renal: NONE Musculoskeletal: NONE Psychiatric: bipolar disease Endocrine: diabetes, hypothyroidism Blood Disorders: anemia Cancer(s): NONE 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 SISTER (ID AT 60). SISTER (DEPRESSION). SISTER (TREMORS). Relation not specified for: *No pertinent family history Psychosocial History Where Do You Live? Home Who Do You Live With? spouse Services at Home: None Smoking Status: Former Smoker ETOH Use: occasional use Illicit Drug Use: denies illicit drug use Functional Ability ADLs Independent: dressing, eating, toileting, bathing. Ambulation: cane (NON-COMPLIANT) IADLs Needs Assist: shopping, housework, finances, food prep, telephone, transportation, medication admin. ECHO Results (as available) EF% 25 Exam & Diagnostic Data Last 24 Hrs of Vital Signs/I&O Vital Signs Date Time Temp Pulse Resp B/P B/P Pulse O2 O2 Flow FiO2 Mean Ox Delivery Rate 12/25 1633 92 Nasal 2.0L Cannula 12/25 1627 81 110/60 12/25 1430 97.5 81 22 94/60 92 Nasal 2.0L Cannula 12/25 0917 97.8 70 20 120/80 12/25 0822 90 Nasal 4.0L Cannula 12/25 0800 91 Nasal 4.5L Cannula 12/25 0659 97.8 70 20 120/80 294 Nasal 4.0L Cannula 12/25 0000 Nasal 4.5L Cannula 12/24 2248 98.0 80 20 118/70 97 Nasal 4.0L Cannula 12/24 1830 94 Nasal 4.0L Cannula Intake & Output 12/25 1600 12/25 0800 12/25 0000 Intake Total 480 110 480 Output Total 1000 300 840 Balance -520 -190 -360 Intake, IV 10 Intake, Oral 480 100 480 Number 0 Bowel Movements Output, Urine 1000 300 840 Patient 175 lb Weight Weight Bed scale Measurement Method Physical Exam General Appearance: no apparent distress, alert, awake, comfortable Head: atraumatic, normal appearance Neck: supple Respiratory: chest non-tender, no respiratory distress, decreased breath sounds Cardiovascular: regular rate/rhythm Gastrointestinal: normal bowel sounds, soft, non-tender Extremities: no edema Skin: intact, normal color, warm/dry Last 48 Hrs of Labs/Ayaan: Laboratory Tests 12/25/17 0500: Magnesium Cancelled, CBC w Diff Cancelled, WBC Cancelled, RBC Cancelled, Hgb Cancelled, Hct Cancelled, MCV Cancelled, MCH Cancelled, MCHC Cancelled, RDW Cancelled, Plt Count Cancelled, MPV Cancelled 12/24/17 0430: Anion Gap 11, Estimated GFR > 60, BUN/Creatinine Ratio 22.2, Magnesium 1.9, Vitamin B12 261, Folate 7.6, TSH 1.670, Free T4 1.84, CBC w Diff NO MAN DIFF REQ , RBC 4.71, MCV 100.2 H, MCH 33.1 H, MCHC 33.0, RDW 15.2 H, MPV 9.1, Gran % 78.9 H, Lymphocytes % 9.7 L, Monocytes % 10.2 H, Eosinophils % 0.7, Basophils % 0.5, Absolute Granulocytes 6.6 H, Absolute Lymphocytes 0.8 L, Absolute Monocytes 0.8 H, Absolute Eosinophils 0.1, Absolute Basophils 0 Diagnostic Data CXR Results Interstitial edema. Assessment/Plan Impression/Plan: 1. Recurrent HFrEF - improved with diuresis. 2. History of COPD. Recommendations: * Continue to follow cardiology recommendations for management of heart failure. * Incentive spirometry. * We will monitor the patient and attempt to wean oxygen down to off. * Continue Advair equivalent (Symbicort 2 puffs twice daily). * Continue Nebs/TRC. * Continue DVT prophylaxis at all times. * Thank you for the consult, will follow with you and make further recommendations as necessare. Consult Acknowledgment - Thank you for your consult request.
[2017-12-25 23:03] VITALS: BP 92/58
[2017-12-26 06:00] VITALS: BP 118/64
[2017-12-26 08:15] LABS: ABSOLUTE BASOPHIL COUNT 0 /CUMM (0.0-0.2); ABSOLUTE EOSINOPHIL COUNT 0.1 /CUMM (0.0-0.7); ABSOLUTE GRANULOCYTE CT 6.2 /CUMM (1.4-6.5); ABSOLUTE LYMPH COUNT 0.8 /CUMM (1.2-3.4); ABSOLUTE MONOCYTE COUNT 0.7 /CUMM (0.10-0.60); BASOPHIL % 0.2 % (0.0-2.0); EOSINOPHIL % 0.7 % (0-5); GRANULOCYTE % 79.3 % (42.2-75.2); HEMATOCRIT 48.3 % (42-52); MEAN CORPUSCULAR HGB 33.2 PG (27.0-31.0); MEAN CORPUSCULAR HGB CONC 33.2 G/DL (33.0-37.0); MEAN CORPUSCULAR VOLUME 100.1 FL (80.0-94.0); MEAN PLATELET VOLUME 9.2 FL (7.4-10.4); PLATELET COUNT 187 /CUMM (130-400); RBC DISTRIBUTION WIDTH 15.1 % (11.5-14.5); RED BLOOD CELL CT 4.83 /CUMM (4.70-6.10); WHITE BLOOD CELL COUNT 7.9 /CUMM (4.8-10.8)
--- NOTE | 2017-12-26 08:57 | PN- Housestaff ---
Phil Johnson 12/26/17 0857: Subjective Follow-up For: Acute Hypoxic Respitory Failure 2/2 CHF Tele-Events Since Last Visit: S-pacing HR 79-87 Subjective: Patient reports last night his ambulatory O2 sat dropped as soon as he got up and went back up when he went back to the bed. Review of Systems Constitutional: Reports: see HPI. Objective Last 24 Hrs of Vital Signs/I&O Vital Signs Date Time Temp Pulse Resp B/P B/P Pulse O2 O2 Flow FiO2 Mean Ox Delivery Rate 12/26 0821 95 Nasal 2.0L Cannula 12/26 0816 83 118/64 12/26 0800 Nasal 2.0L Cannula 12/26 0600 97.7 83 20 118/64 93 Nasal 4.0L Cannula 12/25 2303 97.6 80 20 92/58 93 Nasal Cannula 12/25 2107 Nasal 2.0L Cannula 12/25 1633 92 Nasal 2.0L Cannula 12/25 1627 81 110/60 12/25 1600 92 Nasal 2.0L Cannula 12/25 1430 97.5 81 22 94/60 92 Nasal 2.0L Cannula Intake & Output 12/26 1600 12/26 0800 12/26 0000 Intake Total Output Total 650 Balance -650 Output, Urine 650 Patient 177 lb 176 lb Weight Physical Exam General Appearance: Alert, Oriented X3, Cooperative, No Acute Distress Cardiovascular: Regular Rate, Normal S1, Normal S2, No Murmurs Lungs: Clear to Auscultation, Normal Air Movement Abdomen: Normal Bowel Sounds, Soft, No Tenderness Extremities: No Edema Current Medications: Current Medications Sig/Hamida Start time Last Medication Dose Route Stop Time Status Admin Albuterol Sulfate 3 ML BID 12/26 2200 AC INH Albuterol Sulfate 3 ML TID 12/23 1109 DC 12/26 INH 0813 Amiodarone HCl 100 MG 16:30 12/23 1630 AC 12/25 PO 1627 Atorvastatin Calcium 20 MG 1700 12/23 1700 AC 12/25 PO 1627 Budesonide/ 2 PUF BID 12/23 1000 AC 12/26 Formoterol Fumarate INH 0817 Cyanocobalamin 250 MCG DAILY 12/24 1513 AC 12/26 PO 0816 Digoxin 0.125 MG DAILY 12/23 1000 AC 12/26 PO 0816 Docusate Sodium 100 MG DAILY NEEDED PRN 12/26 1145 AC PO Furosemide 40 MG 7:30 AM, & 4:30 PM 12/24 0730 AC 12/26 IV 0815 Insulin Aspart 0 AT BEDTIME 12/23 2200 AC SC Insulin Aspart 0 TIDAC 12/23 0800 AC 12/24 SC 1646 Ipratropium [place] 2.5 ML BID 12/26 2200 AC INH Ipratropium [place] 2.5 ML TID 12/23 1115 DC 12/26 INH 0813 Latanoprost 1 GTT QPM 12/23 2200 AC 12/25 OPH 2049 Levothyroxine Sodium 0.1 MG DAILY AC 12/23 0300 AC 12/26 PO 0558 Mirtazapine 15 MG QPM 12/23 0300 AC 12/25 PO 2042 Rivaroxaban 20 MG 1700 12/24 1700 AC 12/25 PO 1805 Sacubitril/Valsartan 97 MG 0900,2100 12/23 2100 AC 12/26 PO 0816 Senna 187 MG AT BEDTIME 12/26 220 AC PO Venlafaxine HCl 150 MG 0800 12/23 0800 AC 12/26 PO 0816 Last 24 Hrs of Lab/Yaaan Results Last 24 Hrs of Labs/Mics: Laboratory Tests 12/26/17 0638: Anion Gap 13, Estimated GFR > 60, BUN/Creatinine Ratio 25.5 H, Magnesium 2.1, CBC w Diff NO MAN DIFF REQ, RBC 4.83, MCV 100.1 H, MCH 33.2 H, MCHC 33.2, RDW 15.1 H, MPV 9.2, Gran % 79.3 H, Lymphocytes % 10.4 L, Monocytes % 9.4 H, Eosinophils % 0.7, Basophils % 0.2, Absolute Granulocytes 6.2, Absolute Lymphocytes 0.8 L, Absolute Monocytes 0.7 H, Absolute Eosinophils 0.1, Absolute Basophils 0 Assessment/Plan Assessment: Mr. Watkins is 77-year-old gentleman with complex past medical history that includes long-standing former tobacco use, COPD, chronic anemia, recurrent GI bleeding in the past without a definite etiology found, dyslipidemia, diabetes mellitus, hypothyroidism on replacement, previous TIAs/strokes, seizure disorder , previous syncope, chronic atrial fibrillation on anticoagulation, ventricular tachycardia on antiarrhythmic therapy (amiodarone), s/p biventricular pacemaker defibrillator implantation, coronary artery disease s/p percutaneous interventions with angioplasty, s/p myocardial infarctions with known severe ischemic cardiomyopathy (EF ~30%) with recurrent acute on chronic systolic heart failure presented to [place] ER for shortness of breath Problem list: 1. Acute Hypoxic Respitory Failure 2/2 CHF vs ? PNA Plan: * Repeat CXR to show if resolution of interstitial edema and bilateral pleural effusions * Continue Amiodarone, statin, digoxin, lasix * Continue Incentive spirometry, TRC/nebs PRN * Patient mildly alkalotic * Cardio recommendations appreciated * Pulm recommendations appreciated Problem List: 1. CHF exacerbation Pain Ratin Pain Location: NA Pain Goal: Remain pain free Pain Plan: NA Tomorrow's Labs & Rationales: CBC, BEP Cleo SEGAL,Amor 12/26/17 1254: Attending MD Review Statement Attending Statement Attending MD Statement: examined this patient, discuss w/resident/PA/PHYSICIAN CREDENTIALING SPECIALIST, agreed w/resident/PA/PHYSICIAN CREDENTIALING SPECIALIST, reviewed EMR data (avail), discussed with nursing, reviewed images, amended to note Attending Assessment/Plan: 77-year-old male with past medical history significant for COPD, hyperlipidemia, diabetes mellitus, hypothyroidism, previous TIA/strokes, seizure disorder, previous syncope, recurrent GI bleed with no definite diagnosis, chronic A. fib on anticoagulation, ventricular tachycardia on anti-arrhythmic medications, status post biventricular pacemaker, coronary artery disease status post PCI with angioplasty, ischemic cardiomyopathy with an ejection fraction of 20-25% and with recurrent acute on chronic diastolic heart failure has been admitted to the floor for acute on chronic systolic heart failure and currently being treated with IV Lasix and optimizing medications. Patient was seen and examined on the bedside while lying and currently on 2 L of oxygen Y nasal cannula. Patient reported that while trying to go out of bed his oxygen requirement increases and he is being put back to bed. Cardiology and pulmonology on bed, on maximal pharmacological treatment for COPD and heart failure. Pulmonology consult appreciated and recommendations followed. Patient would remain in the hospital over the weekend.
--- NOTE | 2017-12-26 13:28 | PN- Cardiology ---
Subjective Subjective: Patient feels he is improving but not yet at baseline. Objective Vital Signs and I&Os Vital Signs Date Time Temp Pulse Resp B/P B/P Pulse O2 O2 Flow FiO2 Mean Ox Delivery Rate 12/26 1612 80 114/60 12/26 1444 97.7 80 20 112/64 94 Nasal 4.0L Cannula 12/26 0821 95 Nasal 2.0L Cannula 12/26 0816 83 118/64 12/26 0800 Nasal 2.0L Cannula 12/26 0600 97.7 83 20 118/64 93 Nasal 4.0L Cannula 12/25 2303 97.6 80 20 92/58 93 Nasal Cannula 12/25 2107 Nasal 2.0L Cannula Intake & Output 12/26 1600 12/26 0800 12/26 0000 12/25 1600 12/25 0800 12/25 0000 Intake Total 600 480 110 480 Output Total 681 518 6503 300 840 Balance -250 -650 -520 -190 -360 Intake, IV 10 Intake, Oral 600 480 100 480 Number 0 Bowel Movements Output, Urine 745 149 8346 300 840 Patient 177 lb 176 lb 175 lb Weight Weight Bed scale Measurement Method Physical Exam: General: no apparent distress. Alert. On NC. Eyes: No obvious scleral icterus. HEENT: No jugular venous distention or abnormal jugular venous pulsations. Cardiovascular: Normal intensity S1/S2. PPM noted. Respiratory: No rales or rhonchi Abdomen: Soft, nontender with no guarding or rebound tenderness. Musculoskeletal: No clubbing or cyanosis noted; no edema Skin: No obvious rashes or ulcerations. Neurologic: No gross focal deficits noted. Current Medications: Current Medications Sig/Hamida Start time Last Medication Dose Route Stop Time Status Admin Albuterol Sulfate 3 ML BID 12/26 2200 AC INH Albuterol Sulfate 3 ML TID 12/23 1109 DC 12/26 INH 0813 Amiodarone HCl 100 MG 16:30 12/23 1630 AC 12/26 PO 1612 Atorvastatin Calcium 20 MG 1700 12/23 1700 AC 12/26 PO 1613 Budesonide/ 2 PUF BID 12/23 1000 AC 12/26 Formoterol Fumarate INH 0817 Cyanocobalamin 250 MCG DAILY 12/24 1513 AC 12/26 PO 0816 Digoxin 0.125 MG DAILY 12/23 1000 AC 12/26 PO 0816 Docusate Sodium 100 MG DAILY NEEDED PRN 12/26 1145 AC PO Furosemide 20 MG 7:30 AM, & 4:30 PM 12/27 0730 AC IV Furosemide 40 MG 7:30 AM, & 4:30 PM 12/24 0730 DC 12/26 IV 1612 Insulin Aspart 0 AT BEDTIME 12/23 2200 AC SC Insulin Aspart 0 TIDAC 12/23 0800 AC 12/24 SC 1646 Ipratropium [place] 2.5 ML BID 12/26 2200 AC INH Ipratropium [place] 2.5 ML TID 12/23 1115 DC 12/26 INH 0813 Latanoprost 1 GTT QPM 12/23 2200 AC 12/25 OPH 2049 Levothyroxine Sodium 0.1 MG DAILY AC 12/23 0300 AC 12/26 PO 0558 Mirtazapine 15 MG QPM 12/23 0300 AC 12/25 PO 2042 Rivaroxaban 20 MG 1700 12/24 1700 AC 12/26 PO 1613 Sacubitril/Valsartan 97 MG 0900,2100 12/23 2100 AC 12/26 PO 0816 Senna 187 MG AT BEDTIME 12/26 2200 AC PO Venlafaxine HCl 150 MG 0800 12/23 0800 AC 12/26 PO 0816 Results Last 48 Hrs of Labs/Mics: Laboratory Tests 12/26/17 0638: Anion Gap 13, Estimated GFR > 60, BUN/Creatinine Ratio 25.5 H, Magnesium 2.1, CBC w Diff NO MAN DIFF REQ, RBC 4.83, MCV 100.1 H, MCH 33.2 H, MCHC 33.2, RDW 15.1 H, MPV 9.2, Gran % 79.3 H, Lymphocytes % 10.4 L, Monocytes % 9.4 H, Eosinophils % 0.7, Basophils % 0.2, Absolute Granulocytes 6.2, Absolute Lymphocytes 0.8 L, Absolute Monocytes 0.7 H, Absolute Eosinophils 0.1, Absolute Basophils 0 12/25/17 0500: Magnesium Cancelled, CBC w Diff Cancelled, WBC Cancelled, RBC Cancelled, Hgb Cancelled, Hct Cancelled, MCV Cancelled, MCH Cancelled, MCHC Cancelled, RDW Cancelled, Plt Count Cancelled, MPV Cancelled Recent Imaging Studies: Telemetry tracings were personally reviewed and shows V pacing CXR 1. Cardiomegaly and pulmonary vascular congestion without interstitial edema. 2. Trace right pleural effusion and small left pleural effusion. The pleural effusions have decreased compared to 12/23/2017. The atelectasis in the retrocardiac region of left lower lobe appears decreased, as well. Assessment/Plan Assessment/Plan 1. Heart failure with reduced ejection fraction 2. COPD 3. Atrial fibrillation on anti-coagulation 4. Biventricular pacemaker/AICD in situ 5. Prior CVA 6. Ischemic CM Patient is improving clinically. Recommended decreasing the Lasix to 20 mg IV twice a day as BUN and creatinine have trended up slightly. Continue to monitor strict I&O's along with daily weights and daily metabolic panels. Hemoglobin remains stable with Xarelto. Steve Corona MD [facility] Continue telemetry? Yes
[2017-12-26 14:44] VITALS: BP 112/64
--- NOTE | 2017-12-26 15:59 | RADIOLOGY REPORT ---
EXAMINATION: XR PORTABLE CHEST CLINICAL INFORMATION: Follow-up pleural effusion. Acute on chronic congestive heart failure. COMPARISON: 12/23/2017 and 12/24/2017 TECHNIQUE: Portable frontal view of the chest was obtained. FINDINGS: Biventricular pacemaker in place. Cardiomegaly and mild prominence of central pulmonary vessels. Previously noted interstitial edema appears resolved. The aeration of lower lung zones has improved. Small pleural effusions and bibasilar atelectasis have decreased compared to 12/23/2017. Also, there appears to be improvement within the left lung base on the current exam compared to 12/24/2017. IMPRESSION: 1. Cardiomegaly and pulmonary vascular congestion without interstitial edema. 2. Trace right pleural effusion and small left pleural effusion. The pleural effusions have decreased compared to 12/23/2017. The atelectasis in the retrocardiac region of left lower lobe appears decreased, as well.
--- NOTE | 2017-12-26 20:02 | PN- Pulmonary ---
Subjective HPI/Critical Care Issues: Patient feels he is improving but not yet at baseline. Objective Current Medications: Current Medications Sig/Hamida Start time Last Medication Dose Route Stop Time Status Admin Albuterol Sulfate 3 ML BID 12/26 2200 AC INH Albuterol Sulfate 3 ML TID 12/23 1109 DC 12/26 INH 0813 Amiodarone HCl 100 MG 16:30 12/23 1630 AC 12/26 PO 1612 Atorvastatin Calcium 20 MG 1700 12/23 1700 AC 12/26 PO 1613 Budesonide/ 2 PUF BID 12/23 1000 AC 12/26 Formoterol Fumarate INH 0817 Cyanocobalamin 250 MCG DAILY 12/24 1513 AC 12/26 PO 0816 Digoxin 0.125 MG DAILY 12/23 1000 AC 12/26 PO 0816 Docusate Sodium 100 MG DAILY NEEDED PRN 12/26 1145 AC PO Furosemide 20 MG 7:30 AM, & 4:30 PM 12/27 0730 AC IV Furosemide 40 MG 7:30 AM, & 4:30 PM 12/24 0730 DC 12/26 IV 1612 Insulin Aspart 0 AT BEDTIME 12/23 2200 AC SC Insulin Aspart 0 TIDAC 12/23 0800 AC 12/24 SC 1646 Ipratropium [place] 2.5 ML BID 12/26 2200 AC INH Ipratropium [place] 2.5 ML TID 12/23 1115 DC 12/26 INH 0813 Latanoprost 1 GTT QPM 12/23 2200 AC 12/25 OPH 2049 Levothyroxine Sodium 0.1 MG DAILY AC 12/23 0300 AC 12/26 PO 0558 Mirtazapine 15 MG QPM 12/23 0300 AC 12/25 PO 2042 Rivaroxaban 20 MG 1700 12/24 1700 AC 12/26 PO 1613 Sacubitril/Valsartan 97 MG 0900,2100 12/23 2100 AC 12/26 PO 0816 Senna 187 MG AT BEDTIME 12/26 2200 AC PO Venlafaxine HCl 150 MG 0800 12/23 0800 AC 12/26 PO 0816 Vital Signs & I&O Last 24 Hrs of Vitals and I&O: Vital Signs Date Time Temp Pulse Resp B/P B/P Pulse O2 O2 Flow FiO2 Mean Ox Delivery Rate 12/26 1612 80 114/60 12/26 1444 97.7 80 20 112/64 94 Nasal 4.0L Cannula 12/26 0821 95 Nasal 2.0L Cannula 12/26 0816 83 118/64 12/26 0800 Nasal 2.0L Cannula 12/26 0600 97.7 83 20 118/64 93 Nasal 4.0L Cannula 12/25 2303 97.6 80 20 92/58 93 Nasal Cannula 12/25 2107 Nasal 2.0L Cannula Intake & Output 12/26 1600 12/26 0800 12/26 0000 Intake Total 600 Output Total 850 650 Balance -250 -650 Intake, Oral 600 Output, Urine 850 650 Patient 177 lb 176 lb Weight Impression/Plan Impression/Plan Impression/Plan: General: no apparent distress. Alert. On NC. Eyes: No obvious scleral icterus. HEENT: No jugular venous distention or abnormal jugular venous pulsations. Cardiovascular: Normal intensity S1/S2. PPM noted. Respiratory: No rales or rhonchi Abdomen: Soft, nontender with no guarding or rebound tenderness. Musculoskeletal: No clubbing or cyanosis noted; no edema Skin: No obvious rashes or ulcerations. Neurologic: No gross focal deficits noted. CXR 1. Cardiomegaly and pulmonary vascular congestion without interstitial edema. 2. Trace right pleural effusion and small left pleural effusion. The pleural effusions have decreased compared to 12/23/2017. The atelectasis in the retrocardiac region of left lower lobe appears decreased, as well. IMPRESSION PT with CHF with reduce ef COPD with mild bronchospasm Small effusion not enough to tap BIventricular pacer AICD Prior cva and sig ISchemic cardiomyopathy REC Cont diuresis Strict I and O Cont xeralto Prn nebs OOB to chair Cont present inhalers Reduce fio2 Will follow
[2017-12-26 22:42] VITALS: BP 112/62
[2017-12-27 06:43] VITALS: BP 110/58
[2017-12-27 07:42] LABS: ABSOLUTE BASOPHIL COUNT 0 /CUMM (0.0-0.2); ABSOLUTE EOSINOPHIL COUNT 0.1 /CUMM (0.0-0.7); ABSOLUTE GRANULOCYTE CT 5.6 /CUMM (1.4-6.5); ABSOLUTE LYMPH COUNT 0.8 /CUMM (1.2-3.4); ABSOLUTE MONOCYTE COUNT 0.7 /CUMM (0.10-0.60); BASOPHIL % 0.4 % (0.0-2.0); EOSINOPHIL % 1.2 % (0-5); GRANULOCYTE % 77.6 % (42.2-75.2); HEMATOCRIT 46.8 % (42-52); MEAN CORPUSCULAR HGB 33.6 PG (27.0-31.0); MEAN CORPUSCULAR HGB CONC 33.9 G/DL (33.0-37.0); MEAN PLATELET VOLUME 9.2 FL (7.4-10.4); PLATELET COUNT 179 /CUMM (130-400); RBC DISTRIBUTION WIDTH 14.6 % (11.5-14.5); RED BLOOD CELL CT 4.73 /CUMM (4.70-6.10); WHITE BLOOD CELL COUNT 7.3 /CUMM (4.8-10.8)
--- NOTE | 2017-12-27 08:52 | PN- Housestaff ---
Nazanin SEGAL,[facility] 12/27/17 0852: Subjective Follow-up For: CHF exacerbation Tele-Events Since Last Visit: Sinus pacing Heart rate 80-96 Subjective: Patient reports resolution of his shortness of breath and was able to take a walk without using the oxygen. Denies any chest pain, palpitations, orthopnea, peripheral edema. Review of Systems Constitutional: Reports: no symptoms. EENTM: Reports: no symptoms. Cardiovascular: Reports: no symptoms. Respiratory: Reports: no symptoms. Gastrointestinal: Reports: no symptoms. Genitourinary: Reports: no symptoms. Musculoskeletal: Reports: no symptoms. Skin: Reports: no symptoms. Neurological/Psychological: Reports: no symptoms. Hematologic/Endocrine: Reports: no symptoms. Immunologic/Allergic: Reports: no symptoms. Objective Last 24 Hrs of Vital Signs/I&O Vital Signs Date Time Temp Pulse Resp B/P B/P Pulse O2 O2 Flow FiO2 Mean Ox Delivery Rate 12/27 1426 97.5 82 20 112/64 90 Room Air 12/27 1055 95 Room Air Room Air 12/27 0814 85 116/62 12/27 0643 97.5 85 20 110/58 91 Nasal 2.0L Cannula 12/26 2242 97.8 82 24 112/62 96 Nasal 2.0L Cannula 12/26 2156 Nasal 2.0L Cannula 12/26 2001 95 Nasal 2.0L Cannula Intake & Output 12/27 1600 12/27 0800 12/27 0000 Intake Total 450 180 750 Output Total 186 977 5764 Balance 50 -595 -550 Intake, Oral 450 180 750 Output, Urine 965 122 2089 Patient 175 lb Weight Weight Bed scale Measurement Method Physical Exam General Appearance: Alert, Oriented X3, Cooperative Skin: No Rashes, No Breakdown Cardiovascular: Regular Rate, Normal S1, Normal S2 Lungs: decreased breath sounds bilaterally Abdomen: Normal Bowel Sounds, Soft, No Tenderness Extremities: No Clubbing, No Cyanosis, No Edema Current Medications: Current Medications Sig/Hamida Start time Last Medication Dose Route Stop Time Status Admin Albuterol Sulfate 3 ML BID 12/26 2200 AC 12/27 INH 1053 Amiodarone HCl 100 MG 16:30 12/23 1630 AC 12/27 PO 1616 Atorvastatin Calcium 20 MG 1700 12/23 1700 AC 12/27 PO 1616 Budesonide/ 2 PUF BID 12/23 1000 AC 12/27 Formoterol Fumarate INH 0813 Cyanocobalamin 250 MCG DAILY 12/24 1513 AC 12/27 PO 0814 Digoxin 0.125 MG DAILY 12/23 1000 AC 12/27 PO 0814 Docusate Sodium 100 MG DAILY NEEDED PRN 12/26 1145 AC PO Furosemide 20 MG 7:30 AM, & 4:30 PM 12/27 1630 CAN PO Furosemide 20 MG 7:30 AM, & 4:30 PM 12/27 1630 AC 12/27 IV 1608 Furosemide 20 MG 7:30 AM, & 4:30 PM 12/27 0730 DC 12/27 IV 0814 Insulin Aspart 0 AT BEDTIME 12/23 2200 AC SC Insulin Aspart 0 TIDAC 12/23 0800 AC 12/24 SC 1646 Ipratropium [place] 2.5 ML BID 12/26 220 AC 12/27 INH 1053 Latanoprost 1 GTT QPM 12/23 2200 AC 12/26 OPH 2040 Levothyroxine Sodium 0.1 MG DAILY AC 12/23 0300 AC 12/27 PO 0555 Mirtazapine 15 MG QPM 12/23 0300 AC 12/26 PO 2039 Rivaroxaban 20 MG 1700 12/24 1700 AC 12/27 PO 1617 Sacubitril/Valsartan 97 MG 0900,2100 12/23 2100 AC 12/27 PO 0813 Senna 187 MG AT BEDTIME 12/26 2200 AC 12/26 PO 2039 Venlafaxine HCl 150 MG 0800 12/23 0800 AC 12/27 PO 0814 Last 24 Hrs of Lab/Ayaan Results Last 24 Hrs of Labs/Mics: Laboratory Tests 12/27/17 0620: Anion Gap 11, Estimated GFR > 60, BUN/Creatinine Ratio 28.2 H, CBC w Diff NO MAN DIFF REQ, RBC 4.73, MCV 99.0 H, MCH 33.6 H, MCHC 33.9, RDW 14.6 H, MPV 9.2, Gran % 77.6 H, Lymphocytes % 10.8 L, Monocytes % 10.0 H, Eosinophils % 1.2, Basophils % 0.4, Absolute Granulocytes 5.6, Absolute Lymphocytes 0.8 L, Absolute Monocytes 0.7 H, Absolute Eosinophils 0.1, Absolute Basophils 0 Assessment/Plan Assessment: Assessment: The pt is 77-year-old gentleman with complex past medical history that includes long-standing former tobacco use, COPD, chronic anemia, recurrent GI bleeding in the past without a definite etiology found, dyslipidemia, diabetes mellitus, hypothyroidism on replacement, previous TIAs/strokes, seizure disorder, previous syncope, chronic atrial fibrillation on anticoagulation, ventricular tachycardia on antiarrhythmic therapy (amiodarone), s/p biventricular pacemaker defibrillator implantation, coronary artery disease s/p percutaneous interventions with angioplasty, s/p myocardial infarctions with known severe ischemic cardiomyopathy (EF ~30%) with recurrent acute on chronic systolic heart failure. He was brought to [place] ER for shortness of breath A/P #Shortness of breath - Secondary to acute on chronic congestive heart failure - Patient off supplemental oxygen saturating in the 90s on room air. - Continue Lasix 20 MG IV twice a day. We'll transition to by mouth tomorrow and patient most likely can be discharged home. - Monitor electrolytes and replete accordingly - Strict ins and outs - Daily weights - TRC/Nebs - Pulmonology consult; appreciate recommendations #Possibility of pneumonia Patient is afebrile and doesn't have any leukocytosis-low suspicion for aspiration pneumonia. -Monitor fever WBC curve. Remains afebrile with normal white cell count -Monitor off antibiotics #Diabetes mellitus Hold oral hypoglycemic agents -Accu-Cheks and insulin sliding scale #Chronic medical conditions COPD, HFrEF (25-30%), S/P pacer and ICD, CAD S/P multiple PCI and ID, CVA with residual right-sided deficit, A. fib, bipolar disorder, HTN, ?drug induced Extrapyramidal movement disorder -Continue home medication -Digoxin level within normal limits -LFTs and TFTs WNL on amiadrone DVT prophylaxis with xarelto Patient is DNR/DNI Problem List: 1. CHF exacerbation 2. Shortness of breath Pain Ratin Pain Location: None Pain Goal: Remain pain free Pain Plan: Pain pathway Tomorrow's Labs & Rationales: None [place] MD 12/27/17 1139: Attending MD Review Statement Attending Statement Attending MD Statement: examined this patient, discuss w/resident/PA/TOYS AND GAMES HAND FINISHER, agreed w/resident/PA/TOYS AND GAMES HAND FINISHER, reviewed EMR data (avail), discussed with nursing, reviewed images, amended to note Attending Assessment/Plan: 77-year-old male with past medical history significant for COPD, hyperlipidemia, diabetes mellitus, hypothyroidism, previous TIA/strokes, seizure disorder, previous syncope, recurrent GI bleed with no definite diagnosis, chronic A. fib on anticoagulation, ventricular tachycardia on anti-arrhythmic medications, status post biventricular pacemaker, coronary artery disease status post PCI with angioplasty, ischemic cardiomyopathy with an ejection fraction of 20-25% and with recurrent acute on chronic diastolic heart failure has been admitted to the floor for acute on chronic systolic heart failure and currently being treated with IV Lasix and optimizing medications. Patient was seen and examined on the bedside while lying comfortably in the bed without the need for any oxygen. PT has been able to work with him and he is ambulating without any difficulty and requiring any oxygen. Cardiology and pulmonology on on board pt currently on maximal pharmacological treatment for COPD and heart failure. Given clinical improvement, dose of lasix has been reduced to 20 mg twice daily. Pulmonology consult appreciated and recommendations followed. Patient's seems to be at his baseline and PT has cleared him, if okay with the tool dresser patient can be discharged home.
--- NOTE | 2017-12-27 10:25 | PN- Pulmonary ---
Subjective HPI/Critical Care Issues: Pt improved walking around on room air Objective Current Medications: Current Medications Sig/Hamida Start time Last Medication Dose Route Stop Time Status Admin Albuterol Sulfate 3 ML BID 12/26 2200 AC 12/26 INH 195 Amiodarone HCl 100 MG 16:30 12/23 1630 AC 12/26 PO 1612 Atorvastatin Calcium 20 MG 1700 12/23 1700 AC 12/26 PO 1613 Budesonide/ 2 PUF BID 12/23 1000 AC 12/27 Formoterol Fumarate INH 0813 Cyanocobalamin 250 MCG DAILY 12/24 1513 AC 12/27 PO 0814 Digoxin 0.125 MG DAILY 12/23 1000 AC 12/27 PO 0814 Docusate Sodium 100 MG DAILY NEEDED PRN 12/26 1145 AC PO Furosemide 20 MG 7:30 AM, & 4:30 PM 12/27 0730 AC 12/27 IV 0814 Furosemide 40 MG 7:30 AM, & 4:30 PM 12/24 0730 DC 12/26 IV 1612 Insulin Aspart 0 AT BEDTIME 12/23 2200 AC SC Insulin Aspart 0 TIDAC 12/23 0800 AC 12/24 SC 1646 Ipratropium [place] 2.5 ML BID 12/26 2200 AC 12/26 INH 1959 Latanoprost 1 GTT QPM 12/23 2200 AC 12/26 OPH 2040 Levothyroxine Sodium 0.1 MG DAILY AC 12/23 0300 AC 12/27 PO 0555 Mirtazapine 15 MG QPM 12/23 0300 AC 12/26 PO 2039 Rivaroxaban 20 MG 1700 12/24 1700 AC 12/26 PO 1613 Sacubitril/Valsartan 97 MG 0900,2100 12/23 2100 AC 12/27 PO 0813 Senna 187 MG AT BEDTIME 12/26 2200 AC 12/26 PO 2039 Venlafaxine HCl 150 MG 0800 12/23 0800 AC 12/27 PO 0814 Vital Signs & I&O Last 24 Hrs of Vitals and I&O: Vital Signs Date Time Temp Pulse Resp B/P B/P Pulse O2 O2 Flow FiO2 Mean Ox Delivery Rate 12/27 813 85 116/62 12/27 0643 97.5 85 20 110/58 91 Nasal 2.0L Cannula 12/26 2241 97.8 82 24 112/62 96 Nasal 2.0L Cannula 12/26 2156 Nasal 2.0L Cannula 12/26 2000 95 Nasal 2.0L Cannula 12/26 1612 80 114/60 12/26 1444 97.7 80 20 112/64 94 Nasal 4.0L Cannula Intake & Output 12/27 1600 12/27 0800 12/27 0000 Intake Total 180 750 Output Total 775 1300 Balance -595 -550 Intake, Oral 180 750 Output, Urine 775 1300 Patient 175 lb Weight Weight Bed scale Measurement Method Impression/Plan Impression/Plan Impression/Plan: General: no apparent distress. Alert. On NC. Eyes: No obvious scleral icterus. HEENT: No jugular venous distention or abnormal jugular venous pulsations. Cardiovascular: Normal intensity S1/S2. PPM noted. Respiratory: No rales or rhonchi Abdomen: Soft, nontender with no guarding or rebound tenderness. Musculoskeletal: No clubbing or cyanosis noted; no edema Skin: No obvious rashes or ulcerations. Neurologic: No gross focal deficits noted. CXR 1. Cardiomegaly and pulmonary vascular congestion without interstitial edema. 2. Trace right pleural effusion and small left pleural effusion. The pleural effusions have decreased compared to 12/23/2017. The atelectasis in the retrocardiac region of left lower lobe appears decreased, as well. IMPRESSION PT with CHF with reduce ef COPD with mild bronchospasm improved Small effusion not enough to tap BIventricular pacer AICD Prior cva and sig ISchemic cardiomyopathy REC Cont diuresis Strict I and O Cont xeralto Prn nebs OOB to chair Cont present inhalers Reduce fio2 Will follow prn
[2017-12-27] MEDS ORDERED: LASIX40 M1 PO (12:19)
--- NOTE | 2017-12-27 12:22 | Patient Discharge Instructions ---
Discharge Instructions General Discharge Information You were seen/treated for: CHF Exacerbation Watch for these problems: Please return to the ER in case of any chest pain, shortness of breath, palpitations, leg swelling or worsening cough/sputum production. Special Instructions: Please follow-up with your PCP within a week after discharge. Please follow-up with your dockmaster within a week after discharge. Please follow-up with your patient account analyst within a week after discharge. Diet Continue normal diet: Yes Recommended Diet: Heart Healthy Activity Full Activity/No Limits: Yes Activity Self Limited: Yes (as tolerated) Acute Coronary Syndrome Inclusion Criteria At DC or during hospital stay patient has or had the following: ACS DIAGNOSIS No Discharge Core Measures Meds if any: Prescribed or Continued at Discharge Meds if any: NOT Prescribed or Continued at Discharge Congestive Heart Failure Inclusion Criteria At DC or during hospital stay patient has or had the following: CHF DIAGNOSIS Yes Discharge Core Measures Meds if any: Prescribed or Continued at Discharge [place]/ARB for EF <40% Yes Meds if any: NOT Prescribed or Continued at Discharge Cerebrovascular accident Inclusion Criteria At DC or during hospital stay patient has or had the following: CVA/TIA Diagnosis No Discharge Core Measures Meds if any: Prescribed or Continued at Discharge Meds if any: NOT Prescribed or Continued at Discharge Venous thromboembolism Inclusion Criteria VTE Diagnosis No VTE Type NONE VTE Confirmed by (Test) NONE Discharge Core Measures - Per Current guidelines, there needs to be overlap - treatment for the first 5 days of Warfarin therapy. - If discharged on Warfarin prior to 5 days of - overlap therapy, the patient will need to be - assessed for post discharge needs including - *Post discharge parental anticoagulation - *Warfarin and/or parental anticoagulation education - *Follow up date to check INR post discharge At least 5 days overlap therapy as Inpatient No Meds if any: Prescribed or Continued at Discharge Note: Overlap Therapy is Warfarin and Anticoagulant Meds if any: NOT Prescribed or Continued at Discharge
--- NOTE | 2017-12-27 12:44 | PN- Cardiology ---
Subjective Subjective: Patient continues to improve and felt well with ambulation today. Objective Vital Signs and I&Os Vital Signs Date Time Temp Pulse Resp B/P B/P Pulse O2 O2 Flow FiO2 Mean Ox Delivery Rate 12/27 1055 95 Room Air Room Air 12/27 0814 85 116/62 12/27 0643 97.5 85 20 110/58 91 Nasal 2.0L Cannula 12/26 2242 97.8 82 24 112/62 96 Nasal 2.0L Cannula 12/26 2156 Nasal 2.0L Cannula 12/26 2001 95 Nasal 2.0L Cannula 12/26 1612 80 114/60 12/26 1444 97.7 80 20 112/64 94 Nasal 4.0L Cannula Intake & Output 12/27 1600 12/27 0800 12/27 0000 12/26 1600 12/26 0800 12/26 0000 Intake Total 180 750 600 Output Total 775 1300 850 650 Balance -595 -550 -250 -650 Intake, Oral 180 750 600 Output, Urine 775 1300 850 650 Patient 175 lb 177 lb 176 lb Weight Weight Bed scale Measurement Method Physical Exam: General: no apparent distress. Alert. Eyes: No obvious scleral icterus. HEENT: No jugular venous distention or abnormal jugular venous pulsations. Cardiovascular: Normal intensity S1/S2. PPM noted. Respiratory: No rales or rhonchi Abdomen: Soft, nontender with no guarding or rebound tenderness. Musculoskeletal: No clubbing or cyanosis noted; no edema Skin: No obvious rashes or ulcerations. Neurologic: No gross focal deficits noted. Current Medications: Current Medications Sig/Hamida Start time Last Medication Dose Route Stop Time Status Admin Albuterol Sulfate 3 ML BID 12/26 2200 AC 12/27 INH 1053 Amiodarone HCl 100 MG 16:30 12/23 1630 AC 12/26 PO 1612 Atorvastatin Calcium 20 MG 1700 12/23 1700 AC 12/26 PO 1613 Budesonide/ 2 PUF BID 12/23 1000 AC 12/27 Formoterol Fumarate INH 0813 Cyanocobalamin 250 MCG DAILY 12/24 1513 AC 12/27 PO 0814 Digoxin 0.125 MG DAILY 12/23 1000 AC 12/27 PO 0814 Docusate Sodium 100 MG DAILY NEEDED PRN 12/26 1145 AC PO Furosemide 20 MG 7:30 AM, & 4:30 PM 12/27 1630 CAN PO Furosemide 20 MG 7:30 AM, & 4:30 PM 12/27 1630 AC IV Furosemide 20 MG 7:30 AM, & 4:30 PM 12/27 0730 DC 12/27 IV 0814 Furosemide 40 MG 7:30 AM, & 4:30 PM 12/24 0730 DC 12/26 IV 1612 Insulin Aspart 0 AT BEDTIME 12/23 2200 AC SC Insulin Aspart 0 TIDAC 12/23 0800 AC 12/24 SC 1646 Ipratropium [place] 2.5 ML BID 12/26 2199 AC 12/27 INH 1053 Latanoprost 1 GTT QPM 12/23 2200 AC 12/26 OPH 2040 Levothyroxine Sodium 0.1 MG DAILY AC 12/23 0300 AC 12/27 PO 0555 Mirtazapine 15 MG QPM 12/23 0300 AC 12/26 PO 2039 Rivaroxaban 20 MG 1700 12/24 1700 AC 12/26 PO 1613 Sacubitril/Valsartan 97 MG 0900,2100 12/23 2100 AC 12/27 PO 0813 Senna 187 MG AT BEDTIME 12/26 2200 AC 12/26 PO 2039 Venlafaxine HCl 150 MG 0800 12/23 0800 AC 12/27 PO 0814 Results Last 48 Hrs of Labs/Mics: Laboratory Tests 12/27/17 0620: Anion Gap 11, Estimated GFR > 60, BUN/Creatinine Ratio 28.2 H, CBC w Diff NO MAN DIFF REQ, RBC 4.73, MCV 99.0 H, MCH 33.6 H, MCHC 33.9, RDW 14.6 H, MPV 9.2, Gran % 77.6 H, Lymphocytes % 10.8 L, Monocytes % 10.0 H, Eosinophils % 1.2, Basophils % 0.4, Absolute Granulocytes 5.6, Absolute Lymphocytes 0.8 L, Absolute Monocytes 0.7 H, Absolute Eosinophils 0.1, Absolute Basophils 0 12/26/17 0638: Anion Gap 13, Estimated GFR > 60, BUN/Creatinine Ratio 25.5 H, Magnesium 2.1, CBC w Diff NO MAN DIFF REQ, RBC 4.83, MCV 100.1 H, MCH 33.2 H, MCHC 33.2, RDW 15.1 H, MPV 9.2, Gran % 79.3 H, Lymphocytes % 10.4 L, Monocytes % 9.4 H, Eosinophils % 0.7, Basophils % 0.2, Absolute Granulocytes 6.2, Absolute Lymphocytes 0.8 L, Absolute Monocytes 0.7 H, Absolute Eosinophils 0.1, Absolute Basophils 0 Recent Imaging Studies: Telemetry tracings were personally reviewed and showed ventricular pacing Assessment/Plan Assessment/Plan 1. Heart failure with reduced ejection fraction 2. COPD 3. Atrial fibrillation on anti-coagulation 4. Biventricular pacemaker/AICD in situ 5. Prior CVA 6. Ischemic CM Patient continues to improve. Creatinine stable. Continue the Lasix 20 IV twice a day today with plan to transition to oral Lasix tomorrow. Hemoglobin remains stable with Xarelto. Steve Corona MD [facility] Continue telemetry? Yes
[2017-12-27 14:26] VITALS: BP 112/64
[2017-12-27 21:45] VITALS: BP 112/62
[2017-12-28 06:41] VITALS: BP 114/60
--- NOTE | 2017-12-28 07:03 | PN- Housestaff ---
Nazanin SEGAL,Nette 12/28/17 0703: Subjective Follow-up For: CHF exacerbation Tele-Events Since Last Visit: Sinus pacing Heart rate 79-89. Subjective: Patient resting comfortably, denies any active complaints. Review of Systems Constitutional: Reports: no symptoms. EENTM: Reports: no symptoms. Cardiovascular: Reports: no symptoms. Respiratory: Reports: no symptoms. Gastrointestinal: Reports: no symptoms. Genitourinary: Reports: no symptoms. Musculoskeletal: Reports: no symptoms. Skin: Reports: no symptoms. Neurological/Psychological: Reports: no symptoms. Hematologic/Endocrine: Reports: no symptoms. Immunologic/Allergic: Reports: no symptoms. Objective Last 24 Hrs of Vital Signs/I&O Vital Signs Date Time Temp Pulse Resp B/P B/P Pulse O2 O2 Flow FiO2 Mean Ox Delivery Rate 12/28 1037 93 Room Air Room Air 12/28 0641 97.7 88 20 114/60 93 Room Air 12/27 2145 98.7 81 20 112/62 93 Room Air 12/27 1957 94 Room Air Room Air Intake & Output 12/28 1600 12/28 0800 12/28 0000 Intake Total 200 300 Output Total 400 375 Balance -200 -75 Intake, Oral 200 300 Output, Urine 400 375 Patient 177 lb Weight Weight Bed scale Measurement Method Physical Exam General Appearance: Alert, Oriented X3, Cooperative, No Acute Distress Skin: No Rashes, No Breakdown Cardiovascular: Regular Rate, Normal S1, Normal S2 Lungs: decreased breath sounds bilaterally Abdomen: Normal Bowel Sounds, Soft, No Tenderness Extremities: No Clubbing, No Cyanosis, No Edema Current Medications: Current Medications Sig/Hamida Start time Last Medication Dose Route Stop Time Status Admin Albuterol Sulfate 3 ML BID 12/26 220 DCD 12/27 INH 1954 Amiodarone HCl 100 MG 16:30 12/23 1630 DCD 12/27 PO 1616 Atorvastatin Calcium 20 MG 1700 12/23 1700 DCD 12/27 PO 1616 Budesonide/ 2 PUF BID 12/23 1000 DCD 12/28 Formoterol Fumarate INH 0927 Cyanocobalamin 250 MCG DAILY 12/24 1513 DCD 12/28 PO 0925 Digoxin 0.125 MG DAILY 12/23 1000 DCD 12/28 PO 0925 Docusate Sodium 100 MG DAILY NEEDED PRN 12/26 1145 DCD PO Furosemide 20 MG 7:30 AM, & 4:30 PM 12/27 1630 DCD 12/28 IV 0926 Insulin Aspart 0 AT BEDTIME 12/230 DCD SC Insulin Aspart 0 TIDAC 12/23 0800 DCD 12/24 SC 1646 Ipratropium [place] 2.5 ML BID 12/260 DCD 12/27 INH 1954 Latanoprost 1 GTT QPM 12/23 2200 DCD 12/27 OPH 210 Levothyroxine Sodium 0.1 MG DAILY AC 12/23 0300 DCD 12/28 PO 0539 Mirtazapine 15 MG QPM 12/23 0300 DCD 12/27 PO 210 Rivaroxaban 20 MG 1700 12/24 1700 DCD 12/27 PO 1617 Sacubitril/Valsartan 97 MG 0900,12/23 2100 DCD 12/28 PO 0928 Senna 187 MG AT BEDTIME 12/260 DCD 12/26 PO 203 Venlafaxine HCl 150 MG 0800 12/23 0800 DCD 12/28 PO 0925 Assessment/Plan Assessment: Assessment: The pt is 77-year-old gentleman with complex past medical history that includes long-standing former tobacco use, COPD, chronic anemia, recurrent GI bleeding in the past without a definite etiology found, dyslipidemia, diabetes mellitus, hypothyroidism on replacement, previous TIAs/strokes, seizure disorder, previous syncope, chronic atrial fibrillation on anticoagulation, ventricular tachycardia on antiarrhythmic therapy (amiodarone), s/p biventricular pacemaker defibrillator implantation, coronary artery disease s/p percutaneous interventions with angioplasty, s/p myocardial infarctions with known severe ischemic cardiomyopathy (EF ~30%) with recurrent acute on chronic systolic heart failure. He was brought to [place] ER for shortness of breath A/P #Shortness of breath - Secondary to acute on chronic congestive heart failure - Patient off supplemental oxygen saturating in the 90s on room air. - Switched to oral Lasix today. Patient will be discharged home on his previous Lasix dose after discussing with Dr. Perez, will follow up with Dr. Perez in a week after discharge. - Strict ins and outs - Daily weights - TRC/Nebs - Pulmonology consult; appreciate recommendations #Possibility of pneumonia Patient is afebrile and doesn't have any leukocytosis-low suspicion for aspiration pneumonia. -Monitor fever WBC curve. Remains afebrile with normal white cell count -Monitor off antibiotics #Diabetes mellitus Hold oral hypoglycemic agents -Accu-Cheks and insulin sliding scale #Chronic medical conditions COPD, HFrEF (25-30%), S/P pacer and ICD, CAD S/P multiple PCI and MA, CVA with residual right-sided deficit, A. fib, bipolar disorder, HTN, ?drug induced Extrapyramidal movement disorder -Continue home medication -Digoxin level within normal limits -LFTs and TFTs WNL on amiadrone DVT prophylaxis with xarelto Patient is DNR/DNI Problem List: 1. Chronic CHF (congestive heart failure) Pain Ratin Pain Location: None Pain Goal: Remain pain free Pain Plan: None Tomorrow's Labs & Rationales: None Yumiko Jimenez MD 12/28/17 1213: Attending MD Review Statement Attending Statement Attending MD Statement: examined this patient, discuss w/resident/PA/ORGANIC SEARCH LEAD, agreed w/resident/PA/ORGANIC SEARCH LEAD, discussed with family, reviewed EMR data (avail), discussed with nursing, discussed with case mgmt, reviewed images Attending Assessment/Plan: Patient is feeling well. We spoke at length with both him and his . I also discussed the Lasix dose with Dr. Perez. Patient was getting 40 IV twice a day of Lasix and over the weekend the construction executive switched to 20 IV twice a day as his BUN was creeping up. At this point he appears completely euvolemic. Dr. Perez was comfortable discharging him on his current dose of Lasix which he was taking before he came in. He takes 40mg of Lasix every day and on Thursday and Thursday he takes an additional 20 mg. He is going to do the same. He has an outpatient appointment with Dr. Perez within the week and his knows clearly to call Dr. Perez if they should land up in any trouble with leg swelling or shortness of breath or weight gain. He is going to continue all of his other medications and he is not keen on getting any nebulizers even though he does have the nebulizer machine at home. He was also seen by pulmonary Dr. Ricardo, his usual hvac services professional and he will follow-up with them as an outpatient as well. He also has a CHF clinic appointment made for acute systolic heart failure and will follow-up. Total time spent coordinating discharge and talking to patient, patient's and Dr. Perez with regard to all of the medications was 33 minutes.
[2017-12-28] MEDS ORDERED: ALBUTEROL2.5 MG/3 M INH ×3 (09:21→11:17)
[2017-12-28] MEDS ORDERED: LASIX40 M1 PO ×2 (09:26→11:15)
--- NOTE | 2017-12-28 10:40 | PN- Pulmonary ---
Subjective HPI/Critical Care Issues: pt seen and examined feeling well no leg edema Objective Current Medications: Current Medications Sig/Hamida Start time Last Medication Dose Route Stop Time Status Admin Albuterol Sulfate 3 ML BID 12/26 2199 AC 12/27 INH 195 Amiodarone HCl 100 MG 16:30 12/23 1630 AC 12/27 PO 1616 Atorvastatin Calcium 20 MG 1700 12/23 1700 AC 12/27 PO 1616 Budesonide/ 2 PUF BID 12/23 1000 AC 12/28 Formoterol Fumarate INH 0927 Cyanocobalamin 250 MCG DAILY 12/24 1513 AC 12/28 PO 0925 Digoxin 0.125 MG DAILY 12/23 1000 AC 12/28 PO 0925 Docusate Sodium 100 MG DAILY NEEDED PRN 12/26 1145 AC PO Furosemide 20 MG 7:30 AM, & 4:30 PM 12/27 1630 CAN PO Furosemide 20 MG 7:30 AM, & 4:30 PM 12/27 1630 AC 12/28 IV 0926 Furosemide 20 MG 7:30 AM, & 4:30 PM 12/27 0730 DC 12/27 IV 0814 Insulin Aspart 0 AT BEDTIME 12/23 2199 AC SC Insulin Aspart 0 TIDAC 12/23 0800 AC 12/24 SC 1646 Ipratropium [place] 2.5 ML BID 12/26 2199 AC 12/27 INH 1953 Latanoprost 1 GTT QPM 12/23 2199 AC 12/27 OPH 2104 Levothyroxine Sodium 0.1 MG DAILY AC 12/23 0300 AC 12/28 PO 0539 Mirtazapine 15 MG QPM 12/23 0300 AC 12/27 PO 2106 Rivaroxaban 20 MG 17012/24 1700 AC 12/27 PO 1617 Sacubitril/Valsartan 97 MG 0900,2100 12/23 2100 AC 12/28 PO 0928 Senna 187 MG AT BEDTIME 12/26 2199 AC 12/26 PO 2039 Venlafaxine HCl 150 MG 0800 12/23 0800 AC 12/28 PO 0925 Vital Signs & I&O Last 24 Hrs of Vitals and I&O: Vital Signs Date Time Temp Pulse Resp B/P B/P Pulse O2 O2 Flow FiO2 Mean Ox Delivery Rate 12/28 0641 97.7 88 20 114/60 93 Room Air 02/18 2145 98.7 81 20 112/62 93 Room Air 12/27 1957 94 Room Air Room Air 12/27 1426 97.5 82 20 112/64 90 Room Air 12/27 1055 95 Room Air Room Air Intake & Output 12/28 1600 12/28 0800 12/28 0000 Intake Total 200 300 Output Total 400 375 Balance -200 -75 Intake, Oral 200 300 Output, Urine 400 375 Patient 177 lb Weight Weight Bed scale Measurement Method Exam Other Physical Findings: gen awake and alert heent ncat cvs s1, s2 lungs slighltly reduced at bases abd soft, bs+ ext without edema Impression/Plan Impression/Plan Impression/Plan: Imp 77m * CHF - systolic - fluid overload * resolved mild improved COPD exacerbation Plan -cont diuresis -xarelto -no need for nebs, pt declines -cont trc -symbicort -dc planning DVT prophylaxis at all times
[2017-12-28] MEDS ORDERED: FUROSEMIDE20 M1 PO (11:15)
--- NOTE | 2017-12-28 14:23 | Discharge Summary ---
Visit Information Visit Dates Admission Date: 12/22/17 Discharge Date: 12/28/17 Hospital Course Course Attending Physician: Barbara SEGAL,Yumiko Vazquez Primary Care Physician: Shey SEGAL,Fredis Yun Hospital Course: The pt is 77-year-old gentleman with complex past medical history that includes long-standing former tobacco use, COPD, chronic anemia, recurrent GI bleeding in the past without a definite etiology found, dyslipidemia, diabetes mellitus, hypothyroidism on replacement, previous TIAs/strokes, seizure disorder, previous syncope, chronic atrial fibrillation on anticoagulation, ventricular tachycardia on antiarrhythmic therapy (amiodarone), s/p biventricular pacemaker defibrillator implantation, coronary artery disease s/p percutaneous interventions with angioplasty, s/p myocardial infarctions with known severe ischemic cardiomyopathy (EF ~30%) with recurrent acute on chronic systolic heart failure. He was brought to [facility] for shortness of breath . Patient was admitted to the telemetry floor and following issues were addressed; - Acute on chronic congestive heart failure - COPD - Diabetes mellitus - Chronic medical conditions Acute on chronic congestive heart failure Patient was started on IV Lasix per cardiology with gradual reduction in doses depending on patient's clinical condition and follow-up x-rays and later changed to his home dose of Lasix. Supplemental oxygen was given to keep the O2 sats above 90s which was gradually tapered off on discharge. Daily weights and ins and outs were strictly monitored. Pulmonology was also consulted for concerns of COPD playing a role in his shortness of breath recommended continuing the inhalers and nebs treatments, did not suggest any acute exacerbation of COPD. patient only uses the inhaler at home, states he does have a nebulizer machine but he rarely needs it. Patient was given a prescription for albuterol nebs solution. There was also concerns about possibility of patient having pneumonia given bibasilar atelectasis on chest x-ray but patient was monitored off antibiotics as he remained afebrile with no leukocytosis throughout his stay in the hospital. #Diabetes mellitus Oral hypoglycemic agents were held and patient was started on a sliding scale. Accu-Cheks were done TIDAC and before bedtime. #Chronic medical conditions; COPD, HFrEF (25-30%), S/P pacer and ICD, CAD S/P multiple PCI and WI, CVA with residual right-sided deficit, A. fib, bipolar disorder, HTN, ?drug induced Extrapyramidal movement disorder Home medications were continued. Digoxin level was within normal limits. LFTs and TFTs were also checked while on amiodarone which remained within normal limits. Allergies: Coded Allergies: NO KNOWN ALLERGIES (NO) (02/22/15) Significant Procedures: XRY-PORTABLE CHEST XRAY on 12/22/17 IMPRESSION: Stable cardiomegaly with mild interstitial prominence present throughout both lungs. Window Systems Administrator of mild vascular congestion. Left greater than right bilateral pleural effusions with associated bibasilar airspace disease. XRY-PORTABLE CHEST XRAY 12/26/17 IMPRESSION: 1. Cardiomegaly and pulmonary vascular congestion without interstitial edema. 2. Trace right pleural effusion and small left pleural effusion. The pleural effusions have decreased compared to 12/23/2017. The atelectasis in the retrocardiac region of left lower lobe appears decreased, as well. ECHOCARDIOGRAM; CONCLUSIONS Moderate to severe left ventricular dilatation. Mild concentric left ventricular hypertrophy. Moderately to severely reduced global left ventricular systolic function. Moderately to severely abnormal left ventricular ejection fraction estimated at 25-30%. Mild right ventricular dilatation. Moderate right atrial dilatation. Catheter/pacemaker wire in the right heart. Mild to moderate mitral regurgitation. Trace tricuspid regurgitation. Unable to estimate the right ventricular systolic pressure. Trace pulmonic regurgitation. Dilated inferior vena cava. Disposition Summary Disposition Principal Diagnosis: Acute on chronic CHF Additional Diagnosis: COPD Diabetes Discharge Disposition: home or self care Discharge Instructions General Discharge Information Code Status: Do Not Resucitate/Intubat Patient's Diet: Diabetic diet Patient's Activity: As tolerated Follow-Up Instructions/Appts: Please follow-up with your boat rental clerk within a week after discharge. Please follow-up with the chemistry department chair after discharge. Please follow-up with your PCP within 1-2 weeks after discharge. Medications at Discharge Discharge Medications: Continue taking these medications: Digoxin (Digoxin) 125 MCG TABLET 1 Tablet ORAL DAILY Comments: Last Taken: 12/28/17 Time: 1000 Venlafaxine HCl (Effexor XR) 150 MG CAP.ER.24H 1 Capsule ORAL DAILY Comments: Last Taken: 12/28/17 Time: 10 AM Atorvastatin Calcium (Lipitor) 20 MG TABLET 1 Tablet ORAL DAILY Comments: Last Taken: 12/27/17 Time: 17 AM Rivaroxaban (Xarelto) 20 MG TABLET 1 Tablet ORAL Every night Instructions: with food Comments: Last Taken: 12/27/17 Time: 9:30 PM Metformin HCl (Metformin HCl) 500 MG TABLET 1 Tablet ORAL DAILY Comments: NOT GIVEN IN THE HOSPITAL Lubiprostone (Amitiza) 24 MCG CAPSULE 1 Capsule ORAL TWICE DAILY as needed for GI Comments: NOT GIVEN IN HOSPITAL Ferrous Sulfate (Ferrous Sulfate) 325 MG (65 MG IRON) TABLET 1 Tablet ORAL THREE TIMES DAILY Comments: Last Taken: 03/31/17 Time: 10 AM Melatonin (Melatonin) 5 MG CAPSULE 1 Capsule ORAL Every night Comments: Last Taken: 12/27/17 Time: 9:30 PM Levothyroxine Sodium (Levothyroxine Sodium) 100 MCG TABLET 1 Tablet ORAL DAILY BEFORE BREAKFAST Comments: Last Taken: 12/28/17 Time: 6 AM Amiodarone HCl (Amiodarone HCl) 100 MG TABLET 1 Tablet ORAL DAILY Comments: Last Taken: 12/28/17 Time: 10 AM Mirtazapine (Mirtazapine) 15 MG TABLET 1 Half Tablet ORAL DAILY Comments: Last Taken: 12/27/17 Time: 2200 Latanoprost (Xalatan) 2.5 ML DROPS 1 Drop In the eye Every night Comments: Last Taken: 12/27/17 Time: 9:30 PM Fluticasone/Salmeterol (Advair 250-50 Diskus) 1 EACH BLST.W.DEV 1 Puff Inhale through mouth as needed for COPD Comments: Last Taken: 12/28/17 Time: 10 AM SYMBICORT GIVEN IN HOSPITAL Mometasone Furoate (Nasonex) 17 GM SPRAY.PUMP 2 [place] Both sides of nose as needed for ALLERGIES Comments: NOT GIVEN IN HOSPITAL Sacubitril/Valsartan (Entresto 97 MG-103 MG Tablet) 97 MG-103 MG TABLET 1 Tablet ORAL TWICE DAILY Qty = 170 Comments: Last Taken: 12/28/17 Time: 10 AM Start taking the following new medications: Albuterol Sulfate (Albuterol Sulfate) 2.5 MG/3 ML (0.083 %) VIAL.NEB 3 Milliliters Inhale through mouth TWICE DAILY Qty = 1 No Refills Instructions: Take three times a day as needed... Furosemide (Furosemide) 20 MG TABLET 1 Tablet ORAL THURSDAY, THURSDAY AND THURSDAY Qty = 30 No Refills Comments: Last Taken:12/28/17 Time:1000 GIVEN IV The following medications have been changed: Old: Furosemide (Lasix) 40 MG TABLET 1 Tablet ORAL TWICE DAILY Qty = 60 New: Furosemide (Lasix) 40 MG TABLET 1 Tablet ORAL DAILY Qty = 60 Instructions: . Comments: Last Taken:12/28/17 Time:1000 20MG GIVEN IV Copies To: Garfield SEGAL,Jama Singleton; Ana SEGAL,Ulysses Young; Shey SEGAL,Fredis Yun
== END 2017-12-28 13:00 | DRG 291 ==
LOC: ERH 16:43 → CRI 20:36 → ERHI 20:36 → ENRESERV 21:04 → ENTRNSPT 21:42 → EDTRNSPT 22:02 → EDTRNSPTSTS 22:02 → 2NA 22:11 → CMPTRNSPT 22:20 → CRI 12-23 00:33 → ENTRNSPT 12-24 16:03 → 1NO 12-24 17:01 → CMPTRNSPT 12-24 17:17 → DELTRNSPT 12-24 18:29 → 1NO 12-25 10:02 → ENPENDDIS 12-28 11:17 → ENTRNSPT 12-28 12:44 → EDTRNSPTSTS 12-28 12:53 → EDTRNSPT 12-28 12:53 → 1NO 12-28 13:00 → CMPTRNSPT 12-28 13:10
PROVIDERS: Internal Medicine; Physician Assistant Medical
DX: I11.0 Hypertensive heart disease with heart failure (principal); J96.01 Acute respiratory failure with hypoxia; I47.2 Ventricular tachycardia; I50.23 Acute on chronic systolic (congestive) heart failure; I69.351 Hemiplegia and hemiparesis following cerebral infarction affecting right dominant side; G20 Parkinson's disease; J44.1 Chronic obstructive pulmonary disease with (acute) exacerbation; I48.2 Chronic atrial fibrillation; I25.5 Ischemic cardiomyopathy; Z79.01 Long term (current) use of anticoagulants; G40.909 Epilepsy, unspecified, not intractable, without status epilepticus; E11.9 Type 2 diabetes mellitus without complications; I69.322 Dysarthria following cerebral infarction; E03.9 Hypothyroidism, unspecified; F31.9 Bipolar disorder, unspecified; I25.10 Atherosclerotic heart disease of native coronary artery without angina pectoris; Z95.0 Presence of cardiac pacemaker; I25.2 Old myocardial infarction; H54.7 Unspecified visual loss; Z66 Do not resuscitate; E78.5 Hyperlipidemia, unspecified; Z79.84 Long term (current) use of oral hypoglycemic drugs; Z87.891 Personal history of nicotine dependence
CPT/HCPCS: 1NSP; 2NASP; CCU; 36415; 71045; 81001; 82436; 87804; 87804-59; 93005; 93010; 93306; 96374; 97116-GO; 97161-GP; 99291; J1940; J3490

== ENCOUNTER 2018-01-16 20:29 | Inpatient (IN) | payer OTHER ==
[~2018-01-16] VITALS: Ht 175.3 cm; Wt 72.4 kg
[~2018-01-16 20:29] MED LIST changes: +ALBUTEROL2.5 MG/3 M INH
--- NOTE | 2018-01-16 20:46 | ED DYSPNEA/ASTHMA COMPLAINT ---
History of Present Illness General Chief Complaint: Dyspnea (COPD, CHF, Other) Stated Complaint: BIBA FOR DIFF BREATHING Source: patient, Exam Limitations: no limitations Vital Signs & Intake/Output Vital Signs & Intake/Output Vital Signs Date Time Temp Pulse Resp B/P B/P Pulse O2 O2 Flow FiO2 Mean Ox Delivery Rate 01/17 1840 81 148/82 01/17 1749 98.9 80 22 132/70 94 Nasal 4.0L Cannula 01/17 1605 95 Nasal 4.0L Cannula 01/17 1605 99.0 80 22 134/76 95 Nasal 4.0L Cannula 01/17 1559 99.0 80 22 134/76 95 Nasal 4.0L Cannula 01/17 1350 99.3 84 22 119/65 93 Nasal 4.0L Cannula 01/17 1147 94 Nasal 4.0L Cannula 01/17 1144 98.6 80 22 120/62 91 Nasal 4.0L Cannula 01/17 1030 Nasal 4.0L Cannula 01/17 1029 92 Nasal 4.0L Cannula 01/17 1026 98.6 80 22 120/62 01/17 1025 98.6 80 22 120/62 01/17 1010 98.6 80 22 120/62 91 Nasal 4.0L Cannula 01/17 0739 98.0 80 22 121/70 94 01/17 0648 98.4 81 22 129/67 94 Nasal 4.0L Cannula 01/17 0430 98.0 98 24 128/54 94 Nasal 4.0L Cannula 01/17 0030 98.0 87 24 127/72 94 Nasal 4.0L Cannula 01/16 2308 80 24 117/62 90 Nasal 3.0L Cannula 01/16 2159 97.7 80 22 119/57 89 Nasal 4.0L Cannula 01/16 2147 90 Nasal 3.0L Cannula 01/16 2033 98.5 84 24 142/79 94 Room Air ED Intake and Output 01/17 0000 01/16 1200 Intake Total 0 Output Total 0 Balance 0 Intake, Oral 0 Output, Urine 0 Patient 165 lb Weight Allergies Coded Allergies: NO KNOWN ALLERGIES (NO) (02/22/15) Reconcile Medications Albuterol Sulfate 2.5 MG/3 ML (0.083 %) VIAL.NEB 3 ML INH BID COPD Take three times a day as needed... Amiodarone HCl 100 MG TABLET 1 TAB PO DAILY HEART (Reported) Atorvastatin Calcium (Lipitor) 20 MG TABLET 1 TAB PO DAILY CHOLESTEROL ( Reported) Digoxin 125 MCG TABLET 1 TAB PO DAILY HEART (Reported) Ferrous Sulfate 325 MG (65 MG IRON) TABLET 1 TAB PO TID SUPPLEMENT (Reported) Fluticasone/Salmeterol (Advair 250-50 Diskus) 1 EACH BLST.W.DEV 1 PUF INH PRN COPD (Reported) Furosemide (Lasix) 40 MG TABLET 1 TAB PO DAILY CHF . Furosemide 20 MG TABLET 1 TAB PO Thursday CHF Latanoprost (Xalatan) 2.5 ML DROPS 1 GTT OPH QPM BOTH EYES (Reported) Levothyroxine Sodium 100 MCG TABLET 1 TAB PO DAILY AC THYROID (Reported) Melatonin 5 MG CAPSULE 1 CAP PO QPM SLEEP (Reported) Metformin HCl 500 MG TABLET 1 TAB PO DAILY DIABETES (Reported) Mirtazapine 15 MG TABLET 1 HTAB PO DAILY DEPRESSION (Reported) Rivaroxaban (Xarelto) 20 MG TABLET 1 TAB PO QPM BLOOD THINNER (Reported) with food Sacubitril/Valsartan (Entresto 97 MG-103 MG Tablet) 97 MG-103 MG TABLET 1 TAB PO BID HEART (Reported) Venlafaxine HCl (Effexor XR) 150 MG CAP.ER.24H 1 CAP PO DAILY DEPRESSION ( Reported) Triage Nurses Notes Reviewed? yes HPI: Patient presents for evaluation of severe and worsening dyspnea that began while at home about 4-5 hours ago. Patient was recently admitted for a similar exacerbation of shortness of breath and was treated for congestive heart failure and COPD. Although he felt chilly yesterday he denies overt fever or cold symptoms. He has had a nonproductive cough without associated chest pain wheezing or leg swelling. His suspects perhaps a little water weight gain recently. Past History Travel History Traveled to [place] past 21 day No Medical History Any Pertinent Medical History? see below for history Neurological: CVA, Parkinson's disease, seizure, TIA, RIGHT SIDED WEAKNESS EENT: NONE Cardiovascular: AFIB, CAD, cardiomyopathy, CHF, hypertension Respiratory: asthma, COPD Gastrointestinal: GASTRITIS GI BLEED Hepatic: NONE Renal: NONE Musculoskeletal: NONE Psychiatric: bipolar disease Endocrine: diabetes, hypothyroidism Blood Disorders: anemia Cancer(s): NONE VERIFIER OPERATOR/Reproductive: NONE History of MRSA: No History of VRE: No History of CDIFF: No Tetanus Vaccine: 04/16/15 Surgical History Surgical History: hernia repair-inguinal, PACER/DEFIB MULTIPLE ANGIOPLASTIES R GROIN HERNIA REPAIR Psychosocial History Who do you live with Spouse Services at Home None What is your primary language [place] Family History Family History, If Any: MOTHER (HTN). SISTER ([place] AT 60). SISTER (DEPRESSION). SISTER (TREMORS). Relation not specified for: *No pertinent family history Hx Contributory? No Review of Systems Review of Systems Constitutional: Reports: no symptoms. EENTM: Reports: no symptoms. Respiratory: Reports: see HPI. Cardiovascular: Reports: no symptoms. GI: Reports: no symptoms. Genitourinary: Reports: no symptoms. Musculoskeletal: Reports: no symptoms. Skin: Reports: no symptoms. Neurological/Psychological: Reports: no symptoms. Hematologic/Endocrine: Reports: no symptoms. Immunologic/Allergic: Reports: no symptoms. All Other Systems: Reviewed and Negative Physical Exam Physical Exam Respiratory: SEE BELOW Comments: Gen.: Well-nourished, well-developed, no acute respiratory distress. Head: Normocephalic, atraumatic. Eyes: Normal inspection bilaterally Ears: Normal inspection bilaterally Nose: Normal inspection Throat/mouth : Moist mucosa Neck: Supple, full range of motion, no goiter Heart: Regular rate and rhythm, no murmurs rubs or gallops Lungs: Clear to auscultation bilaterally with normal air entry Chest: Nontender Back: Normal range of motion Abdomen: Soft, nontender, nondistended, normal bowel sounds Extremities: Normal range of motion grossly, equal radial pulses, no cyanosis clubbing or edema Neurologic: Cranial nerves grossly intact, speech is clear Skin: warm and dry Psychiatric: Calm, cooperative, no apparent delusions or hallucinations Core Measures ACS in differential dx? No CVA/TIA Diagnosis No Sepsis Present: No Sepsis Focused Exam Completed? No Progress Differential Diagnosis: AMI, CHF, COPD, pneumonia, pneumothorax, unstable angina Plan of Care: Orders Procedure Date/time Status BASIC ELECTROLYTES PLUS BUN&CR 01/18 0600 Active CHF Diet 01/17 B Active TROPONIN LEVEL 01/17 1200 Complete EKG 01/17 1200 Active Vital Signs 01/17 1139 Active Teach/Educate 01/17 113 Active Pain Treatment and Response 01/17 113 Active Nutritional Intake, Monitor 01/17 113 Active Isolation 01/17 1139 Active Intake & Output 01/17 1139 Active Patient Care Conference 01/17 1139 Active Activity/Ambulation 01/17 1139 Active RT: Evaluation 01/17 1028 Active RAPID VIRAL INFLUENZA A 01/17 0621 Complete EKG 01/17 0617 Active TROPONIN LEVEL 01/17 0600 Complete CBC WITHOUT DIFFERENTIAL 01/17 0600 Complete BASIC ELECTROLYTES PLUS BUN&CR 01/17 0600 Complete Pathway - chart 01/17 0142 Active House Staff 01/17 0142 Active TRC EVALUATION (GEN) 01/17 UNK Complete THERAPIST ORDERS 01/17 UNK Complete OXYGEN SETUP (GEN) 01/17 UNK Complete Saline Lock 01/17 UNK Active CHF Core Measures 01/17 UNK Active Lab Add-on Test 01/17 UNK Active Weight 01/17 UNK Active VTE Mechanical Prophylaxis 01/17 UNK Active Vital Signs 01/17 UNK Complete Intake & Output 01/17 UNK Complete FingerStick- Glucose 01/17 UNK Active Activity/Ambulation 01/17 UNK Active Patient Data 01/[address] in observation 01/16 2316 Active Misc Message 01/16 2316 Active ED Holding Orders 01/16 2316 Active Vital Signs 01/16 2316 Active Code Status 01/16 2316 Active Intake & Output 01/16 2153 Active TSH REFLEX 01/16 2130 Complete DIGOXIN 01/16 2130 Complete Telemetry/Cutting Torch Operator 01/16 2045 Active TROPONIN LEVEL 01/16 204 Complete MAGNESIUM 01/16 2045 Complete CBC WITHOUT DIFFERENTIAL 01/16 2045 Complete B-TYPE NATRIURETIC PEP (BNP) 01/16 2045 Complete BASIC METABOLIC PANEL 01/16 2045 Complete EKG 01/16 204 Active Current Medications Sig/Hamida Start time Last Medication Dose Stop Time Status Admin Latanoprost 1 GTT QPM 01/17 2200 AC (Xalatan) Rivaroxaban 20 MG 1900 01/17 1900 AC 01/17 (Xarelto) 1902 Atorvastatin Calcium 20 MG 1700 01/17 1700 AC 01/17 (Lipitor) 1640 Albuterol Sulfate 3 ML BID 01/17 1000 AC 01/17 (Proventil) 1028 Amiodarone HCl 100 MG DAILY 01/17 1000 AC 01/17 (Cordarone) 1025 Budesonide/ 2 PUF BID 01/17 1000 AC 01/17 Formoterol Fumarate 1026 (Symbicort) Digoxin 0.125 MG DAILY 01/17 1000 AC 01/17 (Lanoxin) 1026 Guaifenesin 600 MG Q12 01/17 1000 AC 01/17 (Mucinex) 1026 Mirtazapine 15 MG DAILY 01/17 1000 AC 01/17 (Remeron) 1026 Insulin Aspart 0 TIDAC 01/17 0800 AC (NovoLOG) Venlafaxine HCl 150 MG 0800 01/17 0800 AC 01/17 (Effexor Xr) 0752 Furosemide 40 MG 7:30 AM, & 4:30 PM 01/17 0730 AC 01/17 (Lasix) 1640 Levothyroxine Sodium 0.1 MG DAILY AC 01/17 0700 AC 01/17 (Synthroid) 0752 Laboratory Tests 01/17/18 1251: Troponin I 0.03 01/17/18 0652: Anion Gap 9, Estimated GFR > 60, BUN/Creatinine Ratio 18.9, Troponin I 0.03, CBC w Diff NO MAN DIFF REQ, RBC 4.44 L, MCV 99.7 H, MCH 32.7 H, MCHC 32.8 L, RDW 14.9 H, MPV 8.9, Gran % 80.3 H, Lymphocytes % 5.3 L, Monocytes % 14.1 H, Eosinophils % 0, Basophils % 0.3, Absolute Granulocytes 5.4, Absolute Lymphocytes 0.4 L, Absolute Monocytes 0.9 H, Absolute Eosinophils 0, Absolute Basophils 0 01/16/18 2130: Anion Gap 11, Estimated GFR > 60, BUN/Creatinine Ratio 20.0, Glucose 167 H, Calcium 9.6, Magnesium 2.0, Troponin I 0.02, [id number] Pept 3020 H, TSH &T3 &Free T4 Intrp 2.530, CBC w Diff NO MAN DIFF REQ, RBC 4.37 L, MCV 99.1 H, MCH 32.7 H, MCHC 32.9 L, RDW 14.9 H, MPV 8.7, Gran % 84.2 H, Lymphocytes % 4.4 L, Monocytes % 11.1 H, Eosinophils % 0.1, Basophils % 0.2, Absolute Granulocytes 6.7 H, Absolute Lymphocytes 0.4 L, Absolute Monocytes 0.9 H, Absolute Eosinophils 0, Absolute Basophils 0, Digoxin 1.1 Microbiology 01/17 0640 NASOPHARYN: Influenza Virus A & B Rapid Smear - COMP Initial ED EKG: vENTRICULAR PACED RHYTHM WITH RATE OF 80, LEFT BUNDLE BRANCH PATTERN. Prior EKG: unchanged Comments: 01/16/2018 9:12:20 PM Gabriel feels better and states his breathing has improved. Auscultation of the lungs reveals improved air entry without wheezes rales or rhonchi. 02 saturation 89% on 1.5 L via nasal cannula. I have increased this to 2 L. Departure Departure Disposition: HOME OR SELF CARE Condition: Stable Clinical Impression Primary Impression: Pulmonary edema Qualifiers: Chronicity: chronic Qualified Code: J81.1 - Chronic pulmonary edema Secondary Impressions: COPD (chronic obstructive pulmonary disease) Qualifiers: COPD type: unspecified COPD Qualified Code: J44.9 - Chronic obstructive pulmonary disease, unspecified Referrals: Shey SEGAL,Fredis Yun (PCP/Family) Departure Forms: Customer Survey General Discharge Information Observation Note Spoke With: Yvonne Wilder MD Patient In: Non-ED OBS Care Area Rationale for Observation: My rational for observation is as follows patient is experiencing worsening congestive heart failure both clinically and radiographically. He has failed outpatient management with Lasix administered both as IM injections at the CHF clinic as well as daily oral Lasix. He is also hypoxic and currently oxygen dependent. I do not feel he could be treated safely as an outpatient as it is likely he would become more dyspneic and hypoxic placing him at risk of cardiorespiratory failure. He now requires hospitalization for IV Lasix and oxygen supplementation with weaning as tolerated. Cardiology consultation should be considered. During treatment patient's potassium and renal functions should be monitored for hypokalemia or acute kidney injury. Daily intake and output and daily weights should be monitored to assure negative fluid balance. Critical Care Note Critical Care Note Critical Care Time: 30-74 min
[2018-01-16 21:42] LABS: ABSOLUTE BASOPHIL COUNT 0 /CUMM (0.0-0.2); ABSOLUTE EOSINOPHIL COUNT 0 /CUMM (0.0-0.7); ABSOLUTE GRANULOCYTE CT 6.7 /CUMM (1.4-6.5); ABSOLUTE LYMPH COUNT 0.4 /CUMM (1.2-3.4); ABSOLUTE MONOCYTE COUNT 0.9 /CUMM (0.10-0.60); BASOPHIL % 0.2 % (0.0-2.0); EOSINOPHIL % 0.1 % (0-5); HEMATOCRIT 43.3 % (42-52); MEAN CORPUSCULAR HGB 32.7 PG (27.0-31.0); MEAN CORPUSCULAR HGB CONC 32.9 G/DL (33.0-37.0); MEAN CORPUSCULAR VOLUME 99.1 FL (80.0-94.0); MEAN PLATELET VOLUME 8.7 FL (7.4-10.4); PLATELET COUNT 147 /CUMM (130-400); RBC DISTRIBUTION WIDTH 14.9 % (11.5-14.5); RED BLOOD CELL CT 4.37 /CUMM (4.70-6.10); WHITE BLOOD CELL COUNT 7.9 /CUMM (4.8-10.8)
[2018-01-16 21:43] LABS: GRANULOCYTE % 84.2 % (42.2-75.2)
--- NOTE | 2018-01-16 22:36 | RADIOLOGY REPORT ---
XR PORTABLE CHEST CLINICAL INFORMATION: CHF, COPD, effusion. COMPARISON: Chest x-ray 12/26/2017. TECHNIQUE: Portable frontal view of the chest was obtained. FINDINGS: There is a left pectoral AICD. Cardiac silhouette is markedly enlarged and unchanged. Worsening central vascular congestion and interstitial pulmonary edema. Worsening small bilateral pleural effusions with adjacent airspace opacities. Osseous structures are stable. IMPRESSION: - Worsening moderate interstitial pulmonary edema and small bilateral pleural effusions with adjacent airspace opacities. - Stable cardiomegaly.
--- NOTE | 2018-01-16 23:50 | History & Physical ---
Yovany SEGAL,[facility] 01/16/18 0520: General Information and HPI MD Statement: I have seen and personally examined RASHAWN WELLINGTON and documented this H&P. The patient is a 77 year old M who presented with a patient stated chief complaint of [edema]-. Source of Information: patient History of Present Illness: 77 yo M with a pmhx of COPD, HFrEF (25-30%), S/P pacer and ICD, CAD S/P multiple PCI and IL, CVA with residual right-sided deficit, A. fib, bipolar disorder, DM, legally blind, HTN, ?drug induced Extrapyramidal movement disorder presentingf for worsening edema. Patient states the he has admitted 4 weeks and discharged with lasix. States he takes 40 mg daily and PO 20 (extra) on thursday, + Thursday. States that he has been going to the chf clinic weekly. Last week he received 40mg IV and this past , he received 60mg IV. The patient states that he has been having SOB x1 week zonia upon exertion. States that at baseline he can walk around the block but is now getting SOB when he just walks down 2 houses. He states that he had an acute SOB episode at rest when he was eating soup around 1:00pm. He then went to bed severeal hours later. The patient s told him that he needed to go to the ED due to his clammyness, coughing, and SOB. He also endeorses chills which started on last thursday. He denies cp, palpitations, leg swealling, headaches, fever, changes in appetiete, Allergies/Medications Allergies: Coded Allergies: NO KNOWN ALLERGIES (NO) (02/22/15) Observation Initial Note - I have personally examined RASHAWN WELLINGTON on 01/17/18 at 1807. The disposition of RASHAWN WELLINGTON is uncertain at this time and before a determination can be made, he requires a period of observation for the following reasons [CHF exascerbation] Past History Travel History Traveled to [place] past 21 day No Medical History Neurological: CVA, Parkinson's disease, seizure, TIA, RIGHT SIDED WEAKNESS EENT: NONE Cardiovascular: AFIB, CAD, cardiomyopathy, CHF, hypertension Respiratory: asthma, COPD Gastrointestinal: GASTRITIS GI BLEED Hepatic: NONE Renal: NONE Musculoskeletal: NONE Psychiatric: bipolar disease Endocrine: diabetes, hypothyroidism Blood Disorders: anemia Cancer(s): NONE CERTIFIED INDOOR ENVIRONMENTALIST/Reproductive: NONE History of MRSA: No History of VRE: No History of CDIFF: No Tetanus Vaccine: 02/22/15 Surgical History Surgical History: hernia repair-inguinal, PACER/DEFIB MULTIPLE ANGIOPLASTIES R GROIN HERNIA REPAIR Past Family/Social History Family History Relations & Conditions if any MOTHER (HTN). SISTER ([place] AT 60). SISTER (DEPRESSION). SISTER (TREMORS). Relation not specified for: *No pertinent family history Psychosocial History Who Do You Live With? spouse Services at Home: None Smoking Status: Former Smoker ETOH Use: occasional use Illicit Drug Use: denies illicit drug use Functional Ability ADLs Independent: dressing, eating, toileting, bathing. Ambulation: cane (NON-COMPLIANT) IADLs Needs Assist: shopping, housework, finances, food prep, telephone, transportation, medication admin. Review of Systems Review of Systems Constitutional: Reports: see HPI, diaphoresis. Cardiovascular: Denies: chest pain. Respiratory: Reports: cough, short of breath. GI: Denies: abdominal pain. Genitourinary: Reports: no symptoms. Musculoskeletal: Reports: see HPI. Exam & Diagnostic Data Last 24 Hrs of Vital Signs/I&O Vital Signs Date Time Temp Pulse Resp B/P B/P Pulse O2 O2 Flow FiO2 Mean Ox Delivery Rate 01/17 1749 98.9 80 22 132/70 94 Nasal 4.0L Cannula 01/17 1605 95 Nasal 4.0L Cannula 01/17 1605 99.0 80 22 134/76 95 Nasal 4.0L Cannula 01/17 1559 99.0 80 22 134/76 95 Nasal 4.0L Cannula 01/17 1350 99.3 84 22 119/65 93 Nasal 4.0L Cannula 01/17 1147 94 Nasal 4.0L Cannula 01/17 1144 98.6 80 22 120/62 91 Nasal 4.0L Cannula 01/17 1030 Nasal 4.0L Cannula 01/17 1029 92 Nasal 4.0L Cannula 01/17 1026 98.6 80 22 120/62 01/17 1025 98.6 80 22 120/62 01/17 1010 98.6 80 22 120/62 91 Nasal 4.0L Cannula 01/17 0739 98.0 80 22 121/70 94 01/17 0648 98.4 81 22 129/67 94 Nasal 4.0L Cannula 01/17 0430 98.0 98 24 128/54 94 Nasal 4.0L Cannula 01/17 0030 98.0 87 24 127/72 94 Nasal 4.0L Cannula 01/16 2308 80 24 117/62 90 Nasal 3.0L Cannula 01/16 2159 97.7 80 22 119/57 89 Nasal 4.0L Cannula 01/16 2147 90 Nasal 3.0L Cannula 01/16 2033 98.5 84 24 142/79 94 Room Air Intake & Output 01/17 1600 01/17 0800 01/17 0000 Intake Total 160 0 Output Total 1100 225 0 Balance -940 -225 0 Intake, Oral 160 0 Output, Urine 1100 225 0 Patient 165 lb 165 lb Weight Physical Exam General Appearance Alert, Oriented X3, Cooperative HEENT EOMI, no JVD, R eye dilated pupil and unreactive Cardiovascular ?S3 Lungs Clear to Auscultation, derease air movement diffusely zonia in lower bases Abdomen Normal Bowel Sounds, Soft, No Tenderness Neurological cn 2-12 grossly intact Extremities trace pedal edema Vascular 2+ radial pulses Last 24 Hrs of Labs/Ayaan: Laboratory Tests 01/17/18 1251: Troponin I 0.03 01/17/18 0652: Anion Gap 9, Estimated GFR > 60, BUN/Creatinine Ratio 18.9, Troponin I 0.03, CBC w Diff NO MAN DIFF REQ, RBC 4.44 L, MCV 99.7 H, MCH 32.7 H, MCHC 32.8 L, RDW 14.9 H, MPV 8.9, Gran % 80.3 H, Lymphocytes % 5.3 L, Monocytes % 14.1 H, Eosinophils % 0, Basophils % 0.3, Absolute Granulocytes 5.4, Absolute Lymphocytes 0.4 L, Absolute Monocytes 0.9 H, Absolute Eosinophils 0, Absolute Basophils 0 01/16/18 2130: Anion Gap 11, Estimated GFR > 60, BUN/Creatinine Ratio 20.0, Glucose 167 H, Calcium 9.6, Magnesium 2.0, Troponin I 0.02, [id number] Pept 3020 H, TSH &T3 &Free T4 Intrp 2.530, CBC w Diff NO MAN DIFF REQ, RBC 4.37 L, MCV 99.1 H, MCH 32.7 H, MCHC 32.9 L, RDW 14.9 H, MPV 8.7, Gran % 84.2 H, Lymphocytes % 4.4 L, Monocytes % 11.1 H, Eosinophils % 0.1, Basophils % 0.2, Absolute Granulocytes 6.7 H, Absolute Lymphocytes 0.4 L, Absolute Monocytes 0.9 H, Absolute Eosinophils 0, Absolute Basophils 0, Digoxin 1.1 Microbiology 01/17 0640 NASOPHARYN: Influenza Virus A & B Rapid Smear - COMP Assessment/Plan Assessment: A: 77 yo M with a pmhx of COPD, HFrEF (25-30%), S/P pacer and ICD, CAD S/P multiple PCI and IL, CVA with residual right-sided deficit, A. fib, bipolar disorder, DM, legally blind, HTN, ?drug induced Extrapyramidal movement disorder presentingf for worsening edema most likely 2/2 to chf exascerbation. P: #CHF exascerbation vs copd Pro bnp 3020 CXR: interstitial pulm edema with small b/l effusions Echo 2018: severe LV dilatation, LVEF 25-30% -IV lasix -cards consult -i/o, daily weights -trc, nebs -f/u digoxin #hx of copd -trc nebs, advair, #diabtes -novolog sliding scale -hold metformin #hx of cad -cont atorvastatin, entresto #afib -cont amiodarone, digoxin, xarelto #hx if anemia -cont iron #eyecare/glaucoma/R eye blindness -cont lantanoprost #hypothyrpoid -cont levothyroxine #mental health -cont mirtazpine, venlafaxine #DNR DNI #DVT prophylaxis with xarelto As Ranked By This Provider Problem List: 1. CHF (congestive heart failure) Core Measures/Misc (07/26) Acute Coronary Syndrome ACS Diagnosis: No Congestive Heart Failure Congestive Heart Failure Diagnosis Yes Last Known EF % 30 Cerebrovascular Accident CVA/TIA Diagnosis: No VTE (View Protocol) VTE Risk Factors Acute Medical Illness No Mechanical VTE Prophylaxis d/t Other No VTE Pharm Prophylaxis d/t NA PharmProphylax ordered Sepsis (View protocol) Sepsis Present: No Brandon Soto 01/17/18 0151: General Information and HPI Allergies/Medications Home Med list Albuterol Sulfate 2.5 MG/3 ML (0.083 %) VIAL.NEB 3 ML INH BID COPD Take three times a day as needed... Amiodarone HCl 100 MG TABLET 1 TAB PO DAILY HEART (Reported) Atorvastatin Calcium (Lipitor) 20 MG TABLET 1 TAB PO DAILY CHOLESTEROL ( Reported) Digoxin 125 MCG TABLET 1 TAB PO DAILY HEART (Reported) Ferrous Sulfate 325 MG (65 MG IRON) TABLET 1 TAB PO TID SUPPLEMENT (Reported) Fluticasone/Salmeterol (Advair 250-50 Diskus) 1 EACH BLST.W.DEV 1 PUF INH PRN COPD (Reported) Furosemide (Lasix) 40 MG TABLET 1 TAB PO DAILY CHF . Furosemide 20 MG TABLET 1 TAB PO Thursday CHF Latanoprost (Xalatan) 2.5 ML DROPS 1 GTT OPH QPM BOTH EYES (Reported) Levothyroxine Sodium 100 MCG TABLET 1 TAB PO DAILY AC THYROID (Reported) Melatonin 5 MG CAPSULE 1 CAP PO QPM SLEEP (Reported) Metformin HCl 500 MG TABLET 1 TAB PO DAILY DIABETES (Reported) Mirtazapine 15 MG TABLET 1 HTAB PO DAILY DEPRESSION (Reported) Rivaroxaban (Xarelto) 20 MG TABLET 1 TAB PO QPM BLOOD THINNER (Reported) with food Sacubitril/Valsartan (Entresto 97 MG-103 MG Tablet) 97 MG-103 MG TABLET 1 TAB PO BID HEART (Reported) Venlafaxine HCl (Effexor XR) 150 MG CAP.ER.24H 1 CAP PO DAILY DEPRESSION ( Reported) Observation Initial Note - I have personally examined RASHAWN WELLINGTON on 01/17/18 at 0940. The disposition of RASHAWN WELLINGTON is uncertain at this time and before a determination can be made, he requires a period of observation for the following reasons CHF exacerbation Resident Review Statement Resident Statement: examined this patient, discussed with advertising intern, reviewed images Other Findings: Mr Moreno is a 77 year old man w/ a PMHx of COPD, CHF (EF 25-30%) status post pacemaker, AICD, coronary artery disease status post multiple PCI's, CVA with residual right-sided deficits, Rt eye blindness, paroxysmal atrial fibrillation, bipolar disorder, type 2 diabetes (insulin-dependent), hypertension, Parkinson's disease was brought in with a chief concern of acute onset of shortness of breath. Acute onset of dyspnea for 4-5 days ago, associated with nonproductive cough.Dyspnea on exertion which progressed to dyspnea at doing her daily chores, now at dypnea at rest. He also had diaphoresis in the last few hours. No chest pain, wheezing, pedal edema. She reported increased weight gain in the last few weeks; goes to CHF clinic every week and reported increased lasix administration recently. Smoker 50 pk year smoking history, quit a few yrs ago. Symptomatolgy- Vitals-temperature 98.5, pulse rate 84, respirations 24, blood pressure 142/79, 94% 4LNC On examination: General Exam: AAOx3, No acute distress, Skin: No rashes, no breakdown HEENT: PERRLA, EOMI Neck: Supple, No JVD No cervical lymphadenopathy CVS: Reg Rate, Normal S1,S2, No MGR Resp: decreased air entry, ronchi ant chest. Abdomen: Soft, No tenderness, Normal Bowel Sounds Neuro: dysarthria ( chronic ), Strength 4/5 RUE, RLE ( old deficits) and 5/5 in other extremities, Sensation intact, CN III-XII NL, Reflexes 2+ Extremities: No cyanosis, pedal edema 2+ Pertinent lab findings- WBC 7.9 w/ granulocytosis. Last echocardiogram 2018- Moderate to severe left ventricular dilatation. Mild concentric left ventricular hypertrophy. Moderately to severely reduced global left ventricular systolic function. Moderately to severely abnormal left ventricular ejection fraction estimated at 25-30%. Mild right ventricular dilatation. Moderate right atrial dilatation. Catheter/pacemaker wire in the right heart. Mild to moderate mitral regurgitation. Trace tricuspid regurgitation. Unable to estimate the right ventricular systolic pressure. Trace pulmonic regurgitation. Dilated inferior vena cava. cxr- Worsening moderate interstitial pulmonary edema and small bilateral pleural effusions with adjacent airspace opacities. Stable cardiomegaly. Problems: 1. Acute CHF( HFrEF) 2. Afib 3. AECOPD 4. h/o Diabetes Plan: #1 Obs on tele 23 hrs 2. Daily weights 3. Daily ins and outs 4. Continue lasix 40 mg iv bid, dc after assessing the ins and out. Check BEP daily. 5. For Afib- rate controlling meds, and xarelto 6. Accuchecks, and TISS- novolog 7. For COPD- TRC, symbicort, albuterol. 8. Hold entresto for now. Defer the decision to the good humor vendor if it needs to be restarted. 9. Continue LT4 10. Serial ekgs and troponins 11. Cardiology input in the am. 12. Defer the decision to get Echo as per cardio in the am. 13. Check dig levels, and restart dig and amiodarone in the am. 14. Entresto on hold. Please confirm w/ good humor vendor if it can be resumed while in the hospital. Housekeepin. DVT Ppx- xarelto 2. GI PPx- Protonix prn 3. Lines- peripheral 4. Pain control. [email or web address] 01/17/18 0619: Attending MD Review Statement Attending Statement Attending MD Statement: examined this patient, discuss w/resident/PA/TOOL DESIGN ENGINEER, agreed w/resident/PA/TOOL DESIGN ENGINEER, reviewed EMR data (avail), reviewed images, amended to note Attending Assessment/Plan: CC: Acute worsening of shortness of breath PMH: COPD, HFrEF (25-30%), S/P pacer and ICD, CAD S/P multiple PCI and IL, CVA with residual right-sided deficit, A. fib, bipolar disorder, DM, legally blind, HTN, ?drug induced Extrapyramidal movement disorder Patient came to ER for worsening shortness of breath since last few hours. Patient had been noticing upper respiratory symptoms, congestion and cold since last 2 days and today he noticed difficulty breathing, nonproductive cough which is chronic for him. His noticed him very clammy, coughing and obvious shortness of breath so she suggested him to go to ER. Patient denies any chest pain, fever or chills, leg swelling, palpitations. Patient gets these symptoms often because of heart failure. Since his last discharge he followed up with good humor vendor, compliant to go to heart failure clinic and receives IV Lasix. He received 60 mg of IV Lasix on with good diuresis. Yesterday even though he drank "a lot of water" he did not urinate as much even with Lasix. Otherwise complete ROS unremarkable patient has difficulty talking because of extrapyramidal symptoms but coherent and aware of all the details. Vitals: T max 98.5, pulse 80s, RR 24, blood pressure 142/79, saturating 94% on 4 L nasal cannula On exam: A O 3, cooperative, mild respiratory acute distress, neck supple, JVD not elevated, no lymphadenopathy, mucosa moist, no focal neurological deficit except old right-sided deficits, no dependent edema, no obvious skin rashes or inflammation CVS: S1-S2, ?S3 RRR. RS: Decreased air entry bilaterally bases, rhonchi anterior chest. Abdomen: Soft, NT, ND, bowel sounds present. CXR: - Worsening moderate interstitial pulmonary edema and small bilateral pleural effusions with adjacent airspace opacities. - Stable cardiomegaly. Assessment and plan 77-year-old male with extensive past medical history, came to ER for worsening shortness of breath over a few hours of duration and URI symptoms with congestion since yesterday. Patient has a decreased air entry bilaterally, mild rhonchi anterior chest wall, no obvious JVD or leg edema, hypoxic requiring 2-4 L oxygen by nasal cannula, accessory muscles in use. Chest x-ray confirms the finding of vascular congestion and mild pleural effusion. Patient's proBNP is mildly elevated from baseline otherwise labs unremarkable, no significant leukocytosis or fever. The symptoms appear most likely secondary to mild acute on chronic congestive heart failure and COPD exacerbation precipitated by URI symptoms. Given recurrence of his symptoms he may require bumetanide versus metolazone to break diuresis with assistance. Patient also requires heart failure education. + Acute on chronic congestive heart failure + Mild COPD exacerbation + History HFrEF (25-30%), S/P pacer and ICD, CAD S/P multiple PCI and IL, CVA with residual right-sided deficit, A. fib, bipolar disorder, DM, HTN, ?drug induced Extrapyramidal movement disorder - Place in observation on telemetry - Continuous telemetry monitoring - Try to wean off oxygen - IV Lasix 40 mg twice a day - Strict I's and O's - Daily weights - Obtain influenza - TRC nebs, Mucinex, no antibiotics or steroids at this point - Serial troponin and EKGs - Cardiology consult in a.m. - DVT prophylaxis - Obtain Dig level - Sliding scale insulin - TRC nebs - Continue all his medications except oral hypoglycemics and Lasix
[2018-01-17 07:17] LABS: ABSOLUTE BASOPHIL COUNT 0 /CUMM (0.0-0.2); ABSOLUTE EOSINOPHIL COUNT 0 /CUMM (0.0-0.7); ABSOLUTE GRANULOCYTE CT 5.4 /CUMM (1.4-6.5); ABSOLUTE LYMPH COUNT 0.4 /CUMM (1.2-3.4); ABSOLUTE MONOCYTE COUNT 0.9 /CUMM (0.10-0.60); BASOPHIL % 0.3 % (0.0-2.0); EOSINOPHIL % 0 % (0-5); GRANULOCYTE % 80.3 % (42.2-75.2); HEMATOCRIT 44.2 % (42-52); MEAN CORPUSCULAR HGB 32.7 PG (27.0-31.0); MEAN CORPUSCULAR HGB CONC 32.8 G/DL (33.0-37.0); MEAN CORPUSCULAR VOLUME 99.7 FL (80.0-94.0); MEAN PLATELET VOLUME 8.9 FL (7.4-10.4); PLATELET COUNT 145 /CUMM (130-400); RBC DISTRIBUTION WIDTH 14.9 % (11.5-14.5); RED BLOOD CELL CT 4.44 /CUMM (4.70-6.10); WHITE BLOOD CELL COUNT 6.7 /CUMM (4.8-10.8)
--- NOTE | 2018-01-17 09:24 | PN- Housestaff ---
Nazanin SEGAL,[facility] 01/17/18 0923: Subjective Follow-up For: CHF exacerbation Mild COPD exacerbation Subjective: Patient states he has been very short of breath for the past 1 week and was unable to walk even a couple of steps without getting short of breath. Denies any recent illness, cough, sputum production, chest pain, palpitations or lower extremity swelling. He has been following up with Dr. Perez and using his Lasix regularly. Review of Systems Constitutional: Reports: no symptoms. EENTM: Reports: no symptoms. Cardiovascular: Reports: orthopena. Respiratory: Reports: cough, orthopnea, short of breath. Gastrointestinal: Reports: no symptoms. Genitourinary: Reports: no symptoms. Musculoskeletal: Reports: no symptoms. Skin: Reports: no symptoms. Neurological/Psychological: Reports: no symptoms. Hematologic/Endocrine: Reports: no symptoms. Immunologic/Allergic: Reports: no symptoms. Objective Last 24 Hrs of Vital Signs/I&O Vital Signs Date Time Temp Pulse Resp B/P B/P Pulse O2 O2 Flow FiO2 Mean Ox Delivery Rate 01/17 1840 81 148/82 01/17 1749 98.9 80 22 132/70 94 Nasal 4.0L Cannula 01/17 1605 95 Nasal 4.0L Cannula 01/17 1605 99.0 80 22 134/76 95 Nasal 4.0L Cannula 01/17 1559 99.0 80 22 134/76 95 Nasal 4.0L Cannula 01/17 1350 99.3 84 22 119/65 93 Nasal 4.0L Cannula 01/17 1147 94 Nasal 4.0L Cannula 01/17 1144 98.6 80 22 120/62 91 Nasal 4.0L Cannula 01/17 1030 Nasal 4.0L Cannula 01/17 1029 92 Nasal 4.0L Cannula 01/17 1026 98.6 80 22 120/62 01/17 1025 98.6 80 22 120/62 01/17 1010 98.6 80 22 120/62 91 Nasal 4.0L Cannula 01/17 0739 98.0 80 22 121/70 94 01/17 0648 98.4 81 22 129/67 94 Nasal 4.0L Cannula 01/17 0430 98.0 98 24 128/54 94 Nasal 4.0L Cannula 01/17 0030 98.0 87 24 127/72 94 Nasal 4.0L Cannula 03/10 2308 80 24 117/62 90 Nasal 3.0L Cannula 01/16 2159 97.7 80 22 119/57 89 Nasal 4.0L Cannula 01/16 2147 90 Nasal 3.0L Cannula 01/16 2033 98.5 84 24 142/79 94 Room Air Intake & Output 01/17 1600 01/17 0800 01/17 0000 Intake Total 160 0 Output Total 1100 225 0 Balance -940 -225 0 Intake, Oral 160 0 Output, Urine 1100 225 0 Patient 165 lb 165 lb Weight Physical Exam General Appearance: Alert, Oriented X3, Cooperative Skin: No Rashes, No Breakdown Cardiovascular: Regular Rate, Normal S1, Normal S2 Lungs: expiratory wheezing Abdomen: Normal Bowel Sounds, Soft, No Tenderness Extremities: No Clubbing, No Cyanosis, No Edema Current Medications: Current Medications Sig/Hamida Start time Last Medication Dose Route Stop Time Status Admin Albuterol Sulfate 3 ML BID 01/17 1000 AC 01/17 INH 1028 Albuterol Sulfate 3 ML ONCE ONE 01/16 2045 DC 01/16 INH 01/16 Amiodarone HCl 100 MG DAILY 01/17 1000 AC 01/17 PO 1025 Atorvastatin Calcium 20 MG 1700 01/17 1700 AC 01/17 PO 1640 Budesonide/ 2 PUF BID 01/17 1000 AC 01/17 Formoterol Fumarate INH 1026 Digoxin 0.125 MG DAILY 01/17 1000 AC 01/17 PO 1026 Furosemide 0 .STK-MED ONE 01/17 1643 DC IV Furosemide 0 .STK-MED ONE 01/17 0740 DC IV Furosemide 40 MG 7:30 AM, & 4:30 PM 01/17 0730 AC 01/17 IV 1640 Furosemide 0 .STK-MED ONE 01/16 2306 DC IV Furosemide 40 MG ONCE ONE 01/16 2300 DC 01/16 IV PUSH 01/16 230 2306 Guaifenesin 600 MG Q12 01/17 1000 AC 01/17 PO 1026 Insulin Aspart 0 TIDAC 01/17 0800 AC SC Ipratropium [place] 2.5 ML BID PRN 01/17 0730 DC INH Ipratropium [place] 2.5 ML ONCE ONE 01/16 2045 DC 01/16 INH 01/16 Latanoprost 1 GTT QPM 01/17 2200 AC OPH Levothyroxine Sodium 0.1 MG DAILY AC 01/17 0700 AC 01/17 PO 0752 Mirtazapine 15 MG DAILY 01/17 1000 AC 01/17 PO 1026 Rivaroxaban 15 MG 1900 01/17 1900 DC PO Rivaroxaban 20 MG 1900 01/17 1900 AC 01/17 PO 1902 Rivaroxaban 15 MG DAILY 01/17 1000 DC PO Venlafaxine HCl 150 MG 0800 01/17 0800 AC 01/17 PO 0752 Last 24 Hrs of Lab/Ayaan Results Last 24 Hrs of Labs/Mics: Laboratory Tests 01/17/18 1251: Troponin I 0.03 01/17/18 0652: Anion Gap 9, Estimated GFR > 60, BUN/Creatinine Ratio 18.9, Troponin I 0.03, CBC w Diff NO MAN DIFF REQ, RBC 4.44 L, MCV 99.7 H, MCH 32.7 H, MCHC 32.8 L, RDW 14.9 H, MPV 8.9, Gran % 80.3 H, Lymphocytes % 5.3 L, Monocytes % 14.1 H, Eosinophils % 0, Basophils % 0.3, Absolute Granulocytes 5.4, Absolute Lymphocytes 0.4 L, Absolute Monocytes 0.9 H, Absolute Eosinophils 0, Absolute Basophils 0 01/16/18 2130: Anion Gap 11, Estimated GFR > 60, BUN/Creatinine Ratio 20.0, Glucose 167 H, Calcium 9.6, Magnesium 2.0, Troponin I 0.02, [id number] Pept 3020 H, TSH &T3 &Free T4 Intrp 2.530, CBC w Diff NO MAN DIFF REQ, RBC 4.37 L, MCV 99.1 H, MCH 32.7 H, MCHC 32.9 L, RDW 14.9 H, MPV 8.7, Gran % 84.2 H, Lymphocytes % 4.4 L, Monocytes % 11.1 H, Eosinophils % 0.1, Basophils % 0.2, Absolute Granulocytes 6.7 H, Absolute Lymphocytes 0.4 L, Absolute Monocytes 0.9 H, Absolute Eosinophils 0, Absolute Basophils 0, Digoxin 1.1 Microbiology 01/17 0640 NASOPHARYN: Influenza Virus A & B Rapid Smear - COMP Assessment/Plan Assessment: Mr Moreno is a 77 year old man w/ a PMHx of COPD, CHF (EF 25-30%) status post pacemaker, AICD, coronary artery disease status post multiple PCI's, CVA with residual right-sided deficits, Rt eye blindness, paroxysmal atrial fibrillation, bipolar disorder, type 2 diabetes (insulin-dependent), hypertension, Parkinson's disease was brought in with a chief concern of acute onset of shortness of breath. Problem List; 1. CHF Exacerbation 2. COPD Exacerbation 3. chronic medical conditions. - Continue to observe on telemetry floor. - Continue IV Lasix 40 mg twice a day. - Negative fluid balance of 1150 since admission. - Continue to monitor daily weights. - Echocardiogram On Dec 23 showed moderate to severely reduced global hypokinesis showed moderate to severely reduced global left ventricle systolic function and ejection fraction of 25-30%. - Cardiology consult awaiting recommendations. - Supplemental oxygen as needed to keep O2 above 92%. - Continue to monitor off antibiotics and steroids. - Flu swab negative. - TRC nebs. - Hold oral hypoglycemic agents and start the patient on NovoLog sliding scale. - Digoxin level is 1.1, will continue digoxin. - Continue rest of the home medications - Awaiting cardiology recommendations regarding resuming entresto. DVT prophylaxis; Xarelto Patient is DNR/DNI and Problem List: 1. CHF exacerbation 2. Shortness of breath 3. COPD exacerbation Pain Ratin Pain Location: None Pain Goal: Remain pain free Pain Plan: None Tomorrow's Labs & Rationales: None Elizabeth Pantoja 01/17/18 1407: Attending Review Statement Attending Statement Attending MD Statement: examined this patient, discuss w/resident/PA/CARDIAC CATHETERIZATION TECHNICIAN, agreed w/resident/PA/CARDIAC CATHETERIZATION TECHNICIAN, reviewed EMR data (avail), discussed with nursing Attending Assessment/Plan: 77 yr old male with pmh of legal blindness, bipolar disorder, COPD, HFrEF (25-30 %), S/P pacer and ICD, CAD S/P multiple PCI and HI, CVA with residual right- sided deficit presented with sob over the last few days . Pt being placed in observation for acute on chronic systolic chf. His echo done 3 weeks ago showed- " Moderate to severe left ventricular dilatation. Mild concentric left ventricular hypertrophy. Moderately to severely reduced global left ventricular systolic function. Moderately to severely abnormal left ventricular ejection fraction estimated at 25-30%. " Will await cardiology input. cont on diuresis and monitor on telemetry and monitor strict I & O. Cont on iv lasix with 40mg bid. Afib- on xarelto and amiodarone and digoxin. cont to monitor on tele. CAD s/p PCI in past- not sure why pt not on ASA. will defer to cardiology to see if he should be on baby aspirin.
[2018-01-17 11:44] VITALS: BP 120/62
[2018-01-17 16:05] VITALS: BP 134/76
[2018-01-17 18:40] VITALS: BP 148/82
--- NOTE | 2018-01-17 21:25 | Cons- Cardiology ---
General Information and HPI Consulting Request Date of Consult: 01/17/18 Requested By: Yvonne Wilder MD History of Present Illness: Mr. Watkins is a 77 year old male with history of dyslipidemia, diabetes and remote tobacco abuse. He also has a history of chronic atrial fibrillation and is status post an ICD with biventricular pacing for ventricular tachycardia. The patient has an ischemic cardiomyopathy status post HI with reduced EF of 30% and is status post PCI. Finally, this patient has a history of stoke. This patient has symptoms of shortness of breath with minimal exertion without orthopnea. He also reports a cough, chills and diaphoresis. He denies chest discomfort. The patient's ECG shows pulmonary edema with bilateral pleural effusions. His last echocardiogram performed here was on 03/29/2017 and revealed : moderate to severe left ventricular dilatation with mild concentric left ventricular hypertrophy, abnormal septal motion consistent with pacemaker activation, mild concentric left ventricular hypertrophy, a markedly hypokinetic septum, moderately to severely reduced global left ventricular systolic function, moderately to severely abnormal left ventricular ejection fraction estimated at 25-30%, right ventricle at upper limits of normal, mild right atrial dilatation, pacemaker wires observed in the right heart, severe left atrial dilatation, age- related valvular changes, no pericardial effusion, mildly dilated aortic root, and a mildly dilated inferior vena cava. The Doppler portion of the study revealed evidence of mild to moderate mitral, trace aortic, trace to mild tricuspid, and mild pulmonic regurgitation, as well as, evidence of moderate pulmonary hypertension. Allergies/Medications Allergies: Coded Allergies: NO KNOWN ALLERGIES (NO) (02/22/15) Home Med List: Albuterol Sulfate 2.5 MG/3 ML (0.083 %) VIAL.NEB 3 ML INH BID COPD Take three times a day as needed... Amiodarone HCl 100 MG TABLET 1 TAB PO DAILY HEART (Reported) Atorvastatin Calcium (Lipitor) 20 MG TABLET 1 TAB PO DAILY CHOLESTEROL ( Reported) Digoxin 125 MCG TABLET 1 TAB PO DAILY HEART (Reported) Ferrous Sulfate 325 MG (65 MG IRON) TABLET 1 TAB PO TID SUPPLEMENT (Reported) Fluticasone/Salmeterol (Advair 250-50 Diskus) 1 EACH BLST.W.DEV 1 PUF INH PRN COPD (Reported) Furosemide (Lasix) 40 MG TABLET 1 TAB PO DAILY CHF . Furosemide 20 MG TABLET 1 TAB PO Thursday CHF Latanoprost (Xalatan) 2.5 ML DROPS 1 GTT OPH QPM BOTH EYES (Reported) Levothyroxine Sodium 100 MCG TABLET 1 TAB PO DAILY AC THYROID (Reported) Melatonin 5 MG CAPSULE 1 CAP PO QPM SLEEP (Reported) Metformin HCl 500 MG TABLET 1 TAB PO DAILY DIABETES (Reported) Mirtazapine 15 MG TABLET 1 HTAB PO DAILY DEPRESSION (Reported) Rivaroxaban (Xarelto) 20 MG TABLET 1 TAB PO QPM BLOOD THINNER (Reported) with food Sacubitril/Valsartan (Entresto 97 MG-103 MG Tablet) 97 MG-103 MG TABLET 1 TAB PO BID HEART (Reported) Venlafaxine HCl (Effexor XR) 150 MG CAP.ER.24H 1 CAP PO DAILY DEPRESSION ( Reported) Review of Systems Review of Systems: A review of systems is not obtainable. 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 SISTER (HI AT 60). SISTER (DEPRESSION). SISTER (TREMORS). Relation not specified for: *No pertinent family history Psychosocial History Who Do You Live With? spouse Services at Home: None Smoking Status: Former Smoker ETOH Use: occasional use Illicit Drug Use: denies illicit drug use Functional Ability ADLs Independent: dressing, eating, toileting, bathing. Ambulation: cane (NON-COMPLIANT) IADLs Needs Assist: shopping, housework, finances, food prep, telephone, transportation, medication admin. Exam & Diagnostic Data Vital Signs and I&O Vital Signs Date Time Temp Pulse Resp B/P B/P Pulse O2 O2 Flow FiO2 Mean Ox Delivery Rate 01/17 2015 93 Nasal 3.5L Cannula 01/17 1840 81 148/82 01/17 1749 98.9 80 22 132/70 94 Nasal 4.0L Cannula 01/17 1605 95 Nasal 4.0L Cannula 01/17 1605 99.0 80 22 134/76 95 Nasal 4.0L Cannula 01/17 1559 99.0 80 22 134/76 95 Nasal 4.0L Cannula 01/17 1350 99.3 84 22 119/65 93 Nasal 4.0L Cannula 01/17 1147 94 Nasal 4.0L Cannula 01/17 1144 98.6 80 22 120/62 91 Nasal 4.0L Cannula 01/17 1030 Nasal 4.0L Cannula 01/17 1029 92 Nasal 4.0L Cannula 01/17 1026 98.6 80 22 120/62 01/17 1025 98.6 80 22 120/62 01/17 1010 98.6 80 22 120/62 91 Nasal 4.0L Cannula 01/17 0739 98.0 80 22 121/70 94 01/17 0648 98.4 81 22 129/67 94 Nasal 4.0L Cannula 01/17 0430 98.0 98 24 128/54 94 Nasal 4.0L Cannula 01/17 0030 98.0 87 24 127/72 94 Nasal 4.0L Cannula 01/16 2308 80 24 117/62 90 Nasal 3.0L Cannula 01/16 2159 97.7 80 22 119/57 89 Nasal 4.0L Cannula 01/16 2147 90 Nasal 3.0L Cannula Intake & Output 01/17 1600 01/17 0800 01/17 0000 01/16 1600 01/16 0800 01/16 0000 Intake Total 160 0 Output Total 1100 225 0 Balance -940 -225 0 Intake, Oral 160 0 Output, Urine 1100 225 0 Patient 165 lb 165 lb Weight Physical Exam: General: WD/WN male in NAD; alert and oriented x 3 HEENT: asymmetric, PERRL, EOMI Neck: no JVD Heart: RRR Lungs: clear bilaterally Abdomen: soft, NT, +ve bowel sounds Eztremities: no edema Assessment/Plan Assessment/Plan * This patient has symptoms of exertional shortness of breath with positive BNP and pulmonary edema on his chest X ray. Diurese with Lasix 40mg IV BID with careful monitoring of the patient's BUN, creatinine and potassium. * Obtain an echocardiogram. Consult Acknowledgment - Thank you for your consult request.
[2018-01-17 22:54] VITALS: BP 142/80
[2018-01-18 07:06] VITALS: BP 110/70
--- NOTE | 2018-01-18 07:47 | PN-Observation ---
Nazanin SEGAL,[facility] 01/18/18 0747: Observation Note Observation Note _ I have personally examined RASHAWN WELLINGTON. him disposition is uncertain at this time. Before a determination can be made, he requires continued observation for the following reasons [CHF EXACERBATION]. Assessment/Plan Medical Assessment: Mr Moreno is a 77 year old man w/ a PMHx of COPD, CHF (EF 25-30%) status post pacemaker, AICD, coronary artery disease status post multiple PCI's, CVA with residual right-sided deficits, Rt eye blindness, paroxysmal atrial fibrillation, bipolar disorder, type 2 diabetes (insulin-dependent), hypertension, Parkinson's disease was brought in with a chief concern of acute onset of shortness of breath. Problem List; 1. CHF Exacerbation 2. Hx of COPD 3. Chronic medical conditions. - Will admit the patient to telemetry floor as the patient is still requiring 4 L of oxygen and is on IV Lasix 40 mg twice a day for CHF exacerbation. - Continue IV Lasix 40 mg twice a day. - Negative fluid balance of 805 yesterday. - Continue to monitor daily weights. - Cardiology consult awaiting recommendations. - Continue Supplemental oxygen as needed to keep O2 above 92%, try to wean down. - Continue to monitor off antibiotics and steroids. - TRC nebs. - Continue NovoLog sliding scale. - Continue rest of the home medications including Entresto. DVT prophylaxis; Xarelto Patient is DNR/DNI Problem List: 1. CHF exacerbation 2. COPD (chronic obstructive pulmonary disease) Qualifiers COPD type: unspecified COPD Qualified Code: J44.9 - Chronic obstructive pulmonary disease, unspecified Subjective Follow-up For: Systolic CHF Exacerbation Tele-Events Since Last Visit: Sinus pacing Heart rate 79-81 Subjective: Patient still complaining of SOB and requiring supplemental Oxygen, has not been able to ambulate much. Deneis any Chest pain, palpitations or lower extremity edema. Review of Systems Constitutional: Reports: no symptoms. Cardiovascular: Reports: orthopena. Denies: chest pain, peripheral edema. Respiratory: Reports: cough, short of breath. Gastrointestinal: Reports: no symptoms. Genitourinary: Reports: no symptoms. Objective Last 24 Hrs of Vital Signs/I&O Vital Signs Date Time Temp Pulse Resp B/P B/P Pulse O2 O2 Flow FiO2 Mean Ox Delivery Rate 01/18 1038 94 Nasal 3.5L Cannula 01/18 0954 98.9 79 20 110/70 01/18 0954 98.9 79 20 110/70 01/18 0800 95 Nasal 4.0L Cannula 01/18 0706 98.9 79 20 110/70 95 Nasal 4.0L Cannula 01/18 0000 Nasal 4.0L Cannula 01/17 2254 99.3 80 22 142/80 93 Room Air 01/17 2015 93 Nasal 3.5L Cannula 01/17 1840 81 148/82 01/17 1749 98.9 80 22 132/70 94 Nasal 4.0L Cannula 01/17 1605 95 Nasal 4.0L Cannula 01/17 1605 99.0 80 22 134/76 95 Nasal 4.0L Cannula 01/17 1559 99.0 80 22 134/76 95 Nasal 4.0L Cannula 01/17 1350 99.3 84 22 119/65 93 Nasal 4.0L Cannula Intake & Output 01/18 1600 01/18 0800 01/18 0000 Intake Total 120 360 Output Total 275 Balance -155 360 Intake, Oral 120 360 Output, Urine 275 Patient 165 lb Weight Weight Bed scale Measurement Method Physical Exam General Appearance: Alert, Oriented X3, Cooperative Skin: No Rashes, No Breakdown Cardiovascular: Normal S1, Normal S2 Lungs: decreased breath sounds on bialteral lung bases Abdomen: Normal Bowel Sounds, Soft, No Tenderness Extremities: No Clubbing, No Cyanosis, No Edema Current Medications: Current Medications Sig/Hamida Start time Last Medication Dose Route Stop Time Status Admin Albuterol Sulfate 3 ML BID 01/17 1000 AC 01/18 INH 1035 Amiodarone HCl 100 MG DAILY 01/17 1000 AC 01/18 PO 0954 Atorvastatin Calcium 20 MG 1700 01/17 1700 AC 01/17 PO 1640 Budesonide/ 2 PUF BID 01/17 1000 AC 01/18 Formoterol Fumarate INH 0955 Digoxin 0.125 MG DAILY 01/17 1000 AC 01/18 PO 0954 Furosemide 0 .STK-MED ONE 01/17 1643 DC IV Furosemide 40 MG 7:30 AM, & 4:30 PM 01/17 0730 AC 01/18 IV 0833 Glycerin/Mineral Oil 1 JORDYN TIDPRN PRN 01/18 1030 AC TOP Guaifenesin 600 MG Q12 01/17 1000 AC 01/18 PO 0954 Insulin Aspart 0 TIDAC 01/17 0800 AC 01/18 SC 0958 Latanoprost 1 GTT QPM 01/17 2200 AC 01/17 OPH 2135 Levothyroxine Sodium 0.1 MG DAILY AC 01/17 0700 AC 01/18 PO 0644 Mirtazapine 15 MG DAILY 01/17 1000 AC 01/18 PO 0954 Non-Formulary 0 SEE ADMIN CRITERIA 01/18 930 UNVr Medication ANY Rivaroxaban 15 MG 01/17 1900 DC PO Rivaroxaban 20 MG 1900 01/17 1900 AC 01/17 PO 1902 Venlafaxine HCl 150 MG 0800 01/17 0800 AC 01/18 PO 0833 Last 24 Hrs of Labs/Mics: Laboratory Tests 01/18/18 0626: Anion Gap 11, Estimated GFR > 60, BUN/Creatinine Ratio 21.1 Ana Maria SEGAL[facility] 01/18/18 1418: Observation Note Observation Note _ I have personally examined ELIZRASHAWN Lugo. him disposition is uncertain at this time. Before a determination can be made, he requires continued observation for the following reasons []. Patient seen and examined. Lying in bed. Complains of shortness of breath and mild cough. Denies chest pain. Denies palpitations. No events on nuclear monitoring technician overnight. On examination he is not in respiratory distress, he has diminished breath sounds in the bases bilaterally. Abdomen soft and nontender. He has no jugular venous distention. He has no edema bilaterally. He had negative balance of about 800 cc yesterday. Recommendations: -Continue diuresis with Lasix IV. -Mobilize patient as tolerated. Wean off oxygen supplementation as tolerated. -Resume patient's Entresto. Monitor blood pressure closely.
[2018-01-18 15:13] VITALS: BP 110/60
--- NOTE | 2018-01-18 19:58 | PN- Cardiology ---
Subjective Subjective: Breathing better today. Objective Vital Signs and I&Os Vital Signs Date Time Temp Pulse Resp B/P B/P Pulse O2 O2 Flow FiO2 Mean Ox Delivery Rate 01/18 1600 95 Nasal 3.0L Cannula 01/18 1539 96 Nasal 4.0L Cannula 01/18 1513 98.0 80 20 110/60 93 Nasal 4.0L Cannula 01/18 1038 94 Nasal 3.5L Cannula 01/18 0954 98.9 79 20 110/70 01/18 0954 98.9 79 20 110/70 01/18 0800 95 Nasal 4.0L Cannula 01/18 0706 98.9 79 20 110/70 95 Nasal 4.0L Cannula 01/18 0000 Nasal 4.0L Cannula 01/17 2254 99.3 80 22 142/80 93 Room Air 01/17 2015 93 Nasal 3.5L Cannula Intake & Output 01/18 1600 01/18 0800 01/18 0000 01/17 1600 01/17 0800 01/17 0000 Intake Total 500 120 360 160 0 Output Total 059 582 8320 225 0 Balance 300 -155 360 -940 -225 0 Intake, Oral 500 120 360 160 0 Output, Urine 207 660 8434 225 0 Patient 165 lb 165 lb 165 lb 165 lb Weight Weight Reported by Patient Bed scale Measurement Method Physical Exam: Well-developed, well-nourished elderly male in no acute distress with nasal oxygen in place. Vital signs: See above. Neck: No JVD, no bruits. Lungs: Few crackles at the bases. Heart: S1, S2. Abdomen: Soft, nontender, positive bowel sounds. Extremities: No edema. Assessment/Plan Assessment/Plan [id number] w/ hx long-standing former tobacco use, COPD, chronic anemia, recurrent GI bleeding w/o definite etiology found, HLD, DM, hypothyroidism, previous TIAs/strokes, seizure disorder, previous syncope, ch AF on AC, VT on antiarrhythmic Rx (amiodarone), s/p BiV pacemaker defibrillator, CAD s/p PCIs w/ angioplasty, s/p MIs w/ severe ischemic cardiomyopathy (EF ~25-30%) w/ recurrent acute on chronic systolic HF (HFrEF) who presented to the ED with worsening shortness of breath and physical/radiographic findings of recurrent HFrEF. Recommendations: * Continue on telemetry. * Follow-up on echocardiogram. * Continue IV diuresis. * Repeat CXR in a.m. * DVT prophylaxis. Continue telemetry? Yes
[2018-01-18 22:30] VITALS: BP 108/60
[2018-01-19 06:52] VITALS: BP 110/60
--- NOTE | 2018-01-19 07:29 | PN- Housestaff ---
See Addendum Tenisha Huang 01/19/18 0728: Subjective Follow-up For: CHF exacerbation Tele-Events Since Last Visit: S-Pacing 80s Subjective: No overnight event. Patient felt did not sleep well but unknow of why. Patient was still coughing and denied any change in intensity/improvement. Offered no other complaint. Was eating breakfast when I entered. Review of Systems Constitutional: Reports: see HPI. Objective Last 24 Hrs of Vital Signs/I&O Vital Signs Date Time Temp Pulse Resp B/P B/P Pulse O2 O2 Flow FiO2 Mean Ox Delivery Rate 01/19 0652 97.6 81 20 110/60 96 Nasal 2.0L Cannula 01/19 0000 Nasal 2.0L Cannula 01/18 2230 98.5 82 20 108/60 95 Nasal Cannula 01/18 2120 96 Nasal 3.0L Cannula 01/18 1600 95 Nasal 3.0L Cannula 01/18 1539 96 Nasal 4.0L Cannula 01/18 1513 98.0 80 20 110/60 93 Nasal 4.0L Cannula 01/18 1038 94 Nasal 3.5L Cannula 01/18 0954 98.9 79 20 110/70 01/18 0954 98.9 79 20 110/70 01/18 0800 95 Nasal 4.0L Cannula Intake & Output 01/19 0800 01/19 0000 01/18 1600 Intake Total 120 320 500 Output Total 350 250 200 Balance -230 70 300 Intake, Oral 120 320 500 Output, Urine 350 250 200 Patient 76.402 kg 74.843 kg Weight Weight Bed scale Reported by Patient Measurement Method Physical Exam General Appearance: Alert, Oriented X3, Cooperative, No Acute Distress Cardiovascular: Regular Rate, Pacing Lungs: Normal Air Movement, No wheezing, however decreased breath sound from back auscultation. Abdomen: Soft, No Tenderness Neurological: some degree of difficulty talking from hx of CVA Extremities: No Edema, Normal Pulses Current Medications: Current Medications Sig/Hamida Start time Last Medication Dose Route Stop Time Status Admin Albuterol Sulfate 3 ML BID 01/17 1000 AC 01/18 INH 2120 Amiodarone HCl 100 MG DAILY 01/17 1000 AC 01/18 PO 0954 Atorvastatin Calcium 20 MG 1700 01/17 1700 AC 01/18 PO 1607 Budesonide/ 2 PUF BID 01/17 1000 AC 01/18 Formoterol Fumarate INH 2108 Digoxin 0.125 MG DAILY 01/17 1000 AC 01/18 PO 0954 Furosemide 40 MG 7:30 AM, & 4:30 PM 01/17 0730 AC 01/18 IV 1607 Glycerin/Mineral Oil 1 JORDYN TIDPRN PRN 01/18 1030 AC TOP Guaifenesin 600 MG Q12 01/17 1000 AC 01/18 PO 210 Insulin Aspart 0 TIDAC 01/17 0800 AC 01/18 SC 1709 Latanoprost 1 GTT QPM 01/17 2200 AC 01/18 OPH 210 Levothyroxine Sodium 0.1 MG DAILY AC 01/17 0700 AC 01/19 PO 06 Mirtazapine 15 MG DAILY 01/17 1000 AC 01/18 PO 0954 Rivaroxaban 20 MG 1900 01/17 1900 AC 01/18 PO 2021 Sacubitril/Valsartan 1 TAB DAILY 01/19 1000 AC PO Venlafaxine HCl 150 MG 0800 01/17 0800 AC 01/18 PO 0833 Assessment/Plan Assessment: Mr Watkins is a 77 year old man w/ a PMHx of COPD, CHF (EF 25-30%) status post pacemaker, AICD, coronary artery disease status post multiple PCI's, CVA with residual right-sided deficits, Rt eye blindness, paroxysmal atrial fibrillation, bipolar disorder, type 2 diabetes (insulin-dependent), hypertension, Parkinson's disease was brought in with a chief concern of acute onset of shortness of breath. Problem List; 1. CHF Exacerbation 2. COPD Exacerbation 3. chronic medical conditions. - Continue IV Lasix 40 mg twice daily for today, pending switch to PO tomorrow. - Fluid balace of -230cc over last 24hrs. - Continue to monitor daily weights. - Echocardiogram On 12/23 showed moderate to severely reduced global hypokinesis showed moderate to severely reduced global left ventricle systolic function and ejection fraction of 25-30%. - Cardiology consult appreciated. Entresto resume at 97/103mg qd PO. - Repeated CXR 01/19 showed Opacities in the bilateral lower lungs with obscuration of diaphragmatic border can represent bilateral pleural effusions with associated pulmonary atelectasis. There has been mild interval progression of the opacities at the right lung base as compared to 01/16/2018 x-ray. - Supplemental oxygen currently 3.5LNC as needed to keep O2 above 92%. Will ask patient regarding home oxygen use to assess - Continue to monitor off antibiotics and steroids. - Flu swab negative. - TRC nebs PRN - Hold oral hypoglycemic agents and start the patient on NovoLog sliding scale. - Digoxin level is 1.1, will continue digoxin 0.125mg qd po. - Continue rest of the home medications DVT prophylaxis; Xarelto CHF diet Patient is DNR/DNI Problem List: 1. CHF exacerbation Pain Ratin Pain Location: NA Pain Goal: Remain pain free Pain Plan: see AP Tomorrow's Labs & Rationales: ANTHONY Rodgers MD,John Paulkaronaron 01/19/18 1039: Attending MD Review Statement Attending Statement Attending MD Statement: examined this patient, discuss w/resident/PA/TEXTILE SUPERVISOR, agreed w/resident/PA/TEXTILE SUPERVISOR, reviewed EMR data (avail), discussed with nursing, discussed with case mgmt, amended to note Attending Assessment/Plan: Patient seen and examined. He was changed from observation to inpatient level of care yesterday due to continued need for IV diuresis and oxygen supplementation for his acute hypoxic respiratory failure secondary to acute on chronic systolic heart failure. He is resting comfortably not in any acute distress. No issues overnight. No events on telemetry monitoring overnight. No new complaints this morning. Reports some shortness of breath with exertion. Denies chest pain. Reports mild cough. He is afebrile. Hemodynamically stable. He is saturating 94% on 3.5 L of oxygen. On examination he has no jugular venous distention. He has adequate entry bilaterally with no added sounds. He has no peripheral edema. Input output shows positive fluid balance yesterday. He also had weight gain yesterday compared to presentation. Recommendations: -Continue diuresis with Lasix 40 mg IV twice daily today. If patient does not have adequate diuresis and weight loss overnight will consider increasing dose of Lasix. -Mobilize patient. -Continue oxygen supplementation for his acute hypoxic respiratory failure secondary to acute on chronic systolic heart failure. -Patient has a pacemaker/AICD in place. He has had no events overnight on telemetry monitoring. Recommend follow-up with cardiology service regarding interrogation of his headache device. Currently no indication for continued telemetry monitoring given the presence of his cardiac device.
--- NOTE | 2018-01-19 07:52 | ECHOCARDIOGRAM REPORT ---
RASHAWN WELLINGTON Age: 77 : 1940 Gender: M Exam Date: 01/18/2018 08:35 Exam Location: 1 [address] Ht (in): 70 Wt (lb): 165 BSA: 1.93 BP: 110 / 70 Ordering Physician: Reji Pedroza MD Referring Physician: Reji Pedroza MD Technologist: Maximo Alvarado [facility] Room Number: 176-1 Indications: HEART FAILURE Rhythm: paced Technical Quality: good with contrast FINDINGS Left Ventricle Moderately dilated left ventricle with normal wall thickness. Normal systolic function with inferior akinesis superimposed on global hypokinesis. The ejection fraction is visually estimated at 20%. Right Ventricle The right ventricle is normal in size and function. A pacemaker lead is noted in the right cardiac chambers. Right Atrium The right atrium is mildly enlarged. Left Atrium The left atrium is markedly enlarged. The interatrial septum is intact. Mitral Valve The mitral valve is normal in structure and function. There is mild mitral regurgitation. Aortic Valve Structurally normal aortic valve without significant sclerosis or stenosis. There is no aortic regurgitation. Tricuspid Valve The tricuspid valve is normal in structure and function. There is mild tricuspid regurgitation. Pulmonary artery systolic pressure is mildly elevated to 40mmHg. Pulmonic Valve Structurally normal pulmonic valve. There is no pulmonic regurgitation. Pericardium Normal pericardium without effusion. Large pleural effusion. Great Vessels Normal aortic root dimension. The aortic arch and great vessels are well seen and are normal. CONCLUSIONS 1. Moderately dilated left ventricle. 2. Severely decreased EF of 20% with akinesis of the inferior wall and severe hypokinesis of the remaining LV. 3. Markedly dilated left atrium. 4. Pacemaker lead noted in the right cardiac chambers. 5. Mild mitral regurgitation. 6. Mild tricuspid regurgitation. 7. Mild pulmonary hypertension. 8. Large pleural effusion. Pradeep Arriaga M.D. (Electronically Signed) Final Date: 19 January 2018 07:52 MEASUREMENTS (Male / Female) Normal Values 2D ECHO LV Diastolic Diameter PLAX 6.8 cm 4.2 - 5.9 / 3.9 - 5.3 cm LV Systolic Diameter PLAX 6.6 cm 2.1 - 4.0 cm IVS Diastolic Thickness 1.0 cm LVPW Diastolic Thickness 1.2 cm LV Relative Wall Thickness 0.3 RV Internal Dim ED PLAX 3.7 cm 1.9 - 3.8 cm LVOT Diameter 2.1 cm Aortic Root Diameter 3.6 cm LA Systolic Diameter LX 5.5 cm 3.0 - 4.0 / 2.7 - 3.8 cm LV Ejection Fraction MOD BP 25.2 % >= 55 % LV Diastolic Length 4C 7.0 cm 6.9 - 10.3 cm LV Diastolic Area 4C 33.8 cm LV Diastolic Volume MOD 4C 130.0 cm LV Ejection Fraction MOD 4C 40.0 % LV Stroke Volume MOD 4C 52.0 cm LV Systolic Length 4C 6.0 cm LV Systolic Area 4C 23.6 cm LV Systolic Volume MOD 4C 78.0 cm LV Ejection Fraction MOD 2C 18.2 % LV Diastolic Volume 4C AL 138.7 cm 85 - 139 / 69 - 109 cm LV Systolic Volume 4C AL 79.2 cm LV Ejection Fraction 4C AL 42.9 % LV Stroke Volume 4C AL 59.6 cm LV Ejection Fraction 2C AL 15.0 % LA Volume 201.0 cm 18 - 58 / 22 - 52 cm DOPPLER MV Peak Velocity 124.0 cm/s MV Peak Gradient 6.2 mmHg MV Mean Velocity 56.1 cm/s MV Mean Gradient 2.0 mmHg Mitral E Point Velocity 94.3 cm/s MV PHT Velocity 122.0 cm/s MV Deceleration [place] 439.0 cm/s MV Pressure Half Time 83.4 ms MV Area PHT 2.6 cm MV Deceleration Time 201.0 ms MR Peak Velocity 384.0 cm/s MR Peak Gradient 59.0 mmHg TR Peak Velocity 296.0 cm/s TR Peak Gradient 35.0 mmHg Right Atrial Pressure 5.0 mmHg Pulmonary Artery Systolic Pressu 40.0 mmHg Right Ventricular Systolic Press 40.0 mmHg PV Peak Velocity 73.1 cm/s PV Peak Gradient 2.1 mmHg PV Mean Velocity 52.4 cm/s PV Mean Gradient 1.0 mmHg PV Velocity Time Integral 11.2 cm
--- NOTE | 2018-01-19 08:41 | RADIOLOGY REPORT ---
EXAMINATION: XR PORTABLE CHEST CLINICAL INFORMATION: Dyspnea, COPD COMPARISON: 01/16/2018 and multiple prior chest x-rays TECHNIQUE: Portable frontal view of the chest was obtained. FINDINGS: There has been mild interval progression of the opacities at the right lung base as compared to 01/16/2018 x-ray. There are left retrocardiac pulmonary opacities with obscuration of the left diaphragmatic border. Mild enlargement of the cardiac silhouette again noted. There is pulmonary venous congestion. Left pectoral cardiac pacer/AICD is in place, unchanged in position. No pneumothorax. IMPRESSION: Opacities in the bilateral lower lungs with obscuration of diaphragmatic border can represent bilateral pleural effusions with associated pulmonary atelectasis. Superimposed pneumonia is not excluded and clinical correlation is suggested. Pulmonary venous congestion.
--- NOTE | 2018-01-19 14:40 | PN- Cardiology ---
Subjective Subjective: Feels his breathing continues to slowly improve, but points out that he is not near his baseline. Objective Vital Signs and I&Os Vital Signs Date Time Temp Pulse Resp B/P B/P Pulse O2 O2 Flow FiO2 Mean Ox Delivery Rate 01/20 924 94 Nasal 3.5L Cannula 01/19 0923 81 110/60 01/19 0923 97.6 81 20 110/60 01/19 0800 94 Nasal 2.0L Cannula 01/19 0652 97.6 81 20 110/60 96 Nasal 2.0L Cannula 01/19 0000 Nasal 2.0L Cannula 01/18 2230 98.5 82 20 108/60 95 Nasal Cannula 01/18 2120 96 Nasal 3.0L Cannula 01/18 1600 95 Nasal 3.0L Cannula 01/18 1539 96 Nasal 4.0L Cannula 01/18 1513 98.0 80 20 110/60 93 Nasal 4.0L Cannula Intake & Output 01/19 1600 01/19 0800 01/19 0000 01/18 1600 01/18 0800 01/18 0000 Intake Total 120 320 500 120 360 Output Total 350 250 200 275 Balance -230 70 300 -155 360 Intake, Oral 120 320 500 120 360 Output, Urine 350 250 200 275 Patient 168 lb 165 lb 165 lb Weight Weight Bed scale Reported by Patient Bed scale Measurement Method Physical Exam: Well-developed, well-nourished elderly male in no acute distress with nasal oxygen in place. Vital signs: See above. Neck: No JVD, no bruits. Lungs: Few crackles at the bases. Heart: S1, S2. Abdomen: Soft, nontender, positive bowel sounds. Extremities: No edema. Current Medications: Current Medications Sig/Hamida Start time Last Medication Dose Route Stop Time Status Admin Albuterol Sulfate 3 ML BID 01/17 1000 AC 01/19 INH 0858 Amiodarone HCl 100 MG DAILY 01/17 1000 AC 01/19 PO 0923 Atorvastatin Calcium 20 MG 1700 01/17 1700 AC 01/18 PO 1607 Budesonide/ 2 PUF BID 01/17 1000 AC 01/19 Formoterol Fumarate INH 0921 Digoxin 0.125 MG DAILY 01/17 1000 AC 01/19 PO 0923 Furosemide 40 MG 7:30 AM, & 4:30 PM 01/17 0730 AC 01/19 IV 0808 Glycerin/Mineral Oil 1 JORDYN TIDPRN PRN 01/18 1030 AC TOP Guaifenesin 600 MG Q12 01/17 1000 AC 01/19 PO 0923 Insulin Aspart 0 TIDAC 01/17 0800 AC 01/18 SC 1709 Latanoprost 1 GTT QPM 01/17 2200 AC 01/18 OPH 2108 Levothyroxine Sodium 0.1 MG DAILY AC 01/17 0700 AC 01/19 PO 0605 Mirtazapine 15 MG AT BEDTIME 01/19 2200 AC PO Mirtazapine 15 MG DAILY 01/17 1000 DC 01/19 PO 0923 Non-Formulary 0 SEE ADMIN CRITERIA 01/19 815 UNV Medication ANY Rivaroxaban 20 MG 1900 01/17 1900 AC 01/18 PO 202 Sacubitril/Valsartan 1 TAB DAILY 01/19 1000 AC 01/19 PO 0923 Venlafaxine HCl 150 MG 0800 01/17 0800 AC 01/19 PO 0808 Results Last 48 Hrs of Labs/Mics: Laboratory Tests 01/18/18 0626: Anion Gap 11, Estimated GFR > 60, BUN/Creatinine Ratio 21.1 Recent Imaging Studies: Echocardiogram 01/18/2018: 1. Moderately dilated left ventricle. 2. Severely decreased EF of 20% with akinesis of the inferior wall and severe hypokinesis of the remaining LV. 3. Markedly dilated left atrium. 4. Pacemaker lead noted in the right cardiac chambers. 5. Mild mitral regurgitation. 6. Mild tricuspid regurgitation. 7. Mild pulmonary hypertension. 8. Large pleural effusion. Assessment/Plan Assessment/Plan [id number] w/ hx long-standing former tobacco use, COPD, chronic anemia, recurrent GI bleeding w/o definite etiology found, HLD, DM, hypothyroidism, previous TIAs/strokes, seizure disorder, previous syncope, ch AF on AC, VT on antiarrhythmic Rx (amiodarone), s/p BiV pacemaker defibrillator, CAD s/p PCIs w/ angioplasty, s/p MIs w/ severe ischemic cardiomyopathy (EF ~25-30%) w/ recurrent acute on chronic systolic HF (HFrEF) who presented to the ED with worsening shortness of breath and physical/radiographic findings of recurrent HFrEF with worsening of his LV EF to ~20% based on echocardiogram from 2017. Recommendations: * Continue strict inputs/outputs, daily weights with same scale, * Continue present medical regimen, but consider increasing dosage of furosemide for the short-term or adding metolazone 2.5 mg daily 30-60 minutes prior to the furosemide for the next 48 hours. * Replete potassium and follow-up magnesium levels. * Continue DVT prophylaxis. Continue telemetry? No
[2018-01-19 15:20] VITALS: BP 114/60
[2018-01-19 21:57] VITALS: BP 110/70
[2018-01-20 07:06] VITALS: BP 120/80
--- NOTE | 2018-01-20 07:30 | PN- Housestaff ---
Tenisha Huang 01/20/18 0728: Subjective Follow-up For: CHF exacerbation Tele-Events Since Last Visit: S-Pacing 80s Subjective: No overnight event. Patient had a brief episode of off O2 NC overnight while going to bathroom and his O2 sat dropped <87%. He was then put back on 2LNC and satting well since. Patient still cough and could not bring up any phlegm, and denied any change in intensity/improvement. Offered no other complaint. Review of Systems Constitutional: Reports: see HPI. Objective Last 24 Hrs of Vital Signs/I&O Vital Signs Date Time Temp Pulse Resp B/P B/P Pulse O2 O2 Flow FiO2 Mean Ox Delivery Rate 01/20 0706 97.7 80 20 120/80 92 Nasal 2.0L Cannula 01/20 0000 Room Air 01/19 2157 98.0 70 20 110/70 91 01/19 2100 90 Room Air Room Air 01/19 1520 97.8 86 20 114/60 93 01/19 0924 94 Nasal 3.5L Cannula 01/19 0923 81 110/60 01/19 0923 97.6 81 20 110/60 01/19 0800 94 Nasal 2.0L Cannula Intake & Output 01/20 0800 01/20 0000 01/19 1600 Intake Total 120 480 Output Total 550 Balance 120 -70 Intake, Oral 120 480 Output, Urine 550 Patient 76.005 kg Weight Physical Exam General Appearance: Alert, Oriented X3, Cooperative, No Acute Distress Cardiovascular: Regular Rate, Pacemaker in place Lungs: Normal Air Movement, Some rales but no wheezing. Abdomen: Normal Bowel Sounds, Soft, No Tenderness Neurological: Speaking with some difficulties from hx of CVA, however making sense Extremities: No Edema, Normal Pulses Current Medications: Current Medications Sig/Hamida Start time Last Medication Dose Route Stop Time Status Admin Albuterol Sulfate 3 ML BID 01/17 1000 AC 01/19 INH 2051 Amiodarone HCl 100 MG DAILY 01/17 1000 AC 01/19 PO 0923 Atorvastatin Calcium 20 MG 1700 01/17 1700 AC 01/19 PO 1609 Budesonide/ 2 PUF BID 01/17 1000 AC 01/19 Formoterol Fumarate INH 2015 Digoxin 0.125 MG DAILY 01/17 1000 AC 01/19 PO 0923 Fluorouracil 1 JORDYN DAILY 01/19 0815 AC TOP Furosemide 40 MG 7:30 AM, & 4:30 PM 01/17 0730 AC 01/19 IV 1609 Glycerin/Mineral Oil 1 JORDYN TIDPRN PRN 01/18 1030 AC TOP Guaifenesin 600 MG Q12 01/17 1000 AC 01/19 PO 2014 Insulin Aspart 0 TIDAC 01/17 0800 AC 01/18 SC 1709 Latanoprost 1 GTT QPM 01/17 2200 AC 01/19 OPH 2020 Levothyroxine Sodium 0.1 MG DAILY AC 01/17 0700 AC 01/20 PO 0606 Mirtazapine 15 MG AT BEDTIME 01/19 2200 AC 01/19 PO 2014 Mirtazapine 15 MG DAILY 01/17 1000 DC 01/19 PO 0923 Rivaroxaban 20 MG 1900 01/17 1900 AC 01/19 PO 1838 Sacubitril/Valsartan 1 TAB DAILY 01/19 1000 AC 01/19 PO 0923 Venlafaxine HCl 150 MG 0800 01/17 0800 AC 01/19 PO 0808 Last 24 Hrs of Lab/Ayaan Results Last 24 Hrs of Labs/Mics: Laboratory Tests 01/20/18 0627: Sodium Pending, Potassium Pending, Chloride Pending, Carbon Dioxide Pending, Anion Gap Pending, BUN Pending, Creatinine Pending, BUN/Creatinine Ratio Pending , Magnesium Pending 01/19/18 1845: Anion Gap 11, Estimated GFR > 60, BUN/Creatinine Ratio 31.1 H Assessment/Plan Assessment: Mr Watkins is a 77 year old man w/ a PMHx of COPD, CHF (EF 25-30%) status post pacemaker, AICD, coronary artery disease status post multiple PCI's, CVA with residual right-sided deficits, Rt eye blindness, paroxysmal atrial fibrillation, bipolar disorder, type 2 diabetes (insulin-dependent), hypertension, Parkinson's disease was brought in with a chief concern of acute onset of shortness of breath. Problem List; 1. CHF Exacerbation 2. COPD, not on home oxygen 3. chronic medical conditions. - Patient was fully admitted to Telemetry service on 01/18 due to continued need for IV diuresis and oxygen supplementation for his acute hypoxic respiratory failure, currently still on 2LNC, secondary to acute on systolic CHF. - Fluid balace of -180cc over last 24hrs. Not optimal diuresis. Will switch to Lasix 80mg IV BID, and may add Metolazone 2.5mg 30-60 min daily prior Lasix administration if patient's diuresis is not optimal for the next 24 hours. - Continue to monitor daily weights. - Echocardiogram On 12/23 showed moderate to severely reduced global hypokinesis showed moderate to severely reduced global left ventricle systolic function and ejection fraction of 25-30%. - Cardiology consult appreciated. Entresto resume at 97/103mg qd PO. - Repeated CXR 01/19 showed Opacities in the bilateral lower lungs with obscuration of diaphragmatic border can represent bilateral pleural effusions with associated pulmonary atelectasis. There has been mild interval progression of the opacities at the right lung base as compared to 01/16/2018 x-ray. - Supplemental oxygen currently 2LNC as needed to keep O2 above 92%. Patient denied use of home oxygen ever since diagnosed of COPD. - Continue to monitor off antibiotics and steroids. - Flu swab negative. - TRC nebs PRN - Hold oral hypoglycemic agents and start the patient on NovoLog sliding scale. - Digoxin level is 1.1, will continue digoxin 0.125mg qd po. - Continue rest of the home medications DVT prophylaxis; Xarelto CHF diet Patient is DNR/DNI Problem List: 1. CHF exacerbation 2. Presence of combination internal cardiac defibrillator (ICD) and pacemaker Pain Ratin Pain Location: NA Pain Goal: Remain pain free Pain Plan: see AP Tomorrow's Labs & Rationales: BEP for K monitoring Ana Maria SEGAL,Manuela 01/20/18 1153: Attending MD Review Statement Attending Statement Attending MD Statement: examined this patient, discuss w/resident/PA/BUNDLE TIER AND LABELER, agreed w/resident/PA/BUNDLE TIER AND LABELER, reviewed EMR data (avail), discussed with nursing, discussed with case mgmt, amended to note Attending Assessment/Plan: Patient seen and examined. Sitting in the chair. Reports no improvement in his dyspnea overnight. He did not have significant diuresis overnight and no change in his weight was noted last night. On examination he has diminished breath sounds in lower lung bases. He has no peripheral edema on exam. Due to inadequate diuresis we will increase his Lasix dose to 80 mg intravenously twice daily today. If he does not have adequate diuresis overnight we will add metolazone prior to the a.m. dose of Lasix tomorrow. We will continue to monitor his input output, daily weights and renal function closely. Nursing staff has been encouraged to mobilize patient as tolerated.
--- NOTE | 2018-01-20 10:16 | Patient Discharge Instructions ---
Discharge Instructions General Discharge Information Special Instructions: - Please follow up with your software sales consultant within 1-2 weeks of discharge. - Please follow up with your primary care physician within 1-2 weeks of discharge. Inform your primary care physician of this admission to . - Continue your current medications per discharge instructions. - Please watch for these problems: Fever, Chills, Nausea, Vomiting, Shortness of Breath, Productive Cough, Chest Pain/Discomfort, Abdominal Pain, Active Bleeding or Bloody urine/stool. Diet Continue normal diet: Yes Recommended Diet: Heart Healthy Activity Full Activity/No Limits: Yes Activity Self Limited: No Acute Coronary Syndrome Inclusion Criteria At DC or during hospital stay patient has or had the following: ACS DIAGNOSIS No Discharge Core Measures Meds if any: Prescribed or Continued at Discharge Meds if any: NOT Prescribed or Continued at Discharge Congestive Heart Failure Inclusion Criteria At DC or during hospital stay patient has or had the following: CHF DIAGNOSIS Yes Discharge Core Measures Meds if any: Prescribed or Continued at Discharge [place]/ARB for EF <40% Yes Meds if any: NOT Prescribed or Continued at Discharge Cerebrovascular accident Inclusion Criteria At DC or during hospital stay patient has or had the following: CVA/TIA Diagnosis No Discharge Core Measures Meds if any: Prescribed or Continued at Discharge Meds if any: NOT Prescribed or Continued at Discharge Venous thromboembolism Inclusion Criteria VTE Diagnosis No VTE Type NONE VTE Confirmed by (Test) NONE Discharge Core Measures - Per Current guidelines, there needs to be overlap - treatment for the first 5 days of Warfarin therapy. - If discharged on Warfarin prior to 5 days of - overlap therapy, the patient will need to be - assessed for post discharge needs including - *Post discharge parental anticoagulation - *Warfarin and/or parental anticoagulation education - *Follow up date to check INR post discharge At least 5 days overlap therapy as Inpatient No Meds if any: Prescribed or Continued at Discharge Note: Overlap Therapy is Warfarin and Anticoagulant Meds if any: NOT Prescribed or Continued at Discharge
[2018-01-20 14:10] VITALS: BP 114/66
[2018-01-20 22:59] VITALS: BP 126/68
[2018-01-21 06:54] VITALS: BP 120/80
--- NOTE | 2018-01-21 07:45 | PN- Housestaff ---
Tenisha Huang 01/21/18 0744: Subjective Follow-up For: CHF Exacerbation Tele-Events Since Last Visit: Off telemetry Subjective: No overnight event. Patient felt generally improved on breathing and slept well. Had adequate urination after being increased on lasix dose. Breathing comfortably under 1LNC. NO other specific complaint. Review of Systems Constitutional: Reports: see HPI. Objective Last 24 Hrs of Vital Signs/I&O Vital Signs Date Time Temp Pulse Resp B/P B/P Pulse O2 O2 Flow FiO2 Mean Ox Delivery Rate 01/21 09 118/68 01/21 0911 118/68 01/21 0822 95 Nasal 2.0L Cannula 01/21 0654 97.7 82 20 120/80 94 Nasal 2.0L Cannula 01/21 0000 Nasal 2.0L Cannula 01/20 2259 97.5 80 20 126/68 94 01/20 1625 96 Nasal 2.0L Cannula 01/20 1600 94 Nasal 2.0L Cannula 01/20 1410 97.5 79 20 114/66 94 Room Air Intake & Output 01/21 1600 01/21 0800 01/21 0000 Intake Total 120 480 Output Total 1150 650 Balance -1030 -170 Intake, Oral 120 480 Output, Urine 1150 650 Patient 72.376 kg 154.278 kg Weight Weight Bed scale Bed scale Measurement Method Physical Exam General Appearance: Alert, Oriented X3, Cooperative, No Acute Distress Cardiovascular: Regular Rate, Pacing Lungs: Clear to Auscultation, Normal Air Movement, More auscultable breath sounds BL lungs compared to before, Abdomen: Soft, No Tenderness Neurological: Some difficulty on speech from hx of CVA. Extremities: No Cyanosis, No Edema, Normal Pulses Current Medications: Current Medications Sig/Hamida Start time Last Medication Dose Route Stop Time Status Admin Albuterol Sulfate 3 ML BID 01/17 1000 AC 01/21 INH 0821 Amiodarone HCl 100 MG DAILY 01/17 1000 AC 01/21 PO 0912 Atorvastatin Calcium 20 MG 1700 01/17 1700 AC 01/20 PO 1754 Budesonide/ 2 PUF BID 01/17 1000 AC 01/21 Formoterol Fumarate INH 0911 Digoxin 0.125 MG DAILY 01/17 1000 AC 01/21 PO 0911 Fluorouracil 1 JORDYN DAILY 01/19 0815 AC 01/21 TOP 0911 Furosemide 80 MG 7:30 AM, & 4:30 PM 01/20 0915 AC 01/21 IV 0600 Glycerin/Mineral Oil 1 JORDYN TIDPRN PRN 01/18 1030 AC TOP Guaifenesin 600 MG Q12 01/17 1000 AC 01/21 PO 0911 Insulin Aspart 0 TIDAC 01/17 0800 AC 01/18 SC 1709 Latanoprost 1 GTT QPM 01/17 2200 AC 01/20 OPH 2030 Levothyroxine Sodium 0.1 MG DAILY AC 01/17 0700 AC 01/21 PO 0600 Mirtazapine 15 MG AT BEDTIME 01/19 2200 AC 01/20 PO 202 Patient Medication 1 ED ONE ONE 01/20 1630 DC Teaching ED 01/20 1631 Rivaroxaban 20 MG 1900 01/17 1900 AC 01/20 PO 195 Sacubitril/Valsartan 1 TAB DAILY 01/19 1000 AC 01/21 PO 0911 Venlafaxine HCl 150 MG 0800 01/17 0800 AC 01/21 PO 0912 Last 24 Hrs of Lab/Ayaan Results Last 24 Hrs of Labs/Mics: Laboratory Tests 01/21/18 0650: Anion Gap 13, Estimated GFR > 60, BUN/Creatinine Ratio 25.6 H Assessment/Plan Assessment: Mr Watkins is a 77 year old man w/ a PMHx of COPD, CHF (EF 25-30%) status post pacemaker, AICD, coronary artery disease status post multiple PCI's, CVA with residual right-sided deficits, Rt eye blindness, paroxysmal atrial fibrillation, bipolar disorder, type 2 diabetes (insulin-dependent), hypertension, Parkinson's disease was brought in with a chief concern of acute onset of shortness of breath. Problem List; 1. CHF Exacerbation 2. COPD, not on home oxygen 3. chronic medical conditions. - Patient was fully admitted to Telemetry service on 01/18 due to continued need for IV diuresis and oxygen supplementation for his acute hypoxic respiratory failure, currently still on 2LNC, secondary to acute on systolic CHF. - Fluid balace of -650cc over last 24hrs after lasix 80mg bid, with subjective improvement overall. Will continue at this dose for today and if stable, will discharge tomorrow. - Ambulate with oximetry to assess home oxygen need. Patient at baseline does not require home oxygen. - Continue to monitor daily weights. - Echocardiogram On 12/23 showed moderate to severely reduced global hypokinesis showed moderate to severely reduced global left ventricle systolic function and ejection fraction of 25-30%. - Cardiology consult appreciated. Entresto resume at 97/103mg qd PO. - Repeated CXR 01/19 showed Opacities in the bilateral lower lungs with obscuration of diaphragmatic border can represent bilateral pleural effusions with associated pulmonary atelectasis. There has been mild interval progression of the opacities at the right lung base as compared to 01/16/2018 x-ray. - Supplemental oxygen currently 1LNC as needed to keep O2 above 92%. Patient denied use of home oxygen ever since diagnosed of COPD. - Continue to monitor off antibiotics and steroids. - Flu swab negative. - TRC nebs PRN - Hold oral hypoglycemic agents and start the patient on NovoLog sliding scale. - Digoxin level is 1.1, will continue digoxin 0.125mg qd po. - Continue rest of the home medications DVT prophylaxis; Xarelto CHF diet Patient is DNR/DNI Problem List: 1. CHF (congestive heart failure) Pain Ratin Pain Location: N/A Pain Goal: Remain pain free Pain Plan: see AP Tomorrow's Labs & Rationales: JENNIFER Rodgers MD,Manuela 01/21/18 1232: Attending MD Review Statement Attending Statement Attending MD Statement: examined this patient, discuss w/resident/PA/CHILD ADOLESCENT PSYCHIATRIST, agreed w/resident/PA/CHILD ADOLESCENT PSYCHIATRIST, reviewed EMR data (avail), discussed with nursing, discussed with case mgmt, amended to note Attending Assessment/Plan: Patient seen and examined. Resting comfortably not in any acute distress. He reports feeling much better today. He reports that his shortness of breath has improved. His weight is trending down. Oxygen requirement is improving. On examination and she appears improved today compared to yesterday. He has no peripheral edema. Recommendations: -Continue current dose of Lasix 80 mg IV twice daily today. -If he continues to improve clinically he may be discharged tomorrow on Lasix 40 mg orally twice daily. He was previously on Lasix 40 daily with 20 mg additionally every other day. -He will need short-term rehabilitation due to his deconditioning.
[2018-01-21 13:23] VITALS: BP 141/79
[2018-01-21] MEDS ORDERED: LASIX40 M1 PO (13:51)
--- NOTE | 2018-01-21 14:00 | Discharge Summary ---
Visit Information Visit Dates Admission Date: 01/18/18 Discharge Date: 01/22/18 Hospital Course Course Attending Physician: Manuela Rodgers MD Primary Care Physician: Shey SEGAL,Fredis Yun Hospital Course: Mr Watkins is a 77 year old man w/ a PMHx of COPD, CHF (EF 25-30%) status post pacemaker, AICD, coronary artery disease status post multiple PCI's, CVA with residual right-sided deficits, Rt eye blindness, paroxysmal atrial fibrillation, bipolar disorder, type 2 diabetes (insulin-dependent), hypertension, Parkinson's disease was brought in with a chief concern of acute onset of shortness of breath. Patient's acute onset of dyspnea for 4-5 days ago, associated with nonproductive cough. his dyspnea on exertion which progressed to dyspnea at rest. He also had diaphoresis hours prior admission. Patient denied chest pain, wheezing, pedal edema. He reported increased weight gain in the last few weeks; goes to CHF clinic every week and reported increased lasix administration recently. Smoker 50 pk/year smoking history, quit a few yrs ago. Vitals at presentation temperature 98.5, pulse rate 84, respirations 24, blood pressure 142/79, 94% 4LNC. Physical exam General Exam: AAOx3, No acute distress. Skin: No rashes, no breakdown. HEENT: PERRLA, EOMI. Neck: Supple, No JVD No cervical lymphadenopathy CVS: Reg Rate, Normal S1,S2 Resp: decreased air entry, ronchi ant chest. Abdomen: Soft, No tenderness, Normal Bowel Sounds. Neuro: dysarthria ( chronic ), Strength 4/5 RUE, RLE ( old deficits) and 5/5 in other extremities, Sensation intact, CN III-XII NL, Reflexes 2+. Extremities: No cyanosis, pedal edema 2+ Pertinent lab findings- WBC 7.9 w/ granulocytosis. Last ECHO January 2018- Moderate to severe left ventricular dilatation. Mild concentric left ventricular hypertrophy. Moderately to severely reduced global left ventricular systolic function. Moderately to severely abnormal left ventricular EF estimated at 25- 30%. Mild right ventricular dilatation. Moderate right atrial dilatation. Catheter/pacemaker wire in the right heart. Mild to moderate mitral regurgitation. Trace tricuspid/Pulmonic regurgitation. Unable to estimate the right ventricular systolic pressure. Dilated inferior vena cava. CXR- Worsening moderate interstitial pulmonary edema and small bilateral pleural effusions with adjacent airspace opacities. Stable cardiomegaly. Problem List 1. Acute on chronic systolic heart failure Exacerbation Patient was first placed in observation and then was fully admitted to Telemetry service on 01/18 due to continued need for IV diuresis and oxygen supplementation for his acute hypoxic respiratory failure. Patient was started on IV lasix 40mg twice daily and later increased the dose to 80mg twice daily for optimal diuresis. Patient felt improved overall at this dose and was subsequently discharged on Lasix 40mg twice daily. He desturated to 89% on RA and quickly reverted to 93% while ambulating but do not meet the criteria for home oxygen. ECHO during this admission did show an EF of 20% 2. COPD, not on home oxygen Patient was not on home oxygen for COPD. Patient's symptoms and imagings aligned more of CHF exacerbation with pulmonary vascular congestion. Patient was given supplemental oxygen and TRC/Nebulizer for supportive treatment , without use of steroids. chronic medical conditions including status post pacemaker, AICD, coronary artery disease status post multiple PCI's, CVA with residual right-sided deficits, Rt eye blindness, paroxysmal atrial fibrillation, bipolar disorder, type 2 diabetes (insulin-dependent), hypertension, Parkinson's disease. Patient was continued on home meds except oral hypoglycemics and adjusted on lasix dose. DVT prophylaxis; Xarelto CHF diet DNR/DNI Complications: NONE Allergies: Coded Allergies: NO KNOWN ALLERGIES (NO) (02/22/15) Significant Procedures: CXR on presentation IMPRESSION: - Worsening moderate interstitial pulmonary edema and small bilateral pleural effusions with adjacent airspace opacities. - Stable cardiomegaly. ECHO on 01/18/18 CONCLUSIONS 1. Moderately dilated left ventricle. 2. Severely decreased EF of 20% with akinesis of the inferior wall and severe hypokinesis of the remaining LV. 3. Markedly dilated left atrium. 4. Pacemaker lead noted in the right cardiac chambers. 5. Mild mitral regurgitation. 6. Mild tricuspid regurgitation. 7. Mild pulmonary hypertension. 8. Large pleural effusion. CXR on 01/18/18 IMPRESSION: Opacities in the bilateral lower lungs with obscuration of diaphragmatic border can represent bilateral pleural effusions with associated pulmonary atelectasis. Superimposed pneumonia is not excluded and clinical correlation is suggested. Pulmonary venous congestion. Pertinent Lab Results: SERVICE DATE: 01/16/18 EXAM TYPE: RAD - XRY-PORTABLE CHEST XRAY IMPRESSION: - Worsening moderate interstitial pulmonary edema and small bilateral pleural effusions with adjacent airspace opacities. - Stable cardiomegaly. SERVICE DATE: 01/18/18- EXAM TYPE: CARD - ECHO (COMPLETE) W/CONTRAST CONCLUSIONS 1. Moderately dilated left ventricle. 2. Severely decreased EF of 20% with akinesis of the inferior wall and severe hypokinesis of the remaining LV. 3. Markedly dilated left atrium. 4. Pacemaker lead noted in the right cardiac chambers. 5. Mild mitral regurgitation. 6. Mild tricuspid regurgitation. 7. Mild pulmonary hypertension. 8. Large pleural effusion. SERVICE DATE: 01/19/18-799 EXAM TYPE: RAD - XRY-PORTABLE CHEST XRAY IMPRESSION: Opacities in the bilateral lower lungs with obscuration of diaphragmatic border can represent bilateral pleural effusions with associated pulmonary atelectasis. Superimposed pneumonia is not excluded and clinical correlation is suggested. Pulmonary venous congestion. 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 Paroxysmal atrial fibrillation bipolar disorder type 2 diabetes (insulin-dependent) Hypertension Parkinson's disease Discharge Disposition: SNF Discharge Instructions General Discharge Information Code Status: Do Not Resucitate/Intubat Patient's Diet: heart healthy/CHF diet Patient's Activity: As tolerated Follow-Up Instructions/Appts: Please follow up with your PCP as outpatient Please follow up with as outpatient Please follow up with your [facility] as outpatient Medications at Discharge Discharge Medications: Stop taking the following medications: Furosemide (Lasix) 40 MG TABLET ORAL DAILY Qty = 60 Furosemide (Furosemide) 20 MG TABLET ORAL THURSDAY, THURSDAY AND THURSDAY Qty = 30 Continue taking these medications: Digoxin (Digoxin) 125 MCG TABLET 1 Tablet ORAL DAILY Comments: LAST GIVEN 01/22/18 @ 1000 Venlafaxine HCl (Effexor XR) 150 MG CAP.ER.24H 1 Capsule ORAL DAILY Comments: LAST GIVEN 01/23/18 @ 1000 Atorvastatin Calcium (Lipitor) 20 MG TABLET 1 Tablet ORAL DAILY Comments: LAST GIVEN 01/22/18 @ 1000 Rivaroxaban (Xarelto) 20 MG TABLET 1 Tablet ORAL Every night Instructions: with food Comments: Last Taken: 2/18/18 Time: 9:30 PM Metformin HCl (Metformin HCl) 500 MG TABLET 1 Tablet ORAL DAILY Comments: NOT GIVEN IN THE HOSPITAL Ferrous Sulfate (Ferrous Sulfate) 325 MG (65 MG IRON) TABLET 1 Tablet ORAL THREE TIMES DAILY Comments: LAST GIVEN 01/23/18 @ 1000 Melatonin (Melatonin) 5 MG CAPSULE 1 Capsule ORAL Every night Comments: Last Taken: 12/27/17 Time: 9:30 PM Levothyroxine Sodium (Levothyroxine Sodium) 100 MCG TABLET 1 Tablet ORAL DAILY BEFORE BREAKFAST Comments: LAST GIVEN 01/23/18 @ 0600 Amiodarone HCl (Amiodarone HCl) 100 MG TABLET 1 Tablet ORAL DAILY Comments: LAST GIVEN 01/22/18 @ 1000 Mirtazapine (Mirtazapine) 15 MG TABLET 1 Half Tablet ORAL DAILY Comments: LAST GIVEN 01/21/18 @ 2200 Latanoprost (Xalatan) 2.5 ML DROPS 1 Drop In the eye Every night Comments: Last Taken: 12/27/17 Time: 9:30 PM Fluticasone/Salmeterol (Advair 250-50 Diskus) 1 EACH BLST.W.DEV 1 Puff Inhale through mouth as needed for COPD Comments: Last Taken: 12/28/17 Time: 10 AM SYMBICORT GIVEN IN HOSPITAL Sacubitril/Valsartan (Entresto 97 MG-103 MG Tablet) 97 MG-103 MG TABLET 1 Tablet ORAL TWICE DAILY Qty = 170 Comments: Last Taken: 12/28/17 Time: 10 AM Albuterol Sulfate (Albuterol Sulfate) 2.5 MG/3 ML (0.083 %) VIAL.NEB 3 Milliliters Inhale through mouth TWICE DAILY Qty = 1 Instructions: Take three times a day as needed... Start taking the following new medications: Furosemide (Lasix) 40 MG TABLET 1 Tablet ORAL TWICE DAILY Qty = 60 No Refills Instructions: . Comments: NOT GIVEN IN HOSPITAL Copies To: Ana SEGAL,Ulysses Young; Shey SEGAL,Fredis Yun Attending MD Review Statement Documenting Attending: Hayden SEGAL,Sophia
--- NOTE | 2018-01-21 14:04 | Discharge Summary ---
Visit Information Visit Dates Admission Date: 01/18/18 Hospital Course Course Attending Physician: Manuela Rodgers MD Primary Care Physician: Fredis Kat MD Allergies: Coded Allergies: NO KNOWN ALLERGIES (NO) (02/22/15) Disposition Summary Disposition Principal Diagnosis: Acute exacerbation of CHF Additional Diagnosis: COPD exacerbation Discharge Disposition: SNF Discharge Instructions General Discharge Information Code Status: Do Not Resucitate/Intubat Medications at Discharge Discharge Medications: Stop taking the following medications: Furosemide (Lasix) 40 MG TABLET ORAL DAILY Qty = 60 Furosemide (Furosemide) 20 MG TABLET ORAL THURSDAY, THURSDAY AND THURSDAY Qty = 30 Continue taking these medications: Digoxin (Digoxin) 125 MCG TABLET 1 Tablet ORAL DAILY Comments: Last Taken: 12/28/17 Time: 1000 Venlafaxine HCl (Effexor XR) 150 MG CAP.ER.24H 1 Capsule ORAL DAILY Comments: Last Taken: 12/28/17 Time: 10 AM Atorvastatin Calcium (Lipitor) 20 MG TABLET 1 Tablet ORAL DAILY Comments: Last Taken: 12/27/17 Time: 17 AM Rivaroxaban (Xarelto) 20 MG TABLET 1 Tablet ORAL Every night Instructions: with food Comments: Last Taken: 12/27/17 Time: 9:30 PM Metformin HCl (Metformin HCl) 500 MG TABLET 1 Tablet ORAL DAILY Comments: NOT GIVEN IN THE HOSPITAL Ferrous Sulfate (Ferrous Sulfate) 325 MG (65 MG IRON) TABLET 1 Tablet ORAL THREE TIMES DAILY Comments: Last Taken: 03/31/17 Time: 10 AM Melatonin (Melatonin) 5 MG CAPSULE 1 Capsule ORAL Every night Comments: Last Taken: 12/27/17 Time: 9:30 PM Levothyroxine Sodium (Levothyroxine Sodium) 100 MCG TABLET 1 Tablet ORAL DAILY BEFORE BREAKFAST Comments: Last Taken: 12/28/17 Time: 6 AM Amiodarone HCl (Amiodarone HCl) 100 MG TABLET 1 Tablet ORAL DAILY Comments: Last Taken: 12/28/17 Time: 10 AM Mirtazapine (Mirtazapine) 15 MG TABLET 1 Half Tablet ORAL DAILY Comments: Last Taken: 12/27/17 Time: 2200 Latanoprost (Xalatan) 2.5 ML DROPS 1 Drop In the eye Every night Comments: Last Taken: 12/27/17 Time: 9:30 PM Fluticasone/Salmeterol (Advair 250-50 Diskus) 1 EACH BLST.W.DEV 1 Puff Inhale through mouth as needed for COPD Comments: Last Taken: 12/28/17 Time: 10 AM SYMBICORT GIVEN IN HOSPITAL Sacubitril/Valsartan (Entresto 97 MG-103 MG Tablet) 97 MG-103 MG TABLET 1 Tablet ORAL TWICE DAILY Qty = 170 Comments: Last Taken: 12/28/17 Time: 10 AM Albuterol Sulfate (Albuterol Sulfate) 2.5 MG/3 ML (0.083 %) VIAL.NEB 3 Milliliters Inhale through mouth TWICE DAILY Qty = 1 Instructions: Take three times a day as needed... Start taking the following new medications: Furosemide (Lasix) 40 MG TABLET 1 Tablet ORAL TWICE DAILY Qty = 60 No Refills
--- NOTE | 2018-01-21 17:26 | Event Note ---
Event Note Event Note: stiuation bed alarm causing discomfort Brief patient dont want to be on bed alarm. He had a history of stroke and fall risk. Explained the benefits and risks - prefers to be off the alarm. Plan discontinue alarm.
[2018-01-21 21:44] VITALS: BP 113/74
[2018-01-22 07:02] VITALS: BP 119/70
--- NOTE | 2018-01-22 07:26 | PN- Housestaff ---
Panchito SEGAL,Yola 01/22/18 0725: Subjective Follow-up For: Acute on chronic systolic heart failure COPD exacerbation Subjective: seen and examined at bedside. No overnight events. Remains comfortably resting on the chair. Denies any shrotness of breath, chest pain. Review of Systems Constitutional: Reports: see HPI. Objective Last 24 Hrs of Vital Signs/I&O Vital Signs Date Time Temp Pulse Resp B/P B/P Pulse O2 O2 Flow FiO2 Mean Ox Delivery Rate 01/22 0702 98.2 80 20 119/70 92 Room Air 01/21 2144 97.9 76 20 113/74 93 Room Air 01/21 1910 90 Room Air 01/21 1600 Room Air 01/21 1323 98.0 80 24 141/79 93 Room Air 01/21 0912 118/68 01/21 0911 118/68 01/21 0822 95 Nasal 2.0L Cannula 01/21 0800 95 Nasal 1.0L Cannula Intake & Output 01/22 0800 01/22 0000 01/21 1600 Intake Total 480 Output Total Balance 480 Intake, Oral 480 Patient 72.376 kg Weight Weight Bed scale Measurement Method Physical Exam General Appearance: Alert, Oriented X3, Cooperative Skin: No Rashes, No Breakdown HEENT: Atraumatic, PERRLA, EOMI Neck: Supple, No JVD Cardiovascular: Normal S1, Normal S2, ?systolic murmur Lungs: Clear to Auscultation, Normal Air Movement Abdomen: Normal Bowel Sounds, Soft, No Tenderness Neurological: Normal Tone, Sensation Intact, Cranial Nerves 3-12 NL, Reflexes 2+ Extremities: No Clubbing, No Cyanosis, No Edema Current Medications: Current Medications Sig/Hamida Start time Last Medication Dose Route Stop Time Status Admin Albuterol Sulfate 3 ML BID 01/17 1000 AC 01/22 INH 0846 Amiodarone HCl 100 MG DAILY 01/17 1000 AC 01/22 PO 0909 Atorvastatin Calcium 20 MG 1700 01/17 1700 AC 01/21 PO 1725 Budesonide/ 2 PUF BID 01/17 1000 AC 01/22 Formoterol Fumarate INH 0911 Digoxin 0.125 MG DAILY 01/17 1000 AC 01/22 PO 0911 Fluorouracil 1 JORDYN DAILY 01/19 0815 AC 01/22 TOP 0914 Furosemide 40 MG ONCE ONE 01/22 0600 DC 01/22 IV 01/22 0601 0905 Furosemide 80 MG 7:30 AM, & 4:30 PM 01/20 0915 DC 01/21 IV 1725 Glycerin/Mineral Oil 1 JORDYN TIDPRN PRN 01/18 1030 AC TOP Guaifenesin 600 MG Q12 01/17 1000 AC 01/22 PO 0911 Insulin Aspart 0 TIDAC 01/17 0800 AC 01/18 SC 1709 Latanoprost 1 GTT QPM 01/17 2200 AC 01/22 OPH 0022 Levothyroxine Sodium 0.1 MG DAILY AC 01/17 0700 AC 01/22 PO 0541 Mirtazapine 15 MG AT BEDTIME 01/19 2200 AC 01/21 PO 2259 Rivaroxaban 20 MG 1900 01/17 1900 AC 01/21 PO 1956 Sacubitril/Valsartan 1 TAB DAILY 01/19 1000 AC 01/22 PO 0913 Venlafaxine HCl 150 MG 0800 01/17 0800 AC 01/22 PO 0905 Last 24 Hrs of Lab/Ayaan Results Last 24 Hrs of Labs/Mics: Laboratory Tests 01/22/18 0700: Anion Gap 13, Estimated GFR > 60, BUN/Creatinine Ratio 24.0 Assessment/Plan Assessment: Mr Watkins is a 77 year old man w/ a PMHx of COPD, CHF (EF 25-30%) status post pacemaker, AICD, coronary artery disease status post multiple PCI's, CVA with residual right-sided deficits, Rt eye blindness, paroxysmal atrial fibrillation, bipolar disorder, type 2 diabetes (insulin-dependent), hypertension, Parkinson's disease was brought in with a chief concern of acute onset of shortness of breath. Patient's acute onset of dyspnea for 4-5 days ago, associated with nonproductive cough. his dyspnea on exertion which progressed to dyspnea at rest. He also had diaphoresis hours prior admission. Patient denied chest pain, wheezing, pedal edema. He reported increased weight gain in the last few weeks; goes to CHF clinic every week and reported increased lasix administration recently. Smoker 50 pk/year smoking history, quit a few yrs ago. Vitals at presentation temperature 98.5, pulse rate 84, respirations 24, blood pressure 142/79, 94% 4LNC. Physical exam General Exam: AAOx3, No acute distress. Skin: No rashes, no breakdown. HEENT: PERRLA, EOMI. Neck: Supple, No JVD No cervical lymphadenopathy CVS: Reg Rate, Normal S1,S2 Resp: decreased air entry, ronchi ant chest. Abdomen: Soft, No tenderness, Normal Bowel Sounds. Neuro: dysarthria ( chronic ), Strength 4/5 RUE, RLE ( old deficits) and 5/5 in other extremities, Sensation intact, CN III-XII NL, Reflexes 2+. Extremities: No cyanosis, pedal edema 2+ Pertinent lab findings- WBC 7.9 w/ granulocytosis. Last ECHO January 2018- Moderate to severe left ventricular dilatation. Mild concentric left ventricular hypertrophy. Moderately to severely reduced global left ventricular systolic function. Moderately to severely abnormal left ventricular EF estimated at 25- 30%. Mild right ventricular dilatation. Moderate right atrial dilatation. Catheter/pacemaker wire in the right heart. Mild to moderate mitral regurgitation. Trace tricuspid/Pulmonic regurgitation. Unable to estimate the right ventricular systolic pressure. Dilated inferior vena cava. CXR- Worsening moderate interstitial pulmonary edema and small bilateral pleural effusions with adjacent airspace opacities. Stable cardiomegaly. Problem List 1. Acute on chronic systolic heart failure Exacerbation Patient was first placed in observation and then was fully admitted to Telemetry service on 01/18 due to continued need for IV diuresis and oxygen supplementation for his acute hypoxic respiratory failure. Patient was started on IV lasix 40mg twice daily and later increased the dose to 80mg twice daily for optimal diuresis. Patient felt improved overall at this dose and was subsequently discharged on Lasix 40mg twice daily, with as needed home oxygen as patient ambulated and desturated to 89% on room air. 2. COPD, not on home oxygen Patient was not on home oxygen for COPD. Patient's symptoms and imagings aligned more of CHF exacerbation with pulmonary vascular congestion. Patient was given supplemental oxygen and TRC/Nebulizer for supportive treatment , without use of steroids. Patient weaned off oxygen as above and need no home oxygen arrangement. chronic medical conditions including status post pacemaker, AICD, coronary artery disease status post multiple PCI's, CVA with residual right-sided deficits, Rt eye blindness, paroxysmal atrial fibrillation, bipolar disorder, type 2 diabetes (insulin-dependent), hypertension, Parkinson's disease. Patient was continued on home meds except oral hypoglycemics and adjusted on lasix dose. DVT prophylaxis; Xarelto CHF diet DNR/DNI Problem List: 1. Presence of combination internal cardiac defibrillator (ICD) and pacemaker 2. CHF (congestive heart failure) 3. Pulmonary edema 4. Hypoxia 5. CHF exacerbation 6. HFrEF (heart failure with reduced ejection fraction) Pain Ratin Pain Location: n/a Pain Goal: Pain 4 or less Pain Plan: tylenol prn Tomorrow's Labs & Rationales: none Sophia Blake MD 01/22/18 1420: Attending MD Review Statement Attending Statement Attending MD Statement: examined this patient, discuss w/resident/PA/MARGIN CLERK, agreed w/resident/PA/MARGIN CLERK, reviewed EMR data (avail), discussed with nursing, discussed with case mgmt, reviewed images, amended to note Attending Assessment/Plan: Patient seen and examined, currently denies any complaints. He denies any current shortness of breath. Patient oxygen saturation at rest on room air was in 90s. He has been switched to oral Lasix. As discussed with cardiology Dr. Perez, patient can be discharged on oral Lasix. We'll continue the rest of his home medications. I have told patient's RN to check his ambulatory oxygen saturation on room air. If patient requires oxygen for home, that will be arranged with case management. Otherwise medically stable for discharge home today. Patient should follow-up with cardiology, primary care doctor in CHF clinic as an outpatient.
[2018-01-22] MEDS ORDERED: LASIX40 M1 PO (10:26)
[2018-01-22 14:30] VITALS: BP 105/63
== END 2018-01-22 17:00 | DRG 291 ==
LOC: ERH 20:29 → ERHI 23:16 → 1NO 23:16 → ENRESERV 01-17 16:07 → ENTRNSPT 01-17 17:48 → EDTRNSPTSTS 01-17 18:26 → 1NO 01-17 18:38 → CMPTRNSPT 01-17 19:03 → 1NO 01-18 07:41 → ENTRNSPT 01-21 12:53 → EDTRNSPTSTS 01-21 12:58 → EDTRNSPT 01-21 12:58 → 2NB 01-21 13:11 → CMPTRNSPT 01-21 13:20 → 2NB 01-21 20:36 → ENTRNSPT 01-22 16:28 → CMPTRNSPT 01-22 16:43 → 2NB 01-22 17:00
PROVIDERS: Emergency Medicine; Internal Medicine Endocrinology, Diabetes & Metabolism
DX: I11.0 Hypertensive heart disease with heart failure (principal); J96.01 Acute respiratory failure with hypoxia; I50.23 Acute on chronic systolic (congestive) heart failure; I69.951 Hemiplegia and hemiparesis following unspecified cerebrovascular disease affecting right dominant side; J44.1 Chronic obstructive pulmonary disease with (acute) exacerbation; R56.9 Unspecified convulsions; I42.9 Cardiomyopathy, unspecified; G20 Parkinson's disease; I08.1 Rheumatic disorders of both mitral and tricuspid valves; I27.20 Pulmonary hypertension, unspecified; Z79.01 Long term (current) use of anticoagulants; I48.0 Paroxysmal atrial fibrillation; I48.2 Chronic atrial fibrillation; E11.9 Type 2 diabetes mellitus without complications; I25.10 Atherosclerotic heart disease of native coronary artery without angina pectoris; Z95.0 Presence of cardiac pacemaker; Z95.5 Presence of coronary angioplasty implant and graft; I25.2 Old myocardial infarction; F31.9 Bipolar disorder, unspecified; H54.8 Legal blindness, as defined in USA; E03.9 Hypothyroidism, unspecified; Z87.891 Personal history of nicotine dependence; Z66 Do not resuscitate; Z79.4 Long term (current) use of insulin
CPT/HCPCS: 1NP; 2NBSP; 36592; 71045; 82436; 87804; 87804-59; 93005; 93010; 96374; 99291; C8929; J1940; J3490; Q9957

== ENCOUNTER 2018-06-23 16:33 | Inpatient (IN) | payer OTHER ==
[~2018-06-23] VITALS: Ht 175.3 cm; Wt 74.4 kg
[~2018-06-23 16:33] MED LIST changes: +FUROSEMIDE80 M1 PO; +LUMIGAN2.5 ML OPH
[2018-06-23 17:02] LABS: ABSOLUTE BASOPHIL COUNT 0 /CUMM (0.0-0.2); ABSOLUTE EOSINOPHIL COUNT 0 /CUMM (0.0-0.7); ABSOLUTE GRANULOCYTE CT 11.6 /CUMM (1.4-6.5); ABSOLUTE LYMPH COUNT 0.5 /CUMM (1.2-3.4); ABSOLUTE MONOCYTE COUNT 1.3 /CUMM (0.10-0.60); BASOPHIL % 0.1 % (0.0-2.0); EOSINOPHIL % 0.1 % (0-5); HEMATOCRIT 42.8 % (42-52); MEAN CORPUSCULAR HGB 33.6 PG (27.0-31.0); MEAN CORPUSCULAR HGB CONC 33.8 G/DL (33.0-37.0); MEAN CORPUSCULAR VOLUME 99.4 FL (80.0-94.0); PLATELET COUNT 138 /CUMM (130-400); RBC DISTRIBUTION WIDTH 13.5 % (11.5-14.5); WHITE BLOOD CELL COUNT 13.4 /CUMM (4.8-10.8)
--- NOTE | 2018-06-23 17:14 | ED GENERAL ADULT ---
History of Present Illness General Chief Complaint: Dyspnea (COPD, CHF, Other) Stated Complaint: BIBA SOB Source: patient, family Exam Limitations: no limitations Vital Signs & Intake/Output Vital Signs & Intake/Output Vital Signs Date Time Temp Pulse Resp B/P B/P Pulse O2 O2 Flow FiO2 Mean Ox Delivery Rate 06/23 2232 98.1 80 32 100/50 92 Nasal 3.0L Cannula 06/23 2230 Nasal 2.0L Cannula 06/23 2135 Nasal Cannula 06/23 2130 98.2 80 20 151/65 96 Nasal 3.0L Cannula 06/23 192 Room Air 06/23 183 98.2 80 20 104/55 91 Nasal 3.0L Cannula 06/23 1748 92 Nasal 2.5L Cannula 06/23 1712 Nasal 2.0L Cannula 06/23 1636 99.3 80 26 115/52 90 Nasal 2.0L Cannula Allergies Coded Allergies: NO KNOWN ALLERGIES (NO) (02/22/15) Reconcile Medications Amiodarone HCl 100 MG TABLET 1 TAB PO 1600 HEART (Reported) Atorvastatin Calcium (Lipitor) 20 MG TABLET 1 TAB PO DAILY CHOLESTEROL ( Reported) Bimatoprost (Lumigan) 0.01 % DROPS 1 GTT OPH QPM EYE (Reported) Colchicine (Unknown Strength) TABLET (Unknown Dose) UNKNOWN (Reported) Digoxin 125 MCG TABLET 1 TAB PO QAM HEART (Reported) Fluticasone/Salmeterol (Advair 250-50 Diskus) 1 EACH BLST.W.DEV 1 PUF INH BID PRN COPD (Reported) Furosemide 80 MG TABLET 1 TAB PO DAILY WATER RETENTION (Reported) Furosemide 40 MG TABLET 1 TAB PO QPM WATER RETENTION (Reported) Levothyroxine Sodium 100 MCG TABLET 1 TAB PO DAILY AC THYROID (Reported) Melatonin 5 MG CAPSULE 1 CAP PO QPM SLEEP (Reported) Metformin HCl 500 MG TABLET 1 TAB PO DAILY DIABETES (Reported) Mirtazapine 15 MG TABLET 1 TAB PO QPM DEPRESSION (Reported) Rivaroxaban (Xarelto) 20 MG TABLET 1 TAB PO QPM BLOOD THINNER (Reported) with food Sacubitril/Valsartan (Entresto 97 MG-103 MG Tablet) 97 MG-103 MG TABLET 1 TAB PO BID HEART (Reported) Venlafaxine HCl (Effexor XR) 150 MG CAP.ER.24H 1 CAP PO DAILY DEPRESSION ( Reported) Triage Note: 77 Y/O MALE BIBA FROM HOME FOR EVAL OF SOB X FEW DAYS. RECENTLY HOSPITALIZED SO UNKNOWN LAST TIME PT WAS SEEN NORMAL (PER EMS). PT ARRIVES A/O X 4, SLOW TO RESPOND SECONDARY TO HX STROKE WITH SPEECH AND R SIDED DEFICIT. PT REPORTS NON PRODUCTIVE COUGH AND SOB. SAT 91% ON RA. RECEIVED DUO NEB EN ROUTE BUT STOPPED MED EARLY DUE TO C/O N/V. SKIN WARM, AFEBRILE ON ARRIVAL DENIES PAIN. PACER IN PLACE TO L [facility]. PRE HOSPITAL IN PLACE. IV EST. BLOODWORK SENT AWAITING EVAL Triage Nurses Notes Reviewed? yes Onset: Abrupt Duration: day(s): (2-3), changing over time, continues in ED, getting worse Timing: recent history Injury Environment: home Severity: mild, moderate Severity Numbers: 5 No Modifying Factors: none HPI: 77 y/o male history of CVA, chf, Parkinson's, atrial fibrillation, diabetes, bipolar presents for evaluation of shortness of breath nausea vomiting and diarrhea. Patient's family reports that they first noticed symptoms about 3 days ago with increased work of breathing. Patient has had multiple episodes of watery diarrhea as well as nausea and vomiting. He reports a dry cough and shortness of breath not relieved by inhalers. Family also reports he has been having a very hard time ambulating when he stands up or get very dizzy and short of breath. He is not on home oxygen. No recent surgery hemoptysis or lower extremity edema. The family also reports low-grade fevers at home. No urinary symptoms abdominal pain bright red blood per rectum. Mental status is at baseline. Patient has a history of CVA with right-sided deficit. No chest pain. (Richie Schultz) Past History Travel History Traveled to [place] past 21 day No Medical History Any Pertinent Medical History? see below for history Neurological: CVA, Parkinson's disease, seizure, TIA, RIGHT SIDED WEAKNESS EENT: NONE Cardiovascular: AFIB, CAD, cardiomyopathy, CHF, hypertension Respiratory: asthma, COPD Gastrointestinal: GASTRITIS GI BLEED Hepatic: NONE Renal: NONE Musculoskeletal: NONE Psychiatric: bipolar disease Endocrine: diabetes, hypothyroidism Blood Disorders: anemia Cancer(s): NONE ENVIRONMENTAL ANALYST/Reproductive: NONE History of MRSA: No History of VRE: No History of CDIFF: No Tetanus Vaccine: 02/22/15 Surgical History Surgical History: hernia repair-inguinal, PACER/DEFIB MULTIPLE ANGIOPLASTIES R GROIN HERNIA REPAIR Psychosocial History Who do you live with Spouse Services at Home None What is your primary language Danish Tobacco Use: Quit >30 days ago Family History Family History, If Any: MOTHER (HTN). SISTER (OR AT 60). SISTER (DEPRESSION). SISTER (TREMORS). Relation not specified for: *No pertinent family history Hx Contributory? No (Richie Schultz) Review of Systems Review of Systems Constitutional: Reports: no symptoms. EENTM: Reports: no symptoms. Respiratory: Reports: see HPI, cough, short of breath. Cardiovascular: Reports: no symptoms. GI: Reports: no symptoms. Genitourinary: Reports: no symptoms. Musculoskeletal: Reports: no symptoms. Skin: Reports: no symptoms. Neurological/Psychological: Reports: see HPI (dizzy, weak). Hematologic/Endocrine: Reports: no symptoms. Immunologic/Allergic: Reports: no symptoms. All Other Systems: Reviewed and Negative (Richie Schultz) Physical Exam Physical Exam General Appearance: well developed/nourished, no apparent distress, alert, awake Head: atraumatic, normal appearance Eyes: Bilateral: normal appearance, PERRL, EOMI. Ears, Nose, Throat: normal pharynx, normal ENT inspection, hearing grossly normal Neck: normal inspection, supple, full range of motion Respiratory: chest non-tender, no respiratory distress, quiet respiration, decreased breath sounds (diffuse) Cardiovascular: regular rate/rhythm, normal peripheral pulses Peripheral Pulses: 2+ radial (R), 2+ radial (L) Gastrointestinal: soft, non-tender Back: normal inspection, normal range of motion, no vertebral tenderness Extremities: normal inspection, normal range of motion, no edema Neurologic/Psych: no motor/sensory deficits, awake, alert, oriented x 3, normal mood/affect, pre-existing right-sided deficit Skin: intact, normal color, warm/dry Lymphatic: no anterior cervical drake Core Measures ACS in differential dx? No CVA/TIA Diagnosis: No Sepsis Present: No Sepsis Focused Exam Completed? No (Richie Schultz) Progress Differential Diagnoses I considered the following diagnoses in my evaluation of the patient: [copd, chf , pna, pe, acs, viral gastroenteritis, colitis dovertiuclitis, electrolytes abn, dehydratopm] Plan of Care: Orders Procedure Date/time Status Consistent Carbohydrate 3 06/24 B Active CBC WITHOUT DIFFERENTIAL 06/24 0600 Active BASIC ELECTROLYTES PLUS BUN&CR 06/24 06 Active CULTURE,STOOL 06/23 2324 Active C.DIFFICILE 06/23 2324 Active Weight 06/23 2239 Active Vital Signs 06/23 2239 Active Teach/Educate 06/23 2239 Active Pain Treatment and Response 06/23 2239 Active Nutritional Intake, Monitor 06/23 2239 Active Isolation 06/23 2239 Active Intake & Output 06/23 2239 Active Patient Care Conference 06/23 2239 Active Activity/Ambulation 06/23 2239 Active TRC EVALUATION (GEN) 06/23 2152 Active Pathway - chart 06/23 2152 Active House Staff 06/23 2152 Active Patient Data 06/23 2152 Active Code Status 06/23 2152 Active OXYGEN SETUP (GEN) 06/23 2006 Active Saline Lock 06/23 2006 Active Admit to inpatient 06/23 2006 Active Vital Signs 06/23 2006 Active Activity/Ambulation 06/23 2006 Active Code Status 06/23 2006 Complete Patient Data 06/23 1945 Active Add-on Test (ER Only) 06/23 1924 Active Add-on Test (ER Only) 06/23 1916 Active EKG 06/23 1842 Active CULTURE,URINE 06/23 1802 Active Add-on Test (ER Only) 06/23 1644 Active PARTIAL THROMBOPLASTIN TIME 06/23 1641 Complete PROTHROMBIN TIME 06/23 1641 Complete DIGOXIN 06/23 1641 Complete Intake & Output 06/23 1637 Active BLOOD CULTURE 06/23 1637 Active URINALYSIS 06/23 1637 Complete TROPONIN LEVEL 06/23 1637 Complete LACTIC ACID 06/23 1637 Complete D-DIMER 06/23 1637 Complete COMPREHENSIVE METABOLIC PANEL 06/23 1637 Complete CBC WITHOUT DIFFERENTIAL 06/23 1637 Complete B-TYPE NATRIURETIC PEP (BNP) 06/23 1637 Complete EKG 06/23 1637 Active PT Evaluate & Treat 06/23 UNK Active Lab Add-on Test 06/23 UNK Active VTE Mechanical Prophylaxis 06/23 UNK Active Vital Signs 06/23 UNK Complete FingerStick- Glucose 06/23 UNK Active Activity/Ambulation 06/23 UNK Complete Current Medications Sig/Hamida Start time Last Medication Dose Stop Time Status Admin Furosemide 40 MG QPM 06/24 2100 AC (Lasix) Melatonin 5 MG AT BEDTIME 06/24 2100 AC (Melatonin) Mirtazapine 15 MG QPM 06/24 2100 AC (Remeron) Atorvastatin Calcium 20 MG 1700 06/24 1700 AC (Lipitor) Amiodarone HCl 100 MG 1600 06/24 1600 AC (Cordarone) Azithromycin 250 MG DAILY 06/24 0900 AC (Zithromax) Ceftriaxone Sodium 1,000 MG DAILY 06/24 0900 AC (Rocephin) Colchicine 600 MCG DAILY 06/24 09 CAN (Colchicine 600MCG Tab) Digoxin 0.125 MG QAM 06/24 09 AC (Lanoxin) Fluticasone 1 PUF BID 06/24 09 AC Propionate (Flovent) Furosemide 80 MG DAILY 06/24 09 AC (Lasix) Rivaroxaban 20 MG DAILY 06/24 09 AC (Xarelto) Sacubitril/Valsartan 2 TAB BID 06/24 09 AC (ENTRESTO 49MG/51MG) Venlafaxine HCl 150 MG 0800 06/24 08 AC (Effexor Xr) Levothyroxine Sodium 0.1 MG DAILY AC 06/24 0700 AC (Synthroid) Sodium Chloride 1,000 ML Q13H 06/23 2330 AC 06/23 (Normal Saline 0.9%) 06/24 1229 2325 Acetaminophen 650 MG Q6P PRN 06/23 220 AC (Tylenol) Insulin Aspart 0 TIDAC 06/23 2200 AC 06/23 (NovoLOG) 2324 Methylprednisolone 40 MG Q8 06/23 2200 AC 06/23 (Solumedrol) 2324 Laboratory Tests 06/23/18 1937: Lactic Acid Cancelled 06/23/18 1842: Troponin I Cancelled 06/23/18 1802: Urine Color YEL, Urine Clarity CLDY H, Urine pH 6.0, Ur Specific Tuttle >= 1.030, Urine Protein 100 H, Urine Ketones TRACE H, Urine Nitrite NEG, Urine Bilirubin NEG, Urine Urobilinogen 0.2, Ur Leukocyte Esterase MOD H, Ur Microscopic SEDIMENT EXAMINED, Urine RBC >75 H, Urine WBC PACKD H, Ur Epithelial Cells FEW, Urine Bacteria PACKD H, Urine Hemoglobin LARGE H, Urine Glucose NEG 06/23/18 1641: Anion Gap 12, Estimated GFR > 60, BUN/Creatinine Ratio 19.0, Glucose 143 H, Lactic Acid 1.6, Calcium 8.3 L, Total Bilirubin 1.2, AST 22, ALT 31, Alkaline Phosphatase 111, Troponin I 0.02, Chi-C-Ewrrrhkboqo Pept 2540 H, Total Protein 6.8, Albumin 4.0, Globulin 2.8, Albumin/Globulin Ratio 1.4, PT 15.2 H, INR 1.39 H, APTT 26, D-Dimer High Sensitivty < 200, CBC w Diff NO MAN DIFF REQ, RBC 4.30 L, MCV 99.4 H, MCH 33.6 H, MCHC 33.8, RDW 13.5, MPV 9.0, Gran % 86.6 H, Lymphocytes % 3.7 L, Monocytes % 9.5 H, Eosinophils % 0.1, Basophils % 0.1, Absolute Granulocytes 11.6 H, Absolute Lymphocytes 0.5 L, Absolute Monocytes 1.3 H, Absolute Eosinophils 0, Absolute Basophils 0, Digoxin 1.0 Microbiology 06/23 232 STOOL: Clostridium difficile Toxin A & B - ORD 06/23 232 STOOL: Stool Culture - ORD 06/23 1817 BLOOD: Blood Culture - RECD 06/23 1802 URINE ROUT: Urine Culture - RECD 06/23 1708 BLOOD: Blood Culture - RECD pt is here for eval of SOB n/v/d/ no chest or abd pain. pt is not on home oxygen. he arrives on 2 liters with oxygen sat at 90% at rest. oxygen was increased to 3lpm. labs ekg. chest x-ray prdered. blood cultures ordered. duo nebs, solumedrol ordered zithromax ordered. labs show a negative dimer, trop negative. chest x-ray appears unchanged. wbc is elevated and urine is showisng signs of infection urin culture ordered. pt covered with rocephin. a dry ct of the chest abdomne and pelvis ordered. pt will reqiuired admission for hypoxis likely caused by copd exAcerbatiopn. ct scans are negative for significant acute findings. pt will be admitted for uti and copd exacerbation causing hypoxia. pt will require iv abx, serial labs, iv steriods, pulm, follow up cultures, pt, casemanagement oxygen. Diagnostic Imaging: Viewed by Me: Radiology Read, CT Scan. Discussed w/RAD: Radiology Read, CT Scan. Radiology Impression: PATIENT: GABRIEL WELLINGTON PRESENT AGE: 77 PATIENT ACCOUNT NO: [id number] : 41 LOCATION: [facility] ORDERING PHYSICIAN: Richie PATEL SERVICE DATE: 06/23/18 EXAM TYPE: CAT - CT ABD & PELVIS W/O IV CONTRAS; CT CHEST WO IV CONTRAST EXAMINATION: CT CHEST, ABDOMEN AND PELVIS WITHOUT CONTRAST CLINICAL INFORMATION: Hypoxia. Shortness of breath. Cough. Nausea, vomiting and diarrhea. Abdominal pain. COMPARISON: Chest x-ray today. CT chest 02/07/2016. CT scan abdomen and pelvis 08/16/2014. TECHNIQUE: Multidetector axial images obtained through the chest, abdomen and pelvis without oral or intravenous contrast. Coronal and sagittal reformatted images are performed at the CT scanner. DLP: 464.52 mGy-cm. FINDINGS: CT CHEST: LUNGS: The lungs are clear with no evidence of inflammation or nodules. MEDIASTINUM: Heart size is enlarged. There is pacemaker leads in the right atrium and right ventricle. Lead also within the coronary sinus. There is no pericardial effusion. There is vascular wall calcifications of aorta and the origin of great vessels and of the coronary arteries. There are small shotty subcentimeter lymph nodes in the pretracheal retrovascular space. PLEURA: There are small dependent bilateral pleural effusions. AXILLA: No lymphadenopathy. CT ABDOMEN AND PELVIS: LIVER, GALLBLADDER, AND BILIARY TREE: The liver is normal in size, shape, and attenuation. No focal hepatic lesion or biliary ductal dilatation is present. The gallbladder is unremarkable with no evidence of radiopaque gallstones, gallbladder wall thickening, or obvious pericholecystic inflammatory changes. PANCREAS: There is fatty atrophy of the pancreas. No inflammation or mass. No pancreatic duct dilatation. SPLEEN: Spleen normal in size and contour. No focal lesion. ADRENAL GLANDS: Adrenal glands are normal in size. No focal mass. KIDNEYS AND URETERS: The kidneys are normal in size, shape, and attenuation. No hydronephrosis, hydroureter, or calculi seen. No perinephric stranding. BLADDER: The bladder is almost empty. There is mild bladder wall thickening diffusely, measuring about 6 mm at the dome of the bladder. This is likely related to the enlarged prostate. There is no inflammation around the bladder. No bladder calculus. GASTROINTESTINAL TRACT: There are a few diverticula of the colon. No diverticulitis. No acute change of the bowel. No bowel obstruction. No bowel wall thickening or edema. The appendix is not visualized. The small bowel loops are unremarkable. MESENTERY: No focal inflammation. No free fluid. No free air. ABDOMINAL WALL: Surgical mesh in the right groin. No evidence of recurrent hernia. LYMPH NODES: Normal. VASCULAR: There is marked atherosclerotic vascular calcifications throughout the abdomen and pelvis. This includes calcifications of the celiac axis and extensive calcification of the SMA and iliac arteries. 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 This extends to the right and left common iliac artery origins with the right common iliac artery measuring 2 cm in diameter and the left common iliac artery measuring 1.2 cm. PELVIC VISCERA: The prostate is enlarged measuring 6.7 cm transverse. Small coarse calcifications within the prostate. OSSEOUS STRUCTURES: Multilevel degenerative spondylosis of the spine. IMPRESSION: 1. Small dependent bilateral pleural effusions. 2. Cardiomegaly. Pacemaker leads in the heart. 3. Extensive atherosclerotic vascular calcifications of the chest and abdomen. 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 4. No acute change of bowel. 5. Enlarged prostate with associated mild bladder wall thickening. 6. Surgical mesh in the right groin. No recurrent hernia. DICTATED BY: Philippe Molina MD DATE/TIME DICTATED:06/23/181858 [employer] VAULT:MIRTA DATE/TIME TRANSCRIBED:1858 CONFIDENTIAL, DO NOT COPY WITHOUT APPROPRIATE AUTHORIZATION. < Electronically signed in Other Vendor System> CXR Impression: PATIENT: GABRIEL WELLINGTON PRESENT AGE : 77 PATIENT ACCOUNT NO: [id number] : 41 LOCATION: [facility] ORDERING PHYSICIAN: Richie PATEL SERVICE DATE: 06/23/18 EXAM TYPE: RAD - XRY- PORTABLE CHEST XRAY EXAMINATION: CHEST 1 VIEW CLINICAL INFORMATION: Fever, hypotension. COMPARISON: 01/19/2018. TECHNIQUE: An AP view of the chest is provided. FINDINGS: The cardiac silhouette is enlarged, though stable. A single lead pacer is in unchanged position. There is streaky nonspecific bibasilar opacification. The osseous structures are stable. IMPRESSION: Stable cardiomegaly without manifestations of vascular congestion. Nonspecific streaky bibasilar opacification. DICTATED BY: Gabriel Gale MD DATE/TIME DICTATED:06/23 [employer] VAULT:MIRTA DATE/TIME TRANSCRIBED:06/23/181711 CONFIDENTIAL, DO NOT COPY WITHOUT APPROPRIATE AUTHORIZATION. <Electronically signed in Other Vendor System> SIGNED BY: Gabriel Gale MD 06/23/18 9508 Initial ED EKG: VENTRICULAR PACED COMPLEX, IVCD (Richie Schultz) Departure Departure Disposition: STILL A PATIENT Condition: Stable Clinical Impression Primary Impression: COPD (chronic obstructive pulmonary disease) Qualifiers: COPD type: COPD with acute exacerbation Qualified Code: J44.1 - Chronic obstructive pulmonary disease with (acute) exacerbation Referrals: Fredis Kat MD (PCP/Family) Departure Forms: Customer Survey General Discharge Information Admission Note Spoke With: Kwaku Du MD Documentation of Exam: Documentation of any treatments & extenuating circumstances including Concerns Regarding Discharge (functional status, medication knowledge or non-compliance, living conditions, etc.) that warrant an admission rather than observation: [pt is hypoxic requireing oxgen to maintain sats of 90-91 on room air. pt will require iv abx, serial labs, iv steriods, pulm, follow up cultures, pt, casemanagement oxygen] (Richie Schultz) PA/SHOP SERVICE TECHNICIAN Co-Sign Statement Statement: ED Attending supervision documentation- x I saw and evaluated the patient. I have also reviewed all the pertinent lab results and diagnostic results. I agree with the findings and the plan of care as documented in the PA's/SHOP SERVICE TECHNICIAN's documentation. COPD exacerbation with hypoxia, UTI [] I have reviewed the ED Record and agree with the PA's/SHOP SERVICE TECHNICIAN's documentation. [] Additions or exceptions (if any) to the PAs/SHOP SERVICE TECHNICIAN's note and plan are summarized below: [] (Marcy SEGAL,Silvestre) Critical Care Note Critical Care Note Critical Care Time: non-applicable (Richie Schultz)
[2018-06-23 17:33] LABS: GRANULOCYTE % 86.6 % (42.2-75.2)
--- NOTE | 2018-06-23 17:35 | RADIOLOGY REPORT ---
EXAMINATION: CHEST 1 VIEW CLINICAL INFORMATION: Fever, hypotension. COMPARISON: 01/19/2018. TECHNIQUE: An AP view of the chest is provided. FINDINGS: The cardiac silhouette is enlarged, though stable. A single lead pacer is in unchanged position. There is streaky nonspecific bibasilar opacification. The osseous structures are stable. IMPRESSION: Stable cardiomegaly without manifestations of vascular congestion. Nonspecific streaky bibasilar opacification.
[2018-06-23] MEDS ORDERED: COLCHICINE0.6 M2 (18:45)
--- NOTE | 2018-06-23 19:24 | CT SCAN REPORT ---
EXAMINATION: CT CHEST, ABDOMEN AND PELVIS WITHOUT CONTRAST CLINICAL INFORMATION: Hypoxia. Shortness of breath. Cough. Nausea, vomiting and diarrhea. Abdominal pain. COMPARISON: Chest x-ray today. CT chest 02/07/2016. CT scan abdomen and pelvis 08/16/2014. TECHNIQUE: Multidetector axial images obtained through the chest, abdomen and pelvis without oral or intravenous contrast. Coronal and sagittal reformatted images are performed at the CT scanner. DLP: 464.52 mGy-cm. FINDINGS: CT CHEST: LUNGS: The lungs are clear with no evidence of inflammation or nodules. MEDIASTINUM: Heart size is enlarged. There is pacemaker leads in the right atrium and right ventricle. Lead also within the coronary sinus. There is no pericardial effusion. There is vascular wall calcifications of aorta and the origin of great vessels and of the coronary arteries. There are small shotty subcentimeter lymph nodes in the pretracheal retrovascular space. PLEURA: There are small dependent bilateral pleural effusions. AXILLA: No lymphadenopathy. CT ABDOMEN AND PELVIS: LIVER, GALLBLADDER, AND BILIARY TREE: The liver is normal in size, shape, and attenuation. No focal hepatic lesion or biliary ductal dilatation is present. The gallbladder is unremarkable with no evidence of radiopaque gallstones, gallbladder wall thickening, or obvious pericholecystic inflammatory changes. PANCREAS: There is fatty atrophy of the pancreas. No inflammation or mass. No pancreatic duct dilatation. SPLEEN: Spleen normal in size and contour. No focal lesion. ADRENAL GLANDS: Adrenal glands are normal in size. No focal mass. KIDNEYS AND URETERS: The kidneys are normal in size, shape, and attenuation. No hydronephrosis, hydroureter, or calculi seen. No perinephric stranding. BLADDER: The bladder is almost empty. There is mild bladder wall thickening diffusely, measuring about 6 mm at the dome of the bladder. This is likely related to the enlarged prostate. There is no inflammation around the bladder. No bladder calculus. GASTROINTESTINAL TRACT: There are a few diverticula of the colon. No diverticulitis. No acute change of the bowel. No bowel obstruction. No bowel wall thickening or edema. The appendix is not visualized. The small bowel loops are unremarkable. MESENTERY: No focal inflammation. No free fluid. No free air. ABDOMINAL WALL: Surgical mesh in the right groin. No evidence of recurrent hernia. LYMPH NODES: Normal. VASCULAR: There is marked atherosclerotic vascular calcifications throughout the abdomen and pelvis. This includes calcifications of the celiac axis and extensive calcification of the SMA and iliac arteries. 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 This extends to the right and left common iliac artery origins with the right common iliac artery measuring 2 cm in diameter and the left common iliac artery measuring 1.2 cm. PELVIC VISCERA: The prostate is enlarged measuring 6.7 cm transverse. Small coarse calcifications within the prostate. OSSEOUS STRUCTURES: Multilevel degenerative spondylosis of the spine. IMPRESSION: 1. Small dependent bilateral pleural effusions. 2. Cardiomegaly. Pacemaker leads in the heart. 3. Extensive atherosclerotic vascular calcifications of the chest and abdomen. 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 4. No acute change of bowel. 5. Enlarged prostate with associated mild bladder wall thickening. 6. Surgical mesh in the right groin. No recurrent hernia.
[2018-06-23 19:34] LABS: PT 15.2 SEC (9.4-12.5); PTT 26 SEC (25-37)
--- NOTE | 2018-06-23 20:37 | History & Physical ---
Keke Méndez 06/23/182034: General Information and HPI MD Statement: I have seen and personally examined RASHAWN WELLINGTON and documented this H&P. The patient is a 77 year old M who presented with a patient stated chief complaint of []. 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 Patient reports he was recently hospitalized at [facility] s/ mechanical fall in bathroom with unknown LOC. He was then sent to rehab and just released home two weeks ago with home PT and visiting RN. He states he was feeling okay until two days ago. He reports associated decrease in appetite and subsequent decrease in PO intake. He states he has been sleeping 12 hours a night when he normally sleeps 8-10. He was last hospitalized for COPD exacerbation in January 2018. He also reports suprapubic abdominal pain but denies any associate dysuria frequency or urgency. He states he has had about 3 episodes of vomiting and approximately 12 episodes of diarrhea. He denies fever, chills, Chest pain, change in bowel habits, dizziness, headache, or fall since coming home. Allergies/Medications Allergies: Coded Allergies: NO KNOWN ALLERGIES (NO) (02/22/15) Home Med list Amiodarone HCl 100 MG TABLET 1 TAB PO 1600 HEART (Reported) Atorvastatin Calcium (Lipitor) 20 MG TABLET 1 TAB PO DAILY CHOLESTEROL ( Reported) Bimatoprost (Lumigan) 0.01 % DROPS 1 GTT OPH QPM EYE (Reported) Colchicine (Unknown Strength) TABLET (Unknown Dose) UNKNOWN (Reported) Digoxin 125 MCG TABLET 1 TAB PO QAM HEART (Reported) Fluticasone/Salmeterol (Advair 250-50 Diskus) 1 EACH BLST.W.DEV 1 PUF INH BID PRN COPD (Reported) Furosemide 80 MG TABLET 1 TAB PO DAILY WATER RETENTION (Reported) Furosemide 40 MG TABLET 1 TAB PO QPM WATER RETENTION (Reported) Levothyroxine Sodium 100 MCG TABLET 1 TAB PO DAILY AC THYROID (Reported) Melatonin 5 MG CAPSULE 1 CAP PO QPM SLEEP (Reported) Metformin HCl 500 MG TABLET 1 TAB PO DAILY DIABETES (Reported) Mirtazapine 15 MG TABLET 1 TAB PO QPM DEPRESSION (Reported) Rivaroxaban (Xarelto) 20 MG TABLET 1 TAB PO QPM BLOOD THINNER (Reported) with food Sacubitril/Valsartan (Entresto 97 MG-103 MG Tablet) 97 MG-103 MG TABLET 1 TAB PO BID HEART (Reported) Venlafaxine HCl (Effexor XR) 150 MG CAP.ER.24H 1 CAP PO DAILY DEPRESSION ( Reported) Compliance With Home Meds: GOOD Past History Travel History Traveled to [place] past 21 day No Medical History Neurological: CVA, Parkinson's disease, seizure, TIA, RIGHT SIDED WEAKNESS EENT: NONE Cardiovascular: AFIB, CAD, cardiomyopathy, CHF, hypertension Respiratory: asthma, COPD Gastrointestinal: GASTRITIS GI BLEED Hepatic: NONE Renal: NONE Musculoskeletal: NONE Psychiatric: bipolar disease Endocrine: diabetes, hypothyroidism Blood Disorders: anemia Cancer(s): NONE AIRLINE RADIO OPERATOR/Reproductive: NONE History of MRSA: No History of VRE: No History of CDIFF: No Tetanus Vaccine: 02/22/15 Surgical History Surgical History: hernia repair-inguinal, PACER/DEFIB MULTIPLE ANGIOPLASTIES R GROIN HERNIA REPAIR Past Family/Social History Family History Relations & Conditions if any MOTHER (HTN). SISTER (GA AT 60). SISTER (DEPRESSION). SISTER (TREMORS). Relation not specified for: *No pertinent family history Psychosocial History Where do you live? Home Who Do You Live With? spouse Services at Home: None Other Social History: Lives at home with his . He is not able to cook for himself and says his son brings him breakfast and dinner. He does not get lunch however. Functional Ability ADLs Independent: dressing, eating, toileting, bathing. Ambulation: cane (NON-COMPLIANT) IADLs Needs Assist: shopping, housework, finances, food prep, telephone, transportation, medication admin. Review of Systems Review of Systems Constitutional: Reports: no symptoms. EENTM: Reports: no symptoms. Cardiovascular: Reports: no symptoms. Respiratory: Reports: cough, short of breath. Denies: sputum production. GI: Reports: abdominal pain, diarrhea, nausea, vomiting. Denies: melena. Genitourinary: Reports: no symptoms. Musculoskeletal: Reports: no symptoms. Skin: Reports: no symptoms. Exam & Diagnostic Data Last 24 Hrs of Vital Signs/I&O Vital Signs Date Time Temp Pulse Resp B/P B/P Pulse O2 O2 Flow FiO2 Mean Ox Delivery Rate 06/24 0000 Nasal 2.0L Cannula 06/23 2232 98.1 80 32 100/50 92 Nasal 3.0L Cannula 06/23 2230 Nasal 2.0L Cannula 06/23 2135 Nasal Cannula 06/23 2130 98.2 80 20 151/65 96 Nasal 3.0L Cannula 06/23 1927 Room Air 06/23 1837 98.2 80 20 104/55 91 Nasal 3.0L Cannula 06/23 1748 92 Nasal 2.5L Cannula 06/23 1712 Nasal 2.0L Cannula 06/23 1636 99.3 80 26 115/52 90 Nasal 2.0L Cannula Intake & Output 06/24 0800 06/24 0000 06/23 1600 Intake Total 100 Output Total Balance 100 Intake, Oral 100 Patient 164 lb Weight Weight Reported by Patient Measurement Method Physical Exam General Appearance Alert, Oriented X3, Cooperative, No Acute Distress Skin ecchymosis to BUE/BLE and petechia to anterior chest and abdomen, BLE, BUE Skin Temp/Moisture Exam: Warm/Dry HEENT Atraumatic, PERRLA Neck Supple Cardiovascular Regular Rate, Normal S1, Normal S2 Lungs decreased breath sounds bilateral bases Abdomen Normal Bowel Sounds, Soft, suprapubic tenderness Neurological facial ticks (tardive dyskinesia) with frequent occular movements; decreased eye contact; frequent blinking; oral lip smacking Extremities No Cyanosis, Normal Pulses Assessment/Plan Assessment: 77 year old male with PMH COPD (not on home oxygen), DM, 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 Patient found to have UTI on ED work up and COPD exacerbation with acute hypoxia requiring oxygen supplementation. He will be admitted to the general medicine service for further care of the following: Problem List: 1. Acute on Chronic COPD exacerbation 2. Diarrhea 3. UTI 4. Leukocytosis 5. DM 6. Recent h/o fall; fatigue with decreased ambulation Admission Data: VS T99.3 P80 RR 26 BP115/52 Sat 90% 2LNC Pertinent Labs: WBC 13.4 H/H 14. 5/42.8 Plt 138 Na 133 K3.8 BUN 19/Cr 1.0 ProBNP 2540 INR 1.39 UA: Nit neg; Leuk Mod; RBC>75 BCx and UCx pending Given Ceftriaxone; Azithromycin; SoluMedrol CXR: Stable cardiomegaly without manifestations of vascular congestion. Nonspecific streaky bibasilar opacification. CT Chest/Abd/Pelv: 1. Small dependent bilateral pleural effusions. 2. Cardiomegaly. Pacemaker leads in the heart. 3. Extensive atherosclerotic vascular calcifications of the chest and abdomen. 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 4. No acute change of bowel. 5. Enlarged prostate with associated mild bladder wall thickening. 6. Surgical mesh in the right groin. No recurrent hernia. #Acute on chronic COPD exacerbation - SoluMedrol in ED; IV SoluMedrol 40mg Q8 hr; taper when appropriate -Duonebs -Azithromycin for 5 days #Diarrhea-acute gastroenteritis (viral vs bacterial) vs medication induced ( Digoxin) -Dig level -C-diff; stool antigen -Stool Ova and parasite #UTI -Urine culture/sensitivities -IV Ceftriaxone and taper when sensitivities result #Leukocytosis- possibly 2/2 viral gastroenteritis vs infectious 2/2 UTI -conitnue to monitor #DM -Hold metformin -Sliding scale insulin -Accu checks #H/o recent fall with fatigue and decreased ambulation -Will need case management and PT eval to assess fall risk and safety living with elderly who is just getting out of the hospital today for Asthma exacerbation -Inability to cook for self; assess ADLs; son supplementing meals but not all meals DVT prophylaxis: on xarelto/ALPS/ambulation As Ranked By This Provider Problem List: 1. Diabetes 2. Dyspnea 3. COPD exacerbation Core Measures/Misc (07/26) Acute Coronary Syndrome ACS Diagnosis: No Congestive Heart Failure Congestive Heart Failure Diagnosis No Cerebrovascular Accident CVA/TIA Diagnosis: No VTE (View Protocol) VTE Risk Factors Acute Medical Illness No Mechanical VTE Prophylaxis d/t N/A MechProphylax Ordered No VTE Pharm Prophylaxis d/t NA PharmProphylax ordered Sepsis (View protocol) Sepsis Present: No If YES complete Sepsis Event Note If YES complete Sepsis Event Note Chaim Espinoza 06/23/18 2326: Core Measures/Misc (07/26) Sepsis (View protocol) If YES complete Sepsis Event Note If YES complete Sepsis Event Note Resident Review Statement Resident Statement: examined this patient, discussed with gallery intern, agreed with gallery intern, discussed with family, reviewed EMR data (avail), discussed with nursing , discussed with case mgmt, reviewed images, amended to note Other Findings: This is a 77-year-old male with past medical history significant for hypertension, hyperlipidemia, atrial fibrillation on anticoagulation, status post pacemaker placement, depression, diabetes mellitus, insomnia, hypothyroidism, systolic congestive heart failure with ejection fraction 20%, COPD not on home oxygen, remote history of stroke with right-sided deficits and speech deficits presented to the hospital with chief complaint of shortness of breath, nonproductive cough, nausea, vomiting, diarrhea for 2 days. Patient was last admitted to [facility] in January 2018 for COPD and CHF exacerbation. Patient also reports that he was admitted to [facility] 4 weeks prior to this admission for questionable fall and loss of consciousness, discharged to rehab, being at home for last couple of weeks. Patient reports shortness of breath with minimal exertion associated with anonproductive cough for 2 days. He also reports increased work of breathing, not relieved with his usual inhalers. He reports difficulty ambulation from shortness of breath. Denies any fever, chills, sick contacts, travel exposure. Denies any chest pain, sputum production. Patient reports that his was admitted to hospital for asthma exacerbation. Patient also reports nausea and episodes of vomiting and diarrhea for last couple of days. He admits having 10 episodes of vomiting and 12 episodes of diarrhea, loose, watery, nonbloody. Not associated with any fever, chills. On further questioning he reports lower abdomen pain, denies any fever, chills, dysuria, frequency, urgency. He denies smoking, alcohol abuse. He has history of COPD, not on any home oxygen. He follows Dr. Ricardo for COPD. -- Vitals low-grade temperature 99.3, heart rate 80, respiratory rate 20, blood pressure 115/52, saturating at 91, requiring 3 L oxygen supplementation On exam HEENT within normal limit, facial tics, ecchymosis and petechiae all over the body, S1-S2 normal no murmurs, irregularly irregular, decreased breath sounds bilaterally, suprapubic tenderness on palpation Pertinent labs WBC 13.4, no bands, hemoglobin 14 and hematocrit 42, platelets 138 Sodium 133, potassium 3.8, BUN 19, creatinine 1, glucose 143, Urine cloudy, esterase positive, packed WBC, bacteria. EKG showed ventricular paced rhythm Chest x-ray showed cardiomegaly with bibasilar opacification. CAT scan chest abdomen pelvis 1. Small dependent bilateral pleural effusions. 2. Cardiomegaly. Pacemaker leads in the heart. 3. Extensive atherosclerotic vascular calcifications of the chest and abdomen. 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 4. No acute change of bowel. 5. Enlarged prostate with associated mild bladder wall thickening. 6. Surgical mesh in the right groin. No recurrent hernia. --------- 1. Acute hypoxic respiratory failure from acute COPD exacerbation Patient presented with worsening shortness of breath with minimal exertion and nonproductive cough for 2 days. Of note he does not use any oxygen at home for his COPD. He reports increased work of breathing not relieved with inhaler treatments. Given his worsening shortness of breath, increased cough, requiring 3 L oxygen supplementation we will admit him to [facility] for acute COPD exacerbation and acute hypoxic respiratory failure * Admitted to [facility] * Monitor vitals every shift * Maintain oxygen saturation greater than 92% * Provide supplemental oxygen * IV methylprednisolone 40 every 8 hours * Total respiratory care * DO nebs * P.o. azithromycin 250 mg for 5 days * Sputum cultures if any * Monitor for fever, leukocytosis 2. Acute gastroenteritis Patient reports nausea associated with vomiting and loose watery diarrhea for couple of days. Denies any blood in stool, vomitus. Denies any abdominal discomfort except for suprapubic pain. No right upper quadrant tenderness. CAT scan was done which showed no acute changes of bowel. Possible differentials acute viral gastroenteritis versus C. difficile infection. * Continue IV fluids * Antinausea medication if necessary * Stool cultures * Stool for C. difficile * Follow-up for further episodes of diarrhea and vomiting 3. Acute cystitis Patient reports lower abdominal pain, denies any fever, chills, frequency, urgency, dysuria. However he has suprapubic tenderness on exam. Urine analysis was cloudy, positive for esterase, WBC, bacteria. Given his symptoms, urine findings we will treat him for lower urinary tract infection * Monitor for fever, leukocytosis * Follow-up urine cultures * Meanwhile continue IV ceftriaxone thousand milligrams daily * Of note patient has low-grade fever 99.3 associated with leukocytosis 13.4. Chronic medical problems Hyperlipidemia continue Lipitor 20 daily Atrial fibrillation continue amiodarone 100 daily, Xarelto 20 daily, digoxin 125 mcg daily. Of note Dig level was within normal limits Hypertension continue entresto twice daily Diabetes mellitus continue Accu-Cheks, NovoLog sliding scale. Please hold metformin Hypothyroidism continue levothyroxine 100 mcg daily Depression continue venlafaxine 5150 mg and mirtazapine 15 mg daily Insomnia continue melatonin 40 mg at bedtime Systolic congestive heart failure continue Lasix 80 in the morning, 40 in the evening DVT prophylaxis on Xarelto Full code Consistent carbohydrate diet Pain pathway ordered Holding colchicine his home medication given diarrhea Physical therapy consult placed Kwaku Du MD 06/24/18 0220: Core Measures/Misc (07/26) Sepsis (View protocol) If YES complete Sepsis Event Note If YES complete Sepsis Event Note Attending MD Review Statement Attending Statement Attending MD Statement: examined this patient, discuss w/resident/PA/LINUX SYSTEMS ANALYST, agreed w/resident/PA/LINUX SYSTEMS ANALYST, discussed with family (discussed with patient's son) Attending Assessment/Plan: Patient is seen and examined independently by me. Care plan discussed with medical collections representative and resident. I agree with the physical exam findings and plan of care as outlined above with the following changes and additions. 77 yo M with history of COPD, A fib on Xarelto, CHF, PPM, DM, CVA with residual right sided weakness, Parkinson, bipolar, presented with SOB, nausea, vomiting, diarrhea for 3 days. He has worsening of SOB with non productive cough which was not improved with his inhalers. He also has weakness and dizziness with difficulty to ambulate. He also has nausea with 3 times non bloody vomiting and 10 times of non bloody watery diarrhea daily for last 3 days. He has poor appetite and some suprapubic pain. He denies fever, chills, chest pain, dysuria or urinary frequency. His was just discharged from hospital due to asthma exacerbation. He denies sick contact or recent travel. He got Pneumovax May 2018 and Flu vaccine in Fall 2016. On exam, lungs has mild wheezing. There is mild suprapubic tenderness with no rebound or guarding. In the ED, Tmax 99.3. WBC 13.4. UA shows large amount of WBC and bacteria. LFT unremarkable. BNP 2540. CXR shows cardiomegaly with no significant infiltrate or edema. CT chest/abdomen/pelvis show clear lungs. No diverticulitis, bowel wall thickening or abscess. Patient got ceftriaxone 1 g IV, azithromycin 500 mg IV, Solumedrol 125 mg IV, atrovent, albuterol and Zofran 4 mg IV in the ED. His SOB and wheezing have improved with I saw him. Patient is admitted to [facility] for acute on chronic COPD exacerbation, UTI, possible viral gastroenteritis. Check cultures and stool studies. Start O2, solumedrol, Zithromax, ceftriaxone and nebs. Physical therapy. Kwaku Du MD FACP
[2018-06-23 22:32] VITALS: BP 100/50
[2018-06-24 05:58] VITALS: BP 100/64
--- NOTE | 2018-06-24 07:28 | PN- Housestaff ---
Karena Brasher 06/24/18 0727: Subjective Follow-up For: COPD exacerbation and UTI Subjective: Patient was seen and examined at bedside. He did not have any complaints. He wanted to see a valve inserter for a lesion on his head. He does report some suprapubic pain. He denies shortness of breath, fever, chills, nausea, vomiting, cough. Review of Systems Constitutional: Reports: see HPI. Objective Last 24 Hrs of Vital Signs/I&O Vital Signs Date Time Temp Pulse Resp B/P B/P Pulse O2 O2 Flow FiO2 Mean Ox Delivery Rate 06/24 1935 94 Room Air 06/24 1423 Room Air 06/24 1344 97.5 87 20 90/70 92 Room Air 06/24 0558 97.4 80 20 100/64 96 06/24 0000 Nasal 2.0L Cannula 06/23 2232 98.1 80 32 100/50 92 Nasal 3.0L Cannula 06/23 2230 Nasal 2.0L Cannula 06/23 213 Nasal Cannula 06/23 2130 98.2 80 20 151/65 96 Nasal 3.0L Cannula Intake & Output 06/24 1600 06/24 0800 06/24 0000 Intake Total 900 850 100 Output Total 400 700 Balance 500 150 100 Intake, IV 150 600 Intake, Oral 750 250 100 Output, Urine 400 700 Patient 164 lb Weight Weight Reported by Patient Measurement Method Physical Exam General Appearance: Alert, Oriented X3, Cooperative, No Acute Distress Skin: No Rashes Neck: Supple Cardiovascular: Regular Rate, Normal S1, Normal S2 Lungs: Clear to Auscultation Abdomen: Normal Bowel Sounds, Soft, No Tenderness Neurological: motor speech deficits secondary to CVA Assessment/Plan Assessment: 77 year old male with PMH COPD (not on home oxygen), DM, 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 Patient found to have UTI on ED work up and COPD exacerbation with acute hypoxia requiring oxygen supplementation. He is admitted to [facility] floor for the evaluation and management of the following: Problem List: 1. Acute on Chronic COPD exacerbation 2. Diarrhea 3. UTI 4. Leukocytosis 5. DM 6. Recent h/o fall; fatigue with decreased ambulation VS T99.3 P80 RR 26 BP115/52 Sat 94% on room air WBC 5.7 H/H 14. 5/42.8 Plt 138 Na 133 K3.8 BUN 19/Cr 1.0 ProBNP 2540 INR 1.39 CXR: Stable cardiomegaly without manifestations of vascular congestion. Nonspecific streaky bibasilar opacification. CT Chest/Abd/Pelv: 1. Small dependent bilateral pleural effusions. 2. Cardiomegaly. Pacemaker leads in the heart. 3. Extensive atherosclerotic vascular calcifications of the chest and abdomen. 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 4. No acute change of bowel. 5. Enlarged prostate with associated mild bladder wall thickening. 6. Surgical mesh in the right groin. No recurrent hernia. 1.Acute on chronic COPD exacerbation -Patient saturating well on room air - Pulmonary input appreciated: * Solumedrol 40mg x 5 days without taper * No antibiotics * Duonebs * COntinue diuresis 2. Diarrhea-acute gastroenteritis (viral vs bacterial) vs medication induced ( Digoxin) -Dig level -C-diff; stool antigen pending -Stool Ova and parasite pending 3.UTI -Urine culture: Gram negative rods -IV Ceftriaxone and taper when sensitivities result 4. Leukocytosis- possibly 2/2 viral gastroenteritis vs infectious 2/2 UTI -Resolved 5.DM -Hold metformin -Sliding scale insulin -Accu checks 6. H/o recent fall with fatigue and decreased ambulation -Ambulating well. -PT evaluation -Inability to cook for self; assess ADLs; son supplementing meals but not all meals DVT prophylaxis: on xarelto/ALPS/ambulation Problem List: 1. COPD (chronic obstructive pulmonary disease) 2. Anemia 3. Diarrhea 4. History of CVA with residual deficit 5. UTI (urinary tract infection) Pain Ratin Pain Location: na Pain Goal: Remain pain free Pain Plan: na Tomorrow's Labs & Rationales: cbc and bep Cleopatra Villanueva 06/24/18 1222: Attending MD Review Statement Attending Statement Attending MD Statement: examined this patient, discuss w/resident/PA/AUTOMOTIVE SPECIALTY TECHNICIAN, agreed w/resident/PA/AUTOMOTIVE SPECIALTY TECHNICIAN, discussed with family, reviewed EMR data (avail), discussed with nursing, discussed with case mgmt, reviewed images, amended to note Attending Assessment/Plan: Patient with pmh as above comes with UTI with bladder wall thickening likely cystitis and possible COPD exacerbation with dramatic improvment. Pulmonary consulted and recommend rapid steroid taper. He is doing fairly well on antibiotics for UTI. Patient with h/o systolic CHF with small bilateral effusions and cardiomegaly. Continue with PO lasix. Continue current care.
[2018-06-24 07:42] LABS: ABSOLUTE BASOPHIL COUNT 0 /CUMM (0.0-0.2); ABSOLUTE EOSINOPHIL COUNT 0 /CUMM (0.0-0.7); ABSOLUTE GRANULOCYTE CT 5.4 /CUMM (1.4-6.5); ABSOLUTE LYMPH COUNT 0.2 /CUMM (1.2-3.4); ABSOLUTE MONOCYTE COUNT 0.1 /CUMM (0.10-0.60); BASOPHIL % 0 % (0.0-2.0); EOSINOPHIL % 0 % (0-5); HEMATOCRIT 39.8 % (42-52); MEAN CORPUSCULAR HGB 33.7 PG (27.0-31.0); MEAN CORPUSCULAR HGB CONC 34.2 G/DL (33.0-37.0); MEAN CORPUSCULAR VOLUME 98.4 FL (80.0-94.0); PLATELET COUNT 123 /CUMM (130-400); RBC DISTRIBUTION WIDTH 13.5 % (11.5-14.5); RED BLOOD CELL CT 4.04 /CUMM (4.70-6.10)
[2018-06-24 08:27] LABS: GRANULOCYTE % 94.5 % (42.2-75.2); WHITE BLOOD CELL COUNT 5.7 /CUMM (4.8-10.8)
--- NOTE | 2018-06-24 10:25 | Cons- Pulmonary ---
General Information and HPI Consulting Request Date of Consult: 06/24/18 Requested By: Dr. Villanueva Reason for Consult: dyspnea Source of Information: patient Exam Limitations: no limitations History of Present Illness: 77 year old man. Consultation for dyspnea in the setting of COPD. Mild exacerbation of COPD. 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 A.fib on amiodarone, xarelto. Hx of PPM. Admitted after diarrhea and stomach cramping for a few days, consistent with gastroenteritis. Recent fall requiring stay at [facility]. In Feb hospitalized for exacerbation of CHF and mild COPD exacerbation. No fevers, no chills. No CP. Dyspnea is improving, he is on room air and able to ambulate. Diarrhea has subsided. He has no travel hx, his was just discharged for an exacerbation of asthma. No LOC, no foy, no wheezing, mild dry cough. CXR/CT ABD - small b/l pleural effusions. wbc resolved. Allergies/Medications Allergies: Coded Allergies: NO KNOWN ALLERGIES (NO) (02/22/15) Home Med List: Amiodarone HCl 100 MG TABLET 1 TAB PO 1600 HEART (Reported) Atorvastatin Calcium (Lipitor) 20 MG TABLET 1 TAB PO DAILY CHOLESTEROL ( Reported) Bimatoprost (Lumigan) 0.01 % DROPS 1 GTT OPH QPM EYE (Reported) Colchicine (Unknown Strength) TABLET (Unknown Dose) UNKNOWN (Reported) Digoxin 125 MCG TABLET 1 TAB PO QAM HEART (Reported) Fluticasone/Salmeterol (Advair 250-50 Diskus) 1 EACH BLST.W.DEV 1 PUF INH BID PRN COPD (Reported) Furosemide 80 MG TABLET 1 TAB PO DAILY WATER RETENTION (Reported) Furosemide 40 MG TABLET 1 TAB PO QPM WATER RETENTION (Reported) Levothyroxine Sodium 100 MCG TABLET 1 TAB PO DAILY AC THYROID (Reported) Melatonin 5 MG CAPSULE 1 CAP PO QPM SLEEP (Reported) Metformin HCl 500 MG TABLET 1 TAB PO DAILY DIABETES (Reported) Mirtazapine 15 MG TABLET 1 TAB PO QPM DEPRESSION (Reported) Rivaroxaban (Xarelto) 20 MG TABLET 1 TAB PO QPM BLOOD THINNER (Reported) with food Sacubitril/Valsartan (Entresto 97 MG-103 MG Tablet) 97 MG-103 MG TABLET 1 TAB PO BID HEART (Reported) Venlafaxine HCl (Effexor XR) 150 MG CAP.ER.24H 1 CAP PO DAILY DEPRESSION ( Reported) Current Medications: Current Medications Sig/Hamida Start time Last Medication Dose Route Stop Time Status Admin Acetaminophen 650 MG Q6P PRN 06/23 2200 AC PO Albuterol Sulfate 3 ML ONCE ONE 06/23 1745 DC 06/23 INH 06/23 1746 1748 Amiodarone HCl 100 MG 1600 06/24 1600 AC PO Atorvastatin Calcium 20 MG 1700 06/24 1700 AC PO Azithromycin 250 MG DAILY 06/24 0900 AC 06/24 PO 0819 Azithromycin 500 MG ONCE ONE 06/23 1830 DC 06/23 Sodium Chloride 250 ML IV 06/23 Ceftriaxone Sodium 1,000 MG DAILY 06/24 09 AC 06/24 IV 08 Ceftriaxone Sodium 0 .STK-MED ONE 06/23 2029 DC .ROUTE Ceftriaxone Sodium 1,000 MG ONCE ONE 06/23 1930 DC 06/23 IV 06/23 Colchicine 600 MCG DAILY 06/24 09 CAN PO Digoxin 0.125 MG QAM 06/24 09 AC 06/24 PO 0818 Fluticasone 1 PUF BID 06/24 09 AC 06/24 Propionate INH 0825 Furosemide 40 MG QPM 06/24 2100 AC PO Furosemide 80 MG DAILY 06/24 09 AC 06/24 PO 0819 Insulin Aspart 0 TIDAC 06/23 2200 AC 06/24 SC 0823 Ipratropium Bandera 2.5 ML ONCE ONE 06/23 174 DC 06/23 INH 06/23 174 174 Levothyroxine Sodium 0.1 MG DAILY AC 06/24 0700 AC 06/24 PO 0501 Melatonin 5 MG AT BEDTIME 06/24 2100 AC PO Methylprednisolone 40 MG Q8 06/23 2200 AC 06/24 IV 0501 Methylprednisolone 0 .STK-MED ONE 06/23 175 DC .ROUTE Methylprednisolone 125 MG ONCE ONE 06/23 174 DC 06/23 IV 06/23 174 175 Mirtazapine 15 MG QPM 06/24 2100 AC PO Ondansetron HCl 0 .STK-MED ONE 06/23 175 DC .ROUTE Ondansetron HCl 4 MG ONCE ONE 06/23 1745 DC 06/23 IV 06/23 1746 175 Rivaroxaban 20 MG DAILY 06/24 0900 AC 06/24 PO 0819 Sacubitril/Valsartan 2 TAB BID 06/24 0900 AC 06/24 PO 0818 Sodium Chloride 1,000 ML Q13H 06/23 2330 AC 06/23 IV 06/24 1229 2325 Venlafaxine HCl 150 MG 0800 06/24 0800 AC 06/24 PO 0817 Review of Systems Comments 18 pt ROS reviewed pertinent positives and negatives in HPI otherwise negative Past History Travel History Traveled to [place] past 21 day No Medical History Blood Transfusion Hx: No Neurological: CVA, Parkinson's disease, seizure, TIA, RIGHT SIDED WEAKNESS EENT: NONE Cardiovascular: AFIB, CAD, cardiomyopathy, CHF, hypertension Respiratory: asthma, COPD Gastrointestinal: GASTRITIS GI BLEED Hepatic: NONE Renal: NONE Musculoskeletal: NONE Psychiatric: bipolar disease Endocrine: diabetes, hypothyroidism Blood Disorders: anemia Cancer(s): NONE BLADE GROOVER/Reproductive: NONE Surgical History Surgical History: hernia repair-inguinal, PACER/DEFIB MULTIPLE ANGIOPLASTIES R GROIN HERNIA REPAIR Family History Relations & Conditions If Any: MOTHER (HTN). SISTER (SC AT 60). SISTER (DEPRESSION). SISTER (TREMORS). Relation not specified for: *No pertinent family history Psychosocial History Where Do You Live? Home Who Do You Live With? spouse Services at Home: None Smoking Status: Former Smoker Other Social History: Lives at home with his . He is not able to cook for himself and says his son brings him breakfast and dinner. He does not get lunch however. Functional Ability ADLs Independent: dressing, eating, toileting, bathing. Ambulation: cane (NON-COMPLIANT) IADLs Needs Assist: shopping, housework, finances, food prep, telephone, transportation, medication admin. Exam & Diagnostic Data Last 24 Hrs of Vital Signs/I&O Vital Signs Date Time Temp Pulse Resp B/P B/P Pulse O2 O2 Flow FiO2 Mean Ox Delivery Rate 06/24 0558 97.4 80 20 100/64 96 06/24 0000 Nasal 2.0L Cannula 06/23 2232 98.1 80 32 100/50 92 Nasal 3.0L Cannula 06/23 2230 Nasal 2.0L Cannula 06/23 2135 Nasal Cannula 06/23 2130 98.2 80 20 151/65 96 Nasal 3.0L Cannula 06/23 1927 Room Air 08/15 1837 98.2 80 20 104/55 91 Nasal 3.0L Cannula 06/23 1748 92 Nasal 2.5L Cannula 06/23 1712 Nasal 2.0L Cannula 06/23 1636 99.3 80 26 115/52 90 Nasal 2.0L Cannula Intake & Output 06/24 1600 06/24 0800 06/24 0000 Intake Total 850 100 Output Total 700 Balance 150 100 Intake, IV 600 Intake, Oral 250 100 Output, Urine 700 Patient 164 lb Weight Weight Reported by Patient Measurement Method Physical Exam Other Physical Findings: gen awake and alert heent ncat cvs s1, s2 lungs slighltly reduced at bases abd soft, bs+ ext without edema Last 48 Hrs of Labs/Ayaan: Laboratory Tests 06/24/18 0645: Anion Gap 10, Estimated GFR > 60, BUN/Creatinine Ratio 22.2, CBC w Diff NO MAN DIFF REQ, RBC 4.04 L, MCV 98.4 H, MCH 33.7 H, MCHC 34.2, RDW 13.5, MPV 9.0, Gran % 94.5 H, Lymphocytes % 4.1 L, Monocytes % 1.4 L, Eosinophils % 0, Basophils % 0, Absolute Granulocytes 5.4, Absolute Lymphocytes 0.2 L, Absolute Monocytes 0.1, Absolute Eosinophils 0, Absolute Basophils 0 06/23/18 1937: Lactic Acid Cancelled 06/23/18 1842: Troponin I Cancelled 06/23/18 1802: Urine Color YEL, Urine Clarity CLDY H, Urine pH 6.0, Ur Specific [place] >= 1.030, Urine Protein 100 H, Urine Ketones TRACE H, Urine Nitrite NEG, Urine Bilirubin NEG, Urine Urobilinogen 0.2, Ur Leukocyte Esterase MOD H, Ur Microscopic SEDIMENT EXAMINED, Urine RBC >75 H, Urine WBC PACKD H, Ur Epithelial Cells FEW, Urine Bacteria PACKD H, Urine Hemoglobin LARGE H, Urine Glucose NEG 06/23/18 1641: Anion Gap 12, Estimated GFR > 60, BUN/Creatinine Ratio 19.0, Glucose 143 H, Lactic Acid 1.6, Calcium 8.3 L, Total Bilirubin 1.2, AST 22, ALT 31, Alkaline Phosphatase 111, Troponin I 0.02, [id number] Pept 2540 H, Total Protein 6.8, Albumin 4.0, Globulin 2.8, Albumin/Globulin Ratio 1.4, PT 15.2 H, INR 1.39 H, APTT 26, D-Dimer High Sensitivty < 200, CBC w Diff NO MAN DIFF REQ, RBC 4.30 L, MCV 99.4 H, MCH 33.6 H, MCHC 33.8, RDW 13.5, MPV 9.0, Gran % 86.6 H, Lymphocytes % 3.7 L, Monocytes % 9.5 H, Eosinophils % 0.1, Basophils % 0.1, Absolute Granulocytes 11.6 H, Absolute Lymphocytes 0.5 L, Absolute Monocytes 1.3 H, Absolute Eosinophils 0, Absolute Basophils 0, Digoxin 1.0 Assessment/Plan Impression/Plan: Impression 77 year old man * admitted for gastroenteritits * c/o dyspnea consistent with mild COPD exacerbation * hx of systolic CHF Plan -prednisone 40mg po x 5 days without a taper -on room air, ambulating well -cont diuresis -xarelto -TRC -no evidence of pneumonia - from the respiratory perspective antibiotics are not required DVT prophylaxis at all times Consult Acknowledgment - Thank you for your consult request.
[2018-06-24 13:44] VITALS: BP 90/70
[2018-06-24 22:00] VITALS: BP 120/70
[2018-06-25 06:19] VITALS: BP 122/76
--- NOTE | 2018-06-25 07:21 | PN- Housestaff ---
See Addendum Subjective Follow-up For: Acute exacebation of COPD, UTI Subjective: Patient was seen and examined at bedside. He was sitting up, dressed up and eating his breakfast. He says he feels much better. He was in good spirits and saturating well on room air. He says he would need some eye drops for "regulating pressure" at night. Denies fever, chills, nausea, vomiting, diarrhea, shortness of breath. Review of Systems Constitutional: Reports: see HPI. Objective Last 24 Hrs of Vital Signs/I&O Vital Signs Date Time Temp Pulse Resp B/P B/P Pulse O2 O2 Flow FiO2 Mean Ox Delivery Rate 06/25 0810 80 122/76 06/25 0619 98.1 80 18 122/76 91 Room Air 06/25 0000 Nasal 2.0L Cannula 06/24 2200 97.8 74 18 120/70 92 06/24 1935 94 Room Air 06/24 1423 Room Air 06/24 1344 97.5 87 20 90/70 92 Room Air Intake & Output 06/25 1600 06/25 0800 06/25 0000 Intake Total 250 400 Output Total 1000 350 Balance -750 50 Intake, Oral 250 400 Output, Urine 1000 350 Physical Exam General Appearance: Alert, Oriented X3, Cooperative, No Acute Distress Skin: No Rashes HEENT: Atraumatic, PERRLA Neck: Supple Cardiovascular: Regular Rate, Normal S1, Normal S2 Lungs: Clear to Auscultation Abdomen: Normal Bowel Sounds, Soft, No Tenderness Neurological: motor aphasia and facial tics Extremities: Normal Pulses, No Tenderness/Swelling Assessment/Plan Assessment: 77 year old male with PMH COPD (not on home oxygen), DM, 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 Patient found to have UTI on ED work up and COPD exacerbation with acute hypoxia requiring oxygen supplementation. He is doing well today and saturating well on room air. Problem List: 1. Acute on Chronic COPD exacerbation 2. Diarrhea 3. UTI 4. Leukocytosis 5. DM 6. Recent h/o fall; fatigue with decreased ambulation VS Tmax: 98.1 P: 88 RR:26 BP122/76 Sat 95% on room air CXR: Stable cardiomegaly without manifestations of vascular congestion. Nonspecific streaky bibasilar opacification. CT Chest/Abd/Pelv: 1. Small dependent bilateral pleural effusions. 2. Cardiomegaly. Pacemaker leads in the heart. 3. Extensive atherosclerotic vascular calcifications of the chest and abdomen. 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 4. No acute change of bowel. 5. Enlarged prostate with associated mild bladder wall thickening. 6. Surgical mesh in the right groin. No recurrent hernia. 1.Acute on chronic COPD exacerbation -Patient saturating well on room air - Pulmonary input appreciated: * Prednsione 40mg for 3 more days. Stop on Thursday * No antibiotics * Duonebs * Continue diuresis 2. Diarrhea-acute gastroenteritis (viral vs bacterial) vs medication induced ( Digoxin) -Dig level -C-diff; stool antigen pending -Stool Ova and parasite pending 3.UTI -Urine culture: Gram negative rods -IV Ceftriaxone and taper when sensitivities result 4. Leukocytosis- possibly 2/2 viral gastroenteritis vs infectious 2/2 UTI -Resolved 5.DM -Hold metformin -Sliding scale insulin -Accu checks 6. H/o recent fall with fatigue and decreased ambulation -Ambulating well. -PT evaluation -Inability to cook for self; assess ADLs; son supplementing meals but not all meals The patient can be discharged home today since he is on oral steroids to be stopped on Thursday. He is saturating well on room air and is ambulating adequately. DVT prophylaxis: on xarelto/ALPS/ambulation Problem List: 1. History of CVA with residual deficit 2. COPD exacerbation 3. UTI (urinary tract infection) Pain Ratin Pain Location: na Pain Goal: Remain pain free Pain Plan: pathway Tomorrow's Labs & Rationales: na
--- NOTE | 2018-06-25 08:24 | PN- Pulmonary ---
Subjective HPI/Critical Care Issues: pt seen and examined continued to receive solumedrol, feeling better GNR in urine afebrile normotensive 91% on RA Objective Current Medications: Current Medications Sig/Hamida Start time Last Medication Dose Route Stop Time Status Admin Acetaminophen 650 MG Q6P PRN 06/23 2200 AC PO Albuterol Sulfate 3 ML BID 06/24 2100 AC 06/24 INH 1935 Amiodarone HCl 100 MG 1600 06/24 1600 AC 06/24 PO 1745 Atorvastatin Calcium 20 MG 1700 06/24 1700 AC 06/24 PO 1745 Azithromycin 250 MG DAILY 06/24 09 DC 06/24 PO 0819 Ceftriaxone Sodium 1,000 MG DAILY 06/24 0900 AC 06/25 IV 0810 Digoxin 0.125 MG QAM 06/24 0900 AC 06/25 PO 0810 Fluticasone 1 PUF BID 06/24 0900 AC 06/25 Propionate INH 0809 Furosemide 40 MG QPM 06/24 2100 AC PO Furosemide 80 MG DAILY 06/24 0900 AC 06/25 PO 0810 Insulin Aspart 0 TIDAC 06/23 2200 AC 06/25 SC 0809 Levothyroxine Sodium 0.1 MG DAILY AC 06/24 0700 AC 06/25 PO 0648 Melatonin 5 MG AT BEDTIME 06/24 2100 AC 06/24 PO 2045 Methylprednisolone 40 MG Q8 06/23 2200 DC 06/25 IV 0648 Mirtazapine 15 MG QPM 06/24 2100 AC 06/24 PO 2045 Patient Medication 1 ED ONE ONE 06/24 1630 DC 06/24 Teaching ED 06/24 1631 1745 Prednisone 40 MG DAILY 06/26 0900 AC PO Rivaroxaban 20 MG DAILY 06/24 0900 AC 06/25 PO 0810 Sacubitril/Valsartan 2 TAB BID 06/24 09 AC 06/25 PO 0810 Sodium Chloride 1,000 ML Q13H 06/23 2330 DC 06/23 IV 06/24 1229 2325 Venlafaxine HCl 150 MG 0800 06/24 0800 AC 06/25 PO 0810 Vital Signs & I&O Last 24 Hrs of Vitals and I&O: Vital Signs Date Time Temp Pulse Resp B/P B/P Pulse O2 O2 Flow FiO2 Mean Ox Delivery Rate 06/25 0810 80 122/76 06/25 0619 98.1 80 18 122/76 91 Room Air 06/25 0000 Nasal 2.0L Cannula 06/24 2200 97.8 74 18 120/70 92 06/24 1935 94 Room Air 06/24 1423 Room Air 06/24 1344 97.5 87 20 90/70 92 Room Air Intake & Output 06/25 1600 06/25 0800 06/25 0000 Intake Total 250 400 Output Total 1000 350 Balance -750 50 Intake, Oral 250 400 Output, Urine 1000 350 Exam Other Physical Findings: gen awake and alert heent ncat cvs s1, s2 lungs slighltly reduced at bases abd soft, bs+ ext without edema Impression/Plan Impression/Plan Impression/Plan: Impression 77 year old man * admitted for gastroenteritits, UTI (GNR in urine) * c/o dyspnea consistent with mild COPD exacerbation * hx of systolic CHF Plan -prednisone 40mg po x 2 more days (received solumedrol today) - STOP on Thursday -f/u urine culture - cont abx -on room air, ambulating well -cont diuresis -xarelto -TRC -no evidence of pneumonia -pt requesting eye drops - please review [facility] for med rec DVT prophylaxis at all times will sign off at this time
[2018-06-25 14:29] VITALS: BP 100/58
--- NOTE | 2018-06-25 14:59 | Patient Discharge Instructions ---
Discharge Instructions General Discharge Information You were seen/treated for: COPD exacerbation and UTI Special Instructions: 1.Please see your PCP within a week of your discharge. 2. Please report to the ED if you experince worsening shortness of breath, fever , productive cough. Acute Coronary Syndrome Inclusion Criteria At DC or during hospital stay patient has or had the following: ACS DIAGNOSIS No Discharge Core Measures Meds if any: Prescribed or Continued at Discharge Meds if any: NOT Prescribed or Continued at Discharge Congestive Heart Failure Inclusion Criteria At DC or during hospital stay patient has or had the following: CHF DIAGNOSIS No Discharge Core Measures Meds if any: Prescribed or Continued at Discharge Meds if any: NOT Prescribed or Continued at Discharge Cerebrovascular accident Inclusion Criteria At DC or during hospital stay patient has or had the following: CVA/TIA Diagnosis No Discharge Core Measures Meds if any: Prescribed or Continued at Discharge Meds if any: NOT Prescribed or Continued at Discharge Venous thromboembolism Inclusion Criteria VTE Diagnosis No VTE Type NONE VTE Confirmed by (Test) NONE Discharge Core Measures - Per Current guidelines, there needs to be overlap - treatment for the first 5 days of Warfarin therapy. - If discharged on Warfarin prior to 5 days of - overlap therapy, the patient will need to be - assessed for post discharge needs including - *Post discharge parental anticoagulation - *Warfarin and/or parental anticoagulation education - *Follow up date to check INR post discharge At least 5 days overlap therapy as Inpatient No Meds if any: Prescribed or Continued at Discharge Note: Overlap Therapy is Warfarin and Anticoagulant Meds if any: NOT Prescribed or Continued at Discharge
[2018-06-25] MEDS ORDERED: PREDNISONE20 M1 PO (15:08)
[2018-06-25] MEDS ORDERED: KEFLEX500 M1 PO (15:08)
== END 2018-06-25 16:18 | disposition home health service (06) | DRG 190 ==
LOC: ERH 16:33 → 2NA 20:06 → ERHI 20:06 → ENRESERV 21:26 → ENTRNSPT 21:51 → 2NA 21:52 → EDTRNSPT 21:53 → EDTRNSPTSTS 21:53 → CMPTRNSPT 22:01 → 2NA 22:18
PROVIDERS: Hospitalist; Physician Assistant Medical
DX: J44.1 Chronic obstructive pulmonary disease with (acute) exacerbation (principal); J96.01 Acute respiratory failure with hypoxia; I69.351 Hemiplegia and hemiparesis following cerebral infarction affecting right dominant side; I42.9 Cardiomyopathy, unspecified; N39.0 Urinary tract infection, site not specified; I50.22 Chronic systolic (congestive) heart failure; Z95.0 Presence of cardiac pacemaker; G20 Parkinson's disease; I48.2 Chronic atrial fibrillation; Z79.01 Long term (current) use of anticoagulants; E11.9 Type 2 diabetes mellitus without complications; Z79.84 Long term (current) use of oral hypoglycemic drugs; F31.9 Bipolar disorder, unspecified; K52.9 Noninfective gastroenteritis and colitis, unspecified; I11.0 Hypertensive heart disease with heart failure; F32.9 Major depressive disorder, single episode, unspecified
CPT/HCPCS: 2NASP; 36592; 71045; 74176; 81001; 82436; 87015; 87040; 87045; 87086; 87899; 87899-59; 93005; 93010; 96374; 96375; 97116-GO; 97161-GP; J0456; J0696; J2405; J2920; J2930; J3490; J7040